=== PATIENT | male | born 1955 | race African-American/Black ===

== ENCOUNTER 2016-10-23 09:35 | Observation (INO) | payer MEDICAID ==
[~2016-10-23] VITALS: Ht 185.4 cm; Wt 117.1 kg
[2016-10-23] VITALS (9 sets, daily range): BP systolic 125–163; BP diastolic 63–80; PULSE 82–102; RESP 16–20; TEMP 97.4–98.2; O2SAT 92–99
[~2016-10-23 09:35] MED LIST: ALBU1AER INH; CYCL1PAK PO; DORZSOL EACH EYE; FAMO20TA2 PO; GLYB1TAB51 PO; HYDR10SO PO; IRON27TA PO; LATA.005%O OU; METO100T PO; NEUR800T PO; POTA-267 PO; PRED5SOL PO; ZOCO40TA PO
[2016-10-23] MEDS ORDERED: METO100T PO (10:22)
[2016-10-23] MEDS ORDERED: GABA800T PO (10:22)
[2016-10-23] MEDS ORDERED: FERR325T72 PO (10:22)
[2016-10-23] MEDS ORDERED: SIMV10TA PO (10:22)
[2016-10-23] MEDS ORDERED: GLYB5TAB3 PO (10:22)
[2016-10-23] MEDS ORDERED: METH4PAK PO (10:22)
[2016-10-23] MEDS ORDERED: ALBUAER3 INH (10:23)
[2016-10-23] MEDS ORDERED: DORZ1SOL EACH EYE (10:24)
[2016-10-23] MEDS ORDERED: LATA0.002 EACH EYE (10:24)
[2016-10-23] MEDS ORDERED: HYDR-3583 PO (10:27)
--- NOTE | 2016-10-23 10:38 | PD ---
HPI Chief Complaint: Facial Pain or Swelling Time Seen by Provider: 10:20 Travel History International Travel<30 days: No Contact w/Intl Traveler<30days: No Traveled to known affect area: No History of Present Illness HPI 60-year-old male complains of swelling of the neck. Patient states that he started having plugged ear last week. Patient used [id number] equipment with fluid to wash his ear out. 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 Patient states that last therapy was 5 days ago. Patient started having swelling of the neck underneath the chin 6 days ago. Patient states that he has gurgling noise and lying down at night. Patient was seen and admitted to [facility] in [facility] 5 days ago. Patient was discharged in the next day. Patient was advised to stop taking losartan and prednisone and advised to take the Medrol Dosepak after discharge. Patient states that he had persistent swelling of the neck and underneath the chin since then. Patient states that the swelling probably get worse since yesterday. Patient denies any problem with swallowing or breathing. Patient denies any chest pain or shortness of breath. Patient denies any itching rash. Patient has history hypertension, diabetes, hyperlipidemia. PFSH Past Medical History Arthritis: Yes Asthma: No Autoimmune Disease: No Blood Disorders: No Anxiety: No Depression: No Heart Rhythm Problems: No Cancer: Yes Cardiovascular Problems: No High Cholesterol: No Chemotherapy: Yes (PILLS, NONE CURRENTLY) Chest Pain: No Congestive Heart Failure: No COPD: No Cerebrovascular Accident: No Diabetes: Yes Patient Takes Glucophage: No Diminished Hearing: No Endocrine: Yes GERD: No Glaucoma: No Genitourinary: No Headaches: No Hepatitis: No Hypertension: Yes Immune Disorder: No Implanted Vascular Access Dvce: Yes (RIGHT CHEST) Kidney Stones: No Musculoskeletal: Yes Neurologic: Yes (GUILLAIN BARRE) Psychiatric: No Reproductive: No Respiratory: No Immunizations Current: Yes Migraines: No Myocardial Infarction: No Renal Failure: No Seizures: No Sickle Cell Disease: No Sleep Apnea: No Thyroid Disease: No Ulcer: No ?: Not Past Surgical History Abdominal Surgery: No AICD: No Appendectomy: No Cardiac Surgery: No Cholecystectomy: No Ear Surgery: No Endocrine Surgery: No Eye Surgery: No Genitourinary Surgery: No Gynecologic Surgery: No Joint Replacement: No Oral Surgery: No Pacemaker: No Thoracic Surgery: No Other Surgery: Yes (PORT INSERTION, RIGHT CHEST) Social History Alcohol Use: Yes (2 BEERS PER DAY) Tobacco Use: No Substance Use: No Allergies-Medications (Allergen,Severity, Reaction): Coded Allergies: Lisinopril (Verified Allergy, Unknown, 10/23/16) Reported Meds & Prescriptions Reported Meds & Active Scripts Active Reported Hydrocodone-Acetaminophen 10-325 mg Tab 1 Tab PO TID Cosopt Pf Opth Drops (Dorzolamide-Timolol Pf Opth Drops) 22.3-6.8 mg/ml Soln 1 Drop EACH EYE DAILY Latanoprost Opth Drops (Latanoprost) 0.005% Drops 1 Drop EACH EYE HS Refrigerate until opened. Proair Hfa 8.5 GM Inh (Albuterol Sulfate) 90 Mcg/Act Aer 2 Puff INH DAILY PRN 108 mcg/actuation Methylprednisolone Dosepak (Methylprednisolone) 4 Dspk 4 Mg PO DIRECTED Per Pharmacist Direction Metoprolol Tartrate 100 Mg Tab 100 Mg PO DAILY Ferrous Gluconate 325 Mg Tab 325 Mg PO DAILY Gabapentin 800 Mg Tab 1,600 Mg PO TID Simvastatin 10 Mg Tab 10 Mg PO HS Glyburide 5 Mg Tab 5 Mg PO DAILY Take with meals at the same time each day Review of Systems General / Constitutional: No: Fever Eyes: No: Visual changes HENT: No: Headaches Cardiovascular: No: Chest Pain or Discomfort Respiratory: No: Shortness of Breath Gastrointestinal: No: Abdominal Pain Genitourinary: No: Dysuria Musculoskeletal: No: Pain Skin: No Rash Neurologic: No: Weakness Psychiatric: No: Depression Endocrine: No: Polydipsia Hematologic/Lymphatic: No: Easy Bruising Physical Exam Narrative GENERAL: Well-nourished, well-developed patient. SKIN: Focused skin assessment warm/dry. HEAD: Normocephalic. EYES: No scleral icterus. No injection or drainage. NECK: Supple, trachea midline. No JVD or lymphadenopathy. Patient has soft tissue swelling submandibular area anterior cervical area. Nontender palpation. No redness no heat no induration. CARDIOVASCULAR: Regular rate and rhythm without murmurs, gallops, or rubs. RESPIRATORY: Breath sounds equal bilaterally. No accessory muscle use. GASTROINTESTINAL: Abdomen soft, non-tender, nondistended. MUSCULOSKELETAL: No cyanosis, or edema. BACK: Nontender without obvious deformity. No CVA tenderness. Neurologic exam normal. Data Data Last Documented VS Vital Signs Date Time Temp Pulse Resp B/P Pulse Ox O2 Delivery O2 Flow Rate FiO2 10/23/16 15:49 82 16 140/67 96 Room Air 10/23/16 09:37 98.2 Orders Complete Blood Count With Diff (10/23/16 10:29) Comprehensive Metabolic Panel (10/23/16 10:29) Prothrombin Time / Inr (Pt) (10/23/16 10:29) Act Partial Throm Time (Ptt) (10/23/16 10:29) C-Reactive Protein (Crp) (10/23/16 10:29) Urinalysis - C+S If Indicated (10/23/16 10:29) Westergren Sedimentation Rate (10/23/16 10:29) Monoscreen (10/23/16 10:29) Chest, Single Ap (10/23/16 10:29) Iv Access Insert/Monitor (10/23/16 10:29) Ecg Monitoring (10/23/16 10:29) Oximetry (10/23/16 10:29) Ct Soft Tiss Neck W Iv Cont (10/23/16 10:29) Iohexol 350 Inj (Omnipaque 350 Inj) (10/23/16 12:42) Labs Laboratory Tests Test 10/23/16 10/23/16 10:45 11:15 White Blood Count 12.8 TH/MM3 Red Blood Count 3.77 MIL/MM3 Hemoglobin 11.0 GM/DL Hematocrit 33.3 % Mean Corpuscular Volume 88.4 FL Mean Corpuscular Hemoglobin 29.3 PG Mean Corpuscular Hemoglobin 33.1 % Concent Red Cell Distribution Width 16.1 % Platelet Count 88 TH/MM3 Mean Platelet Volume 9.6 FL Neutrophils (%) (Auto) 75.9 % Lymphocytes (%) (Auto) 14.9 % Monocytes (%) (Auto) 8.9 % Eosinophils (%) (Auto) 0.2 % Basophils (%) (Auto) 0.1 % Neutrophils # (Auto) 9.7 TH/MM3 Lymphocytes # (Auto) 1.9 TH/MM3 Monocytes # (Auto) 1.1 TH/MM3 Eosinophils # (Auto) 0.0 TH/MM3 Basophils # (Auto) 0.0 TH/MM3 CBC Comment AUTO DIFF Differential Comment AUTO DIFF CONFIRMED Platelet Estimate LOW Platelet Morphology Comment NORMAL Polychromasia 2.0 % Erythrocyte Sedimentation Rate 85 mm/hr Prothrombin Time 11.1 SEC Prothromb Time International 1.0 RATIO Ratio Activated Partial 21.5 SEC Thromboplast Time Urine Color YELLOW Urine Turbidity CLEAR Urine pH 5.5 Urine Specific [place] 1.014 Urine Protein NEG mg/dL Urine Glucose (UA) NEG mg/dL Urine Ketones NEG mg/dL Urine Occult Blood NEG Urine Nitrite NEG Urine Bilirubin NEG Urine Urobilinogen 2.0 MG/DL Urine Leukocyte Esterase NEG Urine RBC LESS THAN 1 /hpf Urine WBC 1 /hpf Urine Squamous Epithelial <1 /hpf Cells Urine Mucus FEW /lpf Microscopic Urinalysis Comment CULT NOT INDICATED Sodium Level 139 MEQ/L Potassium Level 3.7 MEQ/L Chloride Level 106 MEQ/L Carbon Dioxide Level 28.0 MEQ/L Anion Gap 5 MEQ/L Blood Urea Nitrogen 13 MG/DL Creatinine 1.03 MG/DL Estimat Glomerular Filtration 89 ML/MIN Rate Random Glucose 53 MG/DL Calcium Level 8.4 MG/DL Total Bilirubin 0.8 MG/DL Aspartate Amino Transf 30 U/L (AST/SGOT) Alanine Aminotransferase 28 U/L (ALT/SGPT) Alkaline Phosphatase 83 U/L C-Reactive Protein 0.81 MG/DL Total Protein 10.6 GM/DL Albumin 2.7 GM/DL Monoscreen NEG MDM Medical Decision Making Medical Screen Exam Complete: Yes Emergency Medical Condition: Yes Interpretation(s) 16 11 PM. Last Impressions Neck CT 10/23/16 1029 Signed Impressions: Service Date/Time: Sunday, October 23, 2016 12:27 - CONCLUSION: Mild nonspecific cellulitis or edema in the submandibular regions and anterior neck. Bebeto Bryant MD 16 11 PM. CBC WBC 12.8. Hemoglobin 11.0 hematocrit 33.3. Platelet 88. 75 neutrophil. Sedimentation rate 85. C-reactive protein 0.81. Stevens screen negative. Differential Diagnosis Differential diagnosis including angioedema, lymphadenopathy, abscess. Narrative Course 60-year-old male with submandibular and anterior cervical swelling. Patient was on losartan and was seen at [facility] and advised to stop that medication. Patient had persistent swelling since then. No respiratory or GI compromise. Diagnosis Primary Impression: Herpangina Additional Impression: Angioedema Qualified Code: T78.3XXA - Angioedema, initial encounter Gabriel Hall MD Oct 23, 2016 10:38
[2016-10-23 11:17] LABS: AUTOMATED NEUTROPHIL # 9.7 TH/MM3 (1.8-7.7); BASOPHIL % 0.1 % (0.0-2.0); EOSINOPHIL % 0.2 % (0.0-4.0); HEMATOCRIT 33.3 % (39.0-51.0); LYMPH % 14.9 % (9.0-44.0); LYMPHOCYTE # 1.9 TH/MM3 (1.0-4.8); MEAN CELL VOLUME 88.4 FL (80.0-100.0); MEAN CORPUSCULAR HEMOGLOBIN 29.3 PG (27.0-34.0); MEAN CORPUSCULAR HGB CONC 33.1 % (32.0-36.0); MONO % 8.9 % (0.0-8.0); NEUT % 75.9 % (16.0-70.0); PLATELET COUNT 88 TH/MM3 (150-450); RED BLOOD COUNT 3.77 MIL/MM3 (4.50-5.90); RED CELL DISTRIBUTION WIDTH 16.1 % (11.6-17.2); WHITE BLOOD COUNT 12.8 TH/MM3 (4.0-11.0)
[2016-10-23 11:23] LABS: APTT (PATIENT) 21.5 SEC (24.3-30.1); PROTHROMBIN TIME - PATIENT 11.1 SEC (9.8-11.6)
[2016-10-23 11:33] LABS: BLOOD, URINE NEG (NEG); COMMENT (UR) CULT NOT INDICATED; CULTURE IF INDICATED CULT NOT INDICATED; GLUCOSE,URINE NEG (NEG); KETONE, URINE NEG (NEG); MUCUS URINE FEW /lpf (OCC); NITRITE,URINE NEG (NEG); PH, URINE 5.5 (5.0-8.5); SQUAMOUS EPITHELIAL CELL URINE <1 /hpf (0-5); URINE COLOR YELLOW (YELLW/STRAW)
[2016-10-23 11:36] LABS: HEMO FLAGS AUTO DIFF
--- NOTE | 2016-10-23 11:37 | RADRPT ---
EXAM DATE/TIME: 10/23/2016 10:37 [facility] COMPARISON: No previous studies available for comparison. INDICATIONS : Shortness of breath. MEDICAL HISTORY : Hypertension. Diabetes mellitus type II. Guillain-[place] syndrome SURGICAL HISTORY : Infusaport ENCOUNTER: Initial ACUITY: 1 day PAIN SCORE: 0/10 LOCATION: Bilateral chest FINDINGS: A right internal jugular [id number] has its tip in the superior vena cava. There is no pneumothor ax. The heart is normal. The pulmonary vascular pattern is also normal. The lungs are clear. Dege nerative changes are noted throughout the thoracic spine. CONCLUSION: 1. No acute cardiopulmonary disease. 2. Degenerative changes throughout the thoracic spine. Alireza Barnes MD on October 23, 2016 at 11:31 Board Certified Radiologist. This report was verified electronically.
[2016-10-23 11:47] LABS: ALT (GPT) 28 U/L (12-78); ANION GAP 5 MEQ/L (5-15); AST (GOT) 30 U/L (15-37); BLOOD UREA NITROGEN 13 MG/DL (7-18); CHLORIDE 106 MEQ/L (98-107); GLOMERULAR FILTRATION RATE 89 ML/MIN (>89); POTASSIUM 3.7 MEQ/L (3.5-5.1); SODIUM (NA) 139 MEQ/L (136-145)
[2016-10-23 11:49] LABS: ALKALINE PHOSPHATASE 83 U/L (45-117); TOTAL BILIRUBIN ADULT 0.8 MG/DL (0.2-1.0)
[2016-10-23 11:57] LABS: PLATELET ESTIMATE SMEAR LOW (NORMAL); PLATELET MORPHOLOGY NORMAL (NORMAL); SCAN/DIFF AUTO DIFF CONFIRMED
[2016-10-23] MEDS ORDERED: IOHEXOL 350 MG/ML 10 ML VIAL (for RAD DIAG) IV ONE (12:42)
--- NOTE | 2016-10-23 13:35 | RADRPT ---
EXAM DATE/TIME: 10/23/2016 12:27 [facility] COMPARISON: No previous studies available for comparison. INDICATIONS : Left submandibular and anterior cervical swelling since last . IV CONTRAST: 96 cc Omnipaque 350 (iohexol) IV RADIATION DOSE: 17.68 CTDIvol (mGy) MEDICAL HISTORY : Hypertension. Diabetes mellitus type 2. SURGICAL HISTORY : None. Port in right chest ENCOUNTER: Initial ACUITY: 1 day PAIN SCALE: 3/10 LOCATION: Left neck TECHNIQUE: Volumetric scanning of the neck was performed. Using automated exposure control and adjustment of mA and/or kV according to patient size, radiation dose was kept as low as reasonably achievable to obtain optimal diagnostic quality images. DICOM format image data is available electronically for r eview and comparison. FINDINGS: There is nonspecific induration of the subcutaneous tissues in the submandibular regions bilaterally and in the anterior neck in fairly symmetric fashion, perhaps slightly worse on the left than the rig ht. No evidence of discrete mass or collection. No evidence of adenopathy. The parotids and submandib ular salivary glands are symmetric. There is no evidence of airway mass or obstruction. Thyroid is un remarkable for CT appearance. No supraclavicular adenopathy is identified. Visualized upper mediastin um is clear. Right chest port is noted. There is some polypoid mucosal disease in the base of the lef t maxillary antrum. CONCLUSION: Mild nonspecific cellulitis or edema in the submandibular regions and anterior neck. Bebeto Bryant MD on October 23, 2016 at 13:24 Board Certified Radiologist. This report was verified electronically.
[2016-10-23] MEDS ORDERED: CLINDAMYCIN INJ 600 MG in SODIUM CHLORIDE 0.9% INJ 100 ML IV ONE (16:30)
[2016-10-23] MEDS ORDERED: AMPICILLIN-SULBACTAM INJ 3 GM in SODIUM CHLORIDE 0.9% INJ 100 ML IV ONE (16:30)
[2016-10-23] MEDS ORDERED: GLUCAGON 1 MG/ML VIAL OTHER PRN (16:45)
[2016-10-23] MEDS ORDERED: SODIUM CHLOR 0.9% 1000 ML INJ 1,000 ML IV SCH (16:45)
[2016-10-23] MEDS ORDERED: DEXTROSE 50% IN WATER 50 ML VIAL(D50) IV PRN (16:45)
--- NOTE | 2016-10-23 17:22 | HHI.HP ---
[facility] [place] [facility]-Staff Admission Diagnosis Herpangina. Angioedema. Diagnoses: Chief Complaint: Neck swelling Travel History International Travel<30 Days: No Contact w/Intl Traveler <30 Da: No Traveled to Known Affected Are: No History of Present Illness Written by Viraj Flaherty, acting as scribe for Dr. Marshall on 10/23/16 at 17:00. 60-year-old male with a past medical history of Guillain-Rm, HTN, HLD, DM with neuropathy, glaucoma who presents for neck swelling. The patient states that about 5 days ago last he noticed right ear fullness with associated anterior neck swelling. On Saturday the swelling was much worse so he went to the hospital at [facility]. The patient was admitted Saturday and Saturday and received IV steroids and Benadryl. He states that he was discharged on Saturday after no improvement with prednisone taper, liquid Benadryl, and a soft diet. He denies receiving any antibiotics. He denies any swallowing difficulties or shortness of breath. He denies any neck pain, fever , chills, night sweats. He denies any new medications or recent medication changes. Review of Systems Except as stated in HPI: all other systems reviewed are Neg Past Family Social History Past Medical History Guillain-Rm on IVIG Hypertension Hyperlipidemia neck some diabetes mellitus with peripheral neuropathy Glaucoma Past Surgical History Port placement and replacement right chest Reported Medications Reported Meds & Active Scripts Active Reported Hydrocodone-Acetaminophen 10-325 mg Tab 1 Tab PO TID Cosopt Pf Opth Drops (Dorzolamide-Timolol Pf Opth Drops) 22.3-6.8 mg/ml Soln 1 Drop EACH EYE DAILY Latanoprost Opth Drops (Latanoprost) 0.005% Drops 1 Drop EACH EYE HS Refrigerate until opened. Proair Hfa 8.5 GM Inh (Albuterol Sulfate) 90 Mcg/Act Aer 2 Puff INH DAILY PRN 108 mcg/actuation Methylprednisolone Dosepak (Methylprednisolone) 4 Dspk 4 Mg PO DIRECTED Per Pharmacist Direction Metoprolol Tartrate 100 Mg Tab 100 Mg PO DAILY Ferrous Gluconate 325 Mg Tab 325 Mg PO DAILY Gabapentin 800 Mg Tab PO TID Simvastatin 10 Mg Tab 10 Mg PO HS Glyburide 5 Mg Tab 5 Mg PO DAILY Take with meals at the same time each day Allergies: Coded Allergies: Lisinopril (Verified Allergy, Unknown, 10/23/16) Active Ordered Medications Current Medications Medications (Trade) Dose Ordered Sig/Sridhar Route Start Time Stop Time Status Last Admin (NS 1000 ml Inj) 1,000 ml @ 100 mls/hr Q10H IV 10/23/16 16:45 UNV (D50w (Vial) Inj) 50 ml UNSCH PRN IV 10/23/16 16:45 UNV (Glucagon Inj) 1 mg UNSCH PRN OTHER 10/23/16 16:45 UNV Family History Mother " from smoking" Social History Recs 2 beers per day Occasionally smokes menthol cigarettes Denies any drug use Physical Exam Vital Signs Vital Signs Date Time Temp Pulse Resp B/P Pulse Ox O2 Delivery O2 Flow Rate FiO2 10/23/16 15:49 82 16 140/67 96 Room Air 10/23/16 12:50 102 16 151/75 96 Room Air 10/23/16 10:36 98 Room Air 10/23/16 09:37 98.2 84 16 163/80 99 Physical Exam GENERAL: Well-developed well-nourished. In no acute distress. SKIN: Warm and dry. No lesions noted. HEENT: Normocephalic. Pupils equal and round. Mucous membranes pink and moist. No oral lesions noted. Airway patent. Anterior neck swelling with a hard quality, nontender. CARDIOVASCULAR: Regular rate and rhythm. No murmur appreciated. RESPIRATORY: No accessory muscle use. Clear to auscultation. Breath sounds equal bilaterally. GASTROINTESTINAL: Abdomen soft, non-tender, nondistended. Bowel sounds x4. MUSCULOSKELETAL: No obvious deformities. No clubbing or cyanosis. No edema. NEUROLOGICAL: Awake and alert. No focal neurological deficits. Moves upper and lower extremities spontaneously. Normal speech. PSYCHIATRIC: Appropriate mood and affect; insight and judgment normal. Laboratory Laboratory Tests Test 10/23/16 10/23/16 10:45 11:15 White Blood Count 12.8 Red Blood Count 3.77 Hemoglobin 11.0 Hematocrit 33.3 Mean Corpuscular Volume 88.4 Mean Corpuscular Hemoglobin 29.3 Mean Corpuscular Hemoglobin 33.1 Concent Red Cell Distribution Width 16.1 Platelet Count 88 Mean Platelet Volume 9.6 Neutrophils (%) (Auto) 75.9 Lymphocytes (%) (Auto) 14.9 Monocytes (%) (Auto) 8.9 Eosinophils (%) (Auto) 0.2 Basophils (%) (Auto) 0.1 Neutrophils # (Auto) 9.7 Lymphocytes # (Auto) 1.9 Monocytes # (Auto) 1.1 Eosinophils # (Auto) 0.0 Basophils # (Auto) 0.0 CBC Comment AUTO DIFF Differential Comment AUTO DIFF CONFIRMED Platelet Estimate LOW Platelet Morphology Comment NORMAL Polychromasia 2.0 Erythrocyte Sedimentation Rate 85 Prothrombin Time 11.1 Prothromb Time International 1.0 Ratio Activated Partial 21.5 Thromboplast Time Urine Color YELLOW Urine Turbidity CLEAR Urine pH 5.5 Urine Specific [place] 1.014 Urine Protein NEG Urine Glucose (UA) NEG Urine Ketones NEG Urine Occult Blood NEG Urine Nitrite NEG Urine Bilirubin NEG Urine Urobilinogen 2.0 Urine Leukocyte Esterase NEG Urine RBC LESS THAN 1 Urine WBC 1 Urine Squamous Epithelial <1 Cells Urine Mucus FEW Microscopic Urinalysis Comment CULT NOT INDICATED Sodium Level 139 Potassium Level 3.7 Chloride Level 106 Carbon Dioxide Level 28.0 Anion Gap 5 Blood Urea Nitrogen 13 Creatinine 1.03 Estimat Glomerular Filtration 89 Rate Random Glucose 53 Calcium Level 8.4 Total Bilirubin 0.8 Aspartate Amino Transf 30 (AST/SGOT) Alanine Aminotransferase 28 (ALT/SGPT) Alkaline Phosphatase 83 C-Reactive Protein 0.81 Total Protein 10.6 Albumin 2.7 Monoscreen NEG Result Diagram: 10/23/16 1045 10/23/16 1045 Imaging Last Impressions Neck CT 10/23/16 1029 Signed Impressions: Service Date/Time: Sunday, October 23, 2016 12:27 - CONCLUSION: Mild nonspecific cellulitis or edema in the submandibular regions and anterior neck. Bebeto Bryant MD Chest X-Ray 10/23/16 1029 Signed Impressions: Service Date/Time: Sunday, October 23, 2016 10:37 - CONCLUSION: 1. No acute cardiopulmonary disease. 2. Degenerative changes throughout the thoracic spine. Alireza Barnes MD Assessment and Plan Assessment and Plan 60-year-old male with a past medical history of Guillain-Rm, HTN, HLD, DM with neuropathy, glaucoma who presents for neck swelling Anterior neck cellulitis/Jose's angina: No airway compromise or swallowing difficulties. Reviewed: Neck CT shows mild nonspecific cellulitis or edema in the submandibular regions in the anterior neck. Afebrile. Leukocytosis. Elevated ESR and CRP. -Continue IV Unasyn and monitor clinical response -IVF Diabetes mellitus: Hold home glyburide. Monitor Accu-Cheks. SSI coverage. Other chronic medical conditions include Hypertension, hyperlipidemia, glaucoma : Stable at this time and will continue home medications as indicated. Discussed Condition With Patient, ED staff Attending Statement patient is a 60 y/o male who presented to ER with right submandibular swelling. was treated with steroids for the past few days. on exam; submandibular area is swollen and firm with no tenderness. A: -submandibular cellulitis/ jose's angina Plan: continue Unasyn and monitor the response. continue supportive care with pain control and antipyretics as needed. Viraj Flaherty Oct 23, 2016 17:22 Milagro Marshall MD Oct 23, 2016 17:45
[2016-10-23] MEDS ORDERED: ONDANSETRON HCL 4 MG/2 ML VIAL IV PUSH PRN (17:30)
[2016-10-23] MEDS ORDERED: ACETAMINOPHEN 325 MG TAB PO PRN (17:30)
[2016-10-23] MEDS ORDERED: ALBUTEROL SULFATE 90 MCG/ACT HFA 8 GM INHALER INH PRN (17:30)
[2016-10-23] MEDS ORDERED: GABAPENTIN 400 MG CAP PO SCH ×2 (18:00)
[2016-10-23] MEDS: INSULIN ASPART SUPPLEMENTAL SCALE SQ SCH (20:00)
[2016-10-23] MEDS ORDERED: ACETAMINOPHEN/HYDROcodone 325 MG/5 MG TAB PO ONE (20:00)
[2016-10-23] MEDS: LATANOPROST 0.005% OPHT SOLN 2.5 ML BTL EACH EYE SCH (20:04)
[2016-10-23] MEDS ORDERED: ALBUTEROL SULFATE 90 MCG/ACT HFA 18 GM INHALER INH PRN (20:06)
[2016-10-23] MEDS: PRAVASTATIN SOD 20 MG TAB PO SCH (20:42)
[2016-10-23] MEDS: AMPICILLIN-SULBACTAM INJ 3 GM in SODIUM CHLORIDE 0.9% INJ 100 ML IV SCH (21:18)
[2016-10-24] VITALS (7 sets, daily range): BP systolic 121–158; BP diastolic 66–77; PULSE 76–96; RESP 18–20; TEMP 96.6–97.8; O2SAT 93–96
[2016-10-24] MEDS: AMPICILLIN-SULBACTAM INJ 3 GM in SODIUM CHLORIDE 0.9% INJ 100 ML IV SCH ×4 (03:55→21:13)
[2016-10-24] MEDS: INSULIN ASPART SUPPLEMENTAL SCALE SQ SCH ×4 (05:40→19:56)
[2016-10-24 08:01] LABS: BASOPHIL % 0.1 % (0.0-2.0); EOSINOPHIL # 0.1 TH/MM3 (0-0.4); EOSINOPHIL % 0.5 % (0.0-4.0); HEMATOCRIT 34.7 % (39.0-51.0); LYMPHOCYTE # 1.6 TH/MM3 (1.0-4.8); MEAN CELL VOLUME 89.2 FL (80.0-100.0); MEAN CORPUSCULAR HEMOGLOBIN 28.7 PG (27.0-34.0); MEAN CORPUSCULAR HGB CONC 32.2 % (32.0-36.0); MONO % 7.5 % (0.0-8.0); NEUT % 76.9 % (16.0-70.0); PLATELET COUNT 77 TH/MM3 (150-450); RED BLOOD COUNT 3.89 MIL/MM3 (4.50-5.90); RED CELL DISTRIBUTION WIDTH 16.3 % (11.6-17.2); WHITE BLOOD COUNT 10.4 TH/MM3 (4.0-11.0)
[2016-10-24 08:08] LABS: HEMO FLAGS AUTO DIFF
[2016-10-24] MEDS: METOPROLOL TARTRATE 100 MG TAB PO SCH (09:22)
[2016-10-24] MEDS: DORZOLAMIDE/TIMOLOL OPTH SOLN 10 ML BTL EACH EYE SCH (09:55)
[2016-10-24 10:02] LABS: POLYCHROMASIA 2.2 % (0.0-1.9)
[2016-10-24 10:04] LABS: PLATELET ESTIMATE SMEAR LOW (NORMAL); PLATELET MORPHOLOGY ENLARGED (NORMAL); SCAN/DIFF AUTO DIFF CONFIRMED
--- NOTE | 2016-10-24 10:33 | HHI.PR ---
Subjective Remarks overall feels better. says that ' his neck is not as firm as yesterday'. no fever. has some swelling of the right arm. Objective Vitals Vital Signs Date Time Temp Pulse Resp B/P Pulse Ox O2 Delivery O2 Flow Rate FiO2 10/24/16 06:18 Room Air 10/24/16 04:35 97.3 93 18 157/74 94 10/24/16 01:00 Room Air 10/23/16 23:30 97.4 84 18 158/73 94 10/23/16 20:57 Room Air 10/23/16 20:17 82 10/23/16 20:07 97.5 85 18 153/72 94 10/23/16 18:50 97.4 91 20 162/79 92 10/23/16 17:49 87 16 125/63 96 Room Air 10/23/16 15:49 82 16 140/67 96 Room Air 10/23/16 12:50 102 16 151/75 96 Room Air 10/23/16 10:36 98 Room Air I/O 10/23/16 10/23/16 10/23/16 10/24/16 10/24/16 10/24/16 07:00 15:00 23:00 07:00 15:00 23:00 Intake Total 1282 ml 1180 ml Output Total 300 ml Balance 982 ml 1180 ml Intake Oral 720 ml 480 ml IV Total 562 ml 700 ml Output Urine Total 300 ml # Voids 4 # Bowel Movements 0 0 Result Diagram: 10/24/16 0717 10/23/16 1045 Imaging Last Impressions Neck CT 10/23/16 1029 Signed Impressions: Service Date/Time: Sunday, October 23, 2016 12:27 - CONCLUSION: Mild nonspecific cellulitis or edema in the submandibular regions and anterior neck. Bebeto Bryant MD Chest X-Ray 10/23/16 1029 Signed Impressions: Service Date/Time: Sunday, October 23, 2016 10:37 - CONCLUSION: 1. No acute cardiopulmonary disease. 2. Degenerative changes throughout the thoracic spine. Alireza Barnes MD Objective Remarks GENERAL: This is a well-nourished, well-developed patient, in no apparent distress. HEENT; submandibular area with improved swelling- not as firm as yesterday. CARDIOVASCULAR: Regular rate and regular rhythm without murmurs, gallops, or rubs. RESPIRATORY: Clear to auscultation. Breath sounds equal bilaterally. No wheezes , rales, or rhonchi. GASTROINTESTINAL: Abdomen soft, non-tender, nondistended. Normal, active bowel sounds MUSCULOSKELETAL: swelling of the right upper extremity NEURO: Alert & Oriented x4 to person, place, time, situation. Moves all ext x4 Procedures none Medications and IVs Current Medications Iohexol 96 ml 96 ml STK-MED ONCE IV Last administered on 10/23/16 12:42; Start 10/23/16 at 12:42; Stop 10/23/16 at 12:43; Status DC Ampicillin Sodium/ Sulbactam Sodium 3 gm/Sodium Chloride 100 ml @ 200 mls/hr ONCE ONCE IV Last administered on 10/23/16 16:53; Start 10/23/16 at 16:30; Stop 10/23/16 at 16:59; Status DC Clindamycin Phosphate 600 mg/ Sodium Chloride 104 ml @ 208 mls/hr ONCE ONCE IV Last administered on 10/23/16 17:45; Start 10/23/16 at 16:30; Stop at 16:59; Status DC Sodium Chloride (NS 1000 ml Inj) 1,000 ml @ 100 mls/hr Q10H IV Last administered on 10/23/16 17:45; Start 10/23/16 at 16:45; Stop 10/23/16 at 17:46 ; Status DC Dextrose (D50w (Vial) Inj) 50 ml UNSCH PRN IV HYPOGLYCEMIA-SEE COMMENTS; Start 10/23/16 at 16:45 Glucagon (Glucagon Inj) 1 mg UNSCH PRN OTHER HYPOGLYCEMIA-SEE COMMENTS; Start 10/23/16 at 16:45 Insulin Aspart 1 1 ACHS SLIDING SCALE SQ ; Start 10/23/16 at 21:00 Ampicillin Sodium/ Sulbactam Sodium/ Sodium Chloride (Unasyn Inj/NS Inj) 100 ml @ 200 mls/hr Q6H IV Last administered on 10/24/16 09:22; Start 10/23/16 at 22 :00 Acetaminophen (Tylenol) 650 mg Q4H PRN PO FEVER/PAIN; Start 10/23/16 at 17:30 Ondansetron HCl (Zofran Inj) 4 mg Q8HR PRN IV PUSH NAUSEA; Start 10/23/16 at 17 :30 Albuterol Sulfate (Proair Hfa Inh) 2 puff DAILY PRN INH SHORTNESS OF BREATH; Start 10/23/16 at 17:30; Stop 10/23/16 at 20:06; Status DC Dorzolamide/ Timolol (Cosopt 2-0.5% Opt Soln) 1 drop DAILY EACH EYE Last administered on 10/24/16 09:55; Start 10/24/16 at 09:00 Latanoprost (Xalatan 0.005% Opt Soln) 1 drop HS EACH EYE Last administered on 10/23/16 20:04; Start 10/23/16 at 21:00 Metoprolol Tartrate (Lopressor) 100 mg DAILY PO Last administered on 10/24/16 09:22; Start 10/24/16 at 09:00 Pravastatin Sodium (Pravachol) 20 mg HS PO Last administered on 10/23/16 20:42 ; Start 10/23/16 at 21:00 Gabapentin (Neurontin) 800 mg TID PO ; Start 10/23/16 at 18:00; Stop 10/23/16 at 20:21; Status DC Gabapentin 1600 mg 1,600 mg TID PO ; Start 10/23/16 at 18:00; Stop 10/23/16 at 20:21; Status DC Sodium Chloride (NS 1000 ml Inj) 1,000 ml @ 75 mls/hr [id number] ONCE IV ; Start 10/24/16 at 16:45; Stop 10/25/16 at 06:04 Acetaminophen/ Hydrocodone Bitart ([place] 5-325 Mg) 1 tab ONCE ONCE PO Last administered on 10/23/16 20:04; Start 10/23/16 at 20:00; Stop 10/23/16 at 20:01 ; Status DC Albuterol Sulfate (Ventolin Hfa Inh) 2 puff DAILY PRN INH SHORTNESS OF BREATH; Start 10/23/16 at 20:06 A/P Assessment and Plan A/P Anterior neck cellulitis/Sadiq's angina: No airway compromise or swallowing difficulties-seems to be improving. Reviewed: Neck CT shows mild nonspecific cellulitis or edema in the submandibular regions in the anterior neck. Afebrile. Leukocytosis. Elevated ESR and CRP. -Continue IV Unasyn and monitor clinical response swelling of the right upper extremity; will check venous doppler to r/o DVT Diabetes mellitus: Hold home glyburide. Monitor Accu-Cheks. SSI coverage. Other chronic medical conditions include Hypertension, hyperlipidemia, glaucoma : Stable at this time and will continue home medications as indicated. Discharge Planning dc home within the next one-two days if remains stable. Milagro Marshall MD Oct 24, 2016 10:33
--- NOTE | 2016-10-24 12:42 | RADRPT ---
EXAM DATE/TIME: 10/23/2016 11:42 [facility] COMPARISON: No previous studies available for comparison. INDICATIONS : Right arm swelling. MEDICAL HISTORY : Hypertension. Arthritis. Diabetes.Measles. SURGICAL HISTORY : Right chest port. ENCOUNTER: Initial ACUITY: 1 day PAIN SCORE: 7/10 LOCATION: Right arm. FINDINGS: There is spontaneous flow documented in the brachial, basilic, axillary, and subclavian veins. Occlu sive thrombus is present in the cephalic vein.. Direction of flow in the jugular vein is caudal. CONCLUSION: Occlusive thrombus in the cephalic vein. Samy Martinez MD FACR on October 24, 2016 at 12:39 Board Certified Radiologist. This report was verified electronically.
[2016-10-24] MEDS ORDERED: SODIUM CHLOR 0.9% 1000 ML INJ 1,000 ML IV ONE (16:45)
[2016-10-24] MEDS: LATANOPROST 0.005% OPHT SOLN 2.5 ML BTL EACH EYE SCH (21:13)
[2016-10-24] MEDS: PRAVASTATIN SOD 20 MG TAB PO SCH (21:13)
[2016-10-24] MEDS ORDERED: ACETAMINOPHEN/HYDROcodone 325 MG/5 MG TAB PO PRN (23:00)
[2016-10-25] MEDS: AMPICILLIN-SULBACTAM INJ 3 GM in SODIUM CHLORIDE 0.9% INJ 100 ML IV SCH ×2 (03:59→11:05)
[2016-10-25 04:00] VITALS: BP 143/71; PULSE 86; RESP 18; TEMP 97.4; O2SAT 95
[2016-10-25] MEDS: INSULIN ASPART SUPPLEMENTAL SCALE SQ SCH ×2 (05:17→11:00)
[2016-10-25 08:00] VITALS: BP 162/81; PULSE 94; RESP 20; TEMP 97.4; O2SAT 94
[2016-10-25 08:55] VITALS: PULSE 93
[2016-10-25] MEDS: DORZOLAMIDE/TIMOLOL OPTH SOLN 10 ML BTL EACH EYE SCH (09:00)
[2016-10-25] MEDS: METOPROLOL TARTRATE 100 MG TAB PO SCH (11:04)
--- NOTE | 2016-10-25 11:17 | HHI.PR ---
Subjective Remarks resting comfortably with no distress. no fever, sob or difficulty swallowing. swelling of the right arm has much improved with no pain. wants to go home today. d/w the RN. Objective Vitals Vital Signs Date Time Temp Pulse Resp B/P Pulse Ox O2 Delivery O2 Flow Rate FiO2 10/25/16 08:55 93 10/25/16 08:00 97.4 94 20 162/81 94 10/25/16 04:26 Room Air 10/25/16 04:00 97.4 86 18 143/71 95 10/24/16 23:51 Room Air 10/24/16 20:00 Room Air 10/24/16 20:00 90 10/24/16 20:00 97.4 84 18 121/71 94 10/24/16 16:00 96.6 76 18 158/75 96 10/24/16 12:00 97.5 80 20 145/77 95 I/O 10/24/16 10/24/16 10/24/16 10/25/16 10/25/16 10/25/16 07:00 15:00 23:00 07:00 15:00 23:00 Intake Total 1180 ml 720 ml 345 ml 345 ml Output Total 975 ml 500 ml 700 ml Balance 1180 ml -255 ml -155 ml -355 ml Intake Oral 480 ml 720 ml 240 ml 240 ml IV Total 700 ml 105 ml 105 ml Output Urine Total 975 ml 500 ml 700 ml # Voids 4 # Bowel Movements 0 2 1 0 Result Diagram: 10/24/16 0717 10/23/16 1045 Imaging Last Impressions Upper Extremity Ultrasound 10/24/16 0000 Signed Impressions: Service Date/Time: Sunday, October 23, 2016 11:42 - CONCLUSION: Occlusive thrombus in the cephalic vein. Samy Martinez MD FACR Neck CT 10/23/16 1029 Signed Impressions: Service Date/Time: Sunday, October 23, 2016 12:27 - CONCLUSION: Mild nonspecific cellulitis or edema in the submandibular regions and anterior neck. Bebeto Bryant MD Chest X-Ray 10/23/16 1029 Signed Impressions: Service Date/Time: Sunday, October 23, 2016 10:37 - CONCLUSION: 1. No acute cardiopulmonary disease. 2. Degenerative changes throughout the thoracic spine. Alireza Barnes MD Objective Remarks GENERAL: This is a well-nourished, well-developed patient, in no apparent distress. HEENT; submandibular area with improved swelling- not as firm as yesterday. CARDIOVASCULAR: Regular rate and regular rhythm without murmurs, gallops, or rubs. RESPIRATORY: Clear to auscultation. Breath sounds equal bilaterally. No wheezes , rales, or rhonchi. GASTROINTESTINAL: Abdomen soft, non-tender, nondistended. Normal, active bowel sounds MUSCULOSKELETAL: swelling of the right upper extremity NEURO: Alert & Oriented x4 to person, place, time, situation. Moves all ext x4 Procedures none Medications and IVs Current Medications Iohexol 96 ml 96 ml STK-MED ONCE IV Last administered on 10/23/16 12:42; Start 10/23/16 at 12:42; Stop 10/23/16 at 12:43; Status DC Ampicillin Sodium/ Sulbactam Sodium 3 gm/Sodium Chloride 100 ml @ 200 mls/hr ONCE ONCE IV Last administered on 10/23/16 16:53; Start 10/23/16 at 16:30; Stop 10/23/16 at 16:59; Status DC Clindamycin Phosphate 600 mg/ Sodium Chloride 104 ml @ 208 mls/hr ONCE ONCE IV Last administered on 10/23/16 17:45; Start 10/23/16 at 16:30; Stop at 16:59; Status DC Sodium Chloride (NS 1000 ml Inj) 1,000 ml @ 100 mls/hr Q10H IV Last administered on 10/23/16 17:45; Start 10/23/16 at 16:45; Stop 10/23/16 at 17:46 ; Status DC Dextrose (D50w (Vial) Inj) 50 ml UNSCH PRN IV HYPOGLYCEMIA-SEE COMMENTS; Start 10/23/16 at 16:45 Glucagon (Glucagon Inj) 1 mg UNSCH PRN OTHER HYPOGLYCEMIA-SEE COMMENTS; Start 10/23/16 at 16:45 Insulin Aspart 1 1 ACHS SLIDING SCALE SQ Last administered on 10/24/16 11:00 ; Start 10/23/16 at 21:00 Ampicillin Sodium/ Sulbactam Sodium/ Sodium Chloride (Unasyn Inj/NS Inj) 100 ml @ 200 mls/hr Q6H IV Last administered on 10/25/16 11:05; Start 10/23/16 at 22 :00 Acetaminophen (Tylenol) 650 mg Q4H PRN PO FEVER/PAIN; Start 10/23/16 at 17:30 Ondansetron HCl (Zofran Inj) 4 mg Q8HR PRN IV PUSH NAUSEA; Start 10/23/16 at 17 :30 Albuterol Sulfate (Proair Hfa Inh) 2 puff DAILY PRN INH SHORTNESS OF BREATH; Start 10/23/16 at 17:30; Stop 10/23/16 at 20:06; Status DC Dorzolamide/ Timolol (Cosopt 2-0.5% Opt Soln) 1 drop DAILY EACH EYE Last administered on 10/25/16 09:00; Start 10/24/16 at 09:00 Latanoprost (Xalatan 0.005% Opt Soln) 1 drop HS EACH EYE Last administered on 10/24/16 21:13; Start 10/23/16 at 21:00 Metoprolol Tartrate (Lopressor) 100 mg DAILY PO Last administered on 10/25/16 11:04; Start 10/24/16 at 09:00 Pravastatin Sodium (Pravachol) 20 mg HS PO Last administered on 10/24/16 21:13 ; Start 10/23/16 at 21:00 Gabapentin (Neurontin) 800 mg TID PO ; Start 10/23/16 at 18:00; Stop 10/23/16 at 20:21; Status DC Gabapentin 1600 mg 1,600 mg TID PO ; Start 10/23/16 at 18:00; Stop 10/23/16 at 20:21; Status DC Sodium Chloride (NS 1000 ml Inj) 1,000 ml @ 75 mls/hr [id number] ONCE IV ; Start 10/24/16 at 16:45; Stop 10/24/16 at 16:45; Status DC Acetaminophen/ Hydrocodone Bitart ([place] 5-325 Mg) 1 tab ONCE ONCE PO Last administered on 10/23/16 20:04; Start 10/23/16 at 20:00; Stop 10/23/16 at 20:01 ; Status DC Albuterol Sulfate (Ventolin Hfa Inh) 2 puff DAILY PRN INH SHORTNESS OF BREATH; Start 10/23/16 at 20:06 Acetaminophen/ Hydrocodone Bitart ([place] 5-325 Mg) 1 tab Q6H PRN PO pain >5 Last administered on 10/24/16t 23:00; Start 10/24/16 at 23:00 A/P Assessment and Plan A/P Anterior neck cellulitis/Sadiq's angina: No airway compromise or swallowing difficulties-seems to be improving. Reviewed: Neck CT shows mild nonspecific cellulitis or edema in the submandibular regions in the anterior neck. Afebrile. Leukocytosis. Elevated ESR and CRP. -switch to po clindamycin swelling of the right upper extremity; with superficial phlebitis- advised to keep the right arm elevated. Diabetes mellitus: Hold home glyburide. Monitor Accu-Cheks. SSI coverage. Other chronic medical conditions include Hypertension, hyperlipidemia, glaucoma : Stable at this time and will continue home medications as indicated. Discharge Planning dc home today. see med list. f/u; pcp. d/w the patient and RN. Milagro Marshall MD Oct 25, 2016 11:17
[2016-10-25] MEDS ORDERED: CLIN1CAP6 PO (11:18)
--- NOTE | 2016-10-25 11:19 | HHI.DCPOC ---
Discharge Care Plan Diagnosis: (1) Cellulitis of submandibular region Your Health Problems Are: Inflammation Swelling Goals to Promote Your Health * To prevent worsening of your condition and complications * To maintain your health at the optimal level Directions to Meet Your Goals Take your medications as prescribed Follow your dietary instruction Follow activity as directed Keep your appointments as scheduled Take your immunizations and boosters as scheduled If your symptoms worsen call your PCP, if no PCP go to Urgent Care Center or Emergency Room Smoking is Dangerous to Your Health. Avoid second hand smoke Call the 24-hour hour crisis hotline for domestic abuse at Milagro Marshall MD Oct 25, 2016 11:19
--- NOTE | 2016-10-25 11:20 | HHI.DS ---
Discharge Summary Admission Date Oct 23, 2016 at 16:38 Discharge Date: Oct 25, 2016 Admitting Diagnosis Herpangina. Angioedema. (1) Cellulitis of submandibular region ICD Code: K12.2 Diagnosis: Principal Procedures none Brief History - From Admission Written by Viraj Flaherty, acting as scribe for Dr. Marshall on 10/23/16 at 17:00. 60-year-old male with a past medical history of Guillain-Rm, HTN, HLD, DM with neuropathy, glaucoma who presents for neck swelling. The patient states that about 5 days ago last he noticed right ear fullness with associated anterior neck swelling. On Saturday the swelling was much worse so he went to the hospital at [facility]. The patient was admitted Saturday and Saturday and received IV steroids and Benadryl. He states that he was discharged on Saturday after no improvement with prednisone taper, liquid Benadryl, and a soft diet. He denies receiving any antibiotics. He denies any swallowing difficulties or shortness of breath. He denies any neck pain, fever , chills, night sweats. He denies any new medications or recent medication changes. CBC/BMP: 10/24/16 0717 10/23/16 1045 Significant Findings Laboratory Tests Test 10/23/16 10/24/16 10:45 07:17 White Blood Count 12.8 TH/MM3 (4.0-11.0) Red Blood Count 3.77 MIL/MM3 3.89 MIL/MM3 (4.50-5.90) (4.50-5.90) Hemoglobin 11.0 GM/DL 11.2 GM/DL (13.0-17.0) (13.0-17.0) Hematocrit 33.3 % 34.7 % (39.0-51.0) (39.0-51.0) Platelet Count 88 TH/MM3 77 TH/MM3 (150-450) (150-450) Neutrophils (%) (Auto) 75.9 % 76.9 % (16.0-70.0) (16.0-70.0) Monocytes (%) (Auto) 8.9 % (0.0-8.0) Neutrophils # (Auto) 9.7 TH/MM3 8.0 TH/MM3 (1.8-7.7) (1.8-7.7) Monocytes # (Auto) 1.1 TH/MM3 (0-0.9) Platelet Estimate LOW (NORMAL) LOW (NORMAL) Polychromasia 2.0 % (0.0-1.9) 2.2 % (0.0-1.9) Erythrocyte Sedimentation Rate 85 mm/hr (0-20) Activated Partial 21.5 SEC Thromboplast Time (24.3-30.1) Urine Mucus FEW /lpf (OCC) Random Glucose 53 MG/DL (74-106) Calcium Level 8.4 MG/DL (8.5-10.1) C-Reactive Protein 0.81 MG/DL (0.00-0.30) Total Protein 10.6 GM/DL (6.4-8.2) Albumin 2.7 GM/DL (3.4-5.0) Platelet Morphology Comment ENLARGED (NORMAL) Imaging Last Impressions Upper Extremity Ultrasound 10/24/16 0000 Signed Impressions: Service Date/Time: Sunday, October 23, 2016 11:42 - CONCLUSION: Occlusive thrombus in the cephalic vein. Samy Martinez MD FACR Neck CT 10/23/16 1029 Signed Impressions: Service Date/Time: Sunday, October 23, 2016 12:27 - CONCLUSION: Mild nonspecific cellulitis or edema in the submandibular regions and anterior neck. Bebeto Bryant MD Chest X-Ray 10/23/16 1029 Signed Impressions: Service Date/Time: Sunday, October 23, 2016 10:37 - CONCLUSION: 1. No acute cardiopulmonary disease. 2. Degenerative changes throughout the thoracic spine. Alireza Barnes MD PE at Discharge GENERAL: This is a well-nourished, well-developed patient, in no apparent distress. HEENT; submandibular area with improved swelling- not as firm as yesterday. CARDIOVASCULAR: Regular rate and regular rhythm without murmurs, gallops, or rubs. RESPIRATORY: Clear to auscultation. Breath sounds equal bilaterally. No wheezes , rales, or rhonchi. GASTROINTESTINAL: Abdomen soft, non-tender, nondistended. Normal, active bowel sounds MUSCULOSKELETAL: swelling of the right upper extremity NEURO: Alert & Oriented x4 to person, place, time, situation. Moves all ext x4 Hospital Course Anterior neck cellulitis/Sadiq's angina: No airway compromise or swallowing difficulties-seems to be improving. Reviewed: Neck CT shows mild nonspecific cellulitis or edema in the submandibular regions in the anterior neck. Afebrile. Leukocytosis. Elevated ESR and CRP. -switch to po clindamycin swelling of the right upper extremity; with superficial phlebitis- advised to keep the right arm elevated. Diabetes mellitus: Hold home glyburide. Monitor Accu-Cheks. SSI coverage. Other chronic medical conditions include Hypertension, hyperlipidemia, glaucoma : Stable at this time and will continue home medications as indicated. Pt Condition on Discharge: Good Discharge Disposition: Discharge Home Discharge Time: <= 30 minutes Discharge Instructions DIET: Follow Instructions for: Heart Healthy Diet, Diabetic Diet Activities you can perform: Regular-No Restrictions Follow up Referrals: PCP Follow-up New Medications: Clindamycin (Clindamycin) 300 Mg Cap 300 MG PO Q6H Infection Days 10 Ref 0 CAP Continued Medications: Albuterol 8.5 GM Inh (Proair Hfa 8.5 GM Inh) 90 Mcg/Act Aer 2 PUFF INH DAILY 108 mcg/actuation PRN SHORTNESS OF BREATH #1 Ref 0 INHALER Dorzolamide-Timolol Pf Opth Drops (Cosopt Pf Opth Drops) 22.3-6.8 mg/ml Soln 1 DROP EACH EYE DAILY Glaucoma #1 Ref 0 BOTTLE Ferrous Gluconate (Ferrous Gluconate) 325 Mg Tab 325 MG PO DAILY Nutritional Supplement #30 Ref 0 TAB Gabapentin (Gabapentin) 800 Mg Tab 1600 MG PO TID #90 Ref 0 TAB Glyburide (Glyburide) 5 Mg Tab 5 MG PO DAILY Take with meals at the same time each day Blood Sugar Management # 30 Ref 0 TAB Hydrocodone-Acetaminophen (Hydrocodone-Acetaminophen) 10-325 mg Tab 1 TAB PO TID PAIN Ref 0 TAB Latanoprost Opth Drops (Latanoprost Opth Drops) 0.005% Drops 1 DROP EACH EYE HS Refrigerate until opened. Glaucoma #2.5 Ref 0 ML Metoprolol Tartrate (Metoprolol Tartrate) 100 Mg Tab 100 MG PO DAILY #30 Ref 0 TAB Simvastatin (Simvastatin) 10 Mg Tab 10 MG PO HS Cholesterol Management #30 Ref 0 TAB Discontinued Medications: Methylprednisolone Dosepak (Methylprednisolone Dosepak) 4 Dspk 4 MG PO DIRECTED Per Pharmacist Direction Inflammation #1 Ref 0 DSPK Milagro Marshall MD Oct 25, 2016 11:20
[2016-10-25 12:00] VITALS: BP 135/66; PULSE 99; RESP 20; TEMP 97.9; O2SAT 96
--- NOTE | 2016-10-25 12:23 | HHI.FF ---
Face to Face Verification Diagnosis: (1) Cellulitis of submandibular region Home Health Nursing Order: Medical education Signs/symptoms of disease process Medication education-adverse effect I have seen patient Hazel Kramer on 10/25/16. My clinical findings support the need for the requested home health care services because: Ltd mobility - disease progression I certify that my clinical findings support that this patient is homebound because: Unsteady gait/balance Milagro Marshall MD Oct 25, 2016 12:23
== END 2016-10-25 12:30 | disposition home or self-care (01) ==
LOC: NEPE 09:35 → NEDA 16:38 → INTOOBSV 16:38 → N04B 18:41
PROVIDERS: ADMIT Internal Medicine; ATTEND Internal Medicine
DX: K12.2 Cellulitis and abscess of mouth (principal); L03.221 Cellulitis of neck; R70.0 Elevated erythrocyte sedimentation rate; R06.02 Shortness of breath; B08.5 Enteroviral vesicular pharyngitis; I10 Essential (primary) hypertension; E78.5 Hyperlipidemia, unspecified; E11.42 Type 2 diabetes mellitus with diabetic polyneuropathy; H40.9 Unspecified glaucoma; M19.90 Unspecified osteoarthritis, unspecified site; Z79.899 Other long term (current) drug therapy
CPT/HCPCS: 70491; 71010; 76937; 80053; 81001; 82948; 85025; 85610; 85652; 85730; 86140; 86308; 93971; 99285; G0378; J0295; J1815; J7030; Q9967

== ENCOUNTER 2016-11-05 07:44 | Inpatient (IN) | payer MEDICAID ==
[2016-11-05] VITALS (7 sets, daily range): BP systolic 140–182; BP diastolic 60–89; PULSE 95–108; RESP 20–30; TEMP 97–97.7; O2SAT 94–97
[~2016-11-05] VITALS: Ht 188 cm; Wt 113.5 kg
[~2016-11-05 07:44] MED LIST changes: -ALBU1AER INH; +ALBUAER3 INH; +CLIN1CAP6 PO; -CYCL1PAK PO; +DORZ1SOL EACH EYE; -DORZSOL EACH EYE; -FAMO20TA2 PO; +FERR325T72 PO; +GABA800T PO; -GLYB1TAB51 PO; +GLYB5TAB3 PO; +HYDR-3583 PO; -HYDR10SO PO; -IRON27TA PO; -LATA.005%O OU; +LATA0.002 EACH EYE; -NEUR800T PO; -POTA-267 PO; -PRED5SOL PO; +SIMV10TA PO; -ZOCO40TA PO
--- NOTE | 2016-11-05 08:41 | PD ---
HPI Chief Complaint: Edema Time Seen by Provider: 08:06 Travel History International Travel<30 days: No Contact w/Intl Traveler<30days: No Traveled to known affect area: No History of Present Illness HPI Diagnoses a 60-year-old male history of diabetes mellitus, hypertension, hyperlipidemia, glaucoma, who presents today with complaints of worsening neck swelling and difficulty breathing. The patient was recently admitted for Sadiq 's angina of the palate. The patient was discharged on clindamycin. Patient states his last dose of clindamycin was yesterday. He reports worsening swelling of his neck and states that he has slight difficulty breathing. He states this is new compared to previous. There is no reported fevers, chills. The patient does report right ear discomfort with muffling in his ear. PFSH Past Medical History Arthritis: Yes Asthma: No Autoimmune Disease: No Blood Disorders: No Anxiety: No Depression: No Heart Rhythm Problems: No Cancer: Yes Cardiovascular Problems: Yes (htn) High Cholesterol: No Chemotherapy: No (does infusions for IVIG) Chest Pain: No Congestive Heart Failure: No COPD: No Cerebrovascular Accident: No Diabetes: Yes Patient Takes Glucophage: No Diminished Hearing: No Endocrine: Yes GERD: No Glaucoma: No Genitourinary: No Headaches: No Hepatitis: No Hypertension: Yes Immune Disorder: No Implanted Vascular Access Dvce: Yes (RIGHT CHEST) Kidney Stones: No Medical other: Yes (IVIG INFUSIONS) Neurologic: Yes (GUILLAIN BARRE) Psychiatric: No Reproductive: No Respiratory: Yes (SUBMNADIBULAR CELLULITIS) Immunizations Current: Yes Migraines: No Myocardial Infarction: No Renal Failure: No Seizures: No Sickle Cell Disease: No Sleep Apnea: No Thyroid Disease: No Ulcer: No Past Surgical History Abdominal Surgery: No AICD: No Appendectomy: No Cardiac Surgery: No Cholecystectomy: No Ear Surgery: No Endocrine Surgery: No Eye Surgery: No Genitourinary Surgery: No Gynecologic Surgery: No Joint Replacement: No Oral Surgery: No Pacemaker: No Thoracic Surgery: No Other Surgery: Yes (PORT INSERTION, RIGHT CHEST) Social History Alcohol Use: Yes (2 BEERS PER DAY) Tobacco Use: No Substance Use: No Allergies-Medications (Allergen,Severity, Reaction): Coded Allergies: Lisinopril (Verified Allergy, Unknown, 11/05/16) Reported Meds & Prescriptions Reported Meds & Active Scripts Active Reported Hydrocodone-Acetaminophen 10-325 mg Tab 1 Tab PO TID Cosopt Pf Opth Drops (Dorzolamide-Timolol Pf Opth Drops) 22.3-6.8 mg/ml Soln 1 Drop EACH EYE DAILY Latanoprost Opth Drops (Latanoprost) 0.005% Drops 1 Drop EACH EYE HS Refrigerate until opened. Proair Hfa 8.5 GM Inh (Albuterol Sulfate) 90 Mcg/Act Aer 2 Puff INH DAILY PRN 108 mcg/actuation Metoprolol Tartrate 100 Mg Tab 100 Mg PO DAILY Ferrous Gluconate 325 Mg Tab 325 Mg PO DAILY Gabapentin 800 Mg Tab 1,600 Mg PO TID Simvastatin 10 Mg Tab 10 Mg PO HS Glyburide 5 Mg Tab 5 Mg PO DAILY Take with meals at the same time each day Review of Systems Except as stated in HPI: all other systems reviewed are Neg General / Constitutional: No: Fever, Chills HENT: Positive: Other (anterior neck swelling with difficulty breathing.), No : Headaches, Neck Stiffness Cardiovascular: No: Chest Pain or Discomfort, Palpitations Respiratory: No: Cough, Shortness of Breath Gastrointestinal: No: Nausea, Vomiting Genitourinary: No: Frequency, Dysuria Musculoskeletal: No: Weakness Neurologic: No: Weakness, Headache, Change in Mentation Physical Exam Narrative GENERAL: Well-developed well-nourished gentleman with obvious swelling to his anterior neck. SKIN: Focused skin assessment warm/dry. HEAD: Atraumatic. Normocephalic. EYES: Pupils equal and round. No scleral icterus. No injection or drainage. ENT: No nasal bleeding or discharge. Mucous membranes pink and moist. On examination the patient's right ear canal, there is a large amount of cerumen and fluid in his ear canal. Left ear canal also has cerumen with no fluid. NECK: Trachea midline. Significant submandibular swelling. There is no stridor noted. There is no woody edema. It is symmetrical. CARDIOVASCULAR: Regular rate and rhythm. No murmur appreciated. RESPIRATORY: No accessory muscle use. Clear to auscultation. Breath sounds equal bilaterally. GASTROINTESTINAL: Abdomen soft, non-tender, nondistended. MUSCULOSKELETAL: No obvious deformities. No clubbing. No cyanosis. NEUROLOGICAL: Awake and alert. No obvious cranial nerve deficits. Motor grossly within normal limits. Normal speech. Data Data Last Documented VS Vital Signs Date Time Temp Pulse Resp B/P Pulse Ox O2 Delivery O2 Flow Rate FiO2 11/05/16 12:00 97 22 140/72 97 Room Air 11/05/16 07:46 97.7 Orders Vascular Access Team Consult/P PRN (11/05/16 08:11) Vascular Poc Ultrasound (11/05/16 ) Complete Blood Count With Diff (11/05/16 08:19) Comprehensive Metabolic Panel (11/05/16 08:19) Iv Access Insert/Monitor (11/05/16 08:19) Ecg Monitoring (11/05/16 08:19) Oximetry (11/05/16 08:19) Ct Soft Tiss Neck W Iv Cont (11/05/16 ) Iohexol 350 Inj (Omnipaque 350 Inj) (11/05/16 11:12) Ampicillin-Sulbactam Inj (Unasyn Inj) (11/05/16 12:30) Labs Laboratory Tests Test 11/05/16 08:51 White Blood Count 10.8 TH/MM3 Red Blood Count 3.60 MIL/MM3 Hemoglobin 10.4 GM/DL Hematocrit 31.6 % Mean Corpuscular Volume 87.6 FL Mean Corpuscular Hemoglobin 28.9 PG Mean Corpuscular Hemoglobin 33.0 % Concent Red Cell Distribution Width 16.3 % Platelet Count 125 TH/MM3 Mean Platelet Volume 8.5 FL Neutrophils (%) (Auto) 80.6 % Lymphocytes (%) (Auto) 11.9 % Monocytes (%) (Auto) 6.4 % Eosinophils (%) (Auto) 0.6 % Basophils (%) (Auto) 0.5 % Neutrophils # (Auto) 8.7 TH/MM3 Lymphocytes # (Auto) 1.3 TH/MM3 Monocytes # (Auto) 0.7 TH/MM3 Eosinophils # (Auto) 0.1 TH/MM3 Basophils # (Auto) 0.1 TH/MM3 CBC Comment DIFF FINAL Differential Comment Sodium Level 137 MEQ/L Potassium Level 3.4 MEQ/L Chloride Level 104 MEQ/L Carbon Dioxide Level 27.8 MEQ/L Anion Gap 5 MEQ/L Blood Urea Nitrogen 9 MG/DL Creatinine 0.91 MG/DL Estimat Glomerular Filtration 103 ML/MIN Rate Random Glucose 89 MG/DL Calcium Level 8.1 MG/DL Total Bilirubin 1.0 MG/DL Aspartate Amino Transf 23 U/L (AST/SGOT) Alanine Aminotransferase 31 U/L (ALT/SGPT) Alkaline Phosphatase 76 U/L Total Protein 10.0 GM/DL Albumin 2.5 GM/DL [facility] Medical Decision Making Medical Screen Exam Complete: Yes Emergency Medical Condition: Yes Differential Diagnosis Recurrent Sadiq's angina versus otitis externa versus epiglottitis versus medication reaction. Narrative Course Extremities with history of diabetes mellitus, hypertension, who presented with worsening swelling of his neck. The patient was recently admitted for Cellulitis. He was started on I V Unison and discharged on clindamycin. He states his last dose was yesterday. He states today he noticed increased swelling of his neck. The patient also reports mild difficulty breathing. There is no stridor. There is no asymmetry of the swelling. CT scan of the neck shows diffuse prevertebral soft tissue swelling and edema. There is no discernible demarcated abscess. The patient will be started back on Unasyn and readmitted to the hospital. Given the fact that he has failed outpatient treatment, this will be a full admit. He will likely need an ENT consult as well. There is a call out to the [facility]. Diagnosis Primary Impression: cellulitis of the submandibular neck, failed outpatient treatment. Additional Impressions: Diabetes mellitus History of hypertension Admitting Information Admitting Physician Requests: Admit Collin Cortez MD Nov 05, 2016 08:41
[2016-11-05 08:57] LABS: AUTOMATED NEUTROPHIL # 8.7 TH/MM3 (1.8-7.7); BASOPHIL # 0.1 TH/MM3 (0-0.2); BASOPHIL % 0.5 % (0.0-2.0); EOSINOPHIL # 0.1 TH/MM3 (0-0.4); EOSINOPHIL % 0.6 % (0.0-4.0); HEMATOCRIT 31.6 % (39.0-51.0); HEMO FLAGS DIFF FINAL; LYMPH % 11.9 % (9.0-44.0); LYMPHOCYTE # 1.3 TH/MM3 (1.0-4.8); MEAN CELL VOLUME 87.6 FL (80.0-100.0); MEAN CORPUSCULAR HEMOGLOBIN 28.9 PG (27.0-34.0); MONO % 6.4 % (0.0-8.0); NEUT % 80.6 % (16.0-70.0); PLATELET COUNT 125 TH/MM3 (150-450); RED CELL DISTRIBUTION WIDTH 16.3 % (11.6-17.2); WHITE BLOOD COUNT 10.8 TH/MM3 (4.0-11.0)
[2016-11-05 09:14] LABS: ALT (GPT) 31 U/L (12-78); ANION GAP 5 MEQ/L (5-15); AST (GOT) 23 U/L (15-37); BICARBONATE 27.8 MEQ/L (21.0-32.0); BLOOD UREA NITROGEN 9 MG/DL (7-18); CHLORIDE 104 MEQ/L (98-107); GLOMERULAR FILTRATION RATE 103 ML/MIN (>89); POTASSIUM 3.4 MEQ/L (3.5-5.1); SODIUM (NA) 137 MEQ/L (136-145)
[2016-11-05 09:16] LABS: ALKALINE PHOSPHATASE 76 U/L (45-117)
[2016-11-05] MEDS ORDERED: IOHEXOL 350 MG/ML 10 ML VIAL (for RAD DIAG) IV ONE (11:12)
--- NOTE | 2016-11-05 12:22 | RADRPT ---
EXAM DATE/TIME: 11/05/2016 10:57 [facility] COMPARISON: CT SOFT TISSUE NECK W CONTRAST, October 23, 2016, 12:27. INDICATIONS : Swollen neck, shortness of breath, right ear issues.Neck pain. IV CONTRAST: 75 cc Omnipaque 350 (iohexol) IV RADIATION DOSE: 19.28 CTDIvol (mGy) MEDICAL HISTORY : Hypertension. Cardiovascular disease [place] SURGICAL HISTORY : ENCOUNTER: Initial ACUITY: 1 week PAIN SCALE: 6/10 LOCATION: Right neck and ear. TECHNIQUE: Volumetric scanning of the neck was performed. Using automated exposure control and adjustment of th e mA and/or kV according to patient size, radiation dose was kept as low as reasonably achievable to obtain optimal diagnostic quality images. DICOM format image data is available electronically for r eview and comparison. FINDINGS: The soft tissues of the nasopharynx are unremarkable. Examination of the oropharynx again demonstrates nonspecific edema and possibly a small amount of flu id in the prevertebral soft tissues. There are edematous changes within the larynx and some mild narr owing of the airway as it traverses through this level. There are some scattered lymph nodes in the jugular scot chains bilaterally but no significantly enlarged and/or necrotic adenopathy is seen. Th ere is fairly diffuse edema in the subcutaneous soft tissues of the submandibular region. The parotid and submandibular glands are intact. The larynx is intact. Note is made of an [id number]. The thyroid is intact. There degenerative changes throughout the cervical spine. No fluid is identified within the mastoid air. No definite abnormality of the right ureter is evident . CONCLUSION: The exam demonstrates nonspecific edema and possibly a small amount of fluid in the prevertebral soft tissues in the retropharyngeal region. There do appear to be some edematous changes within the laryn x as well. There is some narrowing of the airway as it traverses through this level. Maged Martinez MD on November 05, 2016 at 11:53 Board Certified Radiologist. This report was verified electronically.
[2016-11-05] MEDS ORDERED: AMPICILLIN-SULBACTAM INJ 3 GM in SODIUM CHLORIDE 0.9% INJ 100 ML IV ONE (12:30)
[2016-11-05] MEDS ORDERED: ONDANSETRON HCL 4 MG/2 ML VIAL IVP PRN (13:30)
[2016-11-05] MEDS ORDERED: NALOXONE HCL 0.4 MG/ML AMP IV PRN (13:30)
[2016-11-05] MEDS ORDERED: MAGNESIUM HYDROXIDE SUSP 30 ML CUP PO PRN (13:30)
[2016-11-05] MEDS ORDERED: SODIUM CHLORIDE 0.9% FLUSH 10 ML FLUSH IV FLUSH PRN (13:30)
[2016-11-05] MEDS ORDERED: ACETAMINOPHEN 325 MG TAB PO PRN ×2 (13:30)
[2016-11-05] MEDS ORDERED: POTASSIUM CHLORIDE 25 MEQ EFFERVESCENT TAB PO ONE (15:00)
[2016-11-05] MEDS ORDERED: ALBUTEROL SULFATE 90 MCG/ACT HFA 18 GM INHALER INH PRN (15:45)
[2016-11-05] MEDS: SODIUM CHLOR 0.9% 1000 ML INJ 1,000 ML IV SCH (15:54)
[2016-11-05] MEDS ORDERED: GLUCAGON 1 MG/ML VIAL OTHER PRN (16:15)
[2016-11-05] MEDS ORDERED: DEXTROSE 50% IN WATER 50 ML VIAL(D50) IV PRN (16:15)
--- NOTE | 2016-11-05 16:15 | HHI.HP ---
HPI Service [facility] Primary Care Physician Non-Staff Admission Diagnosis recurrent sumandibular cellulitis, dibetes mellitus, htn, Diagnoses: Chief Complaint: Neck and face swelling Travel History International Travel<30 Days: No Contact w/Intl Traveler <30 Da: No Traveled to Known Affected Are: No History of Present Illness Written by Viraj Flaherty, acting as scribe for Dr. Pascual on 11/05/16 at 15:50. 60-year-old male with a past medical history of Elaine Rm, DM, HTN, HLD who presents with recurrent neck swelling. The patient had a recent hospitalization where he had anterior neck swelling and possible infection. The patient states that he initially woke up with neck swelling 1 day. He's had 2 previous hospitalizations for this. He states that since that time the swelling is better some days and gets worse others, and has not yet fully resolved. He was due to finish his course of clindamycin today. He states that he woke up today and the swelling was worse again. He states that today he also noted that it was hard to breathe when he woke up which has not happened before, states shortness of breath has artery improved. He denies any swallowing problems. He noted that his face was more swollen today as well. He also noticed some congestion in his right ear. He denies any fever, chills, pain, sinus drainage, sore throat, night sweats, weight change. Review of Systems Except as stated in HPI: all other systems reviewed are Neg Past Family Social History Past Medical History Diabetes mellitus with neuropathy Elaine Rm on IVIG Hypertension Hyperlipidemia Glaucoma Past Surgical History Right chest port placement and replacement Reported Medications Hydrocodone-Acetaminophen 10-325 mg Tab 1 Tab PO TID Cosopt Pf Opth Drops (Dorzolamide-Timolol Pf Opth Drops) 22.3-6.8 mg/ml Soln 1 Drop EACH EYE DAILY Latanoprost Opth Drops (Latanoprost) 0.005% Drops 1 Drop EACH EYE HS Refrigerate until opened. Proair Hfa 8.5 GM Inh (Albuterol Sulfate) 90 Mcg/Act Aer 2 Puff INH DAILY PRN 108 mcg/actuation Metoprolol Tartrate 100 Mg Tab 100 Mg PO DAILY Ferrous Gluconate 325 Mg Tab 325 Mg PO DAILY Gabapentin 800 Mg Tab 1,600 Mg PO TID Simvastatin 10 Mg Tab 10 Mg PO HS Glyburide 5 Mg Tab 5 Mg PO DAILY Take with meals at the same time each day Allergies: Coded Allergies: Lisinopril (Verified Allergy, Unknown, 11/05/16) Active Ordered Medications Current Medications Medications (Trade) Dose Ordered Sig/Sridhar Route Start Time Stop Time Status Last Admin Ampicillin Sodium/ Sulbactam Sodium 3 gm/Sodium Chloride 100 ml @ 200 mls/hr Q6H IV 11/05/16 18:00 (NS 1000 ml Inj) 1,000 ml @ 100 mls/hr Q10H IV 11/05/16 15:00 11/05/16 15:54 (NS Flush) 2 ml UNSCH PRN IV FLUSH 11/05/16 13:30 (NS Flush) 2 ml BID IV FLUSH 11/05/16 21:00 (Tylenol) 650 mg Q4H PRN PO 11/05/16 13:30 (Zofran Inj) 4 mg Q6H PRN IVP 11/05/16 13:30 (Tylenol) 650 mg Q6H PRN PO 11/05/16 13:30 (Roxicodone) 10 mg Q4H PRN PO 11/05/16 13:30 (Roxicodone) 5 mg Q4H PRN PO 11/05/16 13:30 (Narcan Inj) 0.4 mg UNSCH PRN IV 11/05/16 13:30 (Lynda-Colace) 1 tab BID PO 11/05/16 21:00 (Milk Of Magnesia Liq) 30 ml Q12H PRN PO 11/05/16 13:30 (Proair Hfa Inh) 2 puff DAILY PRN INH 11/05/16 15:45 UNV (Cosopt 2-0.5% Opth Soln) 1 drop DAILY EACH EYE 11/06/16 09:00 UNV (Xalatan 0.005% Opth Soln) 1 drop HS EACH EYE 11/05/16 21:00 UNV Non-Formulary Medication 325 mg DAILY PO 11/06/16 09:00 UNV Non-Formulary Medication 10 mg HS PO 11/05/16 21:00 UNV (Neurontin) 800 mg TID PO 11/05/16 18:00 UNV (Decadron Inj) 4 mg Q8HR IV PUSH 11/05/16 15:45 UNV Family History Mother of COPD Social History Has 2 beers nightly Smokes 2-3 cigarettes a day Denies any drug use Physical Exam Vital Signs Vital Signs Date Time Temp Pulse Resp B/P Pulse Ox O2 Delivery O2 Flow Rate FiO2 11/05/16 14:50 97 21 11/05/16 14:00 95 22 140/60 97 Room Air 11/05/16 12:00 97 22 140/72 97 Room Air 11/05/16 10:00 96 22 147/79 96 Room Air 11/05/16 08:02 95 30 177/77 95 Room Air 11/05/16 07:46 97.7 104 24 170/78 94 Room Air Physical Exam GENERAL: Well-developed well-nourished. In no acute distress. SKIN: Warm and dry. No lesions noted. HEENT: Normocephalic. Facial swelling. Neck full. Right ear TM boggy. Posterior pharynx with cobblestone appearance and mild swelling. Airway patent. Neck nontender to palpation with submandibular swelling and mild induration. CARDIOVASCULAR: Regular rate and rhythm. No murmur appreciated. RESPIRATORY: No accessory muscle use. Clear to auscultation. Breath sounds equal bilaterally. GASTROINTESTINAL: Abdomen soft, non-tender, nondistended. Bowel sounds x4. MUSCULOSKELETAL: No obvious deformities. No clubbing or cyanosis. No edema. NEUROLOGICAL: Awake and alert. No focal neurological deficits. Moves upper and lower extremities spontaneously. Normal speech. PSYCHIATRIC: Appropriate mood and affect; insight and judgment normal. Laboratory Laboratory Tests Test 11/05/16 08:51 White Blood Count 10.8 Red Blood Count 3.60 Hemoglobin 10.4 Hematocrit 31.6 Mean Corpuscular Volume 87.6 Mean Corpuscular Hemoglobin 28.9 Mean Corpuscular Hemoglobin 33.0 Concent Red Cell Distribution Width 16.3 Platelet Count 125 Mean Platelet Volume 8.5 Neutrophils (%) (Auto) 80.6 Lymphocytes (%) (Auto) 11.9 Monocytes (%) (Auto) 6.4 Eosinophils (%) (Auto) 0.6 Basophils (%) (Auto) 0.5 Neutrophils # (Auto) 8.7 Lymphocytes # (Auto) 1.3 Monocytes # (Auto) 0.7 Eosinophils # (Auto) 0.1 Basophils # (Auto) 0.1 CBC Comment DIFF FINAL Differential Comment Sodium Level 137 Potassium Level 3.4 Chloride Level 104 Carbon Dioxide Level 27.8 Anion Gap 5 Blood Urea Nitrogen 9 Creatinine 0.91 Estimat Glomerular Filtration 103 Rate Random Glucose 89 Calcium Level 8.1 Total Bilirubin 1.0 Aspartate Amino Transf 23 (AST/SGOT) Alanine Aminotransferase 31 (ALT/SGPT) Alkaline Phosphatase 76 Total Protein 10.0 Albumin 2.5 Result Diagram: 11/05/16 0851 11/05/16 0851 Imaging Last Impressions Neck CT 11/05/16 0000 Signed Impressions: Service Date/Time: Saturday, November 05, 2016 10:57 - CONCLUSION: The exam demonstrates nonspecific edema and possibly a small amount of fluid in the prevertebral soft tissues in the retropharyngeal region. There do appear to be some edematous changes within the larynx as well. There is some narrowing of the airway as it traverses through this level. Maged Martinez MD Assessment and Plan Assessment and Plan 60-year-old male with a past medical history of Elaine Rm, DM, HTN, HLD who presents with recurrent neck swelling Retropharyngeal abscess: Recurrent, failed outpatient antibiotic therapy. Possible associated sepsis with tachycardia and tachypnea. No clinical signs of airway compromise or inability to handle secretions. Reviewed: Neck CT with nonspecific edema and possibly a small amount of fluid in the prevertebral soft tissues in the retropharyngeal region; edematous changes within the larynx as well with some narrowing of the airway. Afebrile with no leukocytosis. -Consult ENT -Resume IV Unasyn -IV Decadron -IVF - monitor airway - blood cultures x 2 Hypokalemia: Mild. Replace potassium orally. Follow-up a.m. labs. Diabetes mellitus with neuropathy: Chronic, stable. Hold home oral hypoglycemics. Resume home gabapentin. Monitor Accu-Cheks. SSI coverage. Tobacco abuse: Counseled on cessation. Other chronic medical conditions include glaucoma, iron deficiency, hyperlipidemia: Stable at this time and will continue home medications as indicated. DVT prophylaxis: SCDs Discussed Condition With Patient, RN, ED staff Attending Statement This note was transcribed by matilda Flaherty. I, Dr. Amol Pascual personally performed the history, physical exam, and medical decision making; and confirmed the accuracy of the information in the transcribed note. Authenticated by Dr. Amol Pascual on 11/05/16 at 15:50. Viraj Flaherty Nov 05, 2016 16:15 Amol Pascual DO Nov 05, 2016 17:29
[2016-11-05] MEDS: GABAPENTIN 400 MG CAP PO SCH (17:21)
[2016-11-05] MEDS: AMPICILLIN-SULBACTAM INJ 3 GM in SODIUM CHLORIDE 0.9% INJ 100 ML IV SCH (17:22)
--- NOTE | 2016-11-05 18:02 | PD.CONS ---
History of Present Illness Service ENT Consult Requested By Hospitalist Reason for Consult Angioedema Primary Care Physician Non-Staff Diagnoses: History of Present Illness 60 year old diabetic male. Sudden onset submandibular swelling. Was treated at [facility] and sent home on steroid taper. Did not get better. Was treated here with iv steroids, some improvement, not resolved. On Unasyn and Decadron now. Had WBC of 10.4 on admission. Diffuse submandibular,ar swelling with no abscess. Has no lower dentition. Review of Systems Ears, nose, mouth, throat: DENIES: Nasal discharge, Oral lesions, Throat pain, Hoarseness Past Family Social History Allergies: Coded Allergies: Lisinopril (Verified Allergy, Unknown, 11/05/16) Physical Exam Vital Signs Vital Signs Date Time Temp Pulse Resp B/P Pulse Ox O2 Delivery O2 Flow Rate FiO2 11/05/16 14:50 97 21 11/05/16 14:00 95 22 140/60 97 Room Air 11/05/16 12:00 97 22 140/72 97 Room Air 11/05/16 10:00 96 22 147/79 96 Room Air 11/05/16 08:02 95 30 177/77 95 Room Air 11/05/16 07:46 97.7 104 24 170/78 94 Room Air Physical Exam GENERAL: This is a well-nourished, well-developed patient, in no apparent distress. SKIN: No rashes, ecchymoses or lesions. Cool and dry. HEAD: Atraumatic. Normocephalic. No temporal or scalp tenderness. EYES: Pupils equal round and reactive. Extraocular motions intact. No scleral icterus. No injection or drainage. ENT: Nose without bleeding, purulent drainage or septal hematoma. Throat without erythema, tonsillar hypertrophy or exudate. Uvula midline. Airway patent. NECK: Trachea midline. diffuse submandibular swelling. Not fluctuant. Nontender , no meningeal signs. Laboratory Laboratory Tests Test 11/05/16 08:51 White Blood Count 10.8 Red Blood Count 3.60 Hemoglobin 10.4 Hematocrit 31.6 Mean Corpuscular Volume 87.6 Mean Corpuscular Hemoglobin 28.9 Mean Corpuscular Hemoglobin 33.0 Concent Red Cell Distribution Width 16.3 Platelet Count 125 Mean Platelet Volume 8.5 Neutrophils (%) (Auto) 80.6 Lymphocytes (%) (Auto) 11.9 Monocytes (%) (Auto) 6.4 Eosinophils (%) (Auto) 0.6 Basophils (%) (Auto) 0.5 Neutrophils # (Auto) 8.7 Lymphocytes # (Auto) 1.3 Monocytes # (Auto) 0.7 Eosinophils # (Auto) 0.1 Basophils # (Auto) 0.1 CBC Comment DIFF FINAL Differential Comment Sodium Level 137 Potassium Level 3.4 Chloride Level 104 Carbon Dioxide Level 27.8 Anion Gap 5 Blood Urea Nitrogen 9 Creatinine 0.91 Estimat Glomerular Filtration 103 Rate Random Glucose 89 Calcium Level 8.1 Total Bilirubin 1.0 Aspartate Amino Transf 23 (AST/SGOT) Alanine Aminotransferase 31 (ALT/SGPT) Alkaline Phosphatase 76 Total Protein 10.0 Albumin 2.5 Result Diagram: 11/05/1685011/05/[address] reviewed. Assessment and Plan Assessment and Plan By history consistent with angioedema, but not coming to resolution. On steroid and Augmentin now. WBC not significantly elevated. Will follow as he is treated o0f the next 24 to 36 hours. Will plan bedside endoscopy Saturday a.m. Will get records form [facility]. If angioedema may need automatic lehr operator work up. May also need referral to academic center like [facility] due to this unusual presentation. Kevin Piper MD Nov 05, 2016 18:02
[2016-11-05] MEDS: DEXAMETHASONE SOD PHOS 4 MG/ML VIAL IV PUSH SCH (18:08)
[2016-11-05] MEDS: SODIUM CHLORIDE 0.9% FLUSH 10 ML FLUSH IV FLUSH SCH (21:00)
[2016-11-05] MEDS: LATANOPROST 0.005% OPHT SOLN 2.5 ML BTL EACH EYE SCH (21:42)
[2016-11-05] MEDS: PRAVASTATIN SOD 20 MG TAB PO SCH (21:42)
[2016-11-05] MEDS: DOCUSATE SODIUM 50 MG/SENNA 8.6 MG TAB PO SCH (21:42)
[2016-11-05] MEDS: INSULIN ASPART SUPPLEMENTAL SCALE SQ SCH (21:44)
[2016-11-06] VITALS (7 sets, daily range): BP systolic 139–161; BP diastolic 71–93; PULSE 82–109; RESP 19–21; TEMP 95.6–97.6; O2SAT 93–99
[2016-11-06] MEDS: AMPICILLIN-SULBACTAM INJ 3 GM in SODIUM CHLORIDE 0.9% INJ 100 ML IV SCH ×3 (02:25→12:25)
[2016-11-06] MEDS: DEXAMETHASONE SOD PHOS 4 MG/ML VIAL IV PUSH SCH ×3 (02:25→17:43)
[2016-11-06] MEDS: SODIUM CHLOR 0.9% 1000 ML INJ 1,000 ML IV SCH ×3 (02:25→22:45)
[2016-11-06] MEDS: INSULIN ASPART SUPPLEMENTAL SCALE SQ SCH ×4 (05:45→21:00)
[2016-11-06 07:57] LABS: HEMATOCRIT 31.9 % (39.0-51.0); HEMO FLAGS DIFF FINAL; LYMPH % 5.6 % (9.0-44.0); LYMPHOCYTE # 0.6 TH/MM3 (1.0-4.8); MEAN CELL VOLUME 87.3 FL (80.0-100.0); MEAN CORPUSCULAR HEMOGLOBIN 29.5 PG (27.0-34.0); MEAN CORPUSCULAR HGB CONC 33.8 % (32.0-36.0); NEUT % 91.4 % (16.0-70.0); PLATELET COUNT 124 TH/MM3 (150-450); RED BLOOD COUNT 3.66 MIL/MM3 (4.50-5.90); RED CELL DISTRIBUTION WIDTH 16.3 % (11.6-17.2); WHITE BLOOD COUNT 10.9 TH/MM3 (4.0-11.0)
[2016-11-06 08:25] LABS: ANION GAP 6 MEQ/L (5-15); AST (GOT) 23 U/L (15-37); BICARBONATE 25.2 MEQ/L (21.0-32.0); BLOOD UREA NITROGEN 9 MG/DL (7-18); CHLORIDE 106 MEQ/L (98-107); GLOMERULAR FILTRATION RATE 120 ML/MIN (>89); POTASSIUM 4.1 MEQ/L (3.5-5.1); SODIUM (NA) 137 MEQ/L (136-145)
[2016-11-06 08:28] LABS: ALKALINE PHOSPHATASE 78 U/L (45-117); ALT (GPT) 29 U/L (12-78); TOTAL BILIRUBIN ADULT 0.9 MG/DL (0.2-1.0)
[2016-11-06] MEDS: DORZOLAMIDE/TIMOLOL OPTH SOLN 10 ML BTL EACH EYE SCH (08:39)
[2016-11-06] MEDS: SODIUM CHLORIDE 0.9% FLUSH 10 ML FLUSH IV FLUSH SCH ×2 (08:39→22:45)
[2016-11-06] MEDS: DOCUSATE SODIUM 50 MG/SENNA 8.6 MG TAB PO SCH ×2 (08:40→22:45)
[2016-11-06] MEDS: GABAPENTIN 400 MG CAP PO SCH ×3 (08:40→17:42)
[2016-11-06] MEDS: FERROUS SULFATE 325 MG (65 MG ELEMENTAL IRON) TAB PO SCH (08:40)
--- NOTE | 2016-11-06 13:16 | HHI.PR ---
Subjective Remarks Follow-up for neck and throat swelling. The patient feels a little bit better today. He denies any shortness of breath or swallowing difficulties. No fevers or chills. He states he was taken off of lisinopril for angioedema. He states the only new medication is been on in the past month is another blood pressure medication that starts with "L". He states his will bring in this new medication. Objective Vitals Vital Signs Date Time Temp Pulse Resp B/P Pulse Ox O2 Delivery O2 Flow Rate FiO2 11/06/16 12:28 96.9 92 20 158/80 95 11/06/16 08:30 97.4 101 20 143/80 96 11/06/16 06:41 95.6 109 20 155/93 97 11/06/16 01:57 96.4 98 21 161/85 93 11/05/16 21:26 97.0 108 20 182/89 95 11/05/16 14:50 97 21 11/05/16 14:00 95 22 140/60 97 Room Air I/O 11/05/16 11/05/16 11/05/16 11/06/16 11/06/16 11/06/16 07:00 15:00 23:00 07:00 15:00 23:00 Intake Total 120 ml Output Total 400 ml 700 ml Balance -280 ml -700 ml Intake Oral 120 ml Output Urine Total 400 ml 700 ml # Voids 1 Result Diagram: 11/06/16 0708 11/06/16 0708 Imaging Last Impressions Neck CT 11/05/16 0000 Signed Impressions: Service Date/Time: Saturday, November 05, 2016 10:57 - CONCLUSION: The exam demonstrates nonspecific edema and possibly a small amount of fluid in the prevertebral soft tissues in the retropharyngeal region. There do appear to be some edematous changes within the larynx as well. There is some narrowing of the airway as it traverses through this level. Maged Martinez MD Objective Remarks GENERAL: Well-developed well-nourished. In no acute distress. SKIN: Warm and dry. No lesions noted. HEENT: Normocephalic. Pupils equal and round. Improving facial and neck swelling. Posterior pharynx continues to show cobblestoning appearance with mild swelling. Airway patent. Neck nontender to palpation. Submandibular swelling with mild induration. CARDIOVASCULAR: Regular rate and rhythm. No murmur appreciated. RESPIRATORY: No accessory muscle use. Clear to auscultation. Breath sounds equal bilaterally. GASTROINTESTINAL: Abdomen soft, non-tender, nondistended. Bowel sounds x4. MUSCULOSKELETAL: No obvious deformities. No clubbing or cyanosis. No edema. NEUROLOGICAL: Awake and alert. No focal neurological deficits. Moves upper and lower extremities spontaneously. Normal speech. PSYCHIATRIC: Appropriate mood and affect; insight and judgment normal. A/P Assessment and Plan 60-year-old male with a past medical history of Elaine Rm, DM, HTN, HLD who presents with recurrent neck swelling Neck and throat swelling: Recurrent, failed outpatient antibiotic and steroid therapy. Possible associated sepsis with tachycardia and tachypnea. No clinical signs of airway compromise or inability to handle secretions. Angioedema, soft tissue neck abscess/cellulitis, or in the differential. Reviewed: Neck CT with nonspecific edema and possibly a small amount of fluid in the prevertebral soft tissues in the retropharyngeal region; edematous changes within the larynx as well with some narrowing of the airway. Afebrile with no leukocytosis. -Consulted ENT, recommends monitoring response to antibiotics and steroids and possible endoscopy tomorrow -Resume IV Unasyn -IV Decadron -IVF -monitor airway -blood cultures x 2 -Reconcile new home medication and likely discontinue Hypokalemia: Mild. Replaced potassium orally. Potassium 4.1 and repeat labs. Diabetes mellitus with neuropathy: Chronic, stable. Hold home oral hypoglycemics. Continue home gabapentin. Monitor Accu-Cheks. SSI coverage. Tobacco abuse: Counseled on cessation. Other chronic medical conditions include glaucoma, iron deficiency, hyperlipidemia: Stable at this time and will continue home medications as indicated. DVT prophylaxis: SCDs Discharge Planning Continue to monitor clinical response to antibiotic and steroids and follow-up ENT recommendations. Viraj Flaherty Nov 06, 2016 13:15
[2016-11-06] MEDS: METOPROLOL TARTRATE 50 MG TAB PO SCH ×2 (14:15→22:44)
--- NOTE | 2016-11-06 15:36 | HHI.PR ---
Subjective Remarks Reviewed notes from [facility] admission. Patient has a history of Guillain-Grover syndrome and receives IVIG infusions from neurology apparent on a biweekly basis. He has a history of myeloma and has been followed by Dr Doherty in the past for this. He had an episode of angioedema in 2014 with tongue swelling thought to be related to lisinopril in 2014. He responded to meds and was discharged. He was treated at [facility] fo sudden onset swelling of the retropharyngeal tissues and submental neck in September of this year. This was thought to be related to Losartan. He was treated with steroids but recurred and admitted to [facility] Here he is responding to steroids. The retropharyngeal edema is considerably less than during the [facility] admission. He is concerned over a blocked right ear, but this appears to be cerumen, and not related. Objective Vital Signs Date Time Temp Pulse Resp B/P Pulse Ox O2 Delivery O2 Flow Rate FiO2 11/06/16 13:59 97 11/06/16 12:28 96.9 92 20 158/80 95 11/06/16 08:30 97.4 101 20 143/80 96 11/06/16 06:41 95.6 109 20 155/93 97 11/06/16 01:57 96.4 98 21 161/85 93 11/05/16 21:26 97.0 108 20 182/89 95 I/O 11/05/16 11/05/16 11/05/16 11/06/16 11/06/16 11/06/16 07:00 15:00 23:00 07:00 15:00 23:00 Intake Total 120 ml Output Total 400 ml 700 ml Balance -280 ml -700 ml Intake Oral 120 ml Output Urine Total 400 ml 700 ml # Voids 1 Result Diagram: 11/06/16 0708 11/06/16 0708 Procedures Fiberoptic laryngoscopy shows normal larynx and pharynx. Assessment and Plan Assessment and Plan Fiberoptic laryngoscopy show brodie pharynx. Submental edema is better. This is not consistent with cellulitis, he did not have an elevated WBC and the edema is soft and diffuse. It follows his angioedema history, especially in light of his 2014 admission. I would continue IV steroids another 24 to 48 hours. He should follow with ENT as an outpatient to get his ears cleared. He need an outpatient Neurology Manager work up for angioedema. He sees Dr Warren for RA. If Dr Warren is not amenable he could also see Dr Landin or Dr Arlene Albright. (Allergists) No specific ENT therapy to offer. Kevin Piper MD Nov 06, 2016 15:36
[2016-11-06] MEDS: PRAVASTATIN SOD 20 MG TAB PO SCH (22:44)
[2016-11-06] MEDS: LATANOPROST 0.005% OPHT SOLN 2.5 ML BTL EACH EYE SCH (23:50)
[2016-11-07] VITALS (8 sets, daily range): BP systolic 114–158; BP diastolic 61–79; PULSE 68–86; RESP 19–20; TEMP 96–98.4; O2SAT 94–99
[2016-11-07] MEDS: DEXAMETHASONE SOD PHOS 4 MG/ML VIAL IV PUSH SCH ×3 (03:26→17:15)
[2016-11-07] MEDS: SODIUM CHLOR 0.9% 1000 ML INJ 1,000 ML IV SCH ×2 (06:27→17:22)
[2016-11-07] MEDS: INSULIN ASPART SUPPLEMENTAL SCALE SQ SCH ×4 (06:28→22:20)
[2016-11-07] MEDS: GABAPENTIN 400 MG CAP PO SCH ×3 (08:55→17:15)
[2016-11-07] MEDS: SODIUM CHLORIDE 0.9% FLUSH 10 ML FLUSH IV FLUSH SCH ×2 (08:55→22:13)
[2016-11-07] MEDS: METOPROLOL TARTRATE 50 MG TAB PO SCH ×2 (08:55→22:12)
[2016-11-07] MEDS: FERROUS SULFATE 325 MG (65 MG ELEMENTAL IRON) TAB PO SCH (08:55)
[2016-11-07] MEDS: DOCUSATE SODIUM 50 MG/SENNA 8.6 MG TAB PO SCH ×2 (08:56→22:12)
[2016-11-07] MEDS: DORZOLAMIDE/TIMOLOL OPTH SOLN 10 ML BTL EACH EYE SCH (09:56)
--- NOTE | 2016-11-07 14:55 | HHI.PR ---
Subjective Remarks Follow up for neck/throat swelling. The patient reports the neck and throat swelling is improving. He denies any odynophagia, dysphagia, or dyspnea. He does not quite feel ready for discharge but believes he will be ready tomorrow. O2 sat stable on room air. The patient did show me a prescription bottle of Losartan 25mg bid, again advised him to discontinue this medication. The patient has no other medical complaints at this time. Objective Vitals Vital Signs Date Time Temp Pulse Resp B/P Pulse Ox O2 Delivery O2 Flow Rate FiO2 11/07/16 12:00 97.4 79 19 128/69 96 11/07/16 08:00 97.6 76 20 130/72 99 11/07/16 04:00 96.0 86 19 157/76 95 11/07/16 00:00 96.0 68 20 136/63 95 11/06/16 20:00 97.6 90 19 140/81 94 11/06/16 20:00 82 11/06/16 15:50 85 20 139/71 99 I/O 11/06/16 11/06/16 11/06/16 11/07/16 11/07/16 11/07/16 07:00 15:00 23:00 07:00 15:00 23:00 Intake Total 1170 ml 1003 ml 240 ml Output Total 700 ml 950 ml 960 ml Balance -700 ml 1170 ml 53 ml -720 ml Intake Oral 1170 ml 240 ml 240 ml IV Total 763 ml Output Urine Total 700 ml 950 ml 960 ml # Voids 2 # Bowel Movements 0 0 2 Result Diagram: 11/06/16 0708 11/06/16 0708 Imaging Last Impressions Neck CT 11/05/16 0000 Signed Impressions: Service Date/Time: Saturday, November 05, 2016 10:57 - CONCLUSION: The exam demonstrates nonspecific edema and possibly a small amount of fluid in the prevertebral soft tissues in the retropharyngeal region. There do appear to be some edematous changes within the larynx as well. There is some narrowing of the airway as it traverses through this level. Maged Martinez MD Objective Remarks GENERAL: Well-nourished, well-developed obese male patient in NAD. SKIN: Warm and dry. No rash. HEENT: Normocephalic. Atraumatic.Pupils equal and round. Mucous membranes pink and moist. Posterior oropharynx with minimal edema. NECK: Supple. Trachea midline. Large neck and submandibular area with improving edema, nontender to palpation. CARDIOVASCULAR: Regular rate and rhythm. S1, S2 noted. No murmur appreciated. RESPIRATORY: No accessory muscle use. Clear to auscultation. Breath sounds equal bilaterally. GASTROINTESTINAL: Abdomen soft, non-tender, nondistended. Normoactive bowel sounds x4. MUSCULOSKELETAL: No obvious deformities. Extremities without clubbing, cyanosis , or edema. NEUROLOGICAL: Awake and alert. No obvious cranial nerve deficits. Motor grossly within normal limits. Normal speech. PSYCHIATRIC: Appropriate mood and affect; insight and judgment normal. Medications and IVs Current Medications Medications (Trade) Dose Ordered Sig/Sridhar Route Start Time Stop Time Status Last Admin (NS 1000 ml Inj) 1,000 ml @ 100 mls/hr Q10H IV 11/05/16 15:00 11/07/16 17:22 (NS Flush) 2 ml UNSCH PRN IV FLUSH 11/05/16 13:30 (NS Flush) 2 ml BID IV FLUSH 11/05/16 21:00 11/06/16 22:45 (Tylenol) 650 mg Q4H PRN PO 11/05/16 13:30 (Zofran Inj) 4 mg Q6H PRN IVP 11/05/16 13:30 (Tylenol) 650 mg Q6H PRN PO 11/05/16 13:30 (Roxicodone) 10 mg Q4H PRN PO 11/05/16 13:30 11/07/16 17:17 (Roxicodone) 5 mg Q4H PRN PO 11/05/16 13:30 (Narcan Inj) 0.4 mg UNSCH PRN IV 11/05/16 13:30 (Lynda-Colace) 1 tab BID PO 11/05/16 21:00 11/06/16 22:45 (Milk Of Magnesia Liq) 30 ml Q12H PRN PO 11/05/16 13:30 (Ventolin Hfa Inh) 2 puff DAILY PRN INH 11/05/16 15:45 (Cosopt 2-0.5% Opth Soln) 1 drop DAILY EACH EYE 11/06/16 09:00 11/07/16 09:56 (Xalatan 0.005% Opth Soln) 1 drop HS EACH EYE 11/05/16 21:00 11/06/16 23:50 (Ferrous Sulfate) 325 mg DAILY PO 11/06/16 09:00 11/07/16 08:55 (Pravachol) 20 mg HS PO 11/05/16 21:00 11/06/16 22:44 (Neurontin) 800 mg TID PO 11/05/16 18:00 11/07/16 17:15 (Decadron Inj) 4 mg Q8H IV PUSH 11/05/16 18:00 11/07/16 17:15 (D50w (Vial) Inj) 50 ml UNSCH PRN IV 11/05/16 16:15 (Glucagon Inj) 1 mg UNSCH PRN OTHER 11/05/16 16:15 (Lopressor) 50 mg Q12HR PO 11/06/16 13:15 11/07/16 08:55 A/P Assessment and Plan 60-year-old male with a past medical history of Elaine Rm, DM, HTN, HLD who presents with recurrent neck swelling Neck and throat swelling: Recurrent, failed outpatient antibiotic and steroid therapy. No clinical signs of airway compromise or inability to handle secretions. Suspect Angioedema with recently being started on Losartan, and hx of angioedema with lisinopril in 2014. Soft tissue neck abscess/cellulitis in the differential however not consistent with presentation, per ENT. Reviewed: Neck CT with nonspecific edema and possibly a small amount of fluid in the prevertebral soft tissues in the retropharyngeal region; edematous changes within the larynx as well with some narrowing of the airway. Afebrile with no leukocytosis. -Consulted ENT, s/p fiberotic laryngoscopy which showed normal pharynx -Dr. Piper recommends continuing steroids for now -needs outpatient wireless internet installer work up for angioedema, discussed with the patient -discontinue IV antibiotics as likely not related to cellulitis/abscess, per ENT -Continue IV Decadron -IVF -monitor airway, O2 sat stable on room air -blood cultures with NGTD -Discontinue losartan and add to allergy list, extensively discussed with patient Hypokalemia: Mild. Replaced potassium orally. Repeat Potassium 4.1. Resolved. Diabetes mellitus with neuropathy: Chronic, stable. Hold home oral hypoglycemics. Continue home gabapentin. Monitor Accu-Cheks. SSI coverage. Tobacco abuse: Counseled on cessation. Other chronic medical conditions include glaucoma, iron deficiency, hyperlipidemia: Stable at this time and will continue home medications as indicated. DVT prophylaxis: SCDs Discharge Planning Likely discharge tomorrow if patient continues to improve. Mary Pelaez PA-C Nov 07, 2016 2:55 pm
[2016-11-07] MEDS: LATANOPROST 0.005% OPHT SOLN 2.5 ML BTL EACH EYE SCH (22:14)
[2016-11-07] MEDS: PRAVASTATIN SOD 20 MG TAB PO SCH (22:18)
[2016-11-08] MEDS: DEXAMETHASONE SOD PHOS 4 MG/ML VIAL IV PUSH SCH ×3 (02:39→10:35)
[2016-11-08 04:00] VITALS: BP 148/69; PULSE 74; RESP 19; TEMP 96.8; O2SAT 96
[2016-11-08] MEDS: INSULIN ASPART SUPPLEMENTAL SCALE SQ SCH (06:58)
[2016-11-08 07:49] VITALS: BP 162/77; PULSE 72; RESP 20; TEMP 97.8; O2SAT 96
[2016-11-08] MEDS ORDERED: PRED20 PO (08:58)
--- NOTE | 2016-11-08 08:59 | HHI.DCPOC ---
Discharge Care Plan Diagnosis: (1) Allergic angioedema (2) Edema of throat Goals to Promote Your Health * To prevent worsening of your condition and complications * To maintain your health at the optimal level Directions to Meet Your Goals Take your medications as prescribed Follow your dietary instruction Follow activity as directed Keep your appointments as scheduled Take your immunizations and boosters as scheduled If your symptoms worsen call your PCP, if no PCP go to Urgent Care Center or Emergency Room Smoking is Dangerous to Your Health. Avoid second hand smoke Call the 24-hour hour crisis hotline for domestic abuse at Mary Pelaez PA-C Nov 08, 2016 08:59
[2016-11-08] MEDS: DOCUSATE SODIUM 50 MG/SENNA 8.6 MG TAB PO SCH (09:00)
--- NOTE | 2016-11-08 09:09 | HHI.DS ---
Discharge Summary Admission Date Nov 05, 2016 at 12:46 pm Discharge Date: Nov 08, 2016 Admitting Diagnosis recurrent angioedema (1) Allergic angioedema ICD Code: T78.3XXA Diagnosis: Principal (2) Edema of throat ICD Code: J39.2 Diagnosis: Principal (3) Diabetes mellitus ICD Code: E11.9 Diagnosis: Secondary Procedures Bedside fiberoptic laryngoscopy by Dr. Piper Brief History - From Admission 60-year-old male with a past medical history of Elaine Rm, DM, HTN, HLD who presents with recurrent neck swelling. The patient had a recent hospitalization where he had anterior neck swelling and possible infection. The patient states that he initially woke up with neck swelling 1 day. He's had 2 previous hospitalizations for this. He states that since that time the swelling is better some days and gets worse others, and has not yet fully resolved. He was due to finish his course of clindamycin today. He states that he woke up today and the swelling was worse again. He states that today he also noted that it was hard to breathe when he woke up which has not happened before, states shortness of breath has artery improved. He denies any swallowing problems. He noted that his face was more swollen today as well. He also noticed some congestion in his right ear. He denies any fever, chills, pain, sinus drainage, sore throat, night sweats, weight change. CBC/BMP: 11/06/16 0708 11/06/16 0708 Significant Findings Laboratory Tests Test 11/06/16 07:08 Red Blood Count 3.66 MIL/MM3 (4.50-5.90) Hemoglobin 10.8 GM/DL (13.0-17.0) Hematocrit 31.9 % (39.0-51.0) Platelet Count 124 TH/MM3 (150-450) Neutrophils (%) (Auto) 91.4 % (16.0-70.0) Lymphocytes (%) (Auto) 5.6 % (9.0-44.0) Neutrophils # (Auto) 10.0 TH/MM3 (1.8-7.7) Lymphocytes # (Auto) 0.6 TH/MM3 (1.0-4.8) Random Glucose 111 MG/DL (74-106) Total Protein 10.6 GM/DL (6.4-8.2) Albumin 2.6 GM/DL (3.4-5.0) Imaging Last Impressions Neck CT 11/05/16 0000 Signed Impressions: Service Date/Time: Saturday, November 05, 2016 10:57 - CONCLUSION: The exam demonstrates nonspecific edema and possibly a small amount of fluid in the prevertebral soft tissues in the retropharyngeal region. There do appear to be some edematous changes within the larynx as well. There is some narrowing of the airway as it traverses through this level. Maged Martinez MD PE at Discharge GENERAL: Well-nourished, well-developed obese male patient in NAD. SKIN: Warm and dry. No rash. HEENT: Normocephalic. Atraumatic.Pupils equal and round. Mucous membranes pink and moist. Posterior oropharynx with minimal edema. NECK: Supple. Trachea midline. Large neck and submandibular area with improving edema, nontender to palpation. CARDIOVASCULAR: Regular rate and rhythm. S1, S2 noted. No murmur appreciated. RESPIRATORY: No accessory muscle use. Clear to auscultation. Breath sounds equal bilaterally. GASTROINTESTINAL: Abdomen soft, non-tender, nondistended. Normoactive bowel sounds x4. MUSCULOSKELETAL: No obvious deformities. Extremities without clubbing, cyanosis , or edema. NEUROLOGICAL: Awake and alert. No obvious cranial nerve deficits. Motor grossly within normal limits. Normal speech. PSYCHIATRIC: Appropriate mood and affect; insight and judgment normal. Pt update on day of discharge The patient reports continue improved of his neck swelling. He denies any pain, odynophagia, dysphagia, or dyspnea. O2 sat stable on room air. He is tolerating oral intake. Again discussed discontinuing losartan. Hospital Course 60-year-old male with a past medical history of Guillain Rm, DM, HTN, HLD who presents with recurrent neck swelling, failed outpatient antibiotic and steroid therapy. No clinical signs of airway compromise or inability to handle secretions. Suspected Angioedema with recently being started on Losartan, and hx of angioedema with lisinopril in 2014. Soft tissue neck abscess/cellulitis in the differential however not consistent with presentation, per ENT. Reviewed Neck CT with nonspecific edema and possibly a small amount of fluid in the prevertebral soft tissues in the retropharyngeal region; edematous changes within the larynx as well with some narrowing of the airway. Afebrile with no leukocytosis. Consulted ENT, s/p fiberotic laryngoscopy which showed normal pharynx. Dr. Piper recommends continuing steroids for now. Needs outpatient supervisor composing room work up for angioedema, discussed with the patient. Discontinued IV antibiotics as likely not related to cellulitis/abscess, per ENT. Continue on IV Decadron and patient continued to show significant improvement. Monitored airway, O2 sat stable on room air throughout admission. Blood cultures with NGTD.-Discontinue losartan and add to allergy list, extensively discussed with patient. Patient much improved throughout hospitalization. He was discharge on prednisone steroid taper. 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 Warren as well as get established with an supervisor composing room, referred to Dr. Toledo at discharge per Dr. Piper. Pt Condition on Discharge: Stable Discharge Disposition: Discharge Home Discharge Time: > 30 minutes Discharge Instructions DIET: Follow Instructions for: Heart Healthy Diet, Diabetic Diet Activities you can perform: Regular-No Restrictions Follow up Referrals: Allergy & Immunology - 1 Week with Ac Toledo MD Ear Nose Throat with Kevin Piper MD PCP Follow-up - 1 Week Rheumatology - 1 Week with Solomon Warren MD New Medications: Prednisone (Prednisone) 20 Mg Tab 20 MG PO DIRECTED 40 MG twice a day x 3 days, then 20 MG twice a day x 3 days , then 20 MG once daily x 3 days Inflammation #21 Ref 0 TAB Continued Medications: Albuterol 8.5 GM Inh (Proair Hfa 8.5 GM Inh) 90 Mcg/Act Aer 2 PUFF INH DAILY 108 mcg/actuation PRN SHORTNESS OF BREATH #1 Ref 0 INHALER Dorzolamide-Timolol Pf Opth Drops (Cosopt Pf Opth Drops) 22.3-6.8 mg/ml Soln 1 DROP EACH EYE DAILY Glaucoma #1 Ref 0 BOTTLE Ferrous Gluconate (Ferrous Gluconate) 325 Mg Tab 325 MG PO DAILY Nutritional Supplement #30 Ref 0 TAB Glyburide (Glyburide) 5 Mg Tab 5 MG PO DAILY Take with meals at the same time each day Blood Sugar Management # 30 Ref 0 TAB Hydrocodone-Acetaminophen (Hydrocodone-Acetaminophen) 10-325 mg Tab 1 TAB PO TID PAIN Ref 0 TAB Latanoprost Opth Drops (Latanoprost Opth Drops) 0.005% Drops 1 DROP EACH EYE HS Refrigerate until opened. Glaucoma #2.5 Ref 0 ML Simvastatin (Simvastatin) 10 Mg Tab 10 MG PO HS Cholesterol Management #30 Ref 0 TAB Mary Pelaez PA-C Nov 08, 2016 09:09
[2016-11-08] MEDS ORDERED: METO100T PO (09:12)
[2016-11-08] MEDS ORDERED: GABA800T PO (09:12)
[2016-11-08] MEDS: DORZOLAMIDE/TIMOLOL OPTH SOLN 10 ML BTL EACH EYE SCH (10:34)
[2016-11-08] MEDS: METOPROLOL TARTRATE 50 MG TAB PO SCH (10:34)
[2016-11-08] MEDS: GABAPENTIN 400 MG CAP PO SCH (10:34)
[2016-11-08] MEDS: FERROUS SULFATE 325 MG (65 MG ELEMENTAL IRON) TAB PO SCH (10:34)
[2016-11-08] MEDS: SODIUM CHLORIDE 0.9% FLUSH 10 ML FLUSH IV FLUSH SCH (10:35)
[2016-11-08] MEDS ORDERED: COMMODE 3-IN-11 MIS (10:54)
== END 2016-11-08 11:25 | disposition home or self-care (01) | DRG 916 ==
LOC: NEPE 07:44 → NEDA 12:46 → N05A 14:49 → N07A 11-06 18:25
PROVIDERS: ADMIT Hospitalist; ATTEND Hospitalist
PROC: 0CJS8ZZ Inspection of Larynx, Via Natural or Artificial Opening Endoscopic (ICD-10-PCS; principal; 2016-11-06)
DX: T78.3XXA Angioneurotic edema, initial encounter (principal); G61.0 Guillain-Barre syndrome; E11.40 Type 2 diabetes mellitus with diabetic neuropathy, unspecified; I10 Essential (primary) hypertension; E78.5 Hyperlipidemia, unspecified; H40.9 Unspecified glaucoma; F17.210 Nicotine dependence, cigarettes, uncomplicated; E87.6 Hypokalemia; E61.1 Iron deficiency
CPT/HCPCS: 70491; 76937; 80053; 82948; 85025; 87040; 96365; J0295; J1100; J1815; J7030; Q9967

== ENCOUNTER 2016-12-24 11:28 | Observation (INO) | payer MEDICAID ==
[~2016-12-24 11:28] MED LIST changes: -CLIN1CAP6 PO; +COMMODE 3-IN-11 MIS; +PRED20 PO
--- NOTE | 2016-12-24 11:36 | PD ---
Physical Exam Date Seen by Provider: Dec 24, 2016 Time Seen by Provider: 11:34 Narrative Pt presents c/o left lower leg pain and swelling. Symptoms started 8 days ago, pt sent by PCP. Pain is an 8/10, aching and throbbing. Pt denies any fevers or chills. Pt is not on any blood thinners, no hx of DVT. Awaiting bed placement. MDM Supervised Visit with ANIRUDH: Tracy Cortez Dec 24, 2016 11:36
[2016-12-24 11:38] VITALS: BP 151/68; PULSE 61; RESP 15; TEMP 98.2; O2SAT 97
[2016-12-24 12:22] LABS: AUTOMATED NEUTROPHIL # 7.8 TH/MM3 (1.8-7.7); BASOPHIL % 0.3 % (0.0-2.0); EOSINOPHIL # 0.2 TH/MM3 (0-0.4); EOSINOPHIL % 1.9 % (0.0-4.0); HEMATOCRIT 34.1 % (39.0-51.0); HEMO FLAGS DIFF FINAL; LYMPH % 13.6 % (9.0-44.0); LYMPHOCYTE # 1.4 TH/MM3 (1.0-4.8); MEAN CELL VOLUME 85.3 FL (80.0-100.0); MEAN CORPUSCULAR HEMOGLOBIN 27.6 PG (27.0-34.0); MEAN CORPUSCULAR HGB CONC 32.4 % (32.0-36.0); MONO % 7.9 % (0.0-8.0); NEUT % 76.3 % (16.0-70.0); PLATELET COUNT 134 TH/MM3 (150-450); RED CELL DISTRIBUTION WIDTH 18.2 % (11.6-17.2); WHITE BLOOD COUNT 10.3 TH/MM3 (4.0-11.0)
[2016-12-24 12:27] LABS: APTT (PATIENT) 25.9 SEC (24.3-30.1); PROTHROMBIN TIME - PATIENT 10.9 SEC (9.8-11.6)
[2016-12-24 12:37] LABS: ALT (GPT) 46 U/L (12-78); ANION GAP 5 MEQ/L (5-15); AST (GOT) 31 U/L (15-37); BICARBONATE 27.7 MEQ/L (21.0-32.0); BLOOD UREA NITROGEN 7 MG/DL (7-18); CHLORIDE 103 MEQ/L (98-107); GLOMERULAR FILTRATION RATE 100 ML/MIN (>89); POTASSIUM 3.9 MEQ/L (3.5-5.1); SODIUM (NA) 136 MEQ/L (136-145)
[2016-12-24 12:40] LABS: ALKALINE PHOSPHATASE 106 U/L (45-117); TOTAL BILIRUBIN ADULT 0.5 MG/DL (0.2-1.0)
--- NOTE | 2016-12-24 12:42 | PD ---
HPI Chief Complaint: Edema Time Seen by Provider: 11:40 Travel History International Travel<30 days: No Contact w/Intl Traveler<30days: No Traveled to known affect area: No History of Present Illness HPI This is a 61-year-old gentleman with a history of Guillain-Rm's in, who sent here from his primary care office in [place] for evaluation of his left lower extremity edema. Patient states over the last 8 days he's noticed increased swelling of his left lower extremity. He has no previous history of blood clots. He is a tobacco user. He denies any previous trauma. He is currently receiving IVIG for his Guillain-Rm. His next scheduled on Saturday for his next dose. There is no shortness of breath. There is no other symptoms at the time of my examination. PFSH Past Medical History Arthritis: Yes Asthma: No Autoimmune Disease: No Blood Disorders: No Anxiety: No Depression: No Heart Rhythm Problems: No Cancer: Yes Cardiovascular Problems: Yes (HTN) High Cholesterol: No Chest Pain: No Congestive Heart Failure: No COPD: No Cerebrovascular Accident: No Diabetes: Yes Patient Takes Glucophage: No Diminished Hearing: No Endocrine: Yes GERD: No Glaucoma: No Genitourinary: No Headaches: No Hepatitis: No Hypertension: Yes Immune Disorder: No Implanted Vascular Access Dvce: Yes (RIGHT CHEST) Kidney Stones: No Musculoskeletal: Yes Neurologic: Yes (GUILLAIN BARRE) Psychiatric: No Reproductive: No Respiratory: Yes (SUBMNADIBULAR CELLULITIS) Immunizations Current: Yes Migraines: No Myocardial Infarction: No Renal Failure: No Seizures: No Sickle Cell Disease: No Sleep Apnea: No Thyroid Disease: No Ulcer: No Past Surgical History Abdominal Surgery: No AICD: No Appendectomy: No Arteriovenous Shunt: No Cardiac Surgery: No Cholecystectomy: No Ear Surgery: No Endocrine Surgery: No Eye Surgery: No Genitourinary Surgery: No Gynecologic Surgery: No Insulin Pump: No Joint Replacement: No Oral Surgery: No Pacemaker: No Thoracic Surgery: No Other Surgery: Yes (PORT INSERTION, RIGHT CHEST) Social History Alcohol Use: Yes (2 BEERS PER DAY) Tobacco Use: Yes (1 PPD) Substance Use: No Allergies-Medications (Allergen,Severity, Reaction): Coded Allergies: lisinopril (Unverified Allergy, Severe, angioedema, 12/11/16) losartan (Unverified Allergy, Severe, angioedema, 12/11/16) Reported Meds & Prescriptions Reported Meds & Active Scripts Active Commode 3-in-1 (Device) 1 Mis Mis 1 Ea .ROUTE DIRECTED Metoprolol Tartrate 100 Mg Tab 50 Mg PO BID Gabapentin 800 Mg Tab 800 Mg PO TID Prednisone 20 Mg Tab 20 Mg PO DIRECTED 40 MG twice a day x 3 days, then 20 MG twice a day x 3 days, then 20 MG once daily x 3 days Reported Hydrocodone-Acetaminophen 10-325 mg Tab 1 Tab PO TID Cosopt Pf Opth Drops (Dorzolamide-Timolol Pf Opth Drops) 22.3-6.8 mg/ml Soln 1 Drop EACH EYE DAILY Latanoprost Opth Drops (Latanoprost) 0.005% Drops 1 Drop EACH EYE HS Refrigerate until opened. Proair Hfa 8.5 GM Inh (Albuterol Sulfate) 90 Mcg/Act Aer 2 Puff INH DAILY PRN 108 mcg/actuation Ferrous Gluconate 325 Mg Tab 325 Mg PO DAILY Simvastatin 10 Mg Tab 10 Mg PO HS Glyburide 5 Mg Tab 5 Mg PO DAILY Take with meals at the same time each day Review of Systems Except as stated in HPI: all other systems reviewed are Neg General / Constitutional: No: Fever, Chills HENT: No: Headaches, Vertigo, Lightheadedness Cardiovascular: No: Chest Pain or Discomfort, Palpitations Respiratory: No: Cough, Shortness of Breath Musculoskeletal: Positive: Edema, Pain (left lower extremity left lower extremity) Skin: No Rash Neurologic: Positive: Other (history of Guillain-Rm. He is receiving IVIG with this.), No: Weakness, Dizziness, Syncope Physical Exam Narrative GENERAL: Well-developed well-nourished male in no acute rest her distress. SKIN: Focused skin assessment warm/dry. HEAD: Atraumatic. Normocephalic. EYES: No scleral icterus. No injection or drainage. ENT: No nasal bleeding or discharge. Mucous membranes pink and moist. NECK: Trachea midline. No JVD. CARDIOVASCULAR: Regular rate and rhythm. No murmur appreciated. RESPIRATORY: No accessory muscle use. Clear to auscultation. Breath sounds equal bilaterally. GASTROINTESTINAL: Abdomen soft, non-tender, nondistended. Hepatic and splenic margins not palpable. MUSCULOSKELETAL: No obvious deformities. Left lower extremity with swelling. Patient has tenderness to palpation in his calf and posterior popliteal area. There is suspicious palpable cords in the popliteal fossa. NEUROLOGICAL: Awake and alert. No obvious cranial nerve deficits. Motor grossly within normal limits. Normal speech. PSYCHIATRIC: Appropriate mood and affect; insight and judgment normal. Data Data Last Documented VS Vital Signs Date Time Temp Pulse Resp B/P (MAP) Pulse Ox O2 Delivery O2 Flow Rate FiO2 12/24/16 11:50 92 17 99 Room Air 12/24/16 11:38 98.2 151/68 (95) Orders Orders Us Leg Venous Doppler (12/24/16 11:46) Complete Blood Count With Diff (12/24/16 11:46) Comprehensive Metabolic Panel (12/24/16 11:46) Prothrombin Time / Inr (Pt) (12/24/16 11:46) Act Partial Throm Time (Ptt) (12/24/16 11:46) Admit Order (Ed Use Only) (12/24/16 13:01) Labs Laboratory Tests Test 12/24/16 11:50 White Blood Count 10.3 TH/MM3 Red Blood Count 4.00 MIL/MM3 Hemoglobin 11.0 GM/DL Hematocrit 34.1 % Mean Corpuscular Volume 85.3 FL Mean Corpuscular Hemoglobin 27.6 PG Mean Corpuscular Hemoglobin Concent 32.4 % Red Cell Distribution Width 18.2 % Platelet Count 134 TH/MM3 Mean Platelet Volume 9.8 FL Neutrophils (%) (Auto) 76.3 % Lymphocytes (%) (Auto) 13.6 % Monocytes (%) (Auto) 7.9 % Eosinophils (%) (Auto) 1.9 % Basophils (%) (Auto) 0.3 % Neutrophils # (Auto) 7.8 TH/MM3 Lymphocytes # (Auto) 1.4 TH/MM3 Monocytes # (Auto) 0.8 TH/MM3 Eosinophils # (Auto) 0.2 TH/MM3 Basophils # (Auto) 0.0 TH/MM3 CBC Comment DIFF FINAL Differential Comment Prothrombin Time 10.9 SEC Prothromb Time International Ratio 1.0 RATIO Activated Partial Thromboplast Time 25.9 SEC Blood Urea Nitrogen 7 MG/DL Creatinine 0.93 MG/DL Random Glucose 111 MG/DL Total Protein 9.7 GM/DL Albumin 2.6 GM/DL Calcium Level 8.6 MG/DL Alkaline Phosphatase 106 U/L Aspartate Amino Transf (AST/SGOT) 31 U/L Alanine Aminotransferase (ALT/SGPT) 46 U/L Total Bilirubin 0.5 MG/DL Sodium Level 136 MEQ/L Potassium Level 3.9 MEQ/L Chloride Level 103 MEQ/L Carbon Dioxide Level 27.7 MEQ/L Anion Gap 5 MEQ/L Estimat Glomerular Filtration Rate 100 ML/MIN MDM Medical Decision Making Medical Screen Exam Complete: Yes Emergency Medical Condition: Yes Differential Diagnosis Left lower extremity DVT versus cellulitis versus dependent edema Narrative Course 61-year-old male with a history of Guillain-Rm, presents here at the request of his primary care physician and Darryn to evaluate for left lower extremity swelling. Patient's bedside ultrasound shows a large left lower extremity DVT. He'll be admitted to the hospital. There is a call out to the admitting service. Diagnosis Primary Impression: Deep vein thrombosis (DVT) of left lower extremity Additional Impressions: Diabetes mellitus History of hypertension History of Guillain-Ailey syndrome Admitting Information Admitting Physician Requests: Case Management Collin Cortez MD Dec 24, 2016 12:42
--- NOTE | 2016-12-24 12:55 | RADRPT ---
EXAM DATE/TIME: 12/24/2016 12:10 [facility] COMPARISON: No previous studies available for comparison. INDICATIONS : Left leg pain and swelling. MEDICAL HISTORY : Hypertension. Arthritis. Guillaine-[place] syndrome. Numbness. Submandibular cellulitis. Diabetes. Measles. Chemotherapy. SURGICAL HISTORY : Right chest port. ENCOUNTER: Initial ACUITY: 1 week PAIN SCORE: 8/10 LOCATION: Left leg. TECHNIQUE: Venous ultrasound of the leg was performed from the inguinal ligament to the proximal calf. Real-yasmin e, color Doppler and spectral tracing, compression and augmentation techniques were used. FINDINGS: Extensive venous thrombosis is seen from below the knee to above the inguinal ligament. Saphenous ve in has partially occlusive thrombus as well. CONCLUSION: Extensive deep venous thrombosis. Samy Martinez MD FACR on December 24, 2016 at 12:53 Board Certified Radiologist. This report was verified electronically.
[2016-12-24 13:00] VITALS: BP 114/62; PULSE 86; RESP 15; O2SAT 97
[2016-12-24] MEDS ORDERED: NALOXONE HCL 0.4 MG/ML AMP IV PRN (13:15)
[2016-12-24] MEDS ORDERED: ONDANSETRON HCL 4 MG/2 ML VIAL IVP PRN (13:15)
[2016-12-24] MEDS ORDERED: MAGNESIUM HYDROXIDE SUSP 30 ML CUP PO PRN (13:15)
[2016-12-24] MEDS ORDERED: BISACODYL 10 MG SUPP RECTAL PRN (13:15)
[2016-12-24] MEDS ORDERED: SODIUM CHLORIDE 0.9% FLUSH 10 ML FLUSH IV FLUSH PRN (13:15)
[2016-12-24] MEDS ORDERED: LACTULOSE SYRUP 20 GM/30 ML CUP PO PRN (13:15)
[2016-12-24] MEDS ORDERED: SENNOSIDES 8.6 MG TAB PO PRN (13:15)
[2016-12-24 14:00] VITALS: BP 116/65; PULSE 85; RESP 15; O2SAT 97
[2016-12-24 14:39] VITALS: BP 113/67; PULSE 86; RESP 20; TEMP 97.4; O2SAT 95
--- NOTE | 2016-12-24 16:27 | HHI.HP ---
[facility] Service [facility] Primary Care Physician Frederic Velez MD Admission Diagnosis left lower extremity DVT, Guillain-Rm, hypertension, diabetes guero Diagnoses: Travel History International Travel<30 Days: No Contact w/Intl Traveler <30 Da: No Traveled to Known Affected Are: No History of Present Illness Mr. Kramer is a 61-year-old male. He was admitted secondary to a left leg DVT discovered after he came in with lower left extremity swelling. She denies any chest pain or shortness of breath. She has no prior history of DVT. He does have a possible prior history of right arm thrombophlebitis. When seen he is comfortable but his leg continues to be swollen. He is able to ambulate. No other complaints. No fevers. He says he first noticed the swelling in his bilateral lower extremities starting 5 days ago. She at first thought it was just fluid retention which is a chronic problem for him. Through that time his right leg has improved but his left leg has remained swollen. Imaging in the ER reveals DVT. No history of renal disease and renal function today and blood work is within normal limits. 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 The patient is hoping to discharge diet tomorrow so he can provide himself his IVIG with home healthcare. Review of Systems Constitutional: DENIES: Fatigue, Fever, Weight gain, Weight loss, Chills, Dizziness, Change in appetite, Night Sweats Endocrine: DENIES: Heat/cold intolerance, Polydipsia, Polyuria Eyes: DENIES: Blurred vision, Diplopia, Eye inflammation Ears, nose, mouth, throat: DENIES: Tinnitus, Hearing loss, Vertigo Respiratory: DENIES: Apneas, Cough, Wheezing, Hemoptysis, Sputum production, Shortness of breath Cardiovascular: DENIES: Chest pain, Palpitations, Syncope Gastrointestinal: DENIES: Abdominal pain, Black stools, Bloody stools Musculoskeletal: COMPLAINS OF: Joint Swelling, DENIES: Joint pain, Muscle aches Integumentary: DENIES: Abnormal pigmentation Hematologic/lymphatic: DENIES: Bruising Immunologic/allergic: DENIES: Eczema Neurologic: DENIES: Abnormal gait, Headache, Localized weakness Psychiatric: DENIES: Anxiety, Confusion Past Family Social History Past Medical History Diabetes mellitus type 2 Diabetic neuropathy Guillain-Rm syndrome Hypertension Hyperlipidemia Glaucoma Past Surgical History Right chest port placement Reported Medications Reported Meds & Active Scripts Active Commode 3-in-1 (Device) 1 Mis Mis 1 Ea .ROUTE DIRECTED Metoprolol Tartrate 100 Mg Tab 50 Mg PO BID Gabapentin 800 Mg Tab 800 Mg PO TID Prednisone 20 Mg Tab 20 Mg PO DIRECTED 40 MG twice a day x 3 days, then 20 MG twice a day x 3 days, then 20 MG once daily x 3 days Reported Hydrocodone-Acetaminophen 10-325 mg Tab 1 Tab PO TID Cosopt Pf Opth Drops (Dorzolamide-Timolol Pf Opth Drops) 22.3-6.8 mg/ml Soln 1 Drop EACH EYE DAILY Latanoprost Opth Drops (Latanoprost) 0.005% Drops 1 Drop EACH EYE HS Refrigerate until opened. Proair Hfa 8.5 GM Inh (Albuterol Sulfate) 90 Mcg/Act Aer 2 Puff INH DAILY PRN 108 mcg/actuation Ferrous Gluconate 325 Mg Tab 325 Mg PO DAILY Simvastatin 10 Mg Tab 10 Mg PO HS Glyburide 5 Mg Tab 5 Mg PO DAILY Take with meals at the same time each day Allergies: Coded Allergies: lisinopril (Unverified Allergy, Severe, angioedema, 12/11/16) losartan (Unverified Allergy, Severe, angioedema, 12/11/16) Family History COPD and mother Social History Patient smokes about 2-3 cigarettes per day No illicit drug abuse Patient takes approximately 2 beers per night Physical Exam Vital Signs Vital Signs Date Time Temp Pulse Resp B/P (MAP) Pulse Ox O2 Delivery O2 Flow Rate FiO2 12/24/16 14:39 97.4 86 20 113/67 (82) 95 12/24/16 14:15 12/24/16 14:00 85 15 116/65 (82) 97 12/24/16 13:00 86 15 114/62 (79) 97 12/24/16 11:50 92 17 99 Room Air 12/24/16 11:38 98.2 61 15 151/68 (95) 97 Physical Exam GENERAL: NAD, A&Ox3 HEAD: Normocephalic. NECK: Supple, trachea midline. No lymphadenopathy. EYES: No scleral icterus. No injection or drainage. CARDIOVASCULAR: Regular rate and rhythm without murmurs, gallops, or rubs. RESPIRATORY: Breath sounds equal bilaterally. No accessory muscle use. GASTROINTESTINAL: Abdomen soft, non-tender, nondistended. MUSCULOSKELETAL: No cyanosis, or edema. Left lower extremity is edematous from the knee down without any tenderness SKIN: Warm and dry. NEURO: No focal neurological deficitis. Laboratory Laboratory Tests Test 12/24/16 11:50 White Blood Count 10.3 Red Blood Count 4.00 Hemoglobin 11.0 Hematocrit 34.1 Mean Corpuscular Volume 85.3 Mean Corpuscular Hemoglobin 27.6 Mean Corpuscular Hemoglobin Concent 32.4 Red Cell Distribution Width 18.2 Platelet Count 134 Mean Platelet Volume 9.8 Neutrophils (%) (Auto) 76.3 Lymphocytes (%) (Auto) 13.6 Monocytes (%) (Auto) 7.9 Eosinophils (%) (Auto) 1.9 Basophils (%) (Auto) 0.3 Neutrophils # (Auto) 7.8 Lymphocytes # (Auto) 1.4 Monocytes # (Auto) 0.8 Eosinophils # (Auto) 0.2 Basophils # (Auto) 0.0 CBC Comment DIFF FINAL Differential Comment Prothrombin Time 10.9 Prothromb Time International Ratio 1.0 Activated Partial Thromboplast Time 25.9 Blood Urea Nitrogen 7 Creatinine 0.93 Random Glucose 111 Total Protein 9.7 Albumin 2.6 Calcium Level 8.6 Alkaline Phosphatase 106 Aspartate Amino Transf (AST/SGOT) 31 Alanine Aminotransferase (ALT/SGPT) 46 Total Bilirubin 0.5 Sodium Level 136 Potassium Level 3.9 Chloride Level 103 Carbon Dioxide Level 27.7 Anion Gap 5 Estimat Glomerular Filtration Rate 100 Result Diagram: 12/24/16 1150 12/24/16 1150 Caprini VTE Risk Assessment Caprini VTE Risk Assessment: Mod/High Risk (score >= 2) Caprini Risk Assessment Model Point Value = 1 Point Value = 2 Point Value = 3 Point Value = 5 Age 41-60 Minor surgery BMI > 25 kg/m2 Swollen legs Varicose veins or History of unexplained or recurrent spontaneous Oral contraceptives or hormone replacement Sepsis (< 1 month) Serious lung disease, including pneumonia (< 1 month) Abnormal pulmonary function Acute myocardial infarction Congestive heart failure (< 1 month) History of inflammatory bowel disease Medical patient at bed rest Age 61-74 Arthroscopic surgery Major open surgery (> 45 min) Laparoscopic surgery (> 45 min) Malignancy Confined to bed (> 72 hours) Immobilizing plaster cast Central venous access Age >= 75 History of VTE Family history of VTE Factor V Leiden Prothrombin [id number] Lupus anticoagulant Anticardiolipin antibodies Elevated serum homocysteine Heparin-induced thrombocytopenia Other congenital or acquired thrombophilia Stroke (< 1 month) Elective arthroplasty Hip, pelvis, or leg fracture Acute spinal cord injury (< 1 month) Prophylaxis Regimen Total Risk Factor Score Risk Level Prophylaxis Regimen 0-1 Low Early ambulation 2 Moderate Order ONE of the following: *Sequential Compression Device (SCD) *Heparin 5000 units SQ BID 3-4 Higher Order ONE of the following medications: *Heparin 5000 units SQ TID *Enoxaparin/Lovenox 40 mg SQ daily (WT < 150 kg, CrCl > 30 mL/min) *Enoxaparin/Lovenox 30 mg SQ daily (WT < 150 kg, CrCl > 10-29 mL/min) *Enoxaparin/Lovenox 30 mg SQ BID (WT < 150 kg, CrCl > 30 mL/min) AND/OR *Sequential Compression Device (SCD) 5 or more Highest Order ONE of the following medications: *Heparin 5000 units SQ TID (Preferred with Epidurals) *Enoxaparin/Lovenox 40 mg SQ daily (WT < 150 kg, CrCl > 30 mL/min) *Enoxaparin/Lovenox 30 mg SQ daily (WT < 150 kg, CrCl > 10-29 mL/min) *Enoxaparin/Lovenox 30 mg SQ BID (WT < 150 kg, CrCl > 30 mL/min) AND *Sequential Compression Device (SCD) Assessment and Plan Problem List: (1) Deep vein thrombosis (DVT) of left lower extremity ICD Code: I82.402 - Acute embolism and thrombosis of unspecified deep veins of left lower extremity Status: Acute (2) History of Guillain-Greene syndrome ICD Code: Z86.69 - Personal history of other diseases of the nervous system and sense organs Status: Acute Assessment and Plan Assessment and plan 61-year-old male admitted with left lower extremity DVT Left lower extremity DVT Start therapeutic Lovenox Monitor for improvement or at least no worsening of symptoms Transition to Xarelto tomorrow if patient's clinically stable Monitor for any signs of chest pain or shortness of breath History of Guillain-Rm Continue IVIG Patient is due on Saturday and of this week Patient receives his treatments with home health care Diabetes mellitus type 2 Insulin sliding scale Diabetic diet Follow blood sugars Diabetic neuropathy Guillain-Rm syndrome Hypertension Hyperlipidemia Glaucoma No change to baseline treatments No clinical changes of these chronic conditions DVT prophylaxis On Lovenox Maged Wilson MD Dec 24, 2016 16:27
[2016-12-24] MEDS ORDERED: ALBUTEROL SULFATE 90 MCG/ACT HFA 8 GM INHALER INH PRN (16:30)
[2016-12-24] MEDS ORDERED: GLUCAGON 1 MG/ML VIAL OTHER PRN (16:30)
[2016-12-24] MEDS ORDERED: DEXTROSE 50% IN WATER 50 ML VIAL(D50) IV PRN (16:30)
[2016-12-24] MEDS: GABAPENTIN 400 MG CAP PO SCH (18:15)
[2016-12-24] MEDS: ENOXAPARIN SODIUM 120 MG/0.8 ML SYRINGE SQ SCH (18:16)
[2016-12-24] MEDS: ACETAMINOPHEN/HYDROcodone 325 MG/10 MG TAB PO SCH (18:16)
[2016-12-24 19:55] VITALS: BP 121/67; PULSE 104; RESP 18; TEMP 98.2; O2SAT 91
[2016-12-24] MEDS: DOCUSATE SODIUM 50 MG/SENNA 8.6 MG TAB PO SCH (21:00)
[2016-12-24] MEDS ORDERED: LATANOPROST 0.005% OPHT SOLN 2.5 ML BTL EACH EYE SCH (21:00)
[2016-12-24] MEDS ORDERED: PRAVASTATIN SOD 20 MG TAB PO SCH (21:00)
[2016-12-24] MEDS: INSULIN ASPART SUPPLEMENTAL SCALE SQ SCH (21:00)
[2016-12-24] MEDS: SODIUM CHLORIDE 0.9% FLUSH 10 ML FLUSH IV FLUSH SCH (21:32)
[2016-12-24] MEDS: METOPROLOL TARTRATE 50 MG TAB PO SCH (21:33)
[2016-12-24 23:52] VITALS: BP 103/67; PULSE 89; PULSE 98; RESP 18; TEMP 97.9; O2SAT 94
[2016-12-25 04:35] VITALS: BP 117/61; PULSE 92; RESP 20; TEMP 97.8; O2SAT 93
[2016-12-25] MEDS: ENOXAPARIN SODIUM 120 MG/0.8 ML SYRINGE SQ SCH (06:06)
[2016-12-25] MEDS: INSULIN ASPART SUPPLEMENTAL SCALE SQ SCH ×2 (06:07→13:18)
[2016-12-25 06:09] LABS: AUTOMATED NEUTROPHIL # 6.1 TH/MM3 (1.8-7.7); BASOPHIL % 0.3 % (0.0-2.0); EOSINOPHIL # 0.2 TH/MM3 (0-0.4); EOSINOPHIL % 1.8 % (0.0-4.0); HEMATOCRIT 31.2 % (39.0-51.0); LYMPHOCYTE # 1.7 TH/MM3 (1.0-4.8); MEAN CELL VOLUME 85.3 FL (80.0-100.0); MEAN CORPUSCULAR HEMOGLOBIN 27.6 PG (27.0-34.0); MEAN CORPUSCULAR HGB CONC 32.4 % (32.0-36.0); MONO % 7.4 % (0.0-8.0); NEUT % 70.5 % (16.0-70.0); PLATELET COUNT 87 TH/MM3 (150-450); RED BLOOD COUNT 3.65 MIL/MM3 (4.50-5.90); RED CELL DISTRIBUTION WIDTH 18.9 % (11.6-17.2); WHITE BLOOD COUNT 8.7 TH/MM3 (4.0-11.0)
[2016-12-25 06:13] LABS: HEMO FLAGS AUTO DIFF
[2016-12-25 06:32] LABS: ALKALINE PHOSPHATASE 97 U/L (45-117); TOTAL BILIRUBIN ADULT 0.3 MG/DL (0.2-1.0)
[2016-12-25 06:33] LABS: ALT (GPT) 37 U/L (12-78); ANION GAP 7 MEQ/L (5-15); AST (GOT) 31 U/L (15-37); BICARBONATE 27.1 MEQ/L (21.0-32.0); BLOOD UREA NITROGEN 8 MG/DL (7-18); CHLORIDE 104 MEQ/L (98-107); GLOMERULAR FILTRATION RATE 110 ML/MIN (>89); POTASSIUM 3.9 MEQ/L (3.5-5.1); SODIUM (NA) 138 MEQ/L (136-145)
[2016-12-25 07:43] VITALS: BP 120/71; PULSE 94; RESP 22; TEMP 97.6; O2SAT 96
[2016-12-25 08:04] LABS: SCAN/DIFF AUTO DIFF CONFIRMED
[2016-12-25] MEDS ORDERED: FERROUS SULFATE 325 MG (65 MG ELEMENTAL IRON) TAB PO SCH (09:00)
[2016-12-25] MEDS ORDERED: DORZOLAMIDE/TIMOLOL OPTH SOLN 10 ML BTL EACH EYE SCH (09:00)
[2016-12-25] MEDS: ACETAMINOPHEN/HYDROcodone 325 MG/10 MG TAB PO SCH ×2 (11:29→13:16)
[2016-12-25] MEDS: GABAPENTIN 400 MG CAP PO SCH ×2 (11:29→13:17)
[2016-12-25] MEDS: METOPROLOL TARTRATE 50 MG TAB PO SCH (11:30)
[2016-12-25] MEDS: DOCUSATE SODIUM 50 MG/SENNA 8.6 MG TAB PO SCH (11:30)
[2016-12-25] MEDS: SODIUM CHLORIDE 0.9% FLUSH 10 ML FLUSH IV FLUSH SCH (11:30)
[2016-12-25 11:43] VITALS: BP 109/58; PULSE 103; RESP 18; TEMP 97.6; O2SAT 94
[2016-12-25] MEDS ORDERED: XARE15TA PO (12:58)
[2016-12-25] MEDS ORDERED: NORC5TAB PO (12:58)
[2016-12-25] MEDS ORDERED: XARE20TA PO (12:58)
--- NOTE | 2016-12-25 13:44 | HHI.DS ---
Discharge Summary Admission Date Dec 24, 2016 at 13:03 Discharge Date: Dec 25, 2016 Admitting Diagnosis left lower extremity DVT, Guillain-Rm, hypertension, diabetes guero (1) Deep vein thrombosis (DVT) of left lower extremity ICD Code: I82.402 - Acute embolism and thrombosis of unspecified deep veins of left lower extremity Diagnosis: Principal Status: Acute (2) History of Guillain-[place] syndrome ICD Code: Z86.69 - Personal history of other diseases of the nervous system and sense organs Diagnosis: Secondary Status: Acute Procedures None Brief History - From Admission Mr. Kramer is a 61-year-old male. He was admitted secondary to a left leg DVT discovered after he came in with lower left extremity swelling. She denies any chest pain or shortness of breath. She has no prior history of DVT. He does have a possible prior history of right arm thrombophlebitis. When seen he is comfortable but his leg continues to be swollen. He is able to ambulate. No other complaints. No fevers. He says he first noticed the swelling in his bilateral lower extremities starting 5 days ago. She at first thought it was just fluid retention which is a chronic problem for him. Through that time his right leg has improved but his left leg has remained swollen. Imaging in the ER reveals DVT. No history of renal disease and renal function today and blood work is within normal limits. 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 The patient is hoping to discharge diet tomorrow so he can provide himself his IVIG with home healthcare. CBC/BMP: 12/25/16 0517 12/25/16 0517 Significant Findings Laboratory Tests Test 12/24/16 11:50 12/25/16 05:17 Red Blood Count 4.00 MIL/MM3 (4.50-5.90) 3.65 MIL/MM3 (4.50-5.90) Hemoglobin 11.0 GM/DL (13.0-17.0) 10.1 GM/DL (13.0-17.0) Hematocrit 34.1 % (39.0-51.0) 31.2 % (39.0-51.0) Red Cell Distribution Width 18.2 % (11.6-17.2) 18.9 % (11.6-17.2) Platelet Count 134 TH/MM3 (150-450) 87 TH/MM3 (150-450) Neutrophils (%) (Auto) 76.3 % (16.0-70.0) 70.5 % (16.0-70.0) Neutrophils # (Auto) 7.8 TH/MM3 (1.8-7.7) Random Glucose 111 MG/DL (74-106) 111 MG/DL (74-106) Total Protein 9.7 GM/DL (6.4-8.2) 8.8 GM/DL (6.4-8.2) Albumin 2.6 GM/DL (3.4-5.0) 2.3 GM/DL (3.4-5.0) Calcium Level 8.3 MG/DL (8.5-10.1) Hospital Course Mr. Kramer is a 61-year-old male. He was admitted secondary to discovery of the left lower leg extremity DVT after he complained his primary care doctor of left lower extremity swelling. She was treated with Lovenox for 24 hours and has no progression of symptoms, no signs of bleeding, no shortness of breath, no chest pain. At this point he is transitioned to's role to start tonight he is medically cleared for discharge with outpatient follow-up and with a repeat CT scan planned for 3-6 months from now. He is asked to return for any signs of bleeding, chest pain, shortness breath, or worsening of his lower extremity swelling. Pt Condition on Discharge: Stable Discharge Disposition: Discharge Home Discharge Time: <= 30 minutes Discharge Instructions DIET: Follow Instructions for: Heart Healthy Diet Activities you can perform: See Additionl Instruction Other Activity Instructions: Ambulate normally, avoid running or hitting the affected leg. Follow up Referrals: PCP Follow-up - 1 Week New Medications: Hydrocodone-Acetaminophen ([place]) 5-325 mg Tab 1 TAB PO Q6H PRN for PAIN, #21 TAB 0 Refills Rivaroxaban (Xarelto) 15 Mg Tab 15 MG PO Q12HR for Blood Clot Prevention, #42 TAB 0 Refills Rivaroxaban (Xarelto) 20 Mg Tab 20 MG PO DAILY for Blood Clot Prevention, #30 TAB 0 Refills Continued Medications: Albuterol 8.5 GM Inh (Proair Hfa 8.5 GM Inh) 90 Mcg/Act Aer 2 PUFF INH DAILY PRN for SHORTNESS OF BREATH, #1 INHALER 0 Refills 108 mcg/actuation Dorzolamide-Timolol Pf Opth Drops (Cosopt Pf Opth Drops) 22.3-6.8 mg/ml Soln 1 DROP EACH EYE DAILY for Glaucoma, #1 BOTTLE 0 Refills Ferrous Gluconate (Ferrous Gluconate) 325 Mg Tab 325 MG PO DAILY for Nutritional Supplement, #30 TAB 0 Refills Gabapentin (Gabapentin) 800 Mg Tab 800 MG PO TID for neuropathy, #90 TAB 0 Refills Glyburide (Glyburide) 5 Mg Tab 5 MG PO DAILY for Blood Sugar Management, #30 TAB 0 Refills Take with meals at the same time each day Latanoprost Opth Drops (Latanoprost Opth Drops) 0.005% Drops 1 DROP EACH EYE HS for Glaucoma, #2.5 ML 0 Refills Refrigerate until opened. Metoprolol Tartrate (Metoprolol Tartrate) 100 Mg Tab 50 MG PO BID for Blood Pressure Management, #30 TAB 0 Refills Simvastatin (Simvastatin) 10 Mg Tab 10 MG PO HS for Cholesterol Management, #30 TAB 0 Refills Discontinued Medications: Hydrocodone-Acetaminophen (Hydrocodone-Acetaminophen) 10-325 mg Tab 1 TAB PO TID for PAIN, TAB 0 Refills Prednisone (Prednisone) 20 Mg Tab 20 MG PO DIRECTED for Inflammation, #21 TAB 0 Refills 40 MG twice a day x 3 days, then 20 MG twice a day x 3 days, then 20 MG once daily x 3 days Maged Wilson MD Dec 25, 2016 13:44
[2017-01-29] MEDS ORDERED: GETGO ROLLING W1 MI1 (08:36)
[2017-01-29] MEDS ORDERED: SENN1TAB PO (10:59)
[2017-01-29] MEDS ORDERED: GABA800T PO (10:59)
[2017-01-29] MEDS ORDERED: PRED20 PO (10:59)
[2017-01-29] MEDS ORDERED: GLYB5TAB3 PO (10:59)
[2017-01-29] MEDS ORDERED: PANT20 PO (10:59)
[2017-01-29] MEDS ORDERED: DORZ1SOL EACH EYE (10:59)
[2017-01-29] MEDS ORDERED: SIMV10TA PO (10:59)
[2017-01-29] MEDS ORDERED: APIX5TAB PO (10:59)
[2017-01-29] MEDS ORDERED: LATA0.002 EACH EYE (10:59)
[2017-01-29] MEDS ORDERED: HYDR-3516 PO (10:59)
[2017-01-29] MEDS ORDERED: METO100T PO (10:59)
[2017-01-29] MEDS ORDERED: WHEEMIS3 (12:23)
== END 2016-12-25 15:21 | disposition home or self-care (01) ==
LOC: NEPE 11:28 → NEDA 13:03 → NEPGCP 14:34
PROVIDERS: ADMIT Hospitalist; ATTEND Hospitalist
DX: I82.402 Acute embolism and thrombosis of unspecified deep veins of left lower extremity (principal); I10 Essential (primary) hypertension; E11.40 Type 2 diabetes mellitus with diabetic neuropathy, unspecified; E78.5 Hyperlipidemia, unspecified; F17.210 Nicotine dependence, cigarettes, uncomplicated; Z86.69 Personal history of other diseases of the nervous system and sense organs; Z79.84 Long term (current) use of oral hypoglycemic drugs
CPT/HCPCS: 80053; 82948; 85025; 85610; 85730; 93971; 96372; 99285; G0378; J1650; J1815

== ENCOUNTER 2017-01-04 12:53 | Inpatient (IN) | payer MEDICAID ==
[~2017-01-04] VITALS: Ht 185.4 cm; Wt 112.4 kg
[~2017-01-04 12:53] MED LIST changes: -HYDR-3583 PO; +NORC5TAB PO; -PRED20 PO; +XARE15TA PO; +XARE20TA PO
[2017-01-04 12:56] VITALS: BP 163/88; PULSE 85; RESP 18; TEMP 98.5; O2SAT 94
[2017-01-04 13:10] VITALS: BP 138/89; PULSE 101; RESP 19; TEMP 99; O2SAT 96
[2017-01-04] MEDS ORDERED: ASPIRIN 81 MG CHEW TAB PO ONE (13:30)
[2017-01-04] MEDS ORDERED: SODIUM CHLORIDE 0.9% FLUSH 10 ML FLUSH IVF PRN (13:30)
--- NOTE | 2017-01-04 13:42 | PD ---
Physical Exam Date Seen by Provider: Jan 04, 2017 Time Seen by Provider: 13:40 Narrative I'm seeing the patient with Nate Celaya PA-C. This is a patient who this physician saw last week and diagnosed with a left lower extremity DVT. The patient was discharged from the hospital on Xarelto. Patient presents today with complaints of swelling and discomfort in his chest. The patient reports the swelling is worse on the left side than on the right. Patient also gives history that he's had difficulty with his Mfwahf-p-Ycti. He states that on the last several accesses, that had difficulty accessing his port. He reports shortness of breath. He reports no chest pain, chest pressure. He reports minimal exertional dyspnea. Data Data Last Documented VS Vital Signs Date Time Temp Pulse Resp B/P (MAP) Pulse Ox O2 Delivery O2 Flow Rate FiO2 01/04/17 13:10 99.0 101 19 138/89 (105) 96 Nasal Cannula 2.00 Orders Orders B-Type Natriuretic Peptide (01/04/17 13:28) Ckmb (Isoenzyme) Profile (01/04/17 13:28) Complete Blood Count With Diff (01/04/17 13:28) Comprehensive Metabolic Panel (01/04/17 13:28) Magnesium (Mg) (01/04/17 13:28) Prothrombin Time / Inr (Pt) (01/04/17 13:28) Act Partial Throm Time (Ptt) (01/04/17 13:28) Troponin I (01/04/17 13:28) Chest, Single Ap (01/04/17 13:28) Ecg Monitoring (01/04/17 13:28) Bilateral Bp Monitoring (01/04/17 13:28) Iv Access Insert/Monitor (01/04/17 13:28) Oximetry (01/04/17 13:28) Oxygen Administration (01/04/17 13:28) Aspirin Chew (Aspirin Chew) (01/04/17 13:30) Sodium Chloride 0.9% Flush (Ns Flush) (01/04/17 13:30) Ct Pulmonary Angiogram (01/04/17 13:28) Vascular Access Team Consult/P PRN (01/04/17 13:50) Vascular Poc Ultrasound (01/04/17 ) Iohexol 350 Inj (Omnipaque 350 Inj) (01/04/17 15:17) Us Arm Venous Doppler (01/04/17 15:48) Admit Order (Ed Use Only) (01/04/17 17:18) Labs Laboratory Tests Test 01/04/17 14:05 White Blood Count 8.3 TH/MM3 Red Blood Count 4.38 MIL/MM3 Hemoglobin 12.2 GM/DL Hematocrit 37.2 % Mean Corpuscular Volume 85.0 FL Mean Corpuscular Hemoglobin 27.7 PG Mean Corpuscular Hemoglobin Concent 32.6 % Red Cell Distribution Width 17.9 % Platelet Count 117 TH/MM3 Mean Platelet Volume 8.6 FL Neutrophils (%) (Auto) 72.6 % Lymphocytes (%) (Auto) 13.2 % Monocytes (%) (Auto) 11.0 % Eosinophils (%) (Auto) 2.3 % Basophils (%) (Auto) 0.9 % Neutrophils # (Auto) 6.0 TH/MM3 Lymphocytes # (Auto) 1.1 TH/MM3 Monocytes # (Auto) 0.9 TH/MM3 Eosinophils # (Auto) 0.2 TH/MM3 Basophils # (Auto) 0.1 TH/MM3 CBC Comment AUTO DIFF Differential Comment AUTO DIFF CONFIRMED Platelet Estimate LOW Platelet Morphology Comment ENLARGED Prothrombin Time 14.0 SEC Prothromb Time International Ratio 1.3 RATIO Activated Partial Thromboplast Time 30.7 SEC Blood Urea Nitrogen 6 MG/DL Creatinine 0.84 MG/DL Random Glucose 89 MG/DL Total Protein 9.3 GM/DL Albumin 2.8 GM/DL Calcium Level 8.8 MG/DL Magnesium Level 2.2 MG/DL Alkaline Phosphatase 88 U/L Aspartate Amino Transf (AST/SGOT) 23 U/L Alanine Aminotransferase (ALT/SGPT) 24 U/L Total Bilirubin 0.6 MG/DL Sodium Level 136 MEQ/L Potassium Level 4.2 MEQ/L Chloride Level 104 MEQ/L Carbon Dioxide Level 27.3 MEQ/L Anion Gap 5 MEQ/L Estimat Glomerular Filtration Rate 113 ML/MIN Total Creatine Kinase 59 U/L Troponin I 0.06 NG/ML B-Type Natriuretic Peptide 5 PG/ML [facility] Medical Record Reviewed: Yes Supervised Visit with ANIRUDH: Yes Differential Diagnosis SVC syndrome versus left upper extremity DVT versus fluid overload Narrative Course 61 year-old gentleman history Guillain-Rm syndrome, previous left lower extremity DVT, tobaccoism, presents with worsening swelling to his left upper chest and upper arm. The patient had a CT angiogram to rule out SVC syndrome. CT scan showed no evidence of acute SVC C syndrome or occlusions. An ultrasound of left upper extremity revealed a axillary vein occlusion. Given this and the fact that he was on anticoagulation and having further clots, he' ll be admitted to the hospital. The case was discussed with Dr. Clayton, [facility], who will start him on heparin. Further workup and evaluation will be per Dr. Clayton. 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
--- NOTE | 2017-01-04 13:44 | PD ---
HPI Chief Complaint: Edema Time Seen by Provider: 13:14 Travel History International Travel<30 days: No Contact w/Intl Traveler<30days: No Traveled to known affect area: No History of Present Illness HPI 61-year-old Afro-[place] male with significant history of Guillain-Rm syndrome, and recent DVT in left leg placed on Xeralto 15 mg twice a day on December 25. Patient also has history of angioedema from lisinopril and losartan in the past. Patient presents today with increased swelling and apparent fluid in the chest wall on the left greater than the right. Patient's feels he has some swelling in the face although the patient does not feel he does. He denies swelling of the tongue or difficulty swallowing. Patient has had increased shortness of breath with exertion, is noted to be slightly tachycardic with a pulse of 109. Patient denies chest pain, fever, or productive cough. Patient feels the left leg with a DVT was actually improved in terms of his swelling and is nontender. Patient denies wheezing. He is allergic to lisinopril and losartan. Patient does report difficulty with port access and flow yesterday for his IgG treatment for his Guillain-Rm. PFSH Past Medical History Arthritis: Yes Asthma: No Autoimmune Disease: No Blood Disorders: No Anxiety: No Depression: No Heart Rhythm Problems: No Cancer: Yes Cardiovascular Problems: Yes High Cholesterol: No Chemotherapy: Yes (does infusions for IVIG) Chest Pain: No Congestive Heart Failure: No COPD: No Cerebrovascular Accident: No Diabetes: Yes Patient Takes Glucophage: No Diminished Hearing: No Endocrine: Yes GERD: No Glaucoma: No Genitourinary: No Headaches: No Hepatitis: No Hypertension: Yes Immune Disorder: Yes (IVIG) Implanted Vascular Access Dvce: Yes (RIGHT CHEST) Kidney Stones: No Musculoskeletal: No Neurologic: Yes (GUILLAIN BARRE) Psychiatric: No Reproductive: No Respiratory: No Immunizations Current: Yes Migraines: No Myocardial Infarction: No Renal Failure: No Seizures: No Sickle Cell Disease: No Sleep Apnea: No Thyroid Disease: No Ulcer: No ?: Not Past Surgical History Abdominal Surgery: No AICD: No Appendectomy: No Arteriovenous Shunt: No Body Medical Devices: PORT Cardiac Surgery: No Cholecystectomy: No Ear Surgery: No Endocrine Surgery: No Eye Surgery: No Genitourinary Surgery: No Gynecologic Surgery: No Insulin Pump: No Joint Replacement: No Oral Surgery: No Pacemaker: No Thoracic Surgery: No Other Surgery: Yes (PORT INSERTION, RIGHT CHEST) Social History Alcohol Use: Yes (2 BEERS PER DAY) Tobacco Use: Yes (1 PPD) Substance Use: No Allergies-Medications (Allergen,Severity, Reaction): Coded Allergies: lisinopril (Unverified Allergy, Severe, angioedema, 01/04/17) losartan (Unverified Allergy, Severe, angioedema, 01/04/17) Reported Meds & Prescriptions Reported Meds & Active Scripts Active [place] (Hydrocodone-Acetaminophen) 5-325 mg Tab 1 Tab PO Q6H PRN Xarelto (Rivaroxaban) 20 Mg Tab 20 Mg PO DAILY Xarelto (Rivaroxaban) 15 Mg Tab 15 Mg PO Q12HR Commode 3-in-1 (Device) 1 Mis Mis 1 Ea .ROUTE DIRECTED Metoprolol Tartrate 100 Mg Tab 50 Mg PO BID Gabapentin 800 Mg Tab 800 Mg PO TID Reported Cosopt Pf Opth Drops (Dorzolamide-Timolol Pf Opth Drops) 22.3-6.8 mg/ml Soln 1 Drop EACH EYE DAILY Latanoprost Opth Drops (Latanoprost) 0.005% Drops 1 Drop EACH EYE HS Refrigerate until opened. Proair Hfa 8.5 GM Inh (Albuterol Sulfate) 90 Mcg/Act Aer 2 Puff INH DAILY PRN 108 mcg/actuation Ferrous Gluconate 325 Mg Tab 325 Mg PO DAILY Simvastatin 10 Mg Tab 10 Mg PO HS Glyburide 5 Mg Tab 5 Mg PO DAILY Take with meals at the same time each day Review of Systems General / Constitutional: No: Fever, Chills Eyes: No: Visual changes HENT: No: Headaches, Vertigo, Lightheadedness, Sore Throat, Rhinitis, Rhinorrhea, Congestion, Nosebleed, Neck Stiffness, Neck Pain Cardiovascular: Positive: Tachycardia, Dyspnea on exertion, Edema, No: Chest Pain or Discomfort, Palpitations, Irregular Rhythm, Diaphoresis, Syncope, Varicosities, Cyanosis, Varicosities (see history of present illness), Phlebitis , Claudication Respiratory: Positive: Shortness of Breath, No: Cough, Wheezing, Sneezing Gastrointestinal: No: Nausea, Vomiting, Diarrhea, Abdominal Pain Genitourinary: No: Dysuria Musculoskeletal: No: Pain Skin: No Rash Neurologic: No: Weakness Psychiatric: No: Depression Endocrine: No: Polydipsia Hematologic/Lymphatic: No: Easy Bruising Physical Exam Narrative GENERAL: Patient appears in no acute distress. SKIN: Warm and dry. Normal color. Normal turgor. Patient is noted to have fairly significant woody edema to the anterior chest wall more on the left than the right. HEAD: Atraumatic. Normocephalic. No significant facial swelling is appreciated EYES: Pupils equal and round. No scleral icterus. No injection or drainage. ENT: No nasal bleeding or discharge. Mucous membranes pink and moist. Tongue is normal. Airway is patent. Pharynx is clear. NECK: Trachea midline. Supple and nontender. CARDIOVASCULAR: Tachycardic rate and normal rhythm. RESPIRATORY: No accessory muscle use. Clear to auscultation. No wheezes, crackles, rales, or rhonchi. Breath sounds equal bilaterally. GASTROINTESTINAL: Abdomen soft, non-tender, nondistended. Hepatic and splenic margins not palpable. MUSCULOSKELETAL: Extremities without clubbing, cyanosis, or patient has 2-3+ pitting edema on the left. No obvious deformities. NEUROLOGICAL: Awake and alert. No obvious cranial nerve deficits. Motor grossly within normal limits. Five out of 5 muscle strength in the arms and legs. Normal speech. PSYCHIATRIC: Appropriate mood and affect; insight and judgment normal. Data Data Last Documented VS Vital Signs Date Time Temp Pulse Resp B/P (MAP) Pulse Ox O2 Delivery O2 Flow Rate FiO2 01/04/17 13:10 99.0 101 19 138/89 (105) 96 Nasal Cannula 2.00 Orders Orders B-Type Natriuretic Peptide (01/04/17 13:28) Ckmb (Isoenzyme) Profile (01/04/17 13:28) Complete Blood Count With Diff (01/04/17 13:28) Comprehensive Metabolic Panel (01/04/17 13:28) Magnesium (Mg) (01/04/17 13:28) Prothrombin Time / Inr (Pt) (01/04/17 13:28) Act Partial Throm Time (Ptt) (01/04/17 13:28) Troponin I (01/04/17 13:28) Chest, Single Ap (01/04/17 13:28) Ecg Monitoring (01/04/17 13:28) Bilateral Bp Monitoring (01/04/17 13:28) Iv Access Insert/Monitor (01/04/17 13:28) Oximetry (01/04/17 13:28) Oxygen Administration (01/04/17 13:28) Aspirin Chew (Aspirin Chew) (01/04/17 13:30) Sodium Chloride 0.9% Flush (Ns Flush) (01/04/17 13:30) Ct Pulmonary Angiogram (01/04/17 13:28) Vascular Access Team Consult/P PRN (01/04/17 13:50) Vascular Poc Ultrasound (01/04/17 ) Iohexol 350 Inj (Omnipaque 350 Inj) (01/04/17 15:17) Us Arm Venous Doppler (01/04/17 15:48) Admit Order (Ed Use Only) (01/04/17 17:18) Labs Laboratory Tests Test 01/04/17 14:05 White Blood Count 8.3 TH/MM3 Red Blood Count 4.38 MIL/MM3 Hemoglobin 12.2 GM/DL Hematocrit 37.2 % Mean Corpuscular Volume 85.0 FL Mean Corpuscular Hemoglobin 27.7 PG Mean Corpuscular Hemoglobin Concent 32.6 % Red Cell Distribution Width 17.9 % Platelet Count 117 TH/MM3 Mean Platelet Volume 8.6 FL Neutrophils (%) (Auto) 72.6 % Lymphocytes (%) (Auto) 13.2 % Monocytes (%) (Auto) 11.0 % Eosinophils (%) (Auto) 2.3 % Basophils (%) (Auto) 0.9 % Neutrophils # (Auto) 6.0 TH/MM3 Lymphocytes # (Auto) 1.1 TH/MM3 Monocytes # (Auto) 0.9 TH/MM3 Eosinophils # (Auto) 0.2 TH/MM3 Basophils # (Auto) 0.1 TH/MM3 CBC Comment AUTO DIFF Differential Comment AUTO DIFF CONFIRMED Platelet Estimate LOW Platelet Morphology Comment ENLARGED Prothrombin Time 14.0 SEC Prothromb Time International Ratio 1.3 RATIO Activated Partial Thromboplast Time 30.7 SEC Blood Urea Nitrogen 6 MG/DL Creatinine 0.84 MG/DL Random Glucose 89 MG/DL Total Protein 9.3 GM/DL Albumin 2.8 GM/DL Calcium Level 8.8 MG/DL Magnesium Level 2.2 MG/DL Alkaline Phosphatase 88 U/L Aspartate Amino Transf (AST/SGOT) 23 U/L Alanine Aminotransferase (ALT/SGPT) 24 U/L Total Bilirubin 0.6 MG/DL Sodium Level 136 MEQ/L Potassium Level 4.2 MEQ/L Chloride Level 104 MEQ/L Carbon Dioxide Level 27.3 MEQ/L Anion Gap 5 MEQ/L Estimat Glomerular Filtration Rate 113 ML/MIN Total Creatine Kinase 59 U/L Troponin I 0.06 NG/ML B-Type Natriuretic Peptide 5 PG/ML MDM Medical Decision Making Medical Screen Exam Complete: Yes Emergency Medical Condition: Yes Differential Diagnosis Angioedema versus SVC syndrome fluid overload versus renal failure. Narrative Course Patient appears medically stable at time of exam. Patient is evaluated and discussed with Dr. Cortez who examined the patient as well. Labs ordered including CBC, CMP, proBNP, PT PTT and INR, cardiac panel, and magnesium. Patient is given aspirin 324 mg by mouth. Chest x-ray is ordered as well as EKG, as well as CT pulmonary angiogram. CBC shows mild anemia with a hemoglobin of 12.2, hematocrit 37.2 lately Is 117. CMP is unremarkable except for troponin of 0.06, total protein is 9.3, albumin is 2.8. ProBNP is 5. CTA showed no evidence for PE, however the subcutaneous edema in the left upper chest partially extending from the midline possible lymphedema or possibly venous obstruction is most likely etiology. Left lung base density is noted repeat CT is suggested in 6 months is conservative follow-up. This is per Dr. Lima. Ultrasound the left upper extremity is ordered showing nonocclusive thrombus within the left internal jugular vein, subclavian, axillary, brachial veins. There is an occlusive thrombus within the mid brachial vein. This is despite the patient being on Xeralto 15 mg twice a day since 12/25/2016. 1700 hrs. call was placed to the hospitalist for admission. Diagnosis Primary Impression: DVT of axillary vein, acute left Additional Impression: Failure of outpatient treatment Admitting Information Admitting Physician Requests: Admit Condition: Stable Nate Celaya Jan 04, 2017 13:44
--- NOTE | 2017-01-04 14:15 | RADRPT ---
EXAM DATE/TIME: 01/04/2017 13:36 [facility] COMPARISON: No previous studies available for comparison. INDICATIONS : Short of breath with left chest swelling. No known injury. MEDICAL HISTORY : Hypertension. Guillainbarre syndrome SURGICAL HISTORY : Infusaport placement ENCOUNTER: Initial ACUITY: 1 day PAIN SCORE: 0/10 LOCATION: Left chest FINDINGS: The lungs are clear without infiltrate, nodule, or mass. There is no appreciable pleural effusion fo r technique. Heart and mediastinum are unremarkable. Right IJ Gnoijh-c-Edlh is present with tip over lapping the expected region of the SVC. CONCLUSION: No acute cardiopulmonary disease. Ari Lima MD on January 04, 2017 at 14:10 Board Certified Radiologist. This report was verified electronically.
[2017-01-04 14:20] LABS: BASOPHIL # 0.1 TH/MM3 (0-0.2); BASOPHIL % 0.9 % (0.0-2.0); EOSINOPHIL # 0.2 TH/MM3 (0-0.4); EOSINOPHIL % 2.3 % (0.0-4.0); HEMATOCRIT 37.2 % (39.0-51.0); LYMPH % 13.2 % (9.0-44.0); LYMPHOCYTE # 1.1 TH/MM3 (1.0-4.8); MEAN CORPUSCULAR HEMOGLOBIN 27.7 PG (27.0-34.0); MEAN CORPUSCULAR HGB CONC 32.6 % (32.0-36.0); NEUT % 72.6 % (16.0-70.0); PLATELET COUNT 117 TH/MM3 (150-450); RED BLOOD COUNT 4.38 MIL/MM3 (4.50-5.90); RED CELL DISTRIBUTION WIDTH 17.9 % (11.6-17.2); WHITE BLOOD COUNT 8.3 TH/MM3 (4.0-11.0)
[2017-01-04 14:27] LABS: HEMO FLAGS AUTO DIFF
[2017-01-04 14:28] LABS: APTT (PATIENT) 30.7 SEC (24.3-30.1); INTERNATIONAL NORMALIZED RATIO 1.3 RATIO
[2017-01-04 14:29] LABS: ALT (GPT) 24 U/L (12-78); ANION GAP 5 MEQ/L (5-15); AST (GOT) 23 U/L (15-37); BICARBONATE 27.3 MEQ/L (21.0-32.0); BLOOD UREA NITROGEN 6 MG/DL (7-18); CHLORIDE 104 MEQ/L (98-107); GLOMERULAR FILTRATION RATE 113 ML/MIN (>89); MAGNESIUM 2.2 MG/DL (1.5-2.5); POTASSIUM 4.2 MEQ/L (3.5-5.1); SODIUM (NA) 136 MEQ/L (136-145)
[2017-01-04 14:33] LABS: ALKALINE PHOSPHATASE 88 U/L (45-117); TOTAL BILIRUBIN ADULT 0.6 MG/DL (0.2-1.0)
[2017-01-04 14:37] LABS: CREATINE KINASE 59 U/L (39-308)
[2017-01-04 15:02] LABS: PLATELET ESTIMATE SMEAR LOW (NORMAL); PLATELET MORPHOLOGY ENLARGED (NORMAL); SCAN/DIFF AUTO DIFF CONFIRMED
[2017-01-04] MEDS ORDERED: IOHEXOL 350 MG/ML 10 ML VIAL (for RAD DIAG) IV PUSH ONE (15:17)
--- NOTE | 2017-01-04 15:32 | RADRPT ---
EXAM DATE/TIME: 01/04/2017 14:53 [place] Corrected on: January 04, 2017; [facility] COMPARISON: No previous studies available for comparison. INDICATIONS : Short of breath. IV CONTRAST: 70 cc Omnipaque 350 (iohexol) IV RADIATION DOSE: 2 to3.27 CTDIvol (mGy) MEDICAL HISTORY : Cardiovascular disease. Hypertension. Diabetes mellitus type 2.Lung cancar SURGICAL HISTORY : None. ENCOUNTER: Initial ACUITY: 3 days PAIN SCALE: 7/10 LOCATION: Bilateral chest TECHNIQUE: Volumetric scanning of the chest was performed using a pulmonary embolism protocol MIP images were re constructed. Using automated exposure control and adjustment of the mA and/or kV according to patien t size, radiation dose was kept as low as reasonably achievable to obtain optimal diagnostic quality images. DICOM format image data is available electronically for review and comparison. Follow-up recommendations for detected pulmonary nodules are based at a minimum on nodule size and pa tient risk factors according to Fleischner Society Guidelines. FINDINGS: There is no evidence for PE for technique.There is an approximate 1.5 cm pleural-based density left l vladislav base may be scar, however inflammatory process or even neoplastic etiologies are difficult to exc lude. There is subcutaneous edema in the patient's left chest wall with some prominent subcutaneous b lood vessels could represent lymphedema, however venous obstruction is not excluded. It partially ext ends to midline. There is no pleural effusion. No appreciable pathological adenopathy is seen within the mediastinum. CONCLUSION: 1. There is no evidence for PE for technique. 2. There is subcutaneous edema in the left upper chest partially extending from midline there are pre sent lymphedema or possibly venous obstruction as most likely etiologies. 3. Left lung base density possible scar, repeat noncontrast chest CT is suggested in 6 months as a co nservative follow up. Ari Lima MD on January 04, 2017 at 15:47 Board Certified Radiologist. This report was verified electronically.
--- NOTE | 2017-01-04 16:51 | RADRPT ---
EXAM DATE/TIME: 01/04/2017 16:00 [facility] COMPARISON: No previous studies available for comparison. INDICATIONS : Left arm swelling. MEDICAL HISTORY : Hypertension. Arthritis. Deep venous thrombosis. Guillain [place] syndrome. Numbness. Diabetes. Chemoth erapy. IVIG. Measles. SURGICAL HISTORY : Right chest port. ENCOUNTER: Initial ACUITY: 1 day PAIN SCORE: 1/10 LOCATION: Left arm. FINDINGS: There is nonocclusive thrombus within the left internal jugular vein, subclavian, axillary, brachial veins. There is occlusive thrombus within the mid brachial vein. CONCLUSION: Extensive DVT. Ari Lima MD on January 04, 2017 at 16:49 Board Certified Radiologist. This report was verified electronically.
[2017-01-04 17:41] VITALS: O2SAT 99
[2017-01-04 17:42] VITALS: BP_SYST 137; BP_SYST 139; BP_DIAS 82; BP_DIAS 85
--- NOTE | 2017-01-04 17:54 | HHI.HP ---
[facility] Unknown Admission Diagnosis DVT Failure to [facility] Out[facility] Diagnoses: (1) History of Guillain-Edna syndrome (2) DVT of axillary vein, acute left (3) Failure of outpatient treatment (4) Diabetes mellitus (5) History of hypertension Chief Complaint: Swelling and anterior chest as well as shortness of breath Travel History International Travel<30 Days: No Contact w/Intl Traveler <30 Da: No Traveled to Known Affected Are: No History of Present Illness 61 year-old -French male with a history of GBS on IVIG every 2 weeks, recent DVT left lower extremity and prescribed Xarelto 12/25/16 presents to the ED for evaluation of acute onset of shortness of breath as well as a sensation of increased swelling in his anterior left chest however without any chest pain. Patient also described significant weakness in his right lower extremity over the past 48 hours. States, he has been unable to lift his right leg like he usually does. According to patient this is due to the fact that he hasn't received on time his treatment of GBS. He denies any upper extremity weakness or pain. UPPER EXTREMITY POSITIVE FOR EXTENSIVE DVT. HE CURRENTLY DENIES ANY GI BLEED. Review of Systems Except as stated in HPI: all other systems reviewed are Neg Past Family Social History Past Medical History Diabetes mellitus type 2 Diabetic neuropathy Guillain-Rm syndrome Hypertension Hyperlipidemia Glaucoma Past Surgical History Right chest port placement Reported Medications [place] (Hydrocodone-Acetaminophen) 5-325 mg Tab 1 Tab PO Q6H PRN Xarelto (Rivaroxaban) 20 Mg Tab 20 Mg PO DAILY Xarelto (Rivaroxaban) 15 Mg Tab 15 Mg PO Q12HR Commode 3-in-1 (Device) 1 Mis Mis 1 Ea .ROUTE DIRECTED Metoprolol Tartrate 100 Mg Tab 50 Mg PO BID Gabapentin 800 Mg Tab 800 Mg PO TID Reported Cosopt Pf Opth Drops (Dorzolamide-Timolol Pf Opth Drops) 22.3-6.8 mg/ml Soln 1 Drop EACH EYE DAILY Latanoprost Opth Drops (Latanoprost) 0.005% Drops 1 Drop EACH EYE HS Refrigerate until opened. Proair Hfa 8.5 GM Inh (Albuterol Sulfate) 90 Mcg/Act Aer 2 Puff INH DAILY PRN 108 mcg/actuation Ferrous Gluconate 325 Mg Tab 325 Mg PO DAILY Simvastatin 10 Mg Tab 10 Mg PO HS Glyburide 5 Mg Tab 5 Mg PO DAILY Take with meals at the same time each day Allergies: Coded Allergies: lisinopril (Unverified Allergy, Severe, angioedema, 01/04/17) losartan (Unverified Allergy, Severe, angioedema, 01/04/17) Family History Mother from complications from COPD Social History Alcohol Use: Yes (2 BEERS PER DAY) Tobacco Use: Yes (1 PPD) Substance Use: No Physical Exam Vital Signs Vital Signs Date Time Temp Pulse Resp B/P (MAP) Pulse Ox O2 Delivery O2 Flow Rate FiO2 01/04/17 17:42 139/85 (103) 01/04/17 17:42 137/82 (100) 01/04/17 17:41 99 Room Air 01/04/17 17:41 99 Room Air 01/04/17 13:10 99.0 101 19 138/89 (105) 96 Nasal Cannula 2.00 01/04/17 12:56 98.5 85 18 163/88 (113) 94 Physical Exam GENERAL: This is a well-nourished, well-developed patient, in no apparent distress. SKIN: No rashes, ecchymoses or lesions. Cool and dry. HEAD: Atraumatic. Normocephalic. No temporal or scalp tenderness. EYES: Pupils equal round and reactive. Extraocular motions intact. No scleral icterus. No injection or drainage. ENT: Nose without bleeding, purulent drainage or septal hematoma. Throat without erythema, tonsillar hypertrophy or exudate. Uvula midline. Airway patent. NECK: Trachea midline. No JVD or lymphadenopathy. Supple, nontender, no meningeal signs. CARDIOVASCULAR: Regular rate and rhythm without murmurs, gallops, or rubs. RESPIRATORY: Clear to auscultation. Breath sounds equal bilaterally. No wheezes , rales, or rhonchi. GASTROINTESTINAL: Abdomen soft, non-tender, nondistended. No hepato-splenomegaly , or palpable masses. No guarding. MUSCULOSKELETAL: Extremities without clubbing, cyanosis, or edema. No joint tenderness, effusion, or edema noted. No calf tenderness. Negative Homans sign bilaterally. NEUROLOGICAL: Awake and alert. Cranial nerves II through XII intact. Motor and sensory grossly within normal limits. Five out of 5 muscle strength in all muscle groups of the left side; 4/5 RUE. 3/5 RLE. Normal speech. Laboratory Laboratory Tests Test 01/04/17 14:05 White Blood Count 8.3 Red Blood Count 4.38 Hemoglobin 12.2 Hematocrit 37.2 Mean Corpuscular Volume 85.0 Mean Corpuscular Hemoglobin 27.7 Mean Corpuscular Hemoglobin Concent 32.6 Red Cell Distribution Width 17.9 Platelet Count 117 Mean Platelet Volume 8.6 Neutrophils (%) (Auto) 72.6 Lymphocytes (%) (Auto) 13.2 Monocytes (%) (Auto) 11.0 Eosinophils (%) (Auto) 2.3 Basophils (%) (Auto) 0.9 Neutrophils # (Auto) 6.0 Lymphocytes # (Auto) 1.1 Monocytes # (Auto) 0.9 Eosinophils # (Auto) 0.2 Basophils # (Auto) 0.1 CBC Comment AUTO DIFF Differential Comment AUTO DIFF CONFIRMED Platelet Estimate LOW Platelet Morphology Comment ENLARGED Prothrombin Time 14.0 Prothromb Time International Ratio 1.3 Activated Partial Thromboplast Time 30.7 Blood Urea Nitrogen 6 Creatinine 0.84 Random Glucose 89 Total Protein 9.3 Albumin 2.8 Calcium Level 8.8 Magnesium Level 2.2 Alkaline Phosphatase 88 Aspartate Amino Transf (AST/SGOT) 23 Alanine Aminotransferase (ALT/SGPT) 24 Total Bilirubin 0.6 Sodium Level 136 Potassium Level 4.2 Chloride Level 104 Carbon Dioxide Level 27.3 Anion Gap 5 Estimat Glomerular Filtration Rate 113 Total Creatine Kinase 59 Troponin I 0.06 B-Type Natriuretic Peptide 5 Result Diagram: 01/04/17 1405 01/04/17 1405 Imaging Last Impressions Upper Extremity Ultrasound 01/04/17 1548 Signed Impressions: Service Date/Time: Wednesday, January 04, 2017 16:00 - CONCLUSION: Extensive DVT. Ari Lima MD Chest X-Ray 01/04/171327 Signed Impressions: Service Date/Time: Wednesday, January 04, 2017 13:36 - CONCLUSION: No acute cardiopulmonary disease. Ari Lima MD CT Angiography 01/04/171327 Signed Impressions: Service Date/Time: Wednesday, January 04, 2017 14:53 - CONCLUSION: 1. There is no evidence for PE for technique. 2. There is subcutaneous edema in the left upper chest partially extending from midline there are present lymphedema or possibly venous obstruction as most likely etiologies. 3. Left lung base density possible scar, repeat noncontrast chest CT is suggested in 6 months as a conservative follow up. Ari Lima MD Septic Shock Reassessment Heart: Regular rate and rhythm Lungs: Clear Skin: Warm Capillary Refill: >2 seconds Caprini VTE Risk Assessment Caprini VTE Risk Assessment: Mod/High Risk (score >= 2) Caprini Risk Assessment Model Point Value = 1 Point Value = 2 Point Value = 3 Point Value = 5 Age 41-60 Minor surgery BMI > 25 kg/m2 Swollen legs Varicose veins or History of unexplained or recurrent spontaneous Oral contraceptives or hormone replacement Sepsis (< 1 month) Serious lung disease, including pneumonia (< 1 month) Abnormal pulmonary function Acute myocardial infarction Congestive heart failure (< 1 month) History of inflammatory bowel disease Medical patient at bed rest Age 61-74 Arthroscopic surgery Major open surgery (> 45 min) Laparoscopic surgery (> 45 min) Malignancy Confined to bed (> 72 hours) Immobilizing plaster cast Central venous access Age >= 75 History of VTE Family history of VTE Factor V Leiden Prothrombin [id number] Lupus anticoagulant Anticardiolipin antibodies Elevated serum homocysteine Heparin-induced thrombocytopenia Other congenital or acquired thrombophilia Stroke (< 1 month) Elective arthroplasty Hip, pelvis, or leg fracture Acute spinal cord injury (< 1 month) Prophylaxis Regimen Total Risk Factor Score Risk Level Prophylaxis Regimen 0-1 Low Early ambulation 2 Moderate Order ONE of the following: *Sequential Compression Device (SCD) *Heparin 5000 units SQ BID 3-4 Higher Order ONE of the following medications: *Heparin 5000 units SQ TID *Enoxaparin/Lovenox 40 mg SQ daily (WT < 150 kg, CrCl > 30 mL/min) *Enoxaparin/Lovenox 30 mg SQ daily (WT < 150 kg, CrCl > 10-29 mL/min) *Enoxaparin/Lovenox 30 mg SQ BID (WT < 150 kg, CrCl > 30 mL/min) AND/OR *Sequential Compression Device (SCD) 5 or more Highest Order ONE of the following medications: *Heparin 5000 units SQ TID (Preferred with Epidurals) *Enoxaparin/Lovenox 40 mg SQ daily (WT < 150 kg, CrCl > 30 mL/min) *Enoxaparin/Lovenox 30 mg SQ daily (WT < 150 kg, CrCl > 10-29 mL/min) *Enoxaparin/Lovenox 30 mg SQ BID (WT < 150 kg, CrCl > 30 mL/min) AND *Sequential Compression Device (SCD) Assessment and Plan Problem List: (1) Deep vein thrombosis (DVT) of left upper extremity ICD Code: I82.622 - Acute embolism and thrombosis of deep veins of left upper extremity Status: Acute (2) Failure of outpatient treatment ICD Code: Z78.9 - Other specified health status Status: Acute (3) History of Guillain-Edna syndrome ICD Code: Z86.69 - Personal history of other diseases of the nervous system and sense organs (4) History of hypertension ICD Code: Z86.79 - Personal history of other diseases of the circulatory system Status: Acute (5) Diabetes mellitus ICD Code: E11.9 - Type 2 diabetes mellitus without complications Status: Acute Assessment and Plan 61-year-old man with Deep vein thrombosis (DVT) of left upper extremity Ultrasound of left upper extremity noted and review by me with finding of axillary vein occlusion CT angiogram noted and review by me ruled out SPC syndrome or occlusion This is a case of fell outpatient therapy with oral anticoagulation, therefore will start patient on heparin drip Consult hematology History of left lower extremity DVT Restart patient on heparin drip and hold Xarelto History of GDS Patient will continue outpatient therapy and will be receiving IVIG in 2 weeks Diabetes type 2 Start insulin sliding scale and resume glyburide Hypertension Resume outpatient medications Other chronic medical conditions Resume outpatient medications DVT prophylaxis: Heparin Code Status Full code Discussed Condition With Patient, ED PA Physician Certification 2 Midnight Certification Type: Admission for Inpatient Services Order for Inpatient Services The services are ordered in accordance with Medicare regulations or non- Medicare payer requirements, as applicable. In the case of services not specified as inpatient-only, they are appropriately provided as inpatient services in accordance with the 2-midnight benchmark. Estimated LOS (days): 2 days is the estimated time the patient will need to remain in the hospital, assuming treatment plan goals are met and no additional complications. Post-Hospital Plan: Not yet determined Maco Clayton MD Jan 04, 2017 17:54
[2017-01-04] MEDS ORDERED: ACETAMINOPHEN/HYDROcodone 325 MG/5 MG TAB PO PRN (18:00)
[2017-01-04] MEDS ORDERED: NALOXONE HCL 0.4 MG/ML AMP IV PRN (18:00)
[2017-01-04] MEDS ORDERED: SODIUM CHLORIDE 0.9% FLUSH 10 ML FLUSH IV FLUSH PRN (18:00)
[2017-01-04] MEDS ORDERED: RESP: ALBUTEROL 2.5 MG/IPRATROPIUM 0.5 MG NEB (PRN) NEB (18:00)
[2017-01-04] MEDS ORDERED: GLUCAGON 1 MG/ML VIAL OTHER PRN (18:00)
[2017-01-04] MEDS ORDERED: ONDANSETRON HCL 4 MG/2 ML VIAL IVP PRN (18:00)
[2017-01-04] MEDS ORDERED: MAGNESIUM HYDROXIDE SUSP 30 ML CUP PO PRN (18:00)
[2017-01-04] MEDS ORDERED: ACETAMINOPHEN 325 MG TAB PO PRN ×2 (18:00)
[2017-01-04] MEDS ORDERED: DEXTROSE 50% IN WATER 50 ML VIAL(D50) IV PRN (18:00)
[2017-01-04 20:00] VITALS: BP 164/88; PULSE 83; RESP 18; TEMP 98.3; O2SAT 93
[2017-01-04] MEDS: PRAVASTATIN SOD 20 MG TAB PO SCH (20:30)
[2017-01-04] MEDS: METOPROLOL TARTRATE 100 MG TAB PO SCH (20:30)
[2017-01-04] MEDS: SODIUM CHLORIDE 0.9% FLUSH 10 ML FLUSH IV FLUSH SCH (20:30)
[2017-01-04] MEDS: ACETAMINOPHEN/HYDROcodone 325 MG/7.5 MG TAB PO PRN (20:34)
[2017-01-04] MEDS: INSULIN ASPART SUPPLEMENTAL SCALE SQ SCH (21:00)
[2017-01-04 22:33] LABS: APTT (PATIENT) 28.7 SEC (24.3-30.1); INTERNATIONAL NORMALIZED RATIO 1.1 RATIO; PROTHROMBIN TIME - PATIENT 12.7 SEC (9.8-11.6)
[2017-01-04] MEDS: HEPARIN-D5W 25,000 U/250 ML 250 ML IV PRN (22:56)
[2017-01-04] MEDS: LATANOPROST 0.005% OPHT SOLN 2.5 ML BTL EACH EYE SCH (23:00)
[2017-01-05] VITALS: BP 157/84; PULSE 80; RESP 18; TEMP 95.6; O2SAT 92
[2017-01-05 04:00] VITALS: BP 142/79; PULSE 84; RESP 18; TEMP 96.2; O2SAT 94
[2017-01-05] MEDS: INSULIN ASPART SUPPLEMENTAL SCALE SQ SCH ×4 (05:48→22:03)
[2017-01-05 08:00] VITALS: BP 158/74; PULSE 89; RESP 21; TEMP 96.1; O2SAT 94
[2017-01-05] MEDS: glyBURIDE 5 MG TAB PO SCH (08:03)
[2017-01-05] MEDS: METOPROLOL TARTRATE 100 MG TAB PO SCH ×2 (08:03→22:00)
[2017-01-05] MEDS: FERROUS SULFATE 325 MG (65 MG ELEMENTAL IRON) TAB PO SCH (08:03)
[2017-01-05] MEDS: GABAPENTIN 400 MG CAP PO SCH ×3 (08:04→16:44)
[2017-01-05] MEDS: SODIUM CHLORIDE 0.9% FLUSH 10 ML FLUSH IV FLUSH SCH ×2 (08:30→21:59)
[2017-01-05] MEDS: DORZOLAMIDE/TIMOLOL OPTH SOLN 10 ML BTL EACH EYE SCH (08:30)
--- NOTE | 2017-01-05 08:52 | HHI.PR ---
Subjective Remarks Follow-up left upper extremity DVT/failed outpatient therapy for lower extremity DVT 01/05/17-patient seen and examined, no acute event overnight. Still complains of shortness of breath. Objective Vitals Vital Signs Date Time Temp Pulse Resp B/P (MAP) Pulse Ox O2 Delivery O2 Flow Rate FiO2 01/05/17 04:00 96.2 84 18 142/79 (100) 94 01/05/17 00:00 95.6 80 18 157/84 (108) 92 01/04/17 20:00 98.3 83 18 164/88 (113) 93 01/04/17 17:42 139/85 (103) 01/04/17 17:42 137/82 (100) 01/04/17 17:41 99 Room Air 01/04/17 17:41 99 Room Air 01/04/17 13:10 99.0 101 19 138/89 (105) 96 Nasal Cannula 2.00 01/04/17 12:56 98.5 85 18 163/88 (113) 94 I/O 01/04/17 01/04/17 01/04/17 01/05/17 01/05/17 01/05/17 07:00 15:00 23:00 07:00 15:00 23:00 Intake Total 480 ml Output Total 450 ml Balance 30 ml Intake Oral 480 ml Output Urine Total 450 ml Result Diagram: 01/04/17 1405 01/04/17 1405 Imaging Last Impressions Upper Extremity Ultrasound 01/04/17 1548 Signed Impressions: Service Date/Time: Wednesday, January 04, 2017 16:00 - CONCLUSION: Extensive DVT. Ari Lima MD Chest X-Ray 01/04/17 1328 Signed Impressions: Service Date/Time: Wednesday, January 04, 2017 13:36 - CONCLUSION: No acute cardiopulmonary disease. Ari Lima MD CT Angiography 01/04/17 1328 Signed Impressions: Service Date/Time: Wednesday, January 04, 2017 14:53 - CONCLUSION: 1. There is no evidence for PE for technique. 2. There is subcutaneous edema in the left upper chest partially extending from midline there are present lymphedema or possibly venous obstruction as most likely etiologies. 3. Left lung base density possible scar, repeat noncontrast chest CT is suggested in 6 months as a conservative follow up. Ari Lima MD Objective Remarks GENERAL: NAD SKIN: Warm and dry. HEAD: Normocephalic. EYES: No scleral icterus. No injection or drainage. NECK: Supple, trachea midline. No JVD or lymphadenopathy. CARDIOVASCULAR: Regular rate and rhythm without murmurs, gallops, or rubs. RESPIRATORY: Breath sounds equal bilaterally. No accessory muscle use. GASTROINTESTINAL: Abdomen soft, non-tender, nondistended. MUSCULOSKELETAL: No cyanosis, or edema. BACK: Nontender without obvious deformity. No CVA tenderness. A/P Problem List: (1) Deep vein thrombosis (DVT) of left upper extremity ICD Code: I82.622 - Acute embolism and thrombosis of deep veins of left upper extremity Status: Acute (2) Failure of outpatient treatment ICD Code: Z78.9 - Other specified health status Status: Acute (3) History of Guillain-[place] syndrome ICD Code: Z86.69 - Personal history of other diseases of the nervous system and sense organs (4) History of hypertension ICD Code: Z86.79 - Personal history of other diseases of the circulatory system Status: Acute (5) Diabetes mellitus ICD Code: E11.9 - Type 2 diabetes mellitus without complications Status: Acute Assessment and Plan 61-year-old man with Deep vein thrombosis (DVT) of left upper extremity Ultrasound of left upper extremity with finding of axillary vein occlusion CT angiogram ruled out SPC syndrome or occlusion Currently on Heparin drip Consult hematology History of left lower extremity DVT Currently on heparin drip and continue to hold Xarelto History of GDS Patient will continue outpatient therapy and will be receiving IVIG in 2 weeks Diabetes type 2 Continue insulin sliding scale and glyburide Hypertension Continue outpatient medications Other chronic medical conditions Continue outpatient medications DVT prophylaxis: Maco Cook MD Jan 05, 2017 08:52
[2017-01-05] MEDS ORDERED: ALTEPLASE RECOMBINANT 2 MG VIAL INTRACATH ONE (09:00)
[2017-01-05] MEDS: ALTEPLASE RECOMBINANT 2 MG VIAL INTRACATH PRN (12:36)
[2017-01-05 12:56] VITALS: BP 133/83; PULSE 80; RESP 19; TEMP 96.6; O2SAT 96
--- NOTE | 2017-01-05 13:41 | EKG ---
Date Performed: 01/04/2017 Time Performed: 17:50:16 PTAGE: 61 years EKG: Sinus rhythm WITH OCCASIONAL VENTRICULAR PREMATURE COMPLEXES LOW QRS VOLTAGE IN PRECORDIAL LEADS Compared to prio r tracing no significant change BORDERLINE ECG PREVIOUS TRACING : 03/26/2012 10.10 DOCTOR: Baron Barton Interpretating Date/Time 01/05/2017 13:40:31
[2017-01-05 14:12] LABS: APTT (PATIENT) 255.8 SEC (24.3-30.1)
[2017-01-05] MEDS: ACETAMINOPHEN/HYDROcodone 325 MG/7.5 MG TAB PO PRN ×2 (16:44→22:20)
[2017-01-05 16:57] VITALS: BP 149/83; PULSE 98; RESP 20; TEMP 96.1; O2SAT 92
[2017-01-05 17:04] LABS: AUTOMATED NEUTROPHIL # 5.7 TH/MM3 (1.8-7.7); BASOPHIL % 0.5 % (0.0-2.0); EOSINOPHIL # 0.3 TH/MM3 (0-0.4); EOSINOPHIL % 3.2 % (0.0-4.0); HEMATOCRIT 36.9 % (39.0-51.0); HEMO FLAGS DIFF FINAL; LYMPH % 17.8 % (9.0-44.0); LYMPHOCYTE # 1.5 TH/MM3 (1.0-4.8); MEAN CELL VOLUME 85.3 FL (80.0-100.0); MEAN CORPUSCULAR HEMOGLOBIN 27.5 PG (27.0-34.0); MEAN CORPUSCULAR HGB CONC 32.3 % (32.0-36.0); MONO % 10.3 % (0.0-8.0); NEUT % 68.2 % (16.0-70.0); PLATELET COUNT 132 TH/MM3 (150-450); RED BLOOD COUNT 4.33 MIL/MM3 (4.50-5.90); RED CELL DISTRIBUTION WIDTH 18.4 % (11.6-17.2); WHITE BLOOD COUNT 8.3 TH/MM3 (4.0-11.0)
[2017-01-05 17:18] LABS: APTT (PATIENT) 47.7 SEC (24.3-30.1)
[2017-01-05 17:36] LABS: ANION GAP 6 MEQ/L (5-15); AST (GOT) 24 U/L (15-37); BICARBONATE 28.3 MEQ/L (21.0-32.0); BLOOD UREA NITROGEN 9 MG/DL (7-18); CHLORIDE 102 MEQ/L (98-107); GLOMERULAR FILTRATION RATE 121 ML/MIN (>89); POTASSIUM 3.7 MEQ/L (3.5-5.1); SODIUM (NA) 136 MEQ/L (136-145)
[2017-01-05 17:40] LABS: ALKALINE PHOSPHATASE 92 U/L (45-117); ALT (GPT) 22 U/L (12-78); TOTAL BILIRUBIN ADULT 0.5 MG/DL (0.2-1.0)
[2017-01-05] MEDS: HEPARIN-D5W 25,000 U/250 ML 250 ML IV PRN (18:16)
[2017-01-05 20:00] VITALS: BP 145/85; PULSE 110; RESP 20; TEMP 97; O2SAT 92
--- NOTE | 2017-01-05 20:18 | MB ---
cc: RADHA WILKS M.D. DATE OF CONSULTATION 01/05/17 REASON FOR CONSULTATION Consult requested by Dr. Clayton for evaluation of left upper extremity DVT in a patient who was just started on Xarelto. HISTORY OF PRESENT ILLNESS Hazel is a 61-year-old Afro-Pakistani male. He has a history of multiple myeloma diagnosed about 2 years ago and he was treated with the oral chemotherapy. The patient stated he went into remission and he is under the care for Dr. Doroteo Doherty, plastic sheets finishing supervisor oncologist with [facility]. The patient also been diagnosed with Guillain-Ralph Syndrome about 4 years ago and he is under the care of Dr. Jose Harris, neurologist. The patient has been getting IVIG every 2 weeks at home through home health. The patient was recently admitted to [facility] about 10 days ago for swelling of the left lower extremity. He was found to have DVT and was started on Xarelto. The patient was discharged to home. The patient claims that he has been compliant with the Xarelto. He was taking Xarelto twice a day. However, he noticed swelling of the left chest and the left upper arm. With these symptoms he came back to the emergency room. The Doppler ultrasound did show extensive DVT of the left upper extremity. He had a CT angiogram which did not show any pulmonary embolism. The Xarelto was stopped and now he is on heparin drip. Hematology has been consulted for further evaluation. REVIEW OF SYSTEMS The patient denies any previous history of any thromboembolic disease. He denies any nausea or vomiting, diarrhea or constipation. He denies any headaches or dizziness. His appetite is good. The rest of the review of systems is negative. PAST MEDICAL HISTORY Multiple myeloma diagnosed 2 years ago. Guillain-Ralph Syndrome diagnosed 4 years ago, diabetes mellitus. Peripheral neuropathy from diabetes. Hypertension, hypercholesterolemia, glaucoma. PAST SURGICAL HISTORY [id number] on the right side. ALLERGIES LISINOPRIL AND LOSARTAN. MEDICATIONS 1. [place]. 2. Xarelto prior to coming to the hospital but now he is on heparin. 3. Metoprolol. 4. Gabapentin. 5. Eye drops. 6. Ferrous gluconate. 7. Simvastatin. 8. Glyburide. FAMILY HISTORY Mother from COPD. The rest of the family history is unremarkable. SOCIAL HISTORY The patient smokes cigarettes one pack a day and drinks alcohol two beers per day. PHYSICAL EXAMINATION GENERAL: A well-developed, well-nourished Afro-Pakistani male in no apparent distress. VITAL SIGNS: Temperature 96.1, heart rate is 98, blood pressure 149/83, O2 saturation 92%. HEENT: PERRLA, EOMI, anicteric. No oral lesions are noted. NECK: No lymphadenopathy noted. LUNGS: Clear. No wheezing, rhonchi or rales. HEART: Regular rate and rhythm. ABDOMEN: Soft, nontender. No hepatosplenomegaly. EXTREMITIES: Left upper extremity edema noted. The left chest wall is also somewhat swollen. NEUROLOGY: Awake, alert, oriented times three. SKIN: No significant lesions noted. ASSESSMENT 1. Recent episode of left lower extremity DVT about 10 days ago, was on Xarelto presented with left upper extremity DVT and now he is on heparin. 2. History of multiple myeloma status post oral chemotherapy, currently on observation. 3. Guillain-Ralph Syndrome on IVIG. PLAN I have discussed with the patient regarding the DVT of the left upper extremity in presence of Xarelto. The patient claims that he has been compliant with the Xarelto and he was taking it twice a day. It is unclear Whether his Left upper extremity DVT was present on his last admission or not. In that case the choices of anticoagulations are either Eliquis or Coumadin but I would not start these at this time. My recommendation is to continue with the heparin for at least 48-72 hours before transition into the oral anticoagulant. We also discussed about getting hypercoagulable workup as an outpatient with his plastic sheets finishing supervisor, Dr. Doherty. The patient verbalized the importance of that. I do not recommend to check the hypercoagulable panel at this time since the management is not going to change. The patient has asked questions and these were answered to his satisfaction. Thank you for asking my opinion. Xiomy Wilks MD /GIA /7:19 PM /7:52 PM [place]
[2017-01-05] MEDS: LATANOPROST 0.005% OPHT SOLN 2.5 ML BTL EACH EYE SCH (21:59)
[2017-01-05] MEDS: PRAVASTATIN SOD 20 MG TAB PO SCH (22:02)
[2017-01-06] VITALS: BP 146/74; PULSE 88; RESP 18; TEMP 96.2; O2SAT 93
[2017-01-06 00:33] LABS: APTT (PATIENT) 47.2 SEC (24.3-30.1)
[2017-01-06 04:00] VITALS: BP_SYST 136; BP_SYST 152; BP_DIAS 78; BP_DIAS 81; PULSE 79; PULSE 87; RESP 16; RESP 18; TEMP 96.3; TEMP 96.9; O2SAT 91; O2SAT 96
[2017-01-06] MEDS: INSULIN ASPART SUPPLEMENTAL SCALE SQ SCH ×4 (07:00→20:15)
--- NOTE | 2017-01-06 07:33 | PD.ONC.PN ---
Subjective Subjective Remarks Afebrile. Pt reports the swelling is decreased in his L arm No bleeding Objective Data Date Time Temp Pulse Resp B/P (MAP) Pulse Ox O2 Delivery O2 Flow Rate FiO2 01/06/17 04:00 96.9 87 18 136/78 (97) 91 01/06/17 00:00 96.2 88 18 146/74 (98) 93 01/05/17 20:00 97.0 110 20 145/85 (105) 92 01/05/17 16:57 96.1 98 20 149/83 (105) 92 01/05/17 12:56 96.6 80 19 133/83 (100) 96 01/05/17 08:00 96.1 89 21 158/74 (102) 94 01/06/17 01/06/17 01/06/17 07:00 15:00 23:00 Output Total 500 ml Balance -500 ml Result Diagram: 01/05/17 1638 01/05/17 1638 Laboratory Results Laboratory Tests Test 01/05/17 13:00 01/05/17 16:38 01/05/17 23:20 Activated Partial Thromboplast Time 255.8 SEC 47.7 SEC 47.2 SEC White Blood Count 8.3 TH/MM3 Red Blood Count 4.33 MIL/MM3 Hemoglobin 11.9 GM/DL Hematocrit 36.9 % Mean Corpuscular Volume 85.3 FL Mean Corpuscular Hemoglobin 27.5 PG Mean Corpuscular Hemoglobin Concent 32.3 % Red Cell Distribution Width 18.4 % Platelet Count 132 TH/MM3 Mean Platelet Volume 8.7 FL Neutrophils (%) (Auto) 68.2 % Lymphocytes (%) (Auto) 17.8 % Monocytes (%) (Auto) 10.3 % Eosinophils (%) (Auto) 3.2 % Basophils (%) (Auto) 0.5 % Neutrophils # (Auto) 5.7 TH/MM3 Lymphocytes # (Auto) 1.5 TH/MM3 Monocytes # (Auto) 0.9 TH/MM3 Eosinophils # (Auto) 0.3 TH/MM3 Basophils # (Auto) 0.0 TH/MM3 CBC Comment DIFF FINAL Differential Comment Blood Urea Nitrogen 9 MG/DL Creatinine 0.79 MG/DL Random Glucose 70 MG/DL Total Protein 9.1 GM/DL Albumin 2.8 GM/DL Calcium Level 8.2 MG/DL Alkaline Phosphatase 92 U/L Aspartate Amino Transf (AST/SGOT) 24 U/L Alanine Aminotransferase (ALT/SGPT) 22 U/L Total Bilirubin 0.5 MG/DL Sodium Level 136 MEQ/L Potassium Level 3.7 MEQ/L Chloride Level 102 MEQ/L Carbon Dioxide Level 28.3 MEQ/L Anion Gap 6 MEQ/L Estimat Glomerular Filtration Rate 121 ML/MIN Culture Results Microbiology Date/Time Source Procedure Growth Status 01/05/17 16:30 Stool Stool Stool Occult Blood (TANIYA) - Final HEMOCCULT NEGATIVE Complete Administered Medications Medications (Trade) Dose Ordered Sig/Sridhar Route PRN Reason Start Time Stop Time Status Last Admin Dose Admin Sodium Chloride (NS Flush) 2 ml BID IV FLUSH 01/04/17 21:00 01/04/17 20:30 Acetaminophen/ Hydrocodone Bitart ([place] 7.5-325 Mg) 1 tab Q4H PRN PO PAIN SCALE 6 TO 10 01/04/17 18:00 01/05/17 22:20 Gabapentin (Neurontin) 800 mg TID PO 01/05/17 09:00 01/05/17 16:44 Glyburide (Diabeta) 5 mg DAILY PO 01/05/17 09:00 01/05/17 08:03 Latanoprost (Xalatan 0.005% Opth Soln) 1 drop HS EACH EYE 01/04/17 21:00 01/05/17 21:59 Metoprolol Tartrate (Lopressor) 100 mg BID PO 01/04/17 21:00 01/05/17 22:00 Ferrous Sulfate (Ferrous Sulfate) 325 mg DAILY PO 01/05/17 09:00 01/05/17 08:03 Pravastatin Sodium (Pravachol) 20 mg HS PO 01/04/17 21:00 01/05/17 22:02 Heparin Sodium/ Dextrose 250 ml @ 19.8 mls/hr TITRATE PRN IV Coagulation management 01/04/17 18:45 01/05/17 18:16 Alteplase, Recombinant (Cathflo Activase Inj) 2 mg Q2H PRN INTRACATH flush 01/05/17 09:00 01/05/17 12:36 Objective Remarks GENERAL: Middle-aged male resting in bed in no acute distress SKIN: Warm and dry. HEAD: Normocephalic. EYES: No injection or drainage. NECK: Supple, trachea midline. CARDIOVASCULAR: Regular rate and rhythm without murmurs. RESPIRATORY: Diminished anteriorly. Breathing unlabored at rest. On 2L NC. GASTROINTESTINAL: Abdomen soft, non-tender, nondistended. EXTREMITIES: No cyanosis. L upper and lower extremity edema. MUSCULOSKELETAL: Adequate muscle tone. NEUROLOGICAL: Moving all extremities. No obvious focal deficit. Assessment/Plan Problem List: (1) Deep vein thrombosis (DVT) of left upper extremity ICD Codes: I82.622 - Acute embolism and thrombosis of deep veins of left upper extremity Status: Acute Plan: 01/06: Continue heparin drip. We will leave him on this until possibly Saturday or Saturday then switch to oral anticoagulant such as Coumadin or Eliquis. -- Started Xarelto one week ago for LLE DVT and then developed L upper arm swelling, found to have an extensive DVT. -- CTA negative for PE (2) Multiple myeloma ICD Codes: C90.00 - Multiple myeloma not having achieved remission Plan: -- Diagnosed approx. 2 years ago; he was treated with oral chemotherapy and is currently in remission -- Under the care of Dr. 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 Harris and reportedly has been getting IVIG every 2 weeks with home health Attending Statement swelling LUE and Left chest has resolved. Denies any SOB It is unclear whether the Clot LUE was there on last admission when he was admitted with DVT LLE. He claims that he was taking Xarelto BID as prescribe. So it is not clear whether he failed xarelto. The choice of oral anticoagulant is Eliquis or coumadin. Continue heparin for now. will follow. The exam, history, and the medical decision-making described in the above note were completed with the assistance of the mid-level provider. I reviewed and agree with the findings presented. I attest that I had a [id number] encounter with the patient on the same day, and personally performed and documented my assessment and findings in the medical record. Problem Qualifiers (1) Multiple myeloma: Qualified Codes: C90.01 - Multiple myeloma in remission Martina Mahan Jan 06, 2017 07:33 Kadeem Wilks MD Jan 06, 2017 10:25
[2017-01-06 08:00] VITALS: BP 165/89; PULSE 88; RESP 18; TEMP 96.3; O2SAT 93
[2017-01-06] MEDS: DORZOLAMIDE/TIMOLOL OPTH SOLN 10 ML BTL EACH EYE SCH (09:00)
[2017-01-06] MEDS: glyBURIDE 5 MG TAB PO SCH (09:18)
[2017-01-06] MEDS: METOPROLOL TARTRATE 100 MG TAB PO SCH ×2 (09:18→20:15)
[2017-01-06] MEDS: GABAPENTIN 400 MG CAP PO SCH ×3 (09:18→17:58)
[2017-01-06] MEDS: FERROUS SULFATE 325 MG (65 MG ELEMENTAL IRON) TAB PO SCH (09:18)
[2017-01-06] MEDS: ACETAMINOPHEN/HYDROcodone 325 MG/7.5 MG TAB PO PRN ×2 (09:27→20:18)
[2017-01-06] MEDS: HEPARIN-D5W 25,000 U/250 ML 250 ML IV PRN (09:56)
--- NOTE | 2017-01-06 10:59 | HHI.PR ---
Subjective Remarks Follow-up left upper extremity DVT/failed outpatient therapy for lower extremity DVT 01/05/17-patient seen and examined, no acute event overnight. Still complains of shortness of breath. 01/06/17-patient seen and examined, stable complaint of shortness of breath and no acute event overnight. Objective Vitals Vital Signs Date Time Temp Pulse Resp B/P (MAP) Pulse Ox O2 Delivery O2 Flow Rate FiO2 01/06/17 08:00 96.3 88 18 165/89 (114) 93 01/06/17 04:00 96.9 87 18 136/78 (97) 91 01/06/17 00:00 96.2 88 18 146/74 (98) 93 01/05/17 20:00 97.0 110 20 145/85 (105) 92 01/05/17 16:57 96.1 98 20 149/83 (105) 92 01/05/17 12:56 96.6 80 19 133/83 (100) 96 I/O 01/05/17 01/05/17 01/05/17 01/06/17 01/06/17 01/06/17 07:00 15:00 23:00 07:00 15:00 23:00 Intake Total 480 ml Output Total 450 ml 345 ml 500 ml Balance 30 ml -345 ml -500 ml Intake Oral 480 ml Output Urine Total 450 ml 345 ml 500 ml Result Diagram: 01/05/17 1638 01/05/17 1638 Objective Remarks GENERAL: NAD SKIN: Warm and dry. HEAD: Normocephalic. EYES: No scleral icterus. No injection or drainage. NECK: Supple, trachea midline. No JVD or lymphadenopathy. CARDIOVASCULAR: Regular rate and rhythm without murmurs, gallops, or rubs. RESPIRATORY: Breath sounds equal bilaterally. No accessory muscle use. GASTROINTESTINAL: Abdomen soft, non-tender, nondistended. MUSCULOSKELETAL: No cyanosis, or edema. BACK: Nontender without obvious deformity. No CVA tenderness. 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 ICD Code: Z86.69 - Personal history of other diseases of the nervous system and sense organs (4) History of hypertension ICD Code: Z86.79 - Personal history of other diseases of the circulatory system Status: Acute (5) Diabetes mellitus ICD Code: E11.9 - Type 2 diabetes mellitus without complications Status: Acute Assessment and Plan 61-year-old man with Deep vein thrombosis (DVT) of left upper extremity Ultrasound of left upper extremity with finding of axillary vein occlusion CT angiogram ruled out SPC syndrome or occlusion Currently on Heparin drip until Saturday or Saturday then switch to Eliquis versus Coumadin Appreciate input from hematology History of left lower extremity DVT Currently on heparin drip and continue to hold Xarelto History of GDS Patient will continue outpatient therapy and will be receiving IVIG in 2 weeks Diabetes type 2 Continue insulin sliding scale and glyburide Hypertension Continue outpatient medications Other chronic medical conditions Continue outpatient medications DVT prophylaxis: Heparin Maco Clayton MD Jan 06, 2017 10:59
[2017-01-06 12:00] VITALS: BP 148/81; PULSE 86; RESP 18; TEMP 96.3; O2SAT 94
[2017-01-06] MEDS: SODIUM CHLORIDE 0.9% FLUSH 10 ML FLUSH IV FLUSH SCH ×2 (13:08→20:18)
[2017-01-06 16:41] VITALS: BP 161/86; PULSE 81; RESP 18; TEMP 97.3; O2SAT 96
[2017-01-06 20:00] VITALS: BP 172/88; PULSE 91; RESP 18; TEMP 96.8; O2SAT 93
[2017-01-06] MEDS: LATANOPROST 0.005% OPHT SOLN 2.5 ML BTL EACH EYE SCH (20:16)
[2017-01-06] MEDS: PRAVASTATIN SOD 20 MG TAB PO SCH (20:16)
[2017-01-07] VITALS (7 sets, daily range): BP systolic 140–164; BP diastolic 79–91; PULSE 76–98; RESP 16–21; TEMP 96.1–96.9; O2SAT 94–97
[2017-01-07] MEDS: INSULIN ASPART SUPPLEMENTAL SCALE SQ SCH ×4 (05:23→21:00)
--- NOTE | 2017-01-07 08:22 | HHI.PR ---
Subjective Remarks Follow-up left upper extremity DVT/failed outpatient therapy for lower extremity DVT 01/05/17-patient seen and examined, no acute event overnight. Still complains of shortness of breath. 01/06/17-patient seen and examined, stable complaint of shortness of breath and no acute event overnight. 01/07/17-patient seen and examined, had low blood glucose overnight however patient was asymptomatic. Complaint of shortness of breath. No other issues Objective Vitals Vital Signs Date Time Temp Pulse Resp B/P (MAP) Pulse Ox O2 Delivery O2 Flow Rate FiO2 01/07/17 04:00 96.3 79 16 152/81 (104) 96 01/07/17 00:00 96.9 89 18 156/79 (104) 94 01/06/17 20:00 96.8 91 18 172/88 (116) 93 01/06/17 16:41 97.3 81 18 161/86 (111) 96 01/06/17 12:00 96.3 86 18 148/81 (103) 94 I/O 01/06/17 01/06/17 01/06/17 01/07/17 01/07/17 01/07/17 07:00 15:00 23:00 07:00 15:00 23:00 Intake Total 760 ml 240 ml 720 ml Output Total 500 ml 400 ml 550 ml 300 ml Balance -500 ml 360 ml -310 ml 420 ml Intake Oral 760 ml 240 ml 720 ml Output Urine Total 500 ml 400 ml 550 ml 300 ml Result Diagram: 01/05/17 1638 01/05/17 1638 Objective Remarks GENERAL: NAD SKIN: Warm and dry. HEAD: Normocephalic. EYES: No scleral icterus. No injection or drainage. NECK: Supple, trachea midline. No JVD or lymphadenopathy. CARDIOVASCULAR: Regular rate and rhythm without murmurs, gallops, or rubs. RESPIRATORY: Breath sounds equal bilaterally. No accessory muscle use. GASTROINTESTINAL: Abdomen soft, non-tender, nondistended. MUSCULOSKELETAL: No cyanosis, or edema. BACK: Nontender without obvious deformity. No CVA tenderness. 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 ICD Code: Z86.69 - Personal history of other diseases of the nervous system and sense organs (4) History of hypertension ICD Code: Z86.79 - Personal history of other diseases of the circulatory system Status: Acute (5) Diabetes mellitus ICD Code: E11.9 - Type 2 diabetes mellitus without complications Status: Acute Assessment and Plan 61-year-old man with Deep vein thrombosis (DVT) of left upper extremity Ultrasound of left upper extremity with finding of axillary vein occlusion CT angiogram ruled out SPC syndrome or occlusion Currently on Heparin drip until today Saturday or Saturday then switch to Eliquis versus Coumadin Appreciate input from hematology History of left lower extremity DVT Currently on heparin drip and continue to hold Xarelto History of GDS Patient will continue outpatient therapy and will be receiving IVIG in 2 weeks Diabetes type 2 Continue insulin sliding scale and glyburide Hypertension Continue outpatient medications Other chronic medical conditions Continue outpatient medications DVT prophylaxis: Heparin Maco Clayton MD Jan 07, 2017 08:22
--- NOTE | 2017-01-07 08:57 | PD.ONC.PN ---
Subjective Subjective Remarks no complaints Objective Data Date Time Temp Pulse Resp B/P (MAP) Pulse Ox O2 Delivery O2 Flow Rate FiO2 01/07/17 04:00 96.3 79 16 152/81 (104) 96 01/07/17 00:00 96.9 89 18 156/79 (104) 94 01/06/17 20:00 96.8 91 18 172/88 (116) 93 01/06/17 16:41 97.3 81 18 161/86 (111) 96 01/06/17 12:00 96.3 86 18 148/81 (103) 94 01/07/17 01/07/17 01/07/17 07:00 15:00 23:00 Intake Total 720 ml Output Total 300 ml Balance 420 ml Result Diagram: 01/05/17 1638 01/05/17 1638 Laboratory Results Laboratory Tests Test 01/06/17 09:50 Activated Partial Thromboplast Time 70.0 SEC Culture Results Microbiology Date/Time Source Procedure Growth Status 01/05/17 16:30 Stool Stool Stool Occult Blood (TANIYA) - Final HEMOCCULT NEGATIVE Complete Imaging Studies Last 72 hours Impressions Upper Extremity Ultrasound 01/04/17 1548 Signed Impressions: Service Date/Time: Wednesday, January 04, 2017 16:00 - CONCLUSION: Extensive DVT. Ari Lima MD Chest X-Ray 01/04/171327 Signed Impressions: Service Date/Time: Wednesday, January 04, 2017 13:36 - CONCLUSION: No acute cardiopulmonary disease. Ari Lima MD CT Angiography [id number]/04/171327 Signed Impressions: Service Date/Time: Wednesday, January 04, 2017 14:53 - CONCLUSION: 1. There is no evidence for PE for technique. 2. There is subcutaneous edema in the left upper chest partially extending from midline there are present lymphedema or possibly venous obstruction as most likely etiologies. 3. Left lung base density possible scar, repeat noncontrast chest CT is suggested in 6 months as a conservative follow up. Ari Lima MD Administered Medications Medications (Trade) Dose Ordered Sig/Sridhar Route PRN Reason Start Time Stop Time Status Last Admin Dose Admin Sodium Chloride (NS Flush) 2 ml BID IV FLUSH 01/04/17 21:00 01/06/17 20:18 Acetaminophen/ Hydrocodone Bitart ([place] 7.5-325 Mg) 1 tab Q4H PRN PO PAIN SCALE 6 TO 10 01/04/17 18:00 01/06/17 20:18 Gabapentin (Neurontin) 800 mg TID PO 01/05/17 09:00 01/06/17 17:58 Glyburide (Diabeta) 5 mg DAILY PO 01/05/17 09:00 01/06/17 09:18 Latanoprost (Xalatan 0.005% Opth Soln) 1 drop HS EACH EYE 01/04/17 21:00 01/06/17 20:16 Metoprolol Tartrate (Lopressor) 100 mg BID PO 01/04/17 21:00 01/06/17 20:15 Ferrous Sulfate (Ferrous Sulfate) 325 mg DAILY PO 01/05/17 09:00 01/06/17 09:18 Pravastatin Sodium (Pravachol) 20 mg HS PO 01/04/17 21:00 01/06/17 20:16 Heparin Sodium/ Dextrose 250 ml @ 19.8 mls/hr TITRATE PRN IV Coagulation management 01/04/17 18:45 01/06/17 09:56 Alteplase, Recombinant (Cathflo Activase Inj) 2 mg Q2H PRN INTRACATH flush 01/05/17 09:00 01/05/17 12:36 Objective Remarks GENERAL: obese and on oxygen. . SKIN: Warm and dry. HEAD: Normocephalic. EYES: No scleral icterus. No injection or drainage. NECK: Supple, trachea midline. No JVD or lymphadenopathy. LYMPHATIC: No adenopathy. CARDIOVASCULAR: Regular rate and rhythm without murmurs. RESPIRATORY: Breath sounds equal bilaterally. No accessory muscle use. GASTROINTESTINAL: Abdomen soft, non-tender, nondistended. EXTREMITIES: left leg +2 edema and swelling over left chest shoulder area MUSCULOSKELETAL: Adequate muscle tone. NEUROLOGICAL: No obvious focal deficit. Awake, alert, and oriented x3. PSYCHIATRIC: poor memory for events. Assessment/Plan Assessment 1: DVT less of a mystery now. In speaking with the patient, he did not take the Xarelto as prescribed. He states he had 10 mg tablets and took one tablet a day and was supposed to take two tablets. During this time he developed left chest swelling and then the nurse came and told him to take two pill. He also received IVIG which can cause thrombosis. The question comes up as to what is best to do. Presently will do the following and Dr. Wilks will make a final recommendation in several days. - will check CT of abd and Pelvis to make sure we do not have a malignancy causing DVT, unlikely but will nevertheless do. -continue IV heparin -in several days can transition to Coumadin, apixaban, or Pradaxa. He did not fail Xarelto. He failed to take the medicine as prescribed and his thrombosis risk was increased with IVIG infusion. Ideally one would want to stop the IVIG but this does not appear practical as he insists it saved his life. James Dee MD Jan 07, 2017 08:57
[2017-01-07] MEDS: DORZOLAMIDE/TIMOLOL OPTH SOLN 10 ML BTL EACH EYE SCH (09:00)
[2017-01-07] MEDS: METOPROLOL TARTRATE 100 MG TAB PO SCH ×2 (09:09→21:23)
[2017-01-07] MEDS: GABAPENTIN 400 MG CAP PO SCH ×3 (09:09→16:49)
[2017-01-07] MEDS: glyBURIDE 5 MG TAB PO SCH (09:09)
[2017-01-07] MEDS: ACETAMINOPHEN/HYDROcodone 325 MG/7.5 MG TAB PO PRN (09:09)
[2017-01-07] MEDS: FERROUS SULFATE 325 MG (65 MG ELEMENTAL IRON) TAB PO SCH (09:09)
[2017-01-07] MEDS: SODIUM CHLORIDE 0.9% FLUSH 10 ML FLUSH IV FLUSH SCH ×2 (09:10→21:00)
[2017-01-07] MEDS: HEPARIN-D5W 25,000 U/250 ML 250 ML IV PRN (09:15)
[2017-01-07 09:32] LABS: HEMATOCRIT 35.2 % (39.0-51.0); MEAN CELL VOLUME 86.1 FL (80.0-100.0); MEAN CORPUSCULAR HEMOGLOBIN 27.7 PG (27.0-34.0); MEAN CORPUSCULAR HGB CONC 32.2 % (32.0-36.0); PLATELET COUNT 88 TH/MM3 (150-450); RED BLOOD COUNT 4.09 MIL/MM3 (4.50-5.90); RED CELL DISTRIBUTION WIDTH 18.2 % (11.6-17.2); WHITE BLOOD COUNT 6.2 TH/MM3 (4.0-11.0)
[2017-01-07] MEDS ORDERED: DIATRIZOATE MEGLUM/DIATRIZOATE SOD 9 ML CUP PO ONE (09:38)
[2017-01-07 09:39] LABS: REVIEW FLAG AUTO DIFF
[2017-01-07] MEDS ORDERED: IOHEXOL 350 MG/ML 10 ML VIAL (for RAD DIAG) IVCONTRAST ONE (15:46)
--- NOTE | 2017-01-07 16:09 | RADRPT ---
EXAM DATE/TIME: 01/07/2017 15:40 [facility] COMPARISON: CT PULMONARY ANGIOGRAM, January 04, 2017, 14:53. INDICATIONS : Diffuse abdomen pain today. IV CONTRAST: 93 cc Omnipaque 350 (iohexol) IV ORAL CONTRAST: Prescribed oral contrast ingested. RADIATION DOSE: 16.08 CTDIvol (mGy) ; Patient body habitus MEDICAL HISTORY : Hypertension. diabetes, guillan barre syndrome SURGICAL HISTORY : None. ENCOUNTER: Initial ACUITY: 1 day PAIN SCALE: 5/10 LOCATION: Bilateral abdomen TECHNIQUE: Volumetric scanning of the abdomen and pelvis was performed. Using automated exposure control and ad justment of the mA and/or kV according to patient size, radiation dose was kept as low as reasonably achievable to obtain optimal diagnostic quality images. DICOM format image data is available electro nically for review and comparison. FINDINGS: Minimal pleural thickening is present on the right There is inhomogeneous enhancement in the right lobe probably differential portal flow. There is the focal 1 cm nodule in dome of the liver probably hemangioma. The spleen, pancreas and adrenal glands are unremarkable There is symmetrical renal function There is no ascites or adenopathy There is collateralization of veins over the abdominal wall into the inferior epigastric vein to the right iliac vein. Scattered diverticula are present in the sigmoid colon There is no ascites or adenopathy There is no free air. Moderate degenerative changes are present in the lumbar spine. CONCLUSION: 1. 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 I do not see etiology for patient's abdominal pain 3. Probable small hemangioma dome of the liver 4. Differential venous flow the liver causing inhomogeneous enhancement. Samy Martinez MD FACR on January 07, 2017 at 15:58 Board Certified Radiologist. This report was verified electronically.
[2017-01-07] MEDS: LATANOPROST 0.005% OPHT SOLN 2.5 ML BTL EACH EYE SCH (21:24)
[2017-01-07] MEDS: PRAVASTATIN SOD 20 MG TAB PO SCH (21:24)
[2017-01-08] VITALS: BP 139/73; PULSE 91; RESP 18; TEMP 97; O2SAT 94
[2017-01-08 04:00] VITALS: BP 150/74; PULSE 95; RESP 18; TEMP 97.1; O2SAT 95
[2017-01-08] MEDS: INSULIN ASPART SUPPLEMENTAL SCALE SQ SCH ×4 (06:01→21:00)
[2017-01-08] MEDS: HEPARIN-D5W 25,000 U/250 ML 250 ML IV PRN (06:01)
[2017-01-08] MEDS: glyBURIDE 5 MG TAB PO SCH (07:45)
[2017-01-08] MEDS: METOPROLOL TARTRATE 100 MG TAB PO SCH ×2 (07:45→20:21)
[2017-01-08] MEDS: GABAPENTIN 400 MG CAP PO SCH ×3 (07:45→18:56)
[2017-01-08] MEDS: FERROUS SULFATE 325 MG (65 MG ELEMENTAL IRON) TAB PO SCH (07:45)
[2017-01-08] MEDS: SODIUM CHLORIDE 0.9% FLUSH 10 ML FLUSH IV FLUSH SCH ×2 (07:47→20:16)
[2017-01-08 08:00] VITALS: BP 152/98; PULSE 81; RESP 18; TEMP 96.6; O2SAT 96
--- NOTE | 2017-01-08 08:27 | HHI.PR ---
Subjective Remarks Follow-up left upper extremity DVT/failed outpatient therapy for lower extremity DVT 01/05/17-patient seen and examined, no acute event overnight. Still complains of shortness of breath. 01/06/17-patient seen and examined, stable complaint of shortness of breath and no acute event overnight. 01/07/17-patient seen and examined, had low blood glucose overnight however patient was asymptomatic. Complaint of shortness of breath. No other issues 01/08/17-patient seen and examined, denies any significant shortness of breath and apparently patient states he initially did not take his medications including Xarelto as prescribed, however this only happened the first 3-4 days when patient was taking the medications once a day as opposed to twice a day. Objective Vitals Vital Signs Date Time Temp Pulse Resp B/P (MAP) Pulse Ox O2 Delivery O2 Flow Rate FiO2 01/08/17 04:00 97.1 95 18 150/74 (99) 95 01/08/17 00:00 97.0 91 18 139/73 (95) 94 01/07/17 21:21 96.5 98 16 151/91 (111) 95 01/07/17 17:43 96 01/07/17 16:27 96.1 76 20 155/80 (105) 96 Manual Cuff/Auscultation 01/07/17 12:07 96.9 76 20 164/81 (108) 97 140/80 (100) I/O 01/07/17 01/07/17 01/07/17 01/08/17 01/08/17 01/08/17 07:00 15:00 23:00 07:00 15:00 23:00 Intake Total 720 ml 805 ml 100 ml Output Total 300 ml 1000 ml 300 ml Balance 420 ml -195 ml 100 ml -300 ml Intake Oral 720 ml 805 ml IV Total 100 ml Output Urine Total 300 ml 1000 ml 300 ml # Bowel Movements 1 Result Diagram: 01/07/17 0853 01/05/17 1638 Objective Remarks GENERAL: NAD SKIN: Warm and dry. HEAD: Normocephalic. EYES: No scleral icterus. No injection or drainage. NECK: Supple, trachea midline. No JVD or lymphadenopathy. CARDIOVASCULAR: Regular rate and rhythm without murmurs, gallops, or rubs. RESPIRATORY: Breath sounds equal bilaterally. No accessory muscle use. GASTROINTESTINAL: Abdomen soft, non-tender, nondistended. MUSCULOSKELETAL: No cyanosis, or edema. BACK: Nontender without obvious deformity. No CVA tenderness. A/P Problem List: (1) Deep vein thrombosis (DVT) of left upper extremity ICD Code: I82.622 - Acute embolism and thrombosis of deep veins of left upper extremity Status: Acute (2) Failure of outpatient treatment ICD Code: Z78.9 - Other specified health status Status: Acute (3) History of Guillain-[place] syndrome ICD Code: Z86.69 - Personal history of other diseases of the nervous system and sense organs (4) History of hypertension ICD Code: Z86.79 - Personal history of other diseases of the circulatory system Status: Acute (5) Diabetes mellitus ICD Code: E11.9 - Type 2 diabetes mellitus without complications Status: Acute Assessment and Plan 61-year-old man with Deep vein thrombosis (DVT) of left upper extremity Ultrasound of left upper extremity with finding of axillary vein occlusion CT angiogram ruled out SPC syndrome or occlusion Currently on Heparin drip until hematology decides to switch patient to by mouth oral anticoagulation Appreciate input from hematology History of left lower extremity DVT Currently on heparin drip and continue to hold Xarelto History of GDS Patient will continue outpatient therapy and will be receiving IVIG in 2 weeks Diabetes type 2 Secondary to low blood glucose, will hold glyburide for blood glucose less than 110 Check A1c Hypertension Continue outpatient medications Other chronic medical conditions Continue outpatient medications DVT prophylaxis: Heparin Discharge Planning Currently on heparin drip, discharge when medically stable per hematology Maco Clayton MD Jan 08, 2017 08:26
[2017-01-08 09:58] LABS: AUTOMATED NEUTROPHIL # 4.3 TH/MM3 (1.8-7.7); BASOPHIL % 0.7 % (0.0-2.0); EOSINOPHIL # 0.2 TH/MM3 (0-0.4); EOSINOPHIL % 2.7 % (0.0-4.0); HEMATOCRIT 37.2 % (39.0-51.0); LYMPHOCYTE # 1.2 TH/MM3 (1.0-4.8); MEAN CELL VOLUME 86.1 FL (80.0-100.0); MEAN CORPUSCULAR HGB CONC 32.6 % (32.0-36.0); MONO % 13.7 % (0.0-8.0); NEUT % 64.9 % (16.0-70.0); PLATELET COUNT 66 TH/MM3 (150-450); RED BLOOD COUNT 4.32 MIL/MM3 (4.50-5.90); RED CELL DISTRIBUTION WIDTH 18.4 % (11.6-17.2); WHITE BLOOD COUNT 6.6 TH/MM3 (4.0-11.0)
[2017-01-08 09:59] LABS: HEMO FLAGS AUTO DIFF
[2017-01-08 10:04] LABS: PLATELET ESTIMATE SMEAR LOW (NORMAL); PLATELET MORPHOLOGY ENLARGED (NORMAL); SCAN/DIFF AUTO DIFF CONFIRMED
[2017-01-08 10:12] LABS: BICARBONATE 27.5 MEQ/L (21.0-32.0)
[2017-01-08] MEDS: ALTEPLASE RECOMBINANT 2 MG VIAL INTRACATH PRN (10:18)
[2017-01-08 10:53] LABS: APTT (PATIENT) 37.6 SEC (24.3-30.1)
--- NOTE | 2017-01-08 11:03 | PD.ONC.PN ---
Subjective Subjective Remarks Afebrile overnight. Patient reports edema in left leg is worsening. Reports his dyspnea is improving. Objective Data Date Time Temp Pulse Resp B/P (MAP) Pulse Ox O2 Delivery O2 Flow Rate FiO2 01/08/17 08:00 96.6 81 18 152/98 (116) 96 01/08/17 04:00 97.1 95 18 150/74 (99) 95 01/08/17 00:00 97.0 91 18 139/73 (95) 94 01/07/17 21:21 96.5 98 16 151/91 (111) 95 01/07/17 17:43 96 01/07/17 16:27 96.1 76 20 155/80 (105) 96 Manual Cuff/Auscultation 01/07/17 12:07 96.9 76 20 164/81 (108) 97 140/80 (100) 01/08/17 01/08/17 01/08/17 07:00 15:00 23:00 Output Total 300 ml Balance -300 ml Result Diagram: 01/08/17 0755 01/08/17 0755 Laboratory Results Laboratory Tests Test 01/08/17 07:55 01/08/17 10:30 White Blood Count 6.6 TH/MM3 Red Blood Count 4.32 MIL/MM3 Hemoglobin 12.1 GM/DL Hematocrit 37.2 % Mean Corpuscular Volume 86.1 FL Mean Corpuscular Hemoglobin 28.0 PG Mean Corpuscular Hemoglobin Concent 32.6 % Red Cell Distribution Width 18.4 % Platelet Count 66 TH/MM3 Mean Platelet Volume 10.6 FL Neutrophils (%) (Auto) 64.9 % Lymphocytes (%) (Auto) 18.0 % Monocytes (%) (Auto) 13.7 % Eosinophils (%) (Auto) 2.7 % Basophils (%) (Auto) 0.7 % Neutrophils # (Auto) 4.3 TH/MM3 Lymphocytes # (Auto) 1.2 TH/MM3 Monocytes # (Auto) 0.9 TH/MM3 Eosinophils # (Auto) 0.2 TH/MM3 Basophils # (Auto) 0.0 TH/MM3 CBC Comment AUTO DIFF Differential Comment AUTO DIFF CONFIRMED Platelet Estimate LOW Platelet Morphology Comment ENLARGED Hematology Comments Blood Urea Nitrogen 7 MG/DL Creatinine 0.71 MG/DL Random Glucose 82 MG/DL Calcium Level 8.7 MG/DL Sodium Level 138 MEQ/L Potassium Level 5.0 MEQ/L Chloride Level 104 MEQ/L Carbon Dioxide Level 27.5 MEQ/L Anion Gap 7 MEQ/L Estimat Glomerular Filtration Rate 137 ML/MIN Activated Partial Thromboplast Time 37.6 SEC Culture Results Microbiology Date/Time Source Procedure Growth Status 01/05/17 16:30 Stool Stool Stool Occult Blood (TANIYA) - Final HEMOCCULT NEGATIVE Complete Administered Medications Medications (Trade) Dose Ordered Sig/Sridhar Route PRN Reason Start Time Stop Time Status Last Admin Dose Admin Sodium Chloride (NS Flush) 2 ml BID IV FLUSH 01/04/17 21:00 01/08/17 07:47 Acetaminophen/ Hydrocodone Bitart ([place] 7.5-325 Mg) 1 tab Q4H PRN PO PAIN SCALE 6 TO 10 01/04/17 18:00 01/07/17 09:09 Gabapentin (Neurontin) 800 mg TID PO 01/05/17 09:00 01/08/17 07:45 Glyburide (Diabeta) 5 mg DAILY PO 01/05/17 09:00 01/08/17 07:45 Latanoprost (Xalatan 0.005% Opth Soln) 1 drop HS EACH EYE 01/04/17 21:00 01/07/17 21:24 Metoprolol Tartrate (Lopressor) 100 mg BID PO 01/04/17 21:00 01/08/17 07:45 Ferrous Sulfate (Ferrous Sulfate) 325 mg DAILY PO 01/05/17 09:00 01/08/17 07:45 Pravastatin Sodium (Pravachol) 20 mg HS PO 01/04/17 21:00 01/07/17 21:24 Heparin Sodium/ Dextrose 250 ml @ 19.8 mls/hr TITRATE PRN IV Coagulation management 01/04/17 18:45 01/08/17 06:01 Alteplase, Recombinant (Cathflo Activase Inj) 2 mg Q2H PRN INTRACATH flush 01/05/17 09:00 01/08/17 10:18 Objective Remarks GENERAL: Middle aged male upright in bed in nad. SKIN: Warm and dry. HEAD: Normocephalic. EYES: No injection or drainage. NECK: Supple, trachea midline. CARDIOVASCULAR: Regular rate and rhythm RESPIRATORY: Breath sounds equal bilaterally. No accessory muscle use. GASTROINTESTINAL: Abdomen soft, non-tender, nondistended. EXTREMITIES: No cyanosis. LLE edematous. NEUROLOGICAL: awake and alert, normal speech. Assessment/Plan Problem List: (1) Thrombocytopenia ICD Codes: D69.6 - Thrombocytopenia, unspecified Plan: -likely d/t consumption from multiple thrombi --check HIT (2) Deep vein thrombosis (DVT) of left lower extremity ICD Codes: I82.402 - Acute embolism and thrombosis of unspecified deep veins of left lower extremity Status: Acute Plan: 01/08: swelling in leg has worsened. will obtain repeat doppler to see if there has been progression. --on heparin gtt (3) Deep vein thrombosis (DVT) of left upper extremity ICD Codes: I82.622 - Acute embolism and thrombosis of deep veins of left upper extremity Status: Acute Plan: 01/08: Continue heparin gtt -- Started Xarelto one week ago for LLE DVT and then developed L upper arm swelling, found to have an extensive DVT. -- CTA negative for PE (4) Multiple myeloma ICD Codes: C90.00 - Multiple myeloma not having achieved remission Plan: -- Diagnosed approx. 2 years ago; he was treated with oral chemotherapy and is currently in remission -- Under the care of Dr. 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 Harris and reportedly has been getting IVIG every 2 weeks with home health Assessment 61y/o male with LUE DVT, LLE DVT. h/o Multiple myeloma diagnosed 2 years ago. Guillain-[place] Syndrome diagnosed 4 years ago, diabetes mellitus. Peripheral neuropathy from diabetes. Hypertension, hypercholesterolemia, glaucoma. Attending Statement c/o increase left leg swelling. LUE swelling has almost resolved. Repeat Doppler LE = shows extensive persistant DVT LLE consult IR for catheter directed TPA and thrombectomy. D/W DR Parish Martinez. Plat are going down, Consumption vs HIT. Check HIT A/B The exam, history, and the medical decision-making described in the above note were completed with the assistance of the mid-level provider. I reviewed and agree with the findings presented. I attest that I had a [id number] encounter with the patient on the same day, and personally performed and documented my assessment and findings in the medical record. Problem Qualifiers (1) Multiple myeloma: Qualified Codes: C90.01 - Multiple myeloma in remission Melissa Anderson Jan 08, 2017 11:03 Kadeem Wilks MD Jan 08, 2017 15:19
[2017-01-08 12:00] VITALS: BP 174/90; PULSE 73; RESP 18; TEMP 97.6; O2SAT 97
--- NOTE | 2017-01-08 12:07 | RADRPT ---
EXAM DATE/TIME: 01/08/2017 11:15 [facility] COMPARISON: No previous studies available for comparison. INDICATIONS : Bilateral leg swelling. MEDICAL HISTORY : Hypertension. Arthritis. Deep venous thrombosis. Guillain [place] syndrome.Numbness. Diabetes. Chemothe rapy. IVIG. Measles. SURGICAL HISTORY : Right chest port. ENCOUNTER: Subsequent ACUITY: 2 weeks PAIN SCORE: 1/10 LOCATION: Bilateral legs TECHNIQUE: Venous ultrasound of the left and right leg was performed from the inguinal ligament to the proximal calf. Real-time, color Doppler and spectral tracing, compression and augmentation techniques were us ed. FINDINGS: RIGHT LEG: There is normal compressibility of the deep venous system from the inguinal region to the proximal ca lf. No echogenic clot is seen in the lumen of the common femoral, femoral, popliteal, and posterior tibial veins. There is a normal response of the venous system to proximal and distal augmentation an d respiration. LEFT LEG: There is occlusive deep venous thrombus within the left common femoral, superficial femoral and peron eal veins. Non-occlusive deep venous thrombus is noted within the left popliteal and posterior tibial veins. CONCLUSION: 1. Extensive deep venous thrombus within the left lower extremity with occlusive deep venous thrombus noted in the left common femoral, superficial femoral and peroneal veins and non-occlusive deep veno us thrombus within the left popliteal and posterior tibial veins. 2. No evidence of deep venous thrombus within the right lower extremity. Alireza Barnes MD on January 08, 2017 at 12:03 Board Certified Radiologist. This report was verified electronically.
[2017-01-08] MEDS: DORZOLAMIDE/TIMOLOL OPTH SOLN 10 ML BTL EACH EYE SCH (14:57)
[2017-01-08] MEDS: ACETAMINOPHEN/HYDROcodone 325 MG/7.5 MG TAB PO PRN (14:58)
--- NOTE | 2017-01-08 15:58 | PD.RAD ---
Radiology Note 61Y/o With LLE DVT and LUE DVT. Pt was diagnosed approximately 1 week ago and placed on Xarelto. Unfortunately he was only taking 10mg Qday and the DVT progressed. We are asked to asses for possible thrombolysis. PMH included Guillain [place], Diabetes, Hypertension Exam: Pt is resting comfortably Left leg is moderately swollen from the knee to the foot. Good capillary refill A/P: At present the leg does not appear threatened. I would recommend to continue with the anticoagulation and we will reassess the patient in 24 hours to see if the swelling has diminished. Maged Martinez MD Jan 08, 2017 15:58
[2017-01-08 16:00] VITALS: BP 181/91; PULSE 79; RESP 18; TEMP 97.5; O2SAT 96
[2017-01-08 20:00] VITALS: BP 144/74; PULSE 88; RESP 17; TEMP 96.7; O2SAT 95
[2017-01-08] MEDS: PRAVASTATIN SOD 20 MG TAB PO SCH (20:21)
[2017-01-08] MEDS: LATANOPROST 0.005% OPHT SOLN 2.5 ML BTL EACH EYE SCH (20:22)
[2017-01-09] VITALS: BP 137/80; PULSE 89; RESP 18; TEMP 96.3; O2SAT 91
[2017-01-09 01:06] LABS: APTT (PATIENT) 96.2 SEC (24.3-30.1)
[2017-01-09 04:00] VITALS: BP 147/82; PULSE 82; RESP 18; TEMP 96.6; O2SAT 95
[2017-01-09] MEDS: HEPARIN-D5W 25,000 U/250 ML 250 ML IV PRN (05:01)
[2017-01-09] MEDS: INSULIN ASPART SUPPLEMENTAL SCALE SQ SCH ×5 (07:00→20:46)
[2017-01-09 07:50] VITALS: BP 138/77; PULSE 86; RESP 20; TEMP 97.9; O2SAT 95
[2017-01-09] MEDS: glyBURIDE 5 MG TAB PO SCH (08:56)
[2017-01-09] MEDS: ACETAMINOPHEN/HYDROcodone 325 MG/7.5 MG TAB PO PRN ×4 (08:56→22:45)
[2017-01-09] MEDS: METOPROLOL TARTRATE 100 MG TAB PO SCH ×2 (08:56→20:48)
[2017-01-09] MEDS: SODIUM CHLORIDE 0.9% FLUSH 10 ML FLUSH IV FLUSH SCH ×2 (08:56→20:49)
[2017-01-09] MEDS: GABAPENTIN 400 MG CAP PO SCH ×3 (08:56→18:00)
[2017-01-09] MEDS: FERROUS SULFATE 325 MG (65 MG ELEMENTAL IRON) TAB PO SCH (08:56)
[2017-01-09] MEDS: DORZOLAMIDE/TIMOLOL OPTH SOLN 10 ML BTL EACH EYE SCH (08:58)
--- NOTE | 2017-01-09 09:34 | PD.ONC.PN ---
Subjective Subjective Remarks Radiologist did not feel he was a candidate for thrombectomy. Per pt the swelling is unchanged No bleeding. Objective Data Date Time Temp Pulse Resp B/P (MAP) Pulse Ox O2 Delivery O2 Flow Rate FiO2 01/09/17 04:00 96.6 82 18 147/82 (103) 95 01/09/17 00:00 96.3 89 18 137/80 (99) 91 01/08/17 20:00 96.7 88 17 144/74 (97) 95 01/08/17 16:00 97.5 79 18 181/91 (121) 96 01/08/17 16:00 17 01/08/17 12:00 97.6 73 18 174/90 (118) 97 01/09/17 01/09/17 01/09/17 07:00 15:00 23:00 Output Total 600 ml Balance -600 ml Result Diagram: 01/08/17 0755 01/08/17 0755 Laboratory Results Laboratory Tests Test 01/08/17 10:30 01/09/17 00:33 01/09/17 04:35 Activated Partial Thromboplast Time 37.6 SEC 96.2 SEC 77.0 SEC Administered Medications Medications (Trade) Dose Ordered Sig/Sridhar Route PRN Reason Start Time Stop Time Status Last Admin Dose Admin Sodium Chloride (NS Flush) 2 ml BID IV FLUSH 01/04/17 21:00 01/08/17 07:47 Acetaminophen/ Hydrocodone Bitart ([place] 7.5-325 Mg) 1 tab Q4H PRN PO PAIN SCALE 6 TO 10 01/04/17 18:00 01/09/17 08:56 Dorzolamide/ Timolol (Cosopt 2-0.5% Opth Soln) 1 drop DAILY EACH EYE 01/05/17 09:00 01/09/17 08:58 Gabapentin (Neurontin) 800 mg TID PO 01/05/17 09:00 01/09/17 08:56 Glyburide (Diabeta) 5 mg DAILY PO 01/05/17 09:00 01/09/17 08:56 Latanoprost (Xalatan 0.005% Opth Soln) 1 drop HS EACH EYE 01/04/17 21:00 01/08/17 20:22 Metoprolol Tartrate (Lopressor) 100 mg BID PO 9/8/17 21:00 01/09/17 08:56 Ferrous Sulfate (Ferrous Sulfate) 325 mg DAILY PO 01/05/17 09:00 01/09/17 08:56 Pravastatin Sodium (Pravachol) 20 mg HS PO 01/04/17 21:00 01/08/17 20:21 Heparin Sodium/ Dextrose 250 ml @ 19.8 mls/hr TITRATE PRN IV Coagulation management 01/04/17 18:45 01/09/17 05:01 Alteplase, Recombinant (Cathflo Activase Inj) 2 mg Q2H PRN INTRACATH flush 01/05/17 09:00 01/08/17 10:18 Objective Remarks GENERAL: Middle-aged male resting in bed in no acute distress SKIN: Warm and dry. HEAD: Normocephalic. EYES: No injection or drainage. NECK: Supple, trachea midline. CARDIOVASCULAR: Regular rate and rhythm without murmurs. RESPIRATORY: Diminished anteriorly. Breathing unlabored at rest. GASTROINTESTINAL: Abdomen soft, non-tender, nondistended. EXTREMITIES: No cyanosis. L upper and lower extremity edema. MUSCULOSKELETAL: Adequate muscle tone. NEUROLOGICAL: Moving all extremities. No obvious focal deficit. Assessment/Plan Problem List: (1) Thrombocytopenia ICD Codes: D69.6 - Thrombocytopenia, unspecified Plan: 01/09: Platelets stable at 64K today. HIT panel pending. Continue heparin for now; if platelets drop further may switch to something like Arixtra until HIT panel returns. --likely d/t consumption from multiple thrombi --check HIT (2) Deep vein thrombosis (DVT) of left lower extremity ICD Codes: I82.402 - Acute embolism and thrombosis of unspecified deep veins of left lower extremity Status: Acute Plan: -- --on heparin gtt (3) Deep vein thrombosis (DVT) of left upper extremity ICD Codes: I82.622 - Acute embolism and thrombosis of deep veins of left upper extremity Status: Acute Plan: -- Started Xarelto one week ago for LLE DVT and then developed L upper arm swelling, found to have an extensive DVT. -- CTA negative for PE (4) Multiple myeloma ICD Codes: C90.00 - Multiple myeloma not having achieved remission Plan: -- Diagnosed approx. 2 years ago; he was treated with oral chemotherapy and is currently in remission -- Under the care of Dr. 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 Harris and reportedly has been getting IVIG every 2 weeks with home health Assessment 61y/o male with LUE DVT, LLE DVT. h/o Multiple myeloma diagnosed 2 years ago. Guillain-[place] Syndrome diagnosed 4 years ago, diabetes mellitus. Peripheral neuropathy from diabetes. Hypertension, hypercholesterolemia, glaucoma. Attending Statement left leg is still swollen. IR note reviewed. No Thrombectomy or TPA. 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 Order JACKY to confirm it. D/C heparin and start Eliquis 4 hrs after the heparin stop. The exam, history, and the medical decision-making described in the above note were completed with the assistance of the mid-level provider. I reviewed and agree with the findings presented. I attest that I had a [id number] encounter with the patient on the same day, and personally performed and documented my assessment and findings in the medical record. Problem Qualifiers (1) Multiple myeloma: Qualified Codes: C90.01 - Multiple myeloma in remission Martina Mahan Jan 09, 2017 09:34 Kadeem Wilks MD Jan 09, 2017 23:31
[2017-01-09] MEDS: ALTEPLASE RECOMBINANT 2 MG VIAL INTRACATH PRN (10:48)
--- NOTE | 2017-01-09 11:11 | HHI.PR ---
Subjective Remarks Patient has not noticed any improvement in his left lower extremity swelling. He complains of no bleeding. No new complaints today. Objective Vital Signs Date Time Temp Pulse Resp B/P (MAP) Pulse Ox O2 Delivery O2 Flow Rate FiO2 01/09/17 04:00 96.6 82 18 147/82 (103) 95 01/09/17 00:00 96.3 89 18 137/80 (99) 91 01/08/17 20:00 96.7 88 17 144/74 (97) 95 01/08/17 16:00 97.5 79 18 181/91 (121) 96 01/08/17 16:00 17 01/08/17 12:00 97.6 73 18 174/90 (118) 97 I/O 01/08/17 01/08/17 01/08/17 01/09/17 01/09/17 01/09/17 07:00 15:00 23:00 07:00 15:00 23:00 Intake Total 720 ml Output Total 300 ml 1450 ml 600 ml Balance -300 ml -730 ml -600 ml Intake Oral 720 ml Output Urine Total 300 ml 1450 ml 600 ml # Voids 1 # Bowel Movements 1 Result Diagram: 01/08/17 0755 01/08/17 0755 Objective Remarks GENERAL: NAD, A&Ox3 HEAD: Normocephalic. NECK: Supple, trachea midline. No lymphadenopathy. EYES: No scleral icterus. No injection or drainage. CARDIOVASCULAR: Regular rate and rhythm without murmurs, gallops, or rubs. RESPIRATORY: Breath sounds equal bilaterally. No accessory muscle use. GASTROINTESTINAL: Abdomen soft, non-tender, nondistended. MUSCULOSKELETAL: No cyanosis. Edema at left lower extremity. SKIN: Warm and dry. NEURO: No focal neurological deficitis. A/P Problem List: (1) DVT of axillary vein, acute left ICD Code: I82.A12 - Acute embolism and thrombosis of left axillary vein Status: Acute (2) Failure of outpatient treatment ICD Code: Z78.9 - Other specified health status Status: Acute (3) Deep vein thrombosis (DVT) of left upper extremity ICD Code: I82.622 - Acute embolism and thrombosis of deep veins of left upper extremity Status: Acute (4) Deep vein thrombosis (DVT) of left lower extremity ICD Code: I82.402 - Acute embolism and thrombosis of unspecified deep veins of left lower extremity Status: Acute (5) History of Guillain-[place] syndrome ICD Code: Z86.69 - Personal history of other diseases of the nervous system and sense organs (6) Diabetes mellitus ICD Code: E11.9 - Type 2 diabetes mellitus without complications Status: Acute (7) History of hypertension ICD Code: Z86.79 - Personal history of other diseases of the circulatory system Status: Acute (8) Multiple myeloma ICD Code: C90.00 - Multiple myeloma not having achieved remission Assessment and Plan Assessment and Plan 61-year-old male admitted after treatment failure of left lower extremity DVT with Xarelto Deep vein thrombosis (DVT) of left upper extremity Left lower extremity DVT Outpatient treatment failure Continue heparin drip Hematology following CT angiogram ruled out SPC syndrome CT angiogram rule out occlusion Patient failed Xarelto as a treatment Guillain-Rm syndrome Continue IVIG Diabetes mellitus type 2 Follow blood sugars Insulin sliding scale Diabetic diet Hypertension No change to baseline treatments Follow blood pressure DVT prophylaxis Heparin Discharge planning Will need to transition patient to an alternative treatment other than heparin drip prior to discharge Problem Qualifiers (1) Multiple myeloma: Qualified Codes: C90.01 - Multiple myeloma in remission Maged Wilson MD Jan 09, 2017 11:11
[2017-01-09 11:50] VITALS: BP 127/65; PULSE 73; RESP 20; TEMP 96.2; O2SAT 93
[2017-01-09 13:05] LABS: HEMATOCRIT 36.6 % (39.0-51.0); MEAN CELL VOLUME 86.4 FL (80.0-100.0); MEAN CORPUSCULAR HEMOGLOBIN 27.8 PG (27.0-34.0); MEAN CORPUSCULAR HGB CONC 32.2 % (32.0-36.0); PLATELET COUNT 64 TH/MM3 (150-450); RED BLOOD COUNT 4.23 MIL/MM3 (4.50-5.90); RED CELL DISTRIBUTION WIDTH 18.1 % (11.6-17.2); WHITE BLOOD COUNT 6.6 TH/MM3 (4.0-11.0)
[2017-01-09 13:08] LABS: REVIEW FLAG FINAL
[2017-01-09 13:10] LABS: APTT (PATIENT) 53.6 SEC (24.3-30.1)
[2017-01-09 13:58] LABS: HEMOGLOBIN A1a 0.7 %; HEMOGLOBIN A1b 0.3 %; HEMOGLOBIN Ao 60.5 %; HEMOGLOBIN F 0.8 %; HEMOGLOBIN LA1C 1.1 %; HEMOGLOBIN P3 1.9 %
[2017-01-09 15:50] VITALS: BP 165/80; PULSE 86; RESP 20; TEMP 96.7; O2SAT 95
[2017-01-09 17:29] LABS: HEPARIN AB OD 1.045 O.D. (0.000-0.300); HEPARIN INDUCED PLATELET AB POSITIVE (NEGATIVE)
--- NOTE | 2017-01-09 17:58 | PD.RAD ---
Post Procedure Progress Note Pre Procedure Diagnosis: (1) poor functioning port Post Procedure Diagnosis: (1) poor functioning port Procedure Date: Jan 09, 2017 Supervising Radiologist: Maged Martinez Plan of Activity Patient to Unit: Nursing Unit Patient Condition: Fair Additional Comments: Port evaluated. IVC is highly stenosed with fibrin sheath / thrombus around the distal port tubing. Port is not usable. Port was needle removed. Full dictated report to follow See PACS Report for procedural detail/treatment Maged Martinez MD Jan 09, 2017 17:58
--- NOTE | 2017-01-09 18:01 | PD.RAD ---
Radiology Note 61 y/o with left leg DVT. Pt. evaluated the left leg is still considerably swollen but is not threatened. Swell is less tense than previous exam. A/P 1. Swelling of left leg mildly improved compared to previous exam. 2. Will hold off on thrombolytics. Maged Martinez MD Jan 09, 2017 18:01
[2017-01-09] MEDS ORDERED: IOHEXOL 350 MG/ML 50 ML BTL (for RAD DIAG) IVCONTRAST ONE (18:03)
[2017-01-09 20:00] VITALS: BP 116/63; PULSE 105; RESP 18; TEMP 98.8; O2SAT 99
[2017-01-09] MEDS: PRAVASTATIN SOD 20 MG TAB PO SCH (20:48)
[2017-01-09] MEDS: LATANOPROST 0.005% OPHT SOLN 2.5 ML BTL EACH EYE SCH (20:50)
[2017-01-10] VITALS: BP 120/67; PULSE 68; RESP 17; TEMP 97.5; O2SAT 95
[2017-01-10 04:00] VITALS: BP 142/82; PULSE 73; RESP 17; TEMP 97.1; O2SAT 97
[2017-01-10 05:21] LABS: ALT (GPT) 33 U/L (12-78); ANION GAP 3 MEQ/L (5-15); AST (GOT) 31 U/L (15-37); BLOOD UREA NITROGEN 10 MG/DL (7-18); CHLORIDE 104 MEQ/L (98-107); GLOMERULAR FILTRATION RATE 111 ML/MIN (>89); POTASSIUM 4.1 MEQ/L (3.5-5.1); SODIUM (NA) 137 MEQ/L (136-145)
[2017-01-10 05:29] LABS: ALKALINE PHOSPHATASE 81 U/L (45-117); TOTAL BILIRUBIN ADULT 0.4 MG/DL (0.2-1.0)
[2017-01-10] MEDS: APIXABAN 5 MG TABLET PO SCH ×3 (05:40→20:57)
[2017-01-10 05:54] LABS: AUTOMATED NEUTROPHIL # 3.2 TH/MM3 (1.8-7.7); BASOPHIL % 0.6 % (0.0-2.0); EOSINOPHIL # 0.3 TH/MM3 (0-0.4); EOSINOPHIL % 5.2 % (0.0-4.0); HEMATOCRIT 37.1 % (39.0-51.0); LYMPH % 25.5 % (9.0-44.0); LYMPHOCYTE # 1.5 TH/MM3 (1.0-4.8); MEAN CELL VOLUME 87.5 FL (80.0-100.0); MEAN CORPUSCULAR HEMOGLOBIN 27.5 PG (27.0-34.0); MEAN CORPUSCULAR HGB CONC 31.4 % (32.0-36.0); MONO % 13.2 % (0.0-8.0); NEUT % 55.5 % (16.0-70.0); PLATELET COUNT 62 TH/MM3 (150-450); RED BLOOD COUNT 4.23 MIL/MM3 (4.50-5.90); WHITE BLOOD COUNT 5.7 TH/MM3 (4.0-11.0)
[2017-01-10 05:55] LABS: HEMO FLAGS AUTO DIFF
[2017-01-10 07:50] VITALS: BP 139/74; PULSE 81; RESP 20; TEMP 96.1; O2SAT 97
[2017-01-10] MEDS: INSULIN ASPART SUPPLEMENTAL SCALE SQ SCH ×4 (08:00→20:59)
[2017-01-10 08:55] LABS: PLATELET ESTIMATE SMEAR LOW (NORMAL); PLATELET MORPHOLOGY NORMAL (NORMAL); SCAN/DIFF AUTO DIFF CONFIRMED
[2017-01-10] MEDS: SODIUM CHLORIDE 0.9% FLUSH 10 ML FLUSH IV FLUSH SCH ×2 (09:00→21:01)
[2017-01-10] MEDS: METOPROLOL TARTRATE 100 MG TAB PO SCH ×2 (09:00→20:57)
[2017-01-10] MEDS: DORZOLAMIDE/TIMOLOL OPTH SOLN 10 ML BTL EACH EYE SCH (09:00)
[2017-01-10] MEDS: GABAPENTIN 400 MG CAP PO SCH ×3 (09:16→17:23)
[2017-01-10] MEDS: glyBURIDE 5 MG TAB PO SCH ×2 (09:16→09:24)
[2017-01-10] MEDS: FERROUS SULFATE 325 MG (65 MG ELEMENTAL IRON) TAB PO SCH (09:17)
--- NOTE | 2017-01-10 11:03 | PD.ONC.PN ---
Subjective Subjective Remarks Tolerating Eliquis No bleeding Objective Data Date Time Temp Pulse Resp B/P (MAP) Pulse Ox O2 Delivery O2 Flow Rate FiO2 01/10/17 07:50 96.1 81 20 139/74 (95) 97 01/10/17 04:00 97.1 73 17 142/82 (102) 97 01/10/17 00:00 97.5 68 17 120/67 (84) 95 01/09/17 23:45 16 01/09/17 20:00 98.8 105 18 116/63 (80) 99 01/09/17 15:50 96.7 86 20 165/80 (108) 95 01/09/17 11:50 96.2 73 20 127/65 (85) 93 01/10/17 01/10/17 01/10/17 07:00 15:00 23:00 Output Total 600 ml Balance -600 ml Result Diagram: 01/10/17 0407 01/10/17 0407 Laboratory Results Laboratory Tests Test 01/09/17 11:50 01/09/17 21:42 01/10/17 04:07 White Blood Count 6.6 TH/MM3 5.7 TH/MM3 Red Blood Count 4.23 MIL/MM3 4.23 MIL/MM3 Hemoglobin 11.8 GM/DL 11.6 GM/DL Hematocrit 36.6 % 37.1 % Mean Corpuscular Volume 86.4 FL 87.5 FL Mean Corpuscular Hemoglobin 27.8 PG 27.5 PG Mean Corpuscular Hemoglobin Concent 32.2 % 31.4 % Red Cell Distribution Width 18.1 % 18.0 % Platelet Count 64 TH/MM3 62 TH/MM3 Mean Platelet Volume 10.3 FL 9.8 FL Activated Partial Thromboplast Time 53.6 SEC 31.0 SEC Neutrophils (%) (Auto) 55.5 % Lymphocytes (%) (Auto) 25.5 % Monocytes (%) (Auto) 13.2 % Eosinophils (%) (Auto) 5.2 % Basophils (%) (Auto) 0.6 % Neutrophils # (Auto) 3.2 TH/MM3 Lymphocytes # (Auto) 1.5 TH/MM3 Monocytes # (Auto) 0.8 TH/MM3 Eosinophils # (Auto) 0.3 TH/MM3 Basophils # (Auto) 0.0 TH/MM3 CBC Comment AUTO DIFF Differential Comment AUTO DIFF CONFIRMED Platelet Estimate LOW Platelet Morphology Comment NORMAL Blood Urea Nitrogen 10 MG/DL Creatinine 0.85 MG/DL Random Glucose 81 MG/DL Total Protein 9.1 GM/DL Albumin 2.9 GM/DL Calcium Level 8.8 MG/DL Alkaline Phosphatase 81 U/L Aspartate Amino Transf (AST/SGOT) 31 U/L Alanine Aminotransferase (ALT/SGPT) 33 U/L Total Bilirubin 0.4 MG/DL Sodium Level 137 MEQ/L Potassium Level 4.1 MEQ/L Chloride Level 104 MEQ/L Carbon Dioxide Level 30.0 MEQ/L Anion Gap 3 MEQ/L Estimat Glomerular Filtration Rate 111 ML/MIN Administered Medications Medications (Trade) Dose Ordered Sig/Sridhar Route PRN Reason Start Time Stop Time Status Last Admin Dose Admin Sodium Chloride (NS Flush) 2 ml BID IV FLUSH 01/04/17 21:00 01/10/17 09:00 Acetaminophen/ Hydrocodone Bitart ([place] 7.5-325 Mg) 1 tab Q4H PRN PO PAIN SCALE 6 TO 10 01/04/17 18:00 01/09/17 22:45 Dorzolamide/ Timolol (Cosopt 2-0.5% Opth Soln) 1 drop DAILY EACH EYE 01/05/17 09:00 01/10/17 09:00 Gabapentin (Neurontin) 800 mg TID PO 01/05/17 09:00 01/10/17 09:16 Glyburide (Diabeta) 5 mg DAILY PO 01/05/17 09:00 01/10/17 09:16 Latanoprost (Xalatan 0.005% Opth Soln) 1 drop HS EACH EYE 01/04/17 21:00 01/09/17 20:50 Metoprolol Tartrate (Lopressor) 100 mg BID PO 01/04/17 21:00 01/10/17 09:00 Ferrous Sulfate (Ferrous Sulfate) 325 mg DAILY PO 01/05/17 09:00 01/10/17 09:17 Pravastatin Sodium (Pravachol) 20 mg HS PO 01/04/17 21:00 01/09/17 20:48 Alteplase, Recombinant (Cathflo Activase Inj) 2 mg Q2H PRN INTRACATH flush 01/05/17 09:00 01/09/17 10:48 Apixaban (Eliquis) 10 mg BID PO 01/10/17 04:00 01/10/17 09:16 Objective Remarks GENERAL: Middle-aged male resting in bed in no acute distress SKIN: Warm and dry. HEAD: Normocephalic. EYES: No injection or drainage. NECK: Supple, trachea midline. CARDIOVASCULAR: Regular rate and rhythm without murmurs. RESPIRATORY: Diminished anteriorly. Breathing unlabored at rest. GASTROINTESTINAL: Abdomen soft, non-tender, nondistended. EXTREMITIES: No cyanosis. L upper and lower extremity edema. MUSCULOSKELETAL: Adequate muscle tone. NEUROLOGICAL: Moving all extremities. No obvious focal deficit. Assessment/Plan Problem List: (1) Thrombocytopenia ICD Codes: D69.6 - Thrombocytopenia, unspecified Plan: 01/10: HIT panel +; . No Heparin. No thrombectomy. Continue Eliquis 10 mg twice a day. Monitor for bleeding. His [id number] is nonfunctioning per radiology report. We will be unable to remove the [id number] until he has been anticoagulated for some time. Monitor CBC. Await JACKY results. --likely d/t consumption from multiple thrombi (2) Deep vein thrombosis (DVT) of left lower extremity ICD Codes: I82.402 - Acute embolism and thrombosis of unspecified deep veins of left lower extremity Status: Acute Plan: -- --on heparin gtt (3) Deep vein thrombosis (DVT) of left upper extremity ICD Codes: I82.622 - Acute embolism and thrombosis of deep veins of left upper extremity Status: Acute Plan: -- Started Xarelto one week ago for LLE DVT and then developed L upper arm swelling, found to have an extensive DVT. -- CTA negative for PE (4) Multiple myeloma ICD Codes: C90.00 - Multiple myeloma not having achieved remission Plan: -- Diagnosed approx. 2 years ago; he was treated with oral chemotherapy and is currently in remission -- Under the care of Dr. Doroteo Doherty with [place] [facility] (5) History of Guillain-[place] syndrome ICD Codes: Z86.69 - Personal history of other diseases of the nervous system and sense organs Plan: -- Diagnosed 4 years ago -- Sees neurologist Dr. Harris and reportedly has been getting IVIG every 2 weeks with home health Assessment 61y/o male with LUE DVT, LLE DVT. h/o Multiple myeloma diagnosed 2 years ago. Guillain-[place] Syndrome diagnosed 4 years ago, diabetes mellitus. Peripheral neuropathy from diabetes. Hypertension, hypercholesterolemia, glaucoma. Attending Statement no new c/o port is nonfunctional] await JACKY. Continue eliquis will follow. The exam, history, and the medical decision-making described in the above note were completed with the assistance of the mid-level provider. I reviewed and agree with the findings presented. I attest that I had a [id number] encounter with the patient on the same day, and personally performed and documented my assessment and findings in the medical record. Problem Qualifiers (1) Multiple myeloma: Qualified Codes: C90.01 - Multiple myeloma in remission Martina Mahan Jan 10, 2017 11:03 Kadeem Wilks MD Jan 10, 2017 23:21
--- NOTE | 2017-01-10 11:22 | RADRPT ---
EXAM DATE/TIME: 01/09/2017 17:35 [place] COMPARISON: REMOVAL AND REPLACEMENT OF INFUS A PORT, KRZYSZTOF, RT, November 18, 2015, 11:47. INDICATIONS : Patient with history of multiple myeloma in need of Dseka-j-Uexf evaluation. MEDICAL HISTORY : Guillain-Cressey syndrome, HTN, HLD, Diabetic neuropathy, Diabetes, DVT SURGICAL HISTORY : Right port placement ENCOUNTER: Initial ACUITY: 1 week PAIN SCORE: 0/10 FLUORO TIME: 1.1 minutes IMAGE SERIES: 2 CONTRAST: 5 cc Omnipaque (iohexol) 350 ACCESS: Right chest port DEVICE(S): 1.) [id number] Power infusion set PROCEDURE : 1. Access of Tqioie-l-tbol. 2. Port patency injection. The risks, benefits and alternatives to the procedure were explained and verbal and written consent w as obtained. The patient was placed supine. The port was prepped in sterile fashion. Full sterile t echnique was used, including cap, mask, sterile gloves and gown, and a large sterile sheet. Hand hyg iene and 2% chlorhexidine prep was utilized per protocol for cutaneous antisepsis with appropriate dr y time for site. The previously placed port was accessed and positive contrast was injected for evaluation. The port tubing is in excellent position. The Injection demonstrates a large fibrin sheath around the distal p ort tubing with occlusion of the distal SVC. CONCLUSION: 1. There is a stricture with focal occlusion in the distal SVC with fibrin sheath surrounding the dis miles port tubing. Maged Martinez MD on January 10, 2017 at 11:14 Board Certified Radiologist. This report was verified electronically.
[2017-01-10] MEDS: ACETAMINOPHEN/HYDROcodone 325 MG/7.5 MG TAB PO PRN ×3 (11:45→21:04)
[2017-01-10 11:50] VITALS: BP 150/71; PULSE 73; RESP 20; TEMP 96.7; O2SAT 96
--- NOTE | 2017-01-10 14:05 | HHI.PR ---
Subjective Remarks Drop in platelets. Heparin stopped. Patient is now on Eliquis as treatment. He has had improvement in his lower extremity swelling. His current complaint is that he has bilateral lower extremity weakness. He feels this is likely related to his Guillain-Rm syndrome. Objective Vital Signs Date Time Temp Pulse Resp B/P (MAP) Pulse Ox O2 Delivery O2 Flow Rate FiO2 01/10/17 11:50 96.7 73 20 150/71 (97) 96 01/10/17 07:50 96.1 81 20 139/74 (95) 97 01/10/17 04:00 97.1 73 17 142/82 (102) 97 01/10/17 00:00 97.5 68 17 120/67 (84) 95 01/09/17 23:45 16 01/09/17 20:00 98.8 105 18 116/63 (80) 99 01/09/17 15:50 96.7 86 20 165/80 (108) 95 I/O 01/09/17 01/09/17 01/09/17 01/10/17 01/10/17 01/10/17 07:00 15:00 23:00 07:00 15:00 23:00 Intake Total 180 ml Output Total 600 ml 880 ml 300 ml 600 ml Balance -600 ml -700 ml -300 ml -600 ml Intake Oral 180 ml Output Urine Total 600 ml 880 ml 300 ml 600 ml # Bowel Movements 1 Result Diagram: 01/10/1740601/10/17406 Objective Remarks GENERAL: NAD, A&Ox3 HEAD: Normocephalic. NECK: Supple, trachea midline. No lymphadenopathy. EYES: No scleral icterus. No injection or drainage. CARDIOVASCULAR: Regular rate and rhythm without murmurs, gallops, or rubs. RESPIRATORY: Breath sounds equal bilaterally. No accessory muscle use. GASTROINTESTINAL: Abdomen soft, non-tender, nondistended. MUSCULOSKELETAL: No cyanosis. Edema at left lower extremity (improving). SKIN: Warm and dry. NEURO: Bilateral lower extremity weakness A/P Problem List: (1) DVT of axillary vein, acute left ICD Code: I82.A12 - Acute embolism and thrombosis of left axillary vein Status: Acute (2) Failure of outpatient treatment ICD Code: Z78.9 - Other specified health status Status: Acute (3) Deep vein thrombosis (DVT) of left upper extremity ICD Code: I82.622 - Acute embolism and thrombosis of deep veins of left upper extremity Status: Acute (4) Deep vein thrombosis (DVT) of left lower extremity ICD Code: I82.402 - Acute embolism and thrombosis of unspecified deep veins of left lower extremity Status: Acute (5) History of Guillain-[place] syndrome ICD Code: Z86.69 - Personal history of other diseases of the nervous system and sense organs (6) Diabetes mellitus ICD Code: E11.9 - Type 2 diabetes mellitus without complications Status: Acute (7) History of hypertension ICD Code: Z86.79 - Personal history of other diseases of the circulatory system Status: Acute (8) Multiple myeloma ICD Code: C90.00 - Multiple myeloma not having achieved remission Assessment and Plan Assessment and Plan 61-year-old male admitted after treatment failure of left lower extremity DVT with Xarelto. Presently on Eliquis. Monitor for continued improvement. Deep vein thrombosis (DVT) of left upper extremity Left lower extremity DVT Outpatient treatment failure Off heparin drip secondary to thrombocytopenia Hematology following CT angiogram ruled out SPC syndrome CT angiogram rule out occlusion Patient failed Xarelto as a treatment Guillain-Rm syndrome Continue IVIG Patient may need an extra treatment Neurology consult Diabetes mellitus type 2 Follow blood sugars Insulin sliding scale Diabetic diet Hypertension No change to baseline treatments Follow blood pressure DVT prophylaxis Heparin Discharge planning Will need to transition patient to an alternative treatment other than heparin drip prior to discharge Problem Qualifiers (1) Multiple myeloma: Qualified Codes: C90.01 - Multiple myeloma in remission Maged Wilson MD Jan 10, 2017 14:05
[2017-01-10 15:50] VITALS: BP 125/63; PULSE 81; RESP 20; TEMP 96.7; O2SAT 96
[2017-01-10 20:03] VITALS: BP 144/69; PULSE 81; RESP 18; TEMP 96.3; O2SAT 97
[2017-01-10] MEDS: PRAVASTATIN SOD 20 MG TAB PO SCH (20:57)
[2017-01-10] MEDS: LATANOPROST 0.005% OPHT SOLN 2.5 ML BTL EACH EYE SCH (21:00)
[2017-01-11] VITALS: BP 117/71; PULSE 71; RESP 22; TEMP 97.2; O2SAT 95
[2017-01-11 04:00] VITALS: BP 131/76; PULSE 75; RESP 20; TEMP 98.5; O2SAT 95
[2017-01-11 07:25] LABS: HEMATOCRIT 33.6 % (39.0-51.0); MEAN CELL VOLUME 86.1 FL (80.0-100.0); MEAN CORPUSCULAR HEMOGLOBIN 27.9 PG (27.0-34.0); MEAN CORPUSCULAR HGB CONC 32.4 % (32.0-36.0); PLATELET COUNT 64 TH/MM3 (150-450); RED CELL DISTRIBUTION WIDTH 17.8 % (11.6-17.2)
[2017-01-11 07:37] LABS: BICARBONATE 26.4 MEQ/L (21.0-32.0); POTASSIUM 4.3 MEQ/L (3.5-5.1)
[2017-01-11 08:00] VITALS: BP 108/80; PULSE 85; RESP 18; TEMP 96.7; O2SAT 97
[2017-01-11] MEDS: INSULIN ASPART SUPPLEMENTAL SCALE SQ SCH ×4 (08:00→22:11)
[2017-01-11 08:01] LABS: REVIEW FLAG FINAL
--- NOTE | 2017-01-11 08:38 | MB ---
cc: VINCENT CABRAL M.D. DATE OF CONSULTATION 01/10/2017 REASON FOR CONSULTATION This is a 61-year-old seen in neurological consultation in regards to his neuropathy. The patient was apparently diagnosed with CIDP about five years ago. He used to be followed by my associate Dr. Harris but lately has been followed by another player neurologist because of insurance reasons. He has been receiving IVIG every two weeks, he usually receives a two day treatment and he reports the dose being 120 grams per day. The last treatment was on the or of this month. Since admitted here with left leg and subsequent left arm weakness, left leg and subsequent left arm thrombosis, he has worsened and he has been essentially nonambulatory. Although this is questionable, he tells me that he was ambulating completely normal on a regular basis when he was not sick and taking the IVIG every two weeks. I realize he also has a history of multiple myeloma in remission. He is now discontinued from heparin because of the thrombocytopenia and he is on Eliquis 10 mg twice a day. PHYSICAL EXAM On exam, he was alert and pleasant, although at times somewhat irritable. He was oriented. Speech is minimally dysarthric. Ocular movements and visual emanuel full. 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 His reflexes were absent throughout, plantar responses flexor. Position sense significantly impaired in both distal lower extremities. Sensory exam with distal sensory loss in the lower extremities at least, he does not seem to be most cooperative for this exam. LABORATORY DATA Current CBC with a white count 5.7, hemoglobin 11.6, platelets 62 and yesterday was 64. Sodium and potassium normal. Glucose 111, calcium 8.8, BUN and creatinine normal. ASSESSMENT CIDP with exacerbation likely due to his systemic medical problems. It should be noted, the patient seemed to think this was due to the heparin, certainly this is not likely the case. The situation is complex because of his DVT involving left arm and left leg and he is now on Eliquis. We will have to review with hematology the possibility of a course of plasmapheresis and another option will be a five day course of IVIG.. I do not think Dr. Harris is still following him. but I might discuss this with Dr. Harris as he is apparently well familiar with the patient. I will follow the neurological care. Thank you for asking us to assist in his care. MD ELVIA Wagner/JERROD /6:20 PM /8:23 AM
--- NOTE | 2017-01-11 08:40 | PD.ONC.PN ---
Subjective Subjective Remarks Afebrile overnight. Patient resting in bed in nad. States swelling in left leg is about the same. Objective Data Date Time Temp Pulse Resp B/P (MAP) Pulse Ox O2 Delivery O2 Flow Rate FiO2 01/11/17 08:00 96.7 85 18 108/80 (89) 97 01/11/17 04:00 98.5 75 20 131/76 (94) 95 01/11/17 00:00 97.2 71 22 117/71 (86) 95 01/10/17 22:04 16 01/10/17 20:03 96.3 81 18 144/69 (94) 97 01/10/17 15:50 96.7 81 20 125/63 (83) 96 01/10/17 11:50 96.7 73 20 150/71 (97) 96 01/11/17 01/11/17 01/11/17 06:59 14:59 22:59 Intake Total 480 ml Output Total 575 ml Balance -95 ml Result Diagram: 01/11/17 0506 01/11/17 0506 Laboratory Results Laboratory Tests Test 01/11/17 05:06 White Blood Count 6.0 TH/MM3 Red Blood Count 3.90 MIL/MM3 Hemoglobin 10.9 GM/DL Hematocrit 33.6 % Mean Corpuscular Volume 86.1 FL Mean Corpuscular Hemoglobin 27.9 PG Mean Corpuscular Hemoglobin Concent 32.4 % Red Cell Distribution Width 17.8 % Platelet Count 64 TH/MM3 Mean Platelet Volume 11.7 FL Blood Urea Nitrogen 11 MG/DL Creatinine 0.82 MG/DL Random Glucose 97 MG/DL Calcium Level 8.7 MG/DL Sodium Level 138 MEQ/L Potassium Level 4.3 MEQ/L Chloride Level 105 MEQ/L Carbon Dioxide Level 26.4 MEQ/L Anion Gap 7 MEQ/L Estimat Glomerular Filtration Rate 116 ML/MIN Administered Medications Medications (Trade) Dose Ordered Sig/Sridhar Route PRN Reason Start Time Stop Time Status Last Admin Dose Admin Sodium Chloride (NS Flush) 2 ml BID IV FLUSH 01/04/17 21:00 01/10/17 21:01 Acetaminophen/ Hydrocodone Bitart (Pamplico 7.5-325 Mg) 1 tab Q4H PRN PO PAIN SCALE 6 TO 10 01/04/17 18:00 01/10/17 21:04 Insulin Aspart (NovoLOG SUPPLEMENTAL SCALE) 1 ACHS SLIDING SCALE SQ 01/04/17 21:00 01/10/17 12:37 Dorzolamide/ Timolol (Cosopt 2-0.5% Opth Soln) 1 drop DAILY EACH EYE 01/05/17 09:00 01/10/17 09:00 Gabapentin (Neurontin) 800 mg TID PO 01/05/17 09:00 01/10/17 17:23 Glyburide (Diabeta) 5 mg DAILY PO 01/05/17 09:00 01/10/17 09:16 Latanoprost (Xalatan 0.005% Opth Soln) 1 drop HS EACH EYE 01/04/17 21:00 01/10/17 21:00 Metoprolol Tartrate (Lopressor) 100 mg BID PO 01/04/17 21:00 01/10/17 20:57 Ferrous Sulfate (Ferrous Sulfate) 325 mg DAILY PO 01/05/17 09:00 01/10/17 09:17 Pravastatin Sodium (Pravachol) 20 mg HS PO 01/04/17 21:00 01/10/17 20:57 Alteplase, Recombinant (Cathflo Activase Inj) 2 mg Q2H PRN INTRACATH flush 01/05/17 09:00 01/09/17 10:48 Apixaban (Eliquis) 10 mg BID PO 01/10/17 04:00 01/10/17 20:57 Objective Remarks GENERAL: Middle aged male sitting up in bed, watching TV. SKIN: Warm and dry. HEAD: Normocephalic. EYES: No injection or drainage. NECK: Supple, trachea midline. CARDIOVASCULAR: Regular rate and rhythm RESPIRATORY: Breath sounds equal bilaterally. No accessory muscle use. GASTROINTESTINAL: Abdomen soft, non-tender, nondistended. EXTREMITIES: No cyanosis. LLE edematous. NEUROLOGICAL: awake and alert, normal speech. moving all extremties Assessment/Plan Problem List: (1) Thrombocytopenia ICD Codes: D69.6 - Thrombocytopenia, unspecified Plan: 01/11: continue Eliquis 10mg PO BID x 7 days, then 5mg PO BID. await JACKY. monitor platelet count 01/10: HIT panel +; . No Heparin. No thrombectomy. Continue Eliquis 10 mg twice a day. Monitor for bleeding. His Cwfjqs-z-Clem is nonfunctioning per radiology report. We will be unable to remove the Bkshyo-h-Rttr until he has been anticoagulated for some time. Monitor CBC. Await JACKY results. --likely d/t consumption from multiple thrombi (2) Deep vein thrombosis (DVT) of left lower extremity ICD Codes: I82.402 - Acute embolism and thrombosis of unspecified deep veins of left lower extremity Status: Acute Plan: -- on Eliquis (3) Deep vein thrombosis (DVT) of left upper extremity ICD Codes: I82.622 - Acute embolism and thrombosis of deep veins of left upper extremity Status: Acute Plan: --on Eliquis -- Started Xarelto one week ago for LLE DVT and then developed L upper arm swelling, found to have an extensive DVT. -- CTA negative for PE (4) Multiple myeloma ICD Codes: C90.00 - Multiple myeloma not having achieved remission Plan: -- Diagnosed approx. 2 years ago; he was treated with oral chemotherapy and is currently in remission -- Under the care of Dr. Doroteo Doherty with [facility] [place] [facility] (5) History of Guillain-[place] syndrome ICD Codes: Z86.69 - Personal history of other diseases of the nervous system and sense organs Plan: -- Diagnosed 4 years ago -- Sees neurologist Dr. Harris and reportedly has been getting IVIG every 2 weeks with home health Assessment 61y/o male with LUE DVT, LLE DVT. h/o Multiple myeloma diagnosed 2 years ago. Guillain-[place] Syndrome diagnosed 4 years ago, diabetes mellitus. Peripheral neuropathy from diabetes. Hypertension, hypercholesterolemia, glaucoma. Attending Statement leg swelling is more or less same. On Eliquis Plat are still low , no bleeding. JACKY is pending. The exam, history, and the medical decision-making described in the above note were completed with the assistance of the mid-level provider. I reviewed and agree with the findings presented. I attest that I had a [id number] encounter with the patient on the same day, and personally performed and documented my assessment and findings in the medical record. Problem Qualifiers (1) Multiple myeloma: Qualified Codes: C90.01 - Multiple myeloma in remission Melissa Anderson Jan 11, 2017 08:40 Kadeem Wilks MD Jan 11, 2017 13:27
[2017-01-11] MEDS: APIXABAN 5 MG TABLET PO SCH ×2 (08:56→20:31)
[2017-01-11] MEDS: GABAPENTIN 400 MG CAP PO SCH ×3 (08:56→17:04)
[2017-01-11] MEDS: FERROUS SULFATE 325 MG (65 MG ELEMENTAL IRON) TAB PO SCH (08:56)
[2017-01-11] MEDS: SODIUM CHLORIDE 0.9% FLUSH 10 ML FLUSH IV FLUSH SCH ×2 (08:57→20:31)
[2017-01-11] MEDS: METOPROLOL TARTRATE 100 MG TAB PO SCH ×2 (08:57→20:31)
[2017-01-11] MEDS: DORZOLAMIDE/TIMOLOL OPTH SOLN 10 ML BTL EACH EYE SCH (09:00)
[2017-01-11] MEDS: ACETAMINOPHEN/HYDROcodone 325 MG/7.5 MG TAB PO PRN ×3 (09:01→22:11)
--- NOTE | 2017-01-11 09:55 | HHI.PR ---
Subjective Remarks Patient says he still feels weak. He attributes this to his Guillain-Rm syndrome. He says is an outpatient he gets IVIG 2 times every 2 weeks. He would be due on 01/16/17 and 01/17/17 on his regular schedule. Plasmapheresis versus IVIG are being considered his options. His left leg continues to be swollen but has not worsened compared to yesterday. Objective Vital Signs Date Time Temp Pulse Resp B/P (MAP) Pulse Ox O2 Delivery O2 Flow Rate FiO2 01/11/17 08:00 96.7 85 18 108/80 (89) 97 01/11/17 04:00 98.5 75 20 131/76 (94) 95 01/11/17 00:00 97.2 71 22 117/71 (86) 95 01/10/17 22:04 16 01/10/17 20:03 96.3 81 18 144/69 (94) 97 01/10/17 15:50 96.7 81 20 125/63 (83) 96 01/10/17 11:50 96.7 73 20 150/71 (97) 96 I/O 01/10/17 01/10/17 01/10/17 01/11/17 01/11/17 01/11/17 07:00 15:00 23:00 07:00 15:00 23:00 Intake Total 420 ml 480 ml Output Total 600 ml 550 ml 575 ml Balance -600 ml -130 ml -95 ml Intake Oral 420 ml 480 ml Output Urine Total 600 ml 550 ml 575 ml # Bowel Movements 0 Result Diagram: 01/11/17 0506 01/11/17 0506 Objective Remarks GENERAL: NAD, A&Ox3 HEAD: Normocephalic. NECK: Supple, trachea midline. No lymphadenopathy. EYES: No scleral icterus. No injection or drainage. CARDIOVASCULAR: Regular rate and rhythm without murmurs, gallops, or rubs. RESPIRATORY: Breath sounds equal bilaterally. No accessory muscle use. GASTROINTESTINAL: Abdomen soft, non-tender, nondistended. MUSCULOSKELETAL: No cyanosis. Edema at left lower extremity (improving). SKIN: Warm and dry. NEURO: Bilateral lower extremity weakness A/P Problem List: (1) DVT of axillary vein, acute left ICD Code: I82.A12 - Acute embolism and thrombosis of left axillary vein Status: Acute (2) Failure of outpatient treatment ICD Code: Z78.9 - Other specified health status Status: Acute (3) Deep vein thrombosis (DVT) of left upper extremity ICD Code: I82.622 - Acute embolism and thrombosis of deep veins of left upper extremity Status: Acute (4) Deep vein thrombosis (DVT) of left lower extremity ICD Code: I82.402 - Acute embolism and thrombosis of unspecified deep veins of left lower extremity Status: Acute (5) History of Guillain-[place] syndrome ICD Code: Z86.69 - Personal history of other diseases of the nervous system and sense organs (6) Diabetes mellitus ICD Code: E11.9 - Type 2 diabetes mellitus without complications Status: Acute (7) History of hypertension ICD Code: Z86.79 - Personal history of other diseases of the circulatory system Status: Acute (8) Multiple myeloma ICD Code: C90.00 - Multiple myeloma not having achieved remission Assessment and Plan Assessment and Plan 61-year-old male admitted after treatment failure of left lower extremity DVT with Xarelto. Presently on Eliquis. Slowly improving. Monitor for continued improvement. Global weakness which may be related to his Guillain-Rm syndrome. He is on chronic IVIG as an outpatient every 2 weeks. Neurology following and treatment options are being considered. 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 Monitor for improvement in weakness. Problem Qualifiers (1) Multiple myeloma: Qualified Codes: C90.01 - Multiple myeloma in remission Maged Wilson MD Jan 11, 2017 09:55
[2017-01-11 12:00] VITALS: BP 124/63; PULSE 86; RESP 20; TEMP 96.4; O2SAT 96
[2017-01-11 16:00] VITALS: BP 162/74; PULSE 105; RESP 18; TEMP 98.2; O2SAT 96
--- NOTE | 2017-01-11 17:09 | HHI.PR ---
Review/Management Daily Summary 01/11 unchanged neuro exam spoke to pt about options apparently not good candidate for ivig because of low platelet wonder if ivig also risk for dvt will start pulse steroids for 3 days if other treating drs agree otherwise ?candidate for plasma exchange? dr Steven marcos [facility] Subjective Subjective Comments No acute events reported No headache No chest pain No dyspnea Active Medications Current Medications Medications (Trade) Dose Ordered Sig/Sridhar Route Start Time Stop Time Status Last Admin (NS Flush) 2 ml UNSCH PRN IVF 01/04/17 13:30 (NS Flush) 2 ml UNSCH PRN IV FLUSH 01/04/17 18:00 (NS Flush) 2 ml BID IV FLUSH 01/04/17 21:00 01/11/17 08:57 (Tylenol) 650 mg Q4H PRN PO 01/04/17 18:00 (Zofran Inj) 4 mg Q6H PRN IVP 01/04/17 18:00 (Tylenol) 650 mg Q6H PRN PO 01/04/17 18:00 ([place]ina 5-325 Mg) 1 tab Q4H PRN PO 01/04/17 18:00 ([place] 7.5-325 Mg) 1 tab Q4H PRN PO 01/04/17 18:00 01/11/17 09:01 (Narcan Inj) 0.4 mg UNSCH PRN IV 01/04/17 18:00 (Milk Of Magnesia Liq) 30 ml Q12H PRN PO 01/04/17 18:00 (D50w (Vial) Inj) 50 ml UNSCH PRN IV 01/04/17 18:00 (Glucagon Inj) 1 mg UNSCH PRN OTHER 01/04/17 18:00 (NovoLOG SUPPLEMENTAL SCALE) 1 ACHS SLIDING SCALE SQ 01/04/17 21:00 01/10/17 12:37 (Duoneb Neb) 1 ampule Q2HR NEB PRN NEB 01/04/17 18:00 (Cosopt 2-0.5% Opth Soln) 1 drop DAILY EACH EYE 01/05/17 09:00 01/11/17 09:00 (Neurontin) 800 mg TID PO 01/05/17 09:00 01/11/17 12:32 (Diabeta) 5 mg DAILY PO 01/05/17 09:00 01/10/17 09:16 (Xalatan 0.005% Opth Soln) 1 drop HS EACH EYE 01/04/17 21:00 01/10/17 21:00 (Lopressor) 100 mg BID PO 01/04/17 21:00 01/10/17 20:57 (Ferrous Sulfate) 325 mg DAILY PO 01/05/17 09:00 01/11/17 08:56 (Pravachol) 20 mg HS PO 01/04/17 21:00 01/10/17 20:57 (Cathflo Activase Inj) 2 mg Q2H PRN INTRACATH 01/05/17 09:00 01/09/17 10:48 (Eliquis) 10 mg BID PO 01/10/17 04:00 01/11/17 08:56 Allergies Allergies Coded Allergies lisinopril (Unverified Allergy, Severe, angioedema, 01/04/17) losartan (Unverified Allergy, Severe, angioedema, 01/04/17) heparin (Verified Allergy, Unknown, 01/10/17) Exam I&O / VS Vital Signs Date Time Temp Pulse Resp B/P (MAP) Pulse Ox O2 Delivery O2 Flow Rate FiO2 01/11/17 16:00 98.2 105 18 162/74 (103) 96 01/11/17 12:00 96.4 86 20 124/63 (83) 96 01/11/17 08:00 96.7 85 18 108/80 (89) 97 01/11/17 04:00 98.5 75 20 131/76 (94) 95 01/11/17 00:00 97.2 71 22 117/71 (86) 95 01/10/17 22:04 16 01/10/17 20:03 96.3 81 18 144/69 (94) 97 Objective Micro and Labs Laboratory Tests Test 01/11/17 05:06 White Blood Count 6.0 Red Blood Count 3.90 Hemoglobin 10.9 Hematocrit 33.6 Mean Corpuscular Volume 86.1 Mean Corpuscular Hemoglobin 27.9 Mean Corpuscular Hemoglobin Concent 32.4 Red Cell Distribution Width 17.8 Platelet Count 64 Mean Platelet Volume 11.7 Blood Urea Nitrogen 11 Creatinine 0.82 Random Glucose 97 Calcium Level 8.7 Sodium Level 138 Potassium Level 4.3 Chloride Level 105 Carbon Dioxide Level 26.4 Anion Gap 7 Estimat Glomerular Filtration Rate 116 Date/Time Source Procedure Growth Status 01/05/17 16:30 Stool Stool Stool Occult Blood (TANIYA) - Final HEMOCCULT NEGATIVE Complete Loyda Nicholas MD Jan 11, 2017 17:09
[2017-01-11 20:00] VITALS: BP 133/70; PULSE 94; RESP 18; TEMP 97.7; O2SAT 95
[2017-01-11] MEDS: LATANOPROST 0.005% OPHT SOLN 2.5 ML BTL EACH EYE SCH (20:31)
[2017-01-11] MEDS: PRAVASTATIN SOD 20 MG TAB PO SCH (20:32)
[2017-01-12] VITALS: BP 134/70; PULSE 79; RESP 17; TEMP 96.4; O2SAT 96
[2017-01-12 04:00] VITALS: BP 150/75; PULSE 79; RESP 18; TEMP 96.7; O2SAT 95
[2017-01-12 07:32] LABS: HEMATOCRIT 34.8 % (39.0-51.0); MEAN CELL VOLUME 85.7 FL (80.0-100.0); MEAN CORPUSCULAR HEMOGLOBIN 27.7 PG (27.0-34.0); MEAN CORPUSCULAR HGB CONC 32.4 % (32.0-36.0); PLATELET COUNT 71 TH/MM3 (150-450); RED BLOOD COUNT 4.06 MIL/MM3 (4.50-5.90); RED CELL DISTRIBUTION WIDTH 17.8 % (11.6-17.2); WHITE BLOOD COUNT 6.3 TH/MM3 (4.0-11.0)
[2017-01-12 07:43] LABS: REVIEW FLAG FINAL
[2017-01-12 08:00] VITALS: BP 126/67; PULSE 85; RESP 16; TEMP 98; O2SAT 95
[2017-01-12] MEDS: INSULIN ASPART SUPPLEMENTAL SCALE SQ SCH ×4 (08:00→21:00)
[2017-01-12] MEDS: glyBURIDE 5 MG TAB PO SCH (09:00)
[2017-01-12] MEDS: FERROUS SULFATE 325 MG (65 MG ELEMENTAL IRON) TAB PO SCH (09:03)
[2017-01-12] MEDS: APIXABAN 5 MG TABLET PO SCH ×2 (09:03→21:45)
[2017-01-12] MEDS: GABAPENTIN 400 MG CAP PO SCH ×3 (09:04→18:00)
[2017-01-12] MEDS: METOPROLOL TARTRATE 100 MG TAB PO SCH ×2 (09:04→21:45)
[2017-01-12] MEDS: DORZOLAMIDE/TIMOLOL OPTH SOLN 10 ML BTL EACH EYE SCH (09:05)
[2017-01-12] MEDS: SODIUM CHLORIDE 0.9% FLUSH 10 ML FLUSH IV FLUSH SCH ×2 (09:05→21:49)
--- NOTE | 2017-01-12 09:30 | PD.ONC.PN ---
Subjective Subjective Remarks Afebrile overnight. patient resting in bed in nad. No change in pain or swelling or left leg. Objective Data Date Time Temp Pulse Resp B/P (MAP) Pulse Ox O2 Delivery O2 Flow Rate FiO2 01/12/17 04:00 96.7 79 18 150/75 (100) 95 01/12/17 00:00 96.4 79 17 134/70 (91) 96 01/11/17 20:00 97.7 94 18 133/70 (91) 95 01/11/17 16:00 98.2 105 18 162/74 (103) 96 01/11/17 12:00 96.4 86 20 124/63 (83) 96 01/12/17 01/12/17 01/12/17 07:00 15:00 23:00 Intake Total 480 ml Output Total 450 ml Balance 30 ml Result Diagram: 01/12/17 0540 01/11/17 0506 Laboratory Results Laboratory Tests Test 01/12/17 05:40 White Blood Count 6.3 TH/MM3 Red Blood Count 4.06 MIL/MM3 Hemoglobin 11.3 GM/DL Hematocrit 34.8 % Mean Corpuscular Volume 85.7 FL Mean Corpuscular Hemoglobin 27.7 PG Mean Corpuscular Hemoglobin Concent 32.4 % Red Cell Distribution Width 17.8 % Platelet Count 71 TH/MM3 Mean Platelet Volume 11.9 FL Administered Medications Medications (Trade) Dose Ordered Sig/Sridhar Route PRN Reason Start Time Stop Time Status Last Admin Dose Admin Sodium Chloride (NS Flush) 2 ml BID IV FLUSH 01/04/17 21:00 01/12/17 09:05 Acetaminophen/ Hydrocodone Bitart (Leeper 7.5-325 Mg) 1 tab Q4H PRN PO PAIN SCALE 6 TO 10 01/04/17 18:00 01/11/17 22:11 Insulin Aspart (NovoLOG SUPPLEMENTAL SCALE) 1 ACHS SLIDING SCALE SQ 01/04/17 21:00 01/10/17 12:37 Dorzolamide/ Timolol (Cosopt 2-0.5% Opth Soln) 1 drop DAILY EACH EYE 01/05/17 09:00 01/12/17 09:05 Gabapentin (Neurontin) 800 mg TID PO 01/05/17 09:00 01/12/17 09:04 Glyburide (Diabeta) 5 mg DAILY PO 01/05/17 09:00 01/10/17 09:16 Latanoprost (Xalatan 0.005% Opth Soln) 1 drop HS EACH EYE 01/04/17 21:00 01/11/17 20:31 Metoprolol Tartrate (Lopressor) 100 mg BID PO 01/04/17 21:00 01/12/17 09:04 Ferrous Sulfate (Ferrous Sulfate) 325 mg DAILY PO 01/05/17 09:00 01/12/17 09:03 Pravastatin Sodium (Pravachol) 20 mg HS PO 01/04/17 21:00 01/11/17 20:32 Alteplase, Recombinant (Cathflo Activase Inj) 2 mg Q2H PRN INTRACATH flush 01/05/17 09:00 01/09/17 10:48 Apixaban (Eliquis) 10 mg BID PO 01/10/17 04:00 01/12/17 09:03 Objective Remarks GENERAL: Middle aged male supine in bed, resting SKIN: Warm and dry. HEAD: Normocephalic. EYES: No injection or drainage. NECK: Supple, trachea midline. CARDIOVASCULAR: Regular rate and rhythm RESPIRATORY: Breath sounds equal bilaterally. No accessory muscle use. GASTROINTESTINAL: Abdomen soft, non-tender, nondistended. EXTREMITIES: No cyanosis. LLE edematous. NEUROLOGICAL: awake and alert, able to move extremities. normal speech Assessment/Plan Problem List: (1) Thrombocytopenia ICD Codes: D69.6 - Thrombocytopenia, unspecified Plan: 01/12: continue Eliquis 01/11: continue Eliquis 10mg PO BID x 7 days, then 5mg PO BID. await JACKY. monitor platelet count 01/10: HIT panel +; . No Heparin. No thrombectomy. Continue Eliquis 10 mg twice a day. Monitor for bleeding. His Uyglle-j-Iuev is nonfunctioning per radiology report. We will be unable to remove the Bhlwdw-p-Rsys until he has been anticoagulated for some time. Monitor CBC. Await JACKY results. --likely d/t consumption from multiple thrombi (2) Deep vein thrombosis (DVT) of left lower extremity ICD Codes: I82.402 - Acute embolism and thrombosis of unspecified deep veins of left lower extremity Status: Acute Plan: -- on Eliquis (3) Deep vein thrombosis (DVT) of left upper extremity ICD Codes: I82.622 - Acute embolism and thrombosis of deep veins of left upper extremity Status: Acute Plan: --on Eliquis -- Started Xarelto one week ago for LLE DVT and then developed L upper arm swelling, found to have an extensive DVT. -- CTA negative for PE (4) Multiple myeloma ICD Codes: C90.00 - Multiple myeloma not having achieved remission Plan: -- Diagnosed approx. 2 years ago; he was treated with oral chemotherapy and is currently in remission -- Under the care of Dr. Doroteo Doherty with [facility] (5) History of Guillain-[place]ypress syndrome ICD Codes: Z86.69 - Personal history of other diseases of the nervous system and sense organs Plan: -- Diagnosed 4 years ago -- Sees neurologist Dr. Harris and reportedly has been getting IVIG every 2 weeks with home health Assessment 61y/o male with LUE DVT, LLE DVT. h/o Multiple myeloma diagnosed 2 years ago. Guillain-Cypress Syndrome diagnosed 4 years ago, diabetes mellitus. Peripheral neuropathy from diabetes. Hypertension, hypercholesterolemia, glaucoma. Plan 1. continue Eliquis 2. await JACKY Attending Statement The exam, history, and the medical decision-making described in the above note were completed with the assistance of the mid-level provider. I reviewed and agree with the findings presented. I attest that I had a [id number] encounter with the patient on the same day, and personally performed and documented my assessment and findings in the medical record. Feeling better. LLE and lUE edema improved. Platelet trending up. JACKY pending. COntinue Eliquis. Problem Qualifiers (1) Multiple myeloma: Qualified Codes: C90.01 - Multiple myeloma in remission Melissa Anderson Jan 12, 2017 09:30 Long Bundy MD Jan 12, 2017 11:58
[2017-01-12 12:00] VITALS: BP 117/58; PULSE 82; RESP 14; TEMP 97.9; O2SAT 96
[2017-01-12] MEDS: ACETAMINOPHEN/HYDROcodone 325 MG/7.5 MG TAB PO PRN ×2 (14:41→21:48)
--- NOTE | 2017-01-12 15:22 | HHI.PR ---
Subjective Remarks Improvement in left lower extremity. Weakness is persisting. Plasmapheresis ( plasma exchange) is being considered. Objective Vital Signs Date Time Temp Pulse Resp B/P (MAP) Pulse Ox O2 Delivery O2 Flow Rate FiO2 01/12/17 12:00 97.9 82 14 117/58 (77) 96 01/12/17 08:00 98.0 85 16 126/67 (86) 95 01/12/17 04:00 96.7 79 18 150/75 (100) 95 01/12/17 00:00 96.4 79 17 134/70 (91) 96 01/11/17 20:00 97.7 94 18 133/70 (91) 95 01/11/17 16:00 98.2 105 18 162/74 (103) 96 I/O 01/11/17 01/11/17 01/11/17 01/12/17 01/12/17 01/12/17 07:00 15:00 23:00 07:00 15:00 23:00 Intake Total 480 ml 480 ml 480 ml 480 ml 680 ml Output Total 575 ml 300 ml 350 ml 450 ml 750 ml Balance -95 ml 180 ml 130 ml 30 ml -70 ml Intake Oral 480 ml 480 ml 480 ml 480 ml 680 ml Output Urine Total 575 ml 300 ml 350 ml 450 ml 750 ml # Bowel Movements 1 1 1 Result Diagram: 01/12/17 0540 01/11/17 0506 Objective Remarks GENERAL: NAD, A&Ox3 HEAD: Normocephalic. NECK: Supple, trachea midline. No lymphadenopathy. EYES: No scleral icterus. No injection or drainage. CARDIOVASCULAR: Regular rate and rhythm without murmurs, gallops, or rubs. RESPIRATORY: Breath sounds equal bilaterally. No accessory muscle use. GASTROINTESTINAL: Abdomen soft, non-tender, nondistended. MUSCULOSKELETAL: No cyanosis. Edema at left lower extremity (improving). SKIN: Warm and dry. NEURO: Bilateral lower extremity weakness A/P Problem List: (1) DVT of axillary vein, acute left ICD Code: I82.A12 - Acute embolism and thrombosis of left axillary vein Status: Acute (2) Failure of outpatient treatment ICD Code: Z78.9 - Other specified health status Status: Acute (3) Deep vein thrombosis (DVT) of left upper extremity ICD Code: I82.622 - Acute embolism and thrombosis of deep veins of left upper extremity Status: Acute (4) Deep vein thrombosis (DVT) of left lower extremity ICD Code: I82.402 - Acute embolism and thrombosis of unspecified deep veins of left lower extremity Status: Acute (5) History of Guillain-[place] syndrome ICD Code: Z86.69 - Personal history of other diseases of the nervous system and sense organs (6) Diabetes mellitus ICD Code: E11.9 - Type 2 diabetes mellitus without complications Status: Acute (7) History of hypertension ICD Code: Z86.79 - Personal history of other diseases of the circulatory system Status: Acute (8) Multiple myeloma ICD Code: C90.00 - Multiple myeloma not having achieved remission Assessment and Plan Assessment and Plan 61-year-old male admitted after treatment failure of left lower extremity DVT with Xarelto. Presently on Eliquis. Slowly improving. Monitor for continued improvement. Global weakness which may be related to his Guillain-Rm syndrome. IVIG versus plasmapheresis being considered. Continue to monitor left lower extremity. 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 Monitor for improvement in weakness. Problem Qualifiers (1) Multiple myeloma: Qualified Codes: C90.01 - Multiple myeloma in remission Maged Wilson MD Jan 12, 2017 15:22
[2017-01-12 16:00] VITALS: BP 139/68; PULSE 94; RESP 16; TEMP 97.8; O2SAT 93
--- NOTE | 2017-01-12 19:09 | HHI.PR ---
Objective Vital Signs Date Time Temp Pulse Resp B/P (MAP) Pulse Ox O2 Delivery O2 Flow Rate FiO2 01/12/17 16:00 97.8 94 16 139/68 (91) 93 01/12/17 12:00 97.9 82 14 117/58 (77) 96 01/12/17 08:00 98.0 85 16 126/67 (86) 95 01/12/17 04:00 96.7 79 18 150/75 (100) 95 01/12/17 00:00 96.4 79 17 134/70 (91) 96 01/11/17 20:00 97.7 94 18 133/70 (91) 95 I/O 01/11/17 01/11/17 01/11/17 01/12/17 01/12/17 01/12/17 07:00 15:00 23:00 07:00 15:00 23:00 Intake Total 480 ml 480 ml 480 ml 480 ml 680 ml Output Total 575 ml 300 ml 350 ml 450 ml 750 ml Balance -95 ml 180 ml 130 ml 30 ml -70 ml Intake Oral 480 ml 480 ml 480 ml 480 ml 680 ml Output Urine Total 575 ml 300 ml 350 ml 450 ml 750 ml # Bowel Movements 1 1 1 Result Diagram: 01/12/17 0540 01/11/17 0506 Objective Remarks bue nl ta weak on r 4- and some on left Assessment and Plan Assessment and Plan imp hx cidp hit low plt dvt on eliquis cidp has done well on steroids in past start now 60 a day check mri spine make sure no myelopathy with all above Jose Harris MD Jan 12, 2017 19:09
[2017-01-12 20:00] VITALS: BP 151/77; PULSE 107; RESP 19; TEMP 98.1; O2SAT 94
[2017-01-12] MEDS: PRAVASTATIN SOD 20 MG TAB PO SCH (21:00)
[2017-01-12] MEDS: predniSONE 20 MG TAB PO SCH (21:45)
[2017-01-12] MEDS: LATANOPROST 0.005% OPHT SOLN 2.5 ML BTL EACH EYE SCH (21:48)
[2017-01-12] MEDS: PANTOPRAZOLE SOD 40 MG DELAYED RELEASE TAB PO SCH (21:48)
[2017-01-13] VITALS: BP 155/74; PULSE 109; RESP 19; TEMP 96.5; O2SAT 93
[2017-01-13 04:00] VITALS: BP 127/70; PULSE 78; RESP 18; TEMP 96.1; O2SAT 95
[2017-01-13 07:22] LABS: AUTOMATED NEUTROPHIL # 7.1 TH/MM3 (1.8-7.7); BASOPHIL % 0.3 % (0.0-2.0); EOSINOPHIL % 0.1 % (0.0-4.0); HEMATOCRIT 37.1 % (39.0-51.0); LYMPH % 6.4 % (9.0-44.0); LYMPHOCYTE # 0.5 TH/MM3 (1.0-4.8); MEAN CELL VOLUME 85.7 FL (80.0-100.0); MEAN CORPUSCULAR HEMOGLOBIN 27.9 PG (27.0-34.0); MEAN CORPUSCULAR HGB CONC 32.5 % (32.0-36.0); MONO % 2.3 % (0.0-8.0); NEUT % 90.9 % (16.0-70.0); PLATELET COUNT 76 TH/MM3 (150-450); RED BLOOD COUNT 4.33 MIL/MM3 (4.50-5.90); RED CELL DISTRIBUTION WIDTH 17.6 % (11.6-17.2); WHITE BLOOD COUNT 7.8 TH/MM3 (4.0-11.0)
[2017-01-13 07:33] LABS: HEMO FLAGS AUTO DIFF
[2017-01-13 08:00] VITALS: BP 129/70; PULSE 91; RESP 14; TEMP 98.3; O2SAT 93
[2017-01-13] MEDS: INSULIN ASPART SUPPLEMENTAL SCALE SQ SCH ×4 (08:00→21:00)
--- NOTE | 2017-01-13 09:13 | HHI.PR ---
Subjective Remarks off floor at mri will [id number] films later on steroids Objective Vital Signs Date Time Temp Pulse Resp B/P (MAP) Pulse Ox O2 Delivery O2 Flow Rate FiO2 01/13/17 04:00 96.1 78 18 127/70 (89) 95 01/13/17 00:00 96.5 109 19 155/74 (101) 93 01/12/17 20:00 98.1 107 19 151/77 (101) 94 01/12/17 16:00 97.8 94 16 139/68 (91) 93 01/12/17 12:00 97.9 82 14 117/58 (77) 96 I/O 01/12/17 01/12/17 01/12/17 01/13/17 01/13/17 01/13/17 07:00 15:00 23:00 07:00 15:00 23:00 Intake Total 480 ml 680 ml 480 ml 480 ml Output Total 450 ml 750 ml 300 ml 1450 ml Balance 30 ml -70 ml 180 ml -970 ml Intake Oral 480 ml 680 ml 480 ml 480 ml Output Urine Total 450 ml 750 ml 300 ml 1450 ml # Bowel Movements 1 Result Diagram: 01/13/17 0550 01/11/17 0506 Objective Remarks bue nl ta weak on r 4- and some on left Assessment and Plan Assessment and Plan imp hx cidp hit low plt dvt on eliquis cidp has done well on steroids in past start now 60 a day check mri spine make sure no myelopathy with all above Jose Harris MD Jan 13, 2017 09:13
[2017-01-13 09:57] LABS: PLATELET ESTIMATE SMEAR LOW (NORMAL); PLATELET MORPHOLOGY HYPOGRAN (NORMAL); SCAN/DIFF AUTO DIFF CONFIRMED
--- NOTE | 2017-01-13 10:01 | HHI.PR ---
Subjective Remarks Continued gradual improvement and lower extremities. Patient has been started on prednisone to try to help treat his lower extremity weakness. He says today he has slight improvement in his lower extremity weakness. Objective Vital Signs Date Time Temp Pulse Resp B/P (MAP) Pulse Ox O2 Delivery O2 Flow Rate FiO2 01/13/17 04:00 96.1 78 18 127/70 (89) 95 01/13/17 00:00 96.5 109 19 155/74 (101) 93 01/12/17 20:00 98.1 107 19 151/77 (101) 94 01/12/17 16:00 97.8 94 16 139/68 (91) 93 01/12/17 12:00 97.9 82 14 117/58 (77) 96 I/O 01/12/17 01/12/17 01/12/17 01/13/17 01/13/17 01/13/17 07:00 15:00 23:00 07:00 15:00 23:00 Intake Total 480 ml 680 ml 480 ml 480 ml Output Total 450 ml 750 ml 300 ml 1450 ml Balance 30 ml -70 ml 180 ml -970 ml Intake Oral 480 ml 680 ml 480 ml 480 ml Output Urine Total 450 ml 750 ml 300 ml 1450 ml # Bowel Movements 1 Result Diagram: 01/13/17 0550 01/11/17 0506 Objective Remarks GENERAL: NAD, A&Ox3 HEAD: Normocephalic. NECK: Supple, trachea midline. No lymphadenopathy. EYES: No scleral icterus. No injection or drainage. CARDIOVASCULAR: Regular rate and rhythm without murmurs, gallops, or rubs. RESPIRATORY: Breath sounds equal bilaterally. No accessory muscle use. GASTROINTESTINAL: Abdomen soft, non-tender, nondistended. MUSCULOSKELETAL: No cyanosis. Edema at left lower extremity (improving). SKIN: Warm and dry. NEURO: Bilateral lower extremity weakness A/P Problem List: (1) DVT of axillary vein, acute left ICD Code: I82.A12 - Acute embolism and thrombosis of left axillary vein Status: Acute (2) Failure of outpatient treatment ICD Code: Z78.9 - Other specified health status Status: Acute (3) Deep vein thrombosis (DVT) of left upper extremity ICD Code: I82.622 - Acute embolism and thrombosis of deep veins of left upper extremity Status: Acute (4) Deep vein thrombosis (DVT) of left lower extremity ICD Code: I82.402 - Acute embolism and thrombosis of unspecified deep veins of left lower extremity Status: Acute (5) History of Guillain-[place] syndrome ICD Code: Z86.69 - Personal history of other diseases of the nervous system and sense organs (6) Diabetes mellitus ICD Code: E11.9 - Type 2 diabetes mellitus without complications Status: Acute (7) History of hypertension ICD Code: Z86.79 - Personal history of other diseases of the circulatory system Status: Acute (8) Multiple myeloma ICD Code: C90.00 - Multiple myeloma not having achieved remission Assessment and Plan Assessment and Plan 61-year-old male admitted after treatment failure of left lower extremity DVT with Xarelto. Presently on Eliquis. Slowly improving. Monitor for continued improvement. Global weakness which may be related to his Guillain-Rm syndrome. Steroids initiated today. Neurology following. Continue to monitor lower extremity edema. Increase in blood sugars as expected with prednisone. Patient on sliding scale. 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 Monitor for improvement in weakness. Problem Qualifiers (1) Multiple myeloma: Qualified Codes: C90.01 - Multiple myeloma in remission Maged Wilson MD Jan 13, 2017 10:01
[2017-01-13] MEDS ORDERED: GADODIAMIDE PF 287 MG/ML 20 ML VIAL (for RAD MRI) IVCONTRAST ONE (10:02)
--- NOTE | 2017-01-13 10:26 | RADRPT ---
EXAM DATE/TIME: 01/13/2017 09:18 [facility] COMPARISON: MRI LUMBAR SPINE W & W/O CONTRAST, March 26, 2012, 18:54. INDICATIONS : Myelopathy. MEDICAL HISTORY : Hypertension. Diabetes mellitus type 2. SURGICAL HISTORY : Port placement. ENCOUNTER: Initial ACUITY: 1 day PAIN SCORE: 0/10 LOCATION: [facility] TECHNIQUE: Multiplanar multisequence MRI of the lumbar spine was performed without contrast. FINDINGS: The most caudal appearing lumbar vertebra is numbered as L5. VERTEBRAE: There is collapse of the central aspect of the superior aspect of the L2 vertebral body consistent wi th a large Schmorl node formation. No edema is seen. This is thought to be chronic. Overall, the L2 v ertebral body retains its normal height. The Remaining lumbar vertebral bodies are normal. CONUS: Normal level and configuration. T12-L1: The thecal sac has a normal diameter. No evidence of disc bulge or protrusion. The neural foramina are patent bilaterally. L1-L2: There is mild diffuse disc bulge. This causes a mild impression of the thecal sac. There continues to be CSF around the nerve roots. The neural foramina are patent bilaterally. L2-L3: The thecal sac has a normal diameter. No evidence of disc bulge or protrusion. The neural foramina are patent bilaterally. L3-L4: The thecal sac has a normal diameter. No evidence of disc bulge or protrusion. The neural foramina are patent bilaterally. There is mild facet hypertrophy. L4-L5: There is mild diffuse disc bulge causing a mild impression on the thecal sac. There continues to be C SF around the nerve roots. There is some narrowing of the lateral recess regions. This can affect the L5 nerve roots. There is moderate facet hypertrophy. The neural foramina are patent bilaterally. L5-S1: The thecal sac has a normal diameter. No evidence of disc bulge or protrusion. The neural foramina are patent bilaterally. CONCLUSION: 1. Mild disc bulges at the L1-L2 and L./L5 levels. These cause mild impressions on the thecal sac. 2. Chronic compressive changes at the superior central aspect of the L2 vertebral body without acute edema. 3. Lower lumbar facet hypertrophy the L3-L4 and L4-L5 levels. Bebeto Medrano MD on January 13, 2017 at 10:17 Board Certified Radiologist. This report was verified electronically.
--- NOTE | 2017-01-13 10:30 | RADRPT ---
EXAM DATE/TIME: 01/13/2017 09:18 [facility] COMPARISON: MRI THORACIC SPINE W & W/O CONTRAST, March 26, 2012, 18:54. INDICATIONS : Myelopathy. CONTRAST: 20 cc Omniscan (gadodiamide) IV MEDICAL HISTORY : Diabetes mellitus type 2. Hypertension. SURGICAL HISTORY : Port placement. ENCOUNTER: Initial ACUITY: 1 day PAIN SCORE: 0/10 LOCATION: Paraspinal TECHNIQUE: Multiplanar multisequence MRI of the thoracic spine was performed. FINDINGS: VERTEBRA: Normal vertebral body height. Homogeneous marrow signal. ALIGNMENT: Normal. CORD: Normal position and configuration. POST CONTRAST: No abnormal areas of contrast enhancement seen. OTHER There is increased signal seen in the left lower lobe at the left lung base likely related to some consolidation or atelectasis. T1-T2: Normal. T2-T3: The thecal sac has a normal diameter. No evidence of disc bulge or protrusion. T3-T4: The thecal sac has a normal diameter. No evidence of disc bulge or protrusion. T4-T5: The thecal sac has a normal diameter. No evidence of disc bulge or protrusion. T5-T6: There is a tiny central disc protrusion without significant stenosis. T6-T7: There is a mild right paracentral disc protrusion without significant stenosis. T7-T8: The thecal sac has a normal diameter. No evidence of disc bulge or protrusion. T8-T9: There is a mild central disc protrusion without significant stenosis. T9-T10: There is a mild left lateral recess disc protrusion without significant stenosis. T10-T11: There is a mild right lateral recess disc protrusion without significant stenosis. T11-T12: The thecal sac has a normal diameter. No evidence of disc bulge or protrusion. T12-L1: The thecal sac has a normal diameter. No evidence of disc bulge or protrusion. CONCLUSION: Multiple mild disc protrusion throughout the thoracic spine as well. There is significant stenosis is not seen. The cord demonstrates normal signal throughout. eBbeto Medrano MD on January 13, 2017 at 10:25 Board Certified Radiologist. This report was verified electronically.
--- NOTE | 2017-01-13 11:00 | RADRPT ---
EXAM DATE/TIME: 01/13/2017 09:18 [facility] COMPARISON: MRI CERVICAL SPINE W & W/O CONTRAST, March 26, 2012, 18:54. INDICATIONS : Myelopathy. CONTRAST: 20 cc Omniscan (gadodiamide) IV MEDICAL HISTORY : Hypertension. Diabetes mellitus type 2. SURGICAL HISTORY : Port placment. ENCOUNTER: Initial ACUITY: 1 day PAIN SCORE: 0/10 LOCATION: Paraspinal TECHNIQUE: Multiplanar, multisequence MRI examination of the cervical spine was performed. FINDINGS: VERTEBRAE: Normal vertebral body height. Homogeneous marrow signal. ALIGNMENT: There is mild anterior subluxation of C6 on C7. This was present previously and is unchanged. It is i n the order of 2-3 mm. CORD: Normal configuration and signal. POST FOSSA: The cerebellar tonsils are normal in position. POST-CONTRAST: No abnormal areas of enhancement are seen. C2-C3: The thecal sac has a normal configuration. There is no evidence of disc herniation or spinal canal stenosis. The neural foramina are patent bilaterally. C3-C4: There is a mild posterior disc bulge/protrusion. There is CSF seen around the cord. The neural connie laura are patent bilaterally. There is right facet hypertrophy. C4-C5: There is mild posterior disc bulge. There is minimal CSF seen around the cord. The bilateral facet hy pertrophy being worse on the right. There is left neural foramina narrowing. The right neural foramin a is patent. C5-C6: There is diffuse disc bulge bulge. There is a thin layer of CSF seen around the cord. There is facet and uncovertebral hypertrophy. There is mild narrowing of the left neural foramina. Right neural fora shanell is patent. C6-C7: There is mild asymmetric disc bulge being worse on the left. There continues to be a thin layer of CS F around the cord. There is uncovertebral hypertrophy being worse on the left. There is narrowing of the left neural foramina. Right neural foramina is patent. C7-T1: The thecal sac has a normal configuration. There is no evidence of disc herniation or spinal canal s tenosis. The neural foramina are patent bilaterally. CONCLUSION: 1. Disc bulges at the C4-C5 to C6-C7 levels. These disc bulges are mild. There is moderate narrowing of the thecal sac at these levels. Short pedicles likely contribute to a narrowed AP dimension of the thecal sac. 2. Mild posterior disc bulge/protrusion at the C3-C4 level. 3. Facet and uncovertebral hypertrophy contributing to left neural foramen narrowing at the C4-C5 and C6-C7 levels. Bebeto Medrano MD on January 13, 2017 at 10:46 Board Certified Radiologist. This report was verified electronically.
[2017-01-13] MEDS: PANTOPRAZOLE SOD 40 MG DELAYED RELEASE TAB PO SCH (11:21)
[2017-01-13] MEDS: METOPROLOL TARTRATE 100 MG TAB PO SCH ×2 (11:21→21:33)
[2017-01-13] MEDS: APIXABAN 5 MG TABLET PO SCH ×2 (11:21→21:34)
[2017-01-13] MEDS: FERROUS SULFATE 325 MG (65 MG ELEMENTAL IRON) TAB PO SCH (11:21)
[2017-01-13] MEDS: predniSONE 20 MG TAB PO SCH (11:21)
[2017-01-13] MEDS: SODIUM CHLORIDE 0.9% FLUSH 10 ML FLUSH IV FLUSH SCH ×2 (11:22→21:37)
[2017-01-13] MEDS: glyBURIDE 5 MG TAB PO SCH (11:22)
[2017-01-13] MEDS: GABAPENTIN 400 MG CAP PO SCH ×3 (11:22→17:03)
[2017-01-13] MEDS: DORZOLAMIDE/TIMOLOL OPTH SOLN 10 ML BTL EACH EYE SCH (11:23)
[2017-01-13] MEDS: ACETAMINOPHEN/HYDROcodone 325 MG/7.5 MG TAB PO PRN (11:29)
[2017-01-13 12:00] VITALS: BP 148/81; PULSE 97; RESP 14; TEMP 97.7; O2SAT 94
[2017-01-13 16:00] VITALS: BP 130/62; PULSE 74; RESP 14; TEMP 98; O2SAT 96
[2017-01-13 20:00] VITALS: BP 122/70; PULSE 84; RESP 18; TEMP 97.7; O2SAT 96
[2017-01-13] MEDS: LATANOPROST 0.005% OPHT SOLN 2.5 ML BTL EACH EYE SCH (21:32)
[2017-01-13] MEDS: PRAVASTATIN SOD 20 MG TAB PO SCH (21:33)
[2017-01-14] VITALS: BP 117/65; PULSE 83; RESP 17; TEMP 96.5; O2SAT 97
[2017-01-14 04:00] VITALS: BP 143/77; PULSE 99; RESP 18; TEMP 96.7; O2SAT 96
[2017-01-14 08:00] VITALS: BP 141/69; PULSE 97; RESP 21; TEMP 97.7; O2SAT 97
[2017-01-14] MEDS: INSULIN ASPART SUPPLEMENTAL SCALE SQ SCH ×4 (08:00→21:51)
[2017-01-14] MEDS: FERROUS SULFATE 325 MG (65 MG ELEMENTAL IRON) TAB PO SCH (08:29)
[2017-01-14] MEDS: GABAPENTIN 400 MG CAP PO SCH ×3 (08:29→17:15)
[2017-01-14] MEDS: predniSONE 20 MG TAB PO SCH (08:30)
[2017-01-14] MEDS: PANTOPRAZOLE SOD 40 MG DELAYED RELEASE TAB PO SCH (08:30)
[2017-01-14] MEDS: APIXABAN 5 MG TABLET PO SCH ×2 (08:30→21:48)
[2017-01-14] MEDS: METOPROLOL TARTRATE 100 MG TAB PO SCH ×2 (08:30→21:46)
[2017-01-14] MEDS: DORZOLAMIDE/TIMOLOL OPTH SOLN 10 ML BTL EACH EYE SCH (08:30)
[2017-01-14] MEDS: SODIUM CHLORIDE 0.9% FLUSH 10 ML FLUSH IV FLUSH SCH ×2 (08:30→21:53)
[2017-01-14] MEDS: glyBURIDE 5 MG TAB PO SCH (08:32)
[2017-01-14] MEDS: ACETAMINOPHEN/HYDROcodone 325 MG/7.5 MG TAB PO PRN ×4 (08:33→21:51)
[2017-01-14 10:23] LABS: AUTOMATED NEUTROPHIL # 5.7 TH/MM3 (1.8-7.7); BASOPHIL # 0.1 TH/MM3 (0-0.2); BASOPHIL % 0.6 % (0.0-2.0); EOSINOPHIL # 0.1 TH/MM3 (0-0.4); EOSINOPHIL % 1.1 % (0.0-4.0); HEMATOCRIT 38.6 % (39.0-51.0); LYMPH % 20.4 % (9.0-44.0); LYMPHOCYTE # 1.8 TH/MM3 (1.0-4.8); MEAN CELL VOLUME 85.7 FL (80.0-100.0); MEAN CORPUSCULAR HEMOGLOBIN 27.7 PG (27.0-34.0); MEAN CORPUSCULAR HGB CONC 32.4 % (32.0-36.0); MONO % 11.7 % (0.0-8.0); NEUT % 66.2 % (16.0-70.0); PLATELET COUNT 97 TH/MM3 (150-450); RED BLOOD COUNT 4.51 MIL/MM3 (4.50-5.90); RED CELL DISTRIBUTION WIDTH 17.3 % (11.6-17.2); WHITE BLOOD COUNT 8.6 TH/MM3 (4.0-11.0)
[2017-01-14 10:24] LABS: HEMO FLAGS AUTO DIFF
--- NOTE | 2017-01-14 10:55 | PD.ONC.PN ---
Subjective Subjective Remarks Afebrile overnight. Patient resting in room in nad. No complaints. Hopeful that he will be able to go home soon. Objective Data Date Time Temp Pulse Resp B/P (MAP) Pulse Ox O2 Delivery O2 Flow Rate FiO2 01/14/17 08:00 97.7 97 21 141/69 (93) 97 01/14/17 04:00 96.7 99 18 143/77 (99) 96 01/14/17 00:00 96.5 83 17 117/65 (82) 97 01/13/17 20:00 97.7 84 18 122/70 (87) 96 01/13/17 16:00 98.0 74 14 130/62 (84) 96 01/13/17 12:00 97.7 97 14 148/81 (103) 94 01/14/17 01/14/17 01/14/17 07:00 15:00 23:00 Intake Total 240 ml Output Total 625 ml Balance -385 ml Result Diagram: 01/14/17 0951 01/11/17 0506 Laboratory Results Laboratory Tests Test 01/14/17 09:51 White Blood Count 8.6 TH/MM3 Red Blood Count 4.51 MIL/MM3 Hemoglobin 12.5 GM/DL Hematocrit 38.6 % Mean Corpuscular Volume 85.7 FL Mean Corpuscular Hemoglobin 27.7 PG Mean Corpuscular Hemoglobin Concent 32.4 % Red Cell Distribution Width 17.3 % Platelet Count 97 TH/MM3 Mean Platelet Volume 10.7 FL Neutrophils (%) (Auto) 66.2 % Lymphocytes (%) (Auto) 20.4 % Monocytes (%) (Auto) 11.7 % Eosinophils (%) (Auto) 1.1 % Basophils (%) (Auto) 0.6 % Neutrophils # (Auto) 5.7 TH/MM3 Lymphocytes # (Auto) 1.8 TH/MM3 Monocytes # (Auto) 1.0 TH/MM3 Eosinophils # (Auto) 0.1 TH/MM3 Basophils # (Auto) 0.1 TH/MM3 CBC Comment AUTO DIFF Imaging Studies Last 24 hours Impressions Thoracic Spine MRI 01/13/17 [id number] Signed Impressions: Service Date/Time: Friday, January 13, 2017 09:18 - CONCLUSION: Multiple mild disc protrusion throughout the thoracic spine as well. There is significant stenosis is not seen. The cord demonstrates normal signal throughout. Bebeto Medrano MD Lumbar Spine MRI [id number] Signed Impressions: Service Date/Time: Friday, January 13, 2017 09:18 - CONCLUSION: 1. Mild disc bulges at the L1-L2 and L./L5 levels. These cause mild impressions on the thecal sac. 2. Chronic compressive changes at the superior central aspect of the L2 vertebral body without acute edema. 3. Lower lumbar facet hypertrophy the L3- L4 and L4-L5 levels. Bebeto Medrano MD Cervical Spine MRI [id number] Signed Impressions: Service Date/Time: Friday, January 13, 2017 09:18 - CONCLUSION: 1. Disc bulges at the C4-C5 to C6-C7 levels. These disc bulges are mild. There is moderate narrowing of the thecal sac at these levels. Short pedicles likely contribute to a narrowed AP dimension of the thecal sac. 2. Mild posterior disc bulge/protrusion at the C3-C4 level. 3. Facet and uncovertebral hypertrophy contributing to left neural foramen narrowing at the C4-C5 and C6-C7 levels. Bebeto Medrano MD Administered Medications Medications (Trade) Dose Ordered Sig/Sridhar Route PRN Reason Start Time Stop Time Status Last Admin Dose Admin Sodium Chloride (NS Flush) 2 ml BID IV FLUSH 01/04/17 21:00 01/14/17 08:30 Acetaminophen/ Hydrocodone Bitart ([place] 7.5-325 Mg) 1 tab Q4H PRN PO PAIN SCALE 6 TO 10 01/04/17 18:00 01/14/17 08:33 Insulin Aspart (NovoLOG SUPPLEMENTAL SCALE) 1 ACHS SLIDING SCALE SQ 01/04/17 21:00 01/13/17 13:30 Dorzolamide/ Timolol (Cosopt 2-0.5% Opth Soln) 1 drop DAILY EACH EYE 01/05/17 09:00 01/14/17 08:30 Gabapentin (Neurontin) 800 mg TID PO 01/05/17 09:00 01/14/17 08:29 Glyburide (Diabeta) 5 mg DAILY PO 01/05/17 09:00 01/14/17 08:32 Latanoprost (Xalatan 0.005% Opth Soln) 1 drop HS EACH EYE 01/04/17 21:00 01/13/17 21:32 Metoprolol Tartrate (Lopressor) 100 mg BID PO 01/04/17 21:00 01/14/17 08:30 Ferrous Sulfate (Ferrous Sulfate) 325 mg DAILY PO 01/05/17 09:00 01/14/17 08:29 Pravastatin Sodium (Pravachol) 20 mg HS PO 01/04/17 21:00 01/13/17 21:33 Alteplase, Recombinant (Cathflo Activase Inj) 2 mg Q2H PRN INTRACATH flush 01/05/17 09:00 01/09/17 10:48 Apixaban (Eliquis) 10 mg BID PO 01/10/17 04:00 01/14/17 08:30 Prednisone (Deltasone) 60 mg DAILY PO 01/12/17 19:00 01/14/17 08:30 Pantoprazole Sodium (Protonix) 40 mg DAILY PO 01/12/17 19:00 01/14/17 08:30 Objective Remarks GENERAL: Middle aged male sitting up in room in [facility]. SKIN: Warm and dry. HEAD: Normocephalic. EYES: No injection or drainage. NECK: Supple, trachea midline. CARDIOVASCULAR: Regular rate and rhythm RESPIRATORY: Breath sounds equal bilaterally. No accessory muscle use. GASTROINTESTINAL: Abdomen soft, non-tender, nondistended. EXTREMITIES: No cyanosis. LLE edematous. NEUROLOGICAL: aox3. normal speech. moving all extremities. Assessment/Plan Problem List: (1) Thrombocytopenia ICD Codes: D69.6 - Thrombocytopenia, unspecified Plan: 01/14: continue Eliquis 10mg PO BID. await JACKY. 01/10: HIT panel +; . No Heparin. No thrombectomy. Continue Eliquis 10 mg twice a day. Monitor for bleeding. His Nxndzm-v-Rkqu is nonfunctioning per radiology report. We will be unable to remove the Cmtmfr-h-Pmul until he has been anticoagulated for some time. Monitor CBC. Await JACKY results. --likely d/t consumption from multiple thrombi (2) Deep vein thrombosis (DVT) of left lower extremity ICD Codes: I82.402 - Acute embolism and thrombosis of unspecified deep veins of left lower extremity Status: Acute Plan: -- on Eliquis (3) Deep vein thrombosis (DVT) of left upper extremity ICD Codes: I82.622 - Acute embolism and thrombosis of deep veins of left upper extremity Status: Acute Plan: --on Eliquis -- Started Xarelto one week ago for LLE DVT and then developed L upper arm swelling, found to have an extensive DVT. -- CTA negative for PE (4) Multiple myeloma ICD Codes: C90.00 - Multiple myeloma not having achieved remission Plan: -- Diagnosed approx. 2 years ago; he was treated with oral chemotherapy and is currently in remission -- Under the care of Dr. Doroteo Doherty with [place] [facility] (5) History of Guillain-[place] syndrome ICD Codes: Z86.69 - Personal history of other diseases of the nervous system and sense organs Plan: -- Diagnosed 4 years ago -- Sees neurologist Dr. Harris and reportedly has been getting IVIG every 2 weeks with home health Assessment 61y/o male with LUE DVT, LLE DVT. h/o Multiple myeloma diagnosed 2 years ago. Guillain-[place] Syndrome diagnosed 4 years ago, diabetes mellitus. Peripheral neuropathy from diabetes. Hypertension, hypercholesterolemia, glaucoma. Attending Statement leg swelling and left arm swelling has resolve. c/o weakness. No problem with eliquis so far. Plat are coming up JACKY is pending. The exam, history, and the medical decision-making described in the above note were completed with the assistance of the mid-level provider. I reviewed and agree with the findings presented. I attest that I had a [id number] encounter with the patient on the same day, and personally performed and documented my assessment and findings in the medical record. Problem Qualifiers (1) Multiple myeloma: Qualified Codes: C90.01 - Multiple myeloma in remission Melissa Anderson Jan 14, 2017 10:55 Kadeem Wilks MD Jan 14, 2017 15:37
[2017-01-14 11:00] LABS: PLATELET ESTIMATE SMEAR LOW (NORMAL); PLATELET MORPHOLOGY HYPOGRAN (NORMAL); SCAN/DIFF AUTO DIFF CONFIRMED
[2017-01-14 12:45] VITALS: BP 117/64; PULSE 80; RESP 20; TEMP 97.2; O2SAT 95
--- NOTE | 2017-01-14 14:24 | HHI.PR ---
Subjective Remarks Gradual upper trend and platelets. Platelet count is 97. Patient remains weak but his weakness is improving slowly after starting steroids. His left lower extremity has decreased swelling compared to admit. Eliquis appears to be a good treatment for his DVT. Objective Vital Signs Date Time Temp Pulse Resp B/P (MAP) Pulse Ox O2 Delivery O2 Flow Rate FiO2 01/14/17 12:45 97.2 80 20 117/64 (81) 95 01/14/17 08:00 97.7 97 21 141/69 (93) 97 01/14/17 04:00 96.7 99 18 143/77 (99) 96 01/14/17 00:00 96.5 83 17 117/65 (82) 97 01/13/17 20:00 97.7 84 18 122/70 (87) 96 01/13/17 16:00 98.0 74 14 130/62 (84) 96 I/O 01/13/17 01/13/17 01/13/17 01/14/17 01/14/17 01/14/17 07:00 15:00 23:00 07:00 15:00 23:00 Intake Total 480 ml 680 ml 480 ml 240 ml Output Total 1450 ml 750 ml 600 ml 625 ml Balance -970 ml -70 ml -120 ml -385 ml Intake Oral 480 ml 680 ml 480 ml 240 ml Output Urine Total 1450 ml 750 ml 600 ml 625 ml # Bowel Movements 1 Result Diagram: 01/14/17 0951 01/11/17 0506 Objective Remarks GENERAL: NAD, A&Ox3 HEAD: Normocephalic. NECK: Supple, trachea midline. No lymphadenopathy. EYES: No scleral icterus. No injection or drainage. CARDIOVASCULAR: Regular rate and rhythm without murmurs, gallops, or rubs. RESPIRATORY: Breath sounds equal bilaterally. No accessory muscle use. GASTROINTESTINAL: Abdomen soft, non-tender, nondistended. MUSCULOSKELETAL: No cyanosis. Edema at left lower extremity (improving). SKIN: Warm and dry. NEURO: Bilateral lower extremity weakness A/P Problem List: (1) DVT of axillary vein, acute left ICD Code: I82.A12 - Acute embolism and thrombosis of left axillary vein Status: Acute (2) Failure of outpatient treatment ICD Code: Z78.9 - Other specified health status Status: Acute (3) Deep vein thrombosis (DVT) of left upper extremity ICD Code: I82.622 - Acute embolism and thrombosis of deep veins of left upper extremity Status: Acute (4) Deep vein thrombosis (DVT) of left lower extremity ICD Code: I82.402 - Acute embolism and thrombosis of unspecified deep veins of left lower extremity Status: Acute (5) History of Guillain-[place] syndrome ICD Code: Z86.69 - Personal history of other diseases of the nervous system and sense organs (6) Diabetes mellitus ICD Code: E11.9 - Type 2 diabetes mellitus without complications Status: Acute (7) History of hypertension ICD Code: Z86.79 - Personal history of other diseases of the circulatory system Status: Acute (8) Multiple myeloma ICD Code: C90.00 - Multiple myeloma not having achieved remission Assessment and Plan Assessment and Plan 61-year-old male admitted after treatment failure of left lower extremity DVT with Xarelto. Continue on Eliquis. Slowly improving. Monitor for continued improvement. Global weakness which may be related to his Guillain-Rm syndrome. Continue steroids. Monitor platelets. Labs ordered. Follow labs. 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 Monitor for improvement in weakness. Problem Qualifiers (1) Multiple myeloma: Qualified Codes: C90.01 - Multiple myeloma in remission Maged Wilson MD Jan 14, 2017 14:24
[2017-01-14 16:00] VITALS: BP 131/78; PULSE 80; RESP 20; TEMP 97.3; O2SAT 96
[2017-01-14 20:00] VITALS: BP 113/65; PULSE 71; RESP 18; TEMP 96.5; O2SAT 94
[2017-01-14] MEDS: PRAVASTATIN SOD 20 MG TAB PO SCH (21:47)
[2017-01-14] MEDS: LATANOPROST 0.005% OPHT SOLN 2.5 ML BTL EACH EYE SCH (21:53)
[2017-01-15] VITALS: BP 115/58; PULSE 73; RESP 17; TEMP 96.2; O2SAT 97
[2017-01-15 04:00] VITALS: BP 118/62; PULSE 65; RESP 17; TEMP 96.4; O2SAT 96
[2017-01-15 08:00] VITALS: BP 135/67; PULSE 70; RESP 16; TEMP 97; O2SAT 97
[2017-01-15] MEDS: INSULIN ASPART SUPPLEMENTAL SCALE SQ SCH ×4 (08:00→21:47)
[2017-01-15 09:00] LABS: AUTOMATED NEUTROPHIL # 5.7 TH/MM3 (1.8-7.7); BASOPHIL # 0.1 TH/MM3 (0-0.2); BASOPHIL % 0.6 % (0.0-2.0); EOSINOPHIL # 0.1 TH/MM3 (0-0.4); EOSINOPHIL % 0.7 % (0.0-4.0); HEMATOCRIT 36.4 % (39.0-51.0); LYMPHOCYTE # 2.4 TH/MM3 (1.0-4.8); MEAN CELL VOLUME 86.5 FL (80.0-100.0); MEAN CORPUSCULAR HEMOGLOBIN 27.4 PG (27.0-34.0); MEAN CORPUSCULAR HGB CONC 31.7 % (32.0-36.0); MONO % 10.8 % (0.0-8.0); NEUT % 61.9 % (16.0-70.0); PLATELET COUNT 90 TH/MM3 (150-450); RED CELL DISTRIBUTION WIDTH 17.5 % (11.6-17.2); WHITE BLOOD COUNT 9.2 TH/MM3 (4.0-11.0)
[2017-01-15] MEDS: glyBURIDE 5 MG TAB PO SCH (09:00)
[2017-01-15 09:02] LABS: HEMO FLAGS AUTO DIFF
[2017-01-15 09:05] LABS: AST (GOT) 28 U/L (15-37); BICARBONATE 29.9 MEQ/L (21.0-32.0); BLOOD UREA NITROGEN 15 MG/DL (7-18); GLOMERULAR FILTRATION RATE 111 ML/MIN (>89)
[2017-01-15 09:06] LABS: ALT (GPT) 36 U/L (12-78); ANION GAP 6 MEQ/L (5-15); CHLORIDE 101 MEQ/L (98-107); POTASSIUM 3.6 MEQ/L (3.5-5.1); SODIUM (NA) 137 MEQ/L (136-145)
[2017-01-15 09:08] LABS: ALKALINE PHOSPHATASE 75 U/L (45-117); TOTAL BILIRUBIN ADULT 0.4 MG/DL (0.2-1.0)
[2017-01-15] MEDS: GABAPENTIN 400 MG CAP PO SCH ×3 (09:20→16:43)
[2017-01-15] MEDS: PANTOPRAZOLE SOD 40 MG DELAYED RELEASE TAB PO SCH (09:20)
[2017-01-15] MEDS: FERROUS SULFATE 325 MG (65 MG ELEMENTAL IRON) TAB PO SCH (09:20)
[2017-01-15] MEDS: APIXABAN 5 MG TABLET PO SCH ×2 (09:21→21:46)
[2017-01-15] MEDS: METOPROLOL TARTRATE 100 MG TAB PO SCH ×2 (09:21→21:46)
[2017-01-15] MEDS: predniSONE 20 MG TAB PO SCH (09:21)
[2017-01-15] MEDS: SODIUM CHLORIDE 0.9% FLUSH 10 ML FLUSH IV FLUSH SCH ×2 (09:23→21:00)
[2017-01-15] MEDS: DORZOLAMIDE/TIMOLOL OPTH SOLN 10 ML BTL EACH EYE SCH (09:24)
--- NOTE | 2017-01-15 09:36 | HHI.PR ---
Review/Management Daily Summary 01/11 unchanged neuro exam spoke to pt about options apparently not good candidate for ivig because of low platelet wonder if ivig also risk for dvt will start pulse steroids for 3 days if other treating drs agree otherwise ?candidate for plasma exchange? dr Harris covering weekend 01/15 started on prednisone 60 mg over weekend I do not know what happened with my order for solumedrol 250 mg q6 written on paper chart on 01/11, discussed with RN in charge he is doing better neuro robles, stronger motor legs but will take time for him to be able to walk on his own continue prednisone as is for now rehab, multiple medical problems Subjective Subjective Comments No acute neuro events reported No headache Active Medications Current Medications Medications (Trade) Dose Ordered Sig/Sridhar Route Start Time Stop Time Status Last Admin (NS Flush) 2 ml UNSCH PRN IVF 01/04/17 13:30 (NS Flush) 2 ml UNSCH PRN IV FLUSH 01/04/17 18:00 (NS Flush) 2 ml BID IV FLUSH 01/04/17 21:00 01/14/17 21:53 (Tylenol) 650 mg Q4H PRN PO 01/04/17 18:00 (Zofran Inj) 4 mg Q6H PRN IVP 01/04/17 18:00 (Tylenol) 650 mg Q6H PRN PO 01/04/17 18:00 ([place] 5-325 Mg) 1 tab Q4H PRN PO 01/04/17 18:00 ([place] 7.5-325 Mg) 1 tab Q4H PRN PO 01/04/17 18:00 01/14/17 21:51 (Narcan Inj) 0.4 mg UNSCH PRN IV 01/04/17 18:00 (Milk Of Magnesia Liq) 30 ml Q12H PRN PO 01/04/17 18:00 (D50w (Vial) Inj) 50 ml UNSCH PRN IV 01/04/17 18:00 (Glucagon Inj) 1 mg UNSCH PRN OTHER 01/04/17 18:00 (NovoLOG SUPPLEMENTAL SCALE) 1 ACHS SLIDING SCALE SQ 01/04/17 21:00 01/14/17 21:51 (Duoneb Neb) 1 ampule Q2HR NEB PRN NEB 01/04/17 18:00 (Cosopt 2-0.5% Opth Soln) 1 drop DAILY EACH EYE 01/05/17 09:00 01/14/17 08:30 (Neurontin) 800 mg TID PO 01/05/17 09:00 01/14/17 17:15 (Diabeta) 5 mg DAILY PO 01/05/17 09:00 01/14/17 08:32 (Xalatan 0.005% Opth Soln) 1 drop HS EACH EYE 01/04/17 21:00 01/14/17 21:53 (Lopressor) 100 mg BID PO 01/04/17 21:00 01/14/17 21:46 (Ferrous Sulfate) 325 mg DAILY PO 01/05/17 09:00 01/14/17 08:29 (Pravachol) 20 mg HS PO 01/04/17 21:00 01/14/17 21:47 (Cathflo Activase Inj) 2 mg Q2H PRN INTRACATH 01/05/17 09:00 01/09/17 10:48 (Eliquis) 10 mg BID PO 01/10/17 04:00 01/17/17 03:59 01/14/17 21:48 (Deltasone) 60 mg DAILY PO 01/12/17 19:00 01/14/17 08:30 (Protonix) 40 mg DAILY PO 01/12/17 19:00 01/14/17 08:30 (Eliquis) 5 mg BID PO 01/17/17 09:00 Allergies Allergies Coded Allergies lisinopril (Unverified Allergy, Severe, angioedema, 01/04/17) losartan (Unverified Allergy, Severe, angioedema, 01/04/17) heparin (Verified Allergy, Unknown, 01/10/17) Exam I&O / VS 01/15/17 01/15/17 01/16/17 15:00 23:00 07:00 # Bowel Movements 1 Vital Signs Date Time Temp Pulse Resp B/P (MAP) Pulse Ox O2 Delivery O2 Flow Rate FiO2 01/15/17 08:00 97.0 70 16 135/67 (89) 97 01/15/17 04:00 96.4 65 17 118/62 (80) 96 01/15/17 00:00 96.2 73 17 115/58 (77) 97 01/14/17 20:00 96.5 71 18 113/65 (81) 94 01/14/17 16:00 97.3 80 20 131/78 (95) 96 01/14/17 12:45 97.2 80 20 117/64 (81) 95 Objective Micro and Labs Laboratory Tests Test 01/14/17 09:51 01/15/17 06:50 White Blood Count 8.6 9.2 Red Blood Count 4.51 4.20 Hemoglobin 12.5 11.5 Hematocrit 38.6 36.4 Mean Corpuscular Volume 85.7 86.5 Mean Corpuscular Hemoglobin 27.7 27.4 Mean Corpuscular Hemoglobin Concent 32.4 31.7 Red Cell Distribution Width 17.3 17.5 Platelet Count 97 90 Mean Platelet Volume 10.7 10.7 Neutrophils (%) (Auto) 66.2 61.9 Lymphocytes (%) (Auto) 20.4 26.0 Monocytes (%) (Auto) 11.7 10.8 Eosinophils (%) (Auto) 1.1 0.7 Basophils (%) (Auto) 0.6 0.6 Neutrophils # (Auto) 5.7 5.7 Lymphocytes # (Auto) 1.8 2.4 Monocytes # (Auto) 1.0 1.0 Eosinophils # (Auto) 0.1 0.1 Basophils # (Auto) 0.1 0.1 CBC Comment AUTO DIFF AUTO DIFF Differential Comment AUTO DIFF CONFIRMED Platelet Estimate LOW Platelet Morphology Comment HYPOGRAN Blood Urea Nitrogen 15 Creatinine 0.85 Random Glucose 70 Total Protein 8.5 Albumin 2.9 Calcium Level 9.0 Alkaline Phosphatase 75 Aspartate Amino Transf (AST/SGOT) 28 Alanine Aminotransferase (ALT/SGPT) 36 Total Bilirubin 0.4 Sodium Level 137 Potassium Level 3.6 Chloride Level 101 Carbon Dioxide Level 29.9 Anion Gap 6 Estimat Glomerular Filtration Rate 111 Date/Time Source Procedure Growth Status 01/05/17 16:30 Stool Stool Stool Occult Blood (TANIYA) - Final HEMOCCULT NEGATIVE Complete Loyda Nicholas MD Jan 15, 2017 09:36
[2017-01-15 11:04] LABS: PLATELET ESTIMATE SMEAR LOW (NORMAL)
[2017-01-15 11:05] LABS: PLATELET MORPHOLOGY HYPOGRAN (NORMAL); SCAN/DIFF AUTO DIFF CONFIRMED
--- NOTE | 2017-01-15 11:05 | PD.ONC.PN ---
Subjective Subjective Remarks Afebrile overnight. Patient in good spirits. No complaints. No change in left leg. Objective Data Date Time Temp Pulse Resp B/P (MAP) Pulse Ox O2 Delivery O2 Flow Rate FiO2 01/15/17 08:00 97.0 70 16 135/67 (89) 97 01/15/17 04:00 96.4 65 17 118/62 (80) 96 01/15/17 00:00 96.2 73 17 115/58 (77) 97 01/14/17 20:00 96.5 71 18 113/65 (81) 94 01/14/17 16:00 97.3 80 20 131/78 (95) 96 01/14/17 12:45 97.2 80 20 117/64 (81) 95 01/15/17 01/15/17 01/15/17 07:00 15:00 23:00 Output Total 550 ml Balance -550 ml Result Diagram: 01/15/17 0650 01/15/17 0650 Laboratory Results Laboratory Tests Test 01/15/17 06:50 White Blood Count 9.2 TH/MM3 Red Blood Count 4.20 MIL/MM3 Hemoglobin 11.5 GM/DL Hematocrit 36.4 % Mean Corpuscular Volume 86.5 FL Mean Corpuscular Hemoglobin 27.4 PG Mean Corpuscular Hemoglobin Concent 31.7 % Red Cell Distribution Width 17.5 % Platelet Count 90 TH/MM3 Mean Platelet Volume 10.7 FL Neutrophils (%) (Auto) 61.9 % Lymphocytes (%) (Auto) 26.0 % Monocytes (%) (Auto) 10.8 % Eosinophils (%) (Auto) 0.7 % Basophils (%) (Auto) 0.6 % Neutrophils # (Auto) 5.7 TH/MM3 Lymphocytes # (Auto) 2.4 TH/MM3 Monocytes # (Auto) 1.0 TH/MM3 Eosinophils # (Auto) 0.1 TH/MM3 Basophils # (Auto) 0.1 TH/MM3 CBC Comment AUTO DIFF Blood Urea Nitrogen 15 MG/DL Creatinine 0.85 MG/DL Random Glucose 70 MG/DL Total Protein 8.5 GM/DL Albumin 2.9 GM/DL Calcium Level 9.0 MG/DL Alkaline Phosphatase 75 U/L Aspartate Amino Transf (AST/SGOT) 28 U/L Alanine Aminotransferase (ALT/SGPT) 36 U/L Total Bilirubin 0.4 MG/DL Sodium Level 137 MEQ/L Potassium Level 3.6 MEQ/L Chloride Level 101 MEQ/L Carbon Dioxide Level 29.9 MEQ/L Anion Gap 6 MEQ/L Estimat Glomerular Filtration Rate 111 ML/MIN Administered Medications Medications (Trade) Dose Ordered Sig/Sridhar Route PRN Reason Start Time Stop Time Status Last Admin Dose Admin Sodium Chloride (NS Flush) 2 ml BID IV FLUSH 01/04/17 21:00 01/15/17 09:23 Acetaminophen/ Hydrocodone Bitart ([place] 7.5-325 Mg) 1 tab Q4H PRN PO PAIN SCALE 6 TO 10 01/04/17 18:00 01/14/17 21:51 Insulin Aspart (NovoLOG SUPPLEMENTAL SCALE) 1 ACHS SLIDING SCALE SQ 01/04/17 21:00 01/14/17 21:51 Dorzolamide/ Timolol ([place] 2-0.5% Opt Soln) 1 drop DAILY EACH EYE 01/05/17 09:00 01/15/17 09:24 Gabapentin (Neurontin) 800 mg TID PO 01/05/17 09:00 01/15/17 09:20 Glyburide (Diabeta) 5 mg DAILY PO 01/05/17 09:00 01/14/17 08:32 Latanoprost (Xalatan 0.005% Opt Soln) 1 drop HS EACH EYE 01/04/17 21:00 01/14/17 21:53 Metoprolol Tartrate (Lopressor) 100 mg BID PO 01/04/17 21:00 01/15/17 09:21 Ferrous Sulfate (Ferrous Sulfate) 325 mg DAILY PO 01/05/17 09:00 01/15/17 09:20 Pravastatin Sodium (Pravachol) 20 mg HS PO 01/04/17 21:00 01/14/17 21:47 Alteplase, Recombinant (Cathflo Activase Inj) 2 mg Q2H PRN INTRACATH flush 01/05/17 09:00 01/09/17 10:48 Apixaban (Eliquis) 10 mg BID PO 01/10/17 04:00 01/17/17 03:59 01/15/17 09:21 Prednisone (Deltasone) 60 mg DAILY PO 01/12/17 19:00 01/15/17 09:21 Pantoprazole Sodium (Protonix) 40 mg DAILY PO 01/12/17 19:00 01/15/17 09:20 Objective Remarks GENERAL: Middle aged male sitting up in bed eating breakfast. SKIN: Warm and dry. HEAD: Normocephalic. EYES: No injection or drainage. NECK: Supple, trachea midline. CARDIOVASCULAR: Regular rate and rhythm RESPIRATORY: Breath sounds equal bilaterally. No accessory muscle use. GASTROINTESTINAL: Abdomen soft, non-tender, nondistended. EXTREMITIES: No cyanosis. LLE edematous. NEUROLOGICAL: awake and alert, normal speech. moving extremities. Assessment/Plan Problem List: (1) Thrombocytopenia ICD Codes: D69.6 - Thrombocytopenia, unspecified Plan: 01/15: continue Eliquis 10mg. await JACKY. 01/10: HIT panel +; . No Heparin. No thrombectomy. Continue Eliquis 10 mg twice a day. Monitor for bleeding. His Mfptih-z-Wyec is nonfunctioning per radiology report. We will be unable to remove the Pxcaov-s-Vgrr until he has been anticoagulated for some time. Monitor CBC. Await JACKY results. --likely d/t consumption from multiple thrombi (2) Deep vein thrombosis (DVT) of left lower extremity ICD Codes: I82.402 - Acute embolism and thrombosis of unspecified deep veins of left lower extremity Status: Acute Plan: -- on Eliquis (3) Deep vein thrombosis (DVT) of left upper extremity ICD Codes: I82.622 - Acute embolism and thrombosis of deep veins of left upper extremity Status: Acute Plan: --on Eliquis -- Started Xarelto one week ago for LLE DVT and then developed L upper arm swelling, found to have an extensive DVT. -- CTA negative for PE (4) Multiple myeloma ICD Codes: C90.00 - Multiple myeloma not having achieved remission Plan: -- Diagnosed approx. 2 years ago; he was treated with oral chemotherapy and is currently in remission -- Under the care of Dr. 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 Harris and reportedly has been getting IVIG every 2 weeks with home health Assessment 61y/o male with LUE DVT, LLE DVT. h/o Multiple myeloma diagnosed 2 years ago. Guillain-[place] Syndrome diagnosed 4 years ago, diabetes mellitus. Peripheral neuropathy from diabetes. Hypertension, hypercholesterolemia, glaucoma. Attending Statement no new c/o JACKY is still pending Continue Maria Del Rosario. The exam, history, and the medical decision-making described in the above note were completed with the assistance of the mid-level provider. I reviewed and agree with the findings presented. I attest that I had a [id number] encounter with the patient on the same day, and personally performed and documented my assessment and findings in the medical record. Problem Qualifiers (1) Deep vein thrombosis (DVT) of left lower extremity: Qualified Codes: I82.402 - Acute embolism and thrombosis of unspecified deep veins of left lower extremity (2) Multiple myeloma: Qualified Codes: C90.01 - Multiple myeloma in remission Melissa Anderson Jan 15, 2017 11:05 Kadeem Wilks MD Jan 16, 2017 01:03
[2017-01-15 12:00] VITALS: BP 125/81; PULSE 85; RESP 18; TEMP 96.6; O2SAT 98
--- NOTE | 2017-01-15 13:01 | HHI.PR ---
Subjective Remarks Platelets have trended from 97-90 since yesterday. No other worsening of the labs. PT is pending for today. Patient is feeling weaker but he has not started and walked yet today. No new complaints. Objective Vital Signs Date Time Temp Pulse Resp B/P (MAP) Pulse Ox O2 Delivery O2 Flow Rate FiO2 01/15/17 12:00 96.6 85 18 125/81 (96) 98 01/15/17 08:00 97.0 70 16 135/67 (89) 97 01/15/17 04:00 96.4 65 17 118/62 (80) 96 01/15/17 00:00 96.2 73 17 115/58 (77) 97 01/14/17 20:00 96.5 71 18 113/65 (81) 94 01/14/17 16:00 97.3 80 20 131/78 (95) 96 I/O 01/14/17 01/14/17 01/14/17 01/15/17 01/15/17 01/15/17 07:00 15:00 23:00 07:00 15:00 23:00 Intake Total 240 ml 480 ml Output Total 625 ml 850 ml 550 ml 200 ml Balance -385 ml -370 ml -550 ml -200 ml Intake Oral 240 ml 480 ml Output Urine Total 625 ml 850 ml 550 ml 200 ml # Voids 2 # Bowel Movements 1 1 Result Diagram: 01/15/17 0650 01/15/17 0650 Objective Remarks GENERAL: NAD, A&Ox3 HEAD: Normocephalic. NECK: Supple, trachea midline. No lymphadenopathy. EYES: No scleral icterus. No injection or drainage. CARDIOVASCULAR: Regular rate and rhythm without murmurs, gallops, or rubs. RESPIRATORY: Breath sounds equal bilaterally. No accessory muscle use. GASTROINTESTINAL: Abdomen soft, non-tender, nondistended. MUSCULOSKELETAL: No cyanosis. Edema at left lower extremity (improving). SKIN: Warm and dry. NEURO: Bilateral lower extremity weakness A/P Problem List: (1) DVT of axillary vein, acute left ICD Code: I82.A12 - Acute embolism and thrombosis of left axillary vein Status: Acute (2) Failure of outpatient treatment ICD Code: Z78.9 - Other specified health status Status: Acute (3) Deep vein thrombosis (DVT) of left upper extremity ICD Code: I82.622 - Acute embolism and thrombosis of deep veins of left upper extremity Status: Acute (4) Deep vein thrombosis (DVT) of left lower extremity ICD Code: I82.402 - Acute embolism and thrombosis of unspecified deep veins of left lower extremity Status: Acute (5) History of Guillain-[place] syndrome ICD Code: Z86.69 - Personal history of other diseases of the nervous system and sense organs (6) Diabetes mellitus ICD Code: E11.9 - Type 2 diabetes mellitus without complications Status: Acute (7) History of hypertension ICD Code: Z86.79 - Personal history of other diseases of the circulatory system Status: Acute (8) Multiple myeloma ICD Code: C90.00 - Multiple myeloma not having achieved remission Assessment and Plan Assessment and Plan 61-year-old male admitted after treatment failure of left lower extremity DVT with Xarelto. Continue on Eliquis. Slow improvement continues. Continue steroids and monitor for improvement of strength. 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 Monitor for improvement in weakness. Problem Qualifiers (1) Deep vein thrombosis (DVT) of left lower extremity: Qualified Codes: I82.402 - Acute embolism and thrombosis of unspecified deep veins of left lower extremity (2) Multiple myeloma: Qualified Codes: C90.01 - Multiple myeloma in remission Maged iWlson MD Jan 15, 2017 13:01
[2017-01-15 16:00] VITALS: BP 129/73; PULSE 80; RESP 18; TEMP 97; O2SAT 98
[2017-01-15] MEDS ORDERED: MAGNESIUM HYDROXIDE SUSP 30 ML CUP PO PRN (16:45)
[2017-01-15 20:00] VITALS: BP 138/80; PULSE 94; RESP 17; TEMP 96.3; O2SAT 96
[2017-01-15] MEDS: DOCUSATE SODIUM 100 MG CAP PO SCH (21:45)
[2017-01-15] MEDS: PRAVASTATIN SOD 20 MG TAB PO SCH (21:46)
[2017-01-15] MEDS: LATANOPROST 0.005% OPHT SOLN 2.5 ML BTL EACH EYE SCH (22:07)
[2017-01-16] VITALS: BP 109/67; PULSE 88; RESP 17; TEMP 96.9; O2SAT 96
[2017-01-16 04:00] VITALS: BP 148/64; PULSE 81; RESP 17; TEMP 97.8; O2SAT 94
[2017-01-16 08:00] VITALS: BP 116/67; PULSE 76; RESP 20; TEMP 97.2; O2SAT 96
[2017-01-16] MEDS: INSULIN ASPART SUPPLEMENTAL SCALE SQ SCH ×4 (08:52→21:56)
[2017-01-16] MEDS: METOPROLOL TARTRATE 100 MG TAB PO SCH ×2 (08:53→21:58)
[2017-01-16] MEDS: PANTOPRAZOLE SOD 40 MG DELAYED RELEASE TAB PO SCH (08:53)
[2017-01-16] MEDS: predniSONE 20 MG TAB PO SCH (08:53)
[2017-01-16] MEDS: APIXABAN 5 MG TABLET PO SCH ×2 (08:53→21:58)
[2017-01-16] MEDS: GABAPENTIN 400 MG CAP PO SCH ×3 (08:53→18:05)
[2017-01-16] MEDS: DOCUSATE SODIUM 100 MG CAP PO SCH ×2 (08:53→21:57)
[2017-01-16] MEDS: DORZOLAMIDE/TIMOLOL OPTH SOLN 10 ML BTL EACH EYE SCH (08:53)
[2017-01-16] MEDS: ACETAMINOPHEN/HYDROcodone 325 MG/7.5 MG TAB PO PRN ×3 (08:54→22:00)
[2017-01-16] MEDS: SODIUM CHLORIDE 0.9% FLUSH 10 ML FLUSH IV FLUSH SCH ×2 (08:54→21:57)
[2017-01-16] MEDS: FERROUS SULFATE 325 MG (65 MG ELEMENTAL IRON) TAB PO SCH (08:54)
[2017-01-16 09:14] LABS: UFH SEROTONIN RELEASE RESULT POSITIVE
[2017-01-16 09:28] LABS: AUTOMATED NEUTROPHIL # 6.3 TH/MM3 (1.8-7.7); BASOPHIL # 0.1 TH/MM3 (0-0.2); BASOPHIL % 0.7 % (0.0-2.0); EOSINOPHIL # 0.1 TH/MM3 (0-0.4); EOSINOPHIL % 0.7 % (0.0-4.0); HEMATOCRIT 34.8 % (39.0-51.0); LYMPH % 23.2 % (9.0-44.0); LYMPHOCYTE # 2.3 TH/MM3 (1.0-4.8); MEAN CORPUSCULAR HEMOGLOBIN 27.8 PG (27.0-34.0); MEAN CORPUSCULAR HGB CONC 32.3 % (32.0-36.0); MONO % 11.1 % (0.0-8.0); NEUT % 64.3 % (16.0-70.0); PLATELET COUNT 96 TH/MM3 (150-450); RED BLOOD COUNT 4.05 MIL/MM3 (4.50-5.90); RED CELL DISTRIBUTION WIDTH 17.1 % (11.6-17.2); WHITE BLOOD COUNT 9.8 TH/MM3 (4.0-11.0)
[2017-01-16 10:03] LABS: HEMO FLAGS AUTO DIFF
--- NOTE | 2017-01-16 10:59 | PD.ONC.PN ---
Subjective Subjective Remarks Afebrile overnight. Patient resting in bed in nad. States his leg feels about the same. Wants to know when he can go home. Objective Data Date Time Temp Pulse Resp B/P (MAP) Pulse Ox O2 Delivery O2 Flow Rate FiO2 01/16/17 08:00 97.2 76 20 116/67 (83) 96 01/16/17 04:00 97.8 81 17 148/64 (92) 94 01/16/17 00:00 96.9 88 17 109/67 (81) 96 01/15/17 20:00 96.3 94 17 138/80 (99) 96 01/15/17 16:00 97.0 80 18 129/73 (91) 98 01/15/17 12:00 96.6 85 18 125/81 (96) 98 01/16/17 01/16/17 01/16/17 07:00 15:00 23:00 Output Total 500 ml Balance -500 ml Result Diagram: 01/16/17 0714 01/15/17 0650 Laboratory Results Laboratory Tests Test 01/16/17 07:14 White Blood Count 9.8 TH/MM3 Red Blood Count 4.05 MIL/MM3 Hemoglobin 11.3 GM/DL Hematocrit 34.8 % Mean Corpuscular Volume 86.0 FL Mean Corpuscular Hemoglobin 27.8 PG Mean Corpuscular Hemoglobin Concent 32.3 % Red Cell Distribution Width 17.1 % Platelet Count 96 TH/MM3 Mean Platelet Volume 11.7 FL Neutrophils (%) (Auto) 64.3 % Lymphocytes (%) (Auto) 23.2 % Monocytes (%) (Auto) 11.1 % Eosinophils (%) (Auto) 0.7 % Basophils (%) (Auto) 0.7 % Neutrophils # (Auto) 6.3 TH/MM3 Lymphocytes # (Auto) 2.3 TH/MM3 Monocytes # (Auto) 1.1 TH/MM3 Eosinophils # (Auto) 0.1 TH/MM3 Basophils # (Auto) 0.1 TH/MM3 CBC Comment AUTO DIFF Culture Results Microbiology Date/Time Source Procedure Growth Status 01/15/17 20:45 Stool Stool Stool Occult Blood (TANIYA) - Final HEMOCCULT POSITIVE Complete Administered Medications Medications (Trade) Dose Ordered Sig/Sridhar Route PRN Reason Start Time Stop Time Status Last Admin Dose Admin Sodium Chloride (NS Flush) 2 ml BID IV FLUSH 01/04/17 21:00 01/16/17 08:54 Acetaminophen/ Hydrocodone Bitart ([place] 5-325 Mg) 1 tab Q4H PRN PO PAIN SCALE 3 TO 5 01/04/17 18:00 01/15/17 16:46 Acetaminophen/ Hydrocodone Bitart ([place] 7.5-325 Mg) 1 tab Q4H PRN PO PAIN SCALE 6 TO 10 01/04/17 18:00 01/16/17 08:54 Insulin Aspart (NovoLOG SUPPLEMENTAL SCALE) 1 ACHS SLIDING SCALE SQ 01/04/17 21:00 01/16/17 08:52 Dorzolamide/ Timolol (Cosopt 2-0.5% Opth Soln) 1 drop DAILY EACH EYE 01/05/17 09:00 01/16/17 08:53 Gabapentin (Neurontin) 800 mg TID PO 01/05/17 09:00 01/16/17 08:53 Glyburide (Diabeta) 5 mg DAILY PO 01/05/17 09:00 01/14/17 08:32 Latanoprost (Xalatan 0.005% Opth Soln) 1 drop HS EACH EYE 01/04/17 21:00 01/15/17 22:07 Metoprolol Tartrate (Lopressor) 100 mg BID PO 01/04/17 21:00 01/16/17 08:53 Ferrous Sulfate (Ferrous Sulfate) 325 mg DAILY PO 01/05/17 09:00 01/16/17 08:54 Pravastatin Sodium (Pravachol) 20 mg HS PO 01/04/17 21:00 01/15/17 21:46 Alteplase, Recombinant (Cathflo Activase Inj) 2 mg Q2H PRN INTRACATH flush 01/05/17 09:00 01/09/17 10:48 Apixaban (Eliquis) 10 mg BID PO 01/10/17 04:00 01/17/17 03:59 01/16/17 08:53 Prednisone (Deltasone) 60 mg DAILY PO 01/12/17 19:00 01/16/17 08:53 Pantoprazole Sodium (Protonix) 40 mg DAILY PO 01/12/17 19:00 01/16/17 08:53 Docusate Sodium (Colace) 100 mg BID PO 01/15/17 21:00 01/16/17 08:53 Objective Remarks GENERAL: Middle aged male upright in bed in nad. SKIN: Warm and dry. HEAD: Normocephalic. EYES: No injection or drainage. NECK: Supple, trachea midline. CARDIOVASCULAR: Regular rate and rhythm RESPIRATORY: Breath sounds equal bilaterally. No accessory muscle use. GASTROINTESTINAL: Abdomen soft, non-tender, nondistended. EXTREMITIES: No cyanosis. edema noted, LLE. NEUROLOGICAL: aox3. normal speech. moving all extremities. Assessment/Plan Problem List: (1) Thrombocytopenia ICD Codes: D69.6 - Thrombocytopenia, unspecified Plan: 01/16: continue Eliquis. JACKY +. patient can be discharged on Eliquis 5mg PO BID. Patient will need to follow up with his membership sales representative/oncologist Dr. Doherty next week. 01/10: HIT panel +; . No Heparin. No thrombectomy. Continue Eliquis 10 mg twice a day. Monitor for bleeding. His Gurdbf-y-Twyy is nonfunctioning per radiology report. We will be unable to remove the Haaddj-x-Jfqj until he has been anticoagulated for some time. Monitor CBC. Await JACKY results. --likely d/t consumption from multiple thrombi (2) Deep vein thrombosis (DVT) of left lower extremity ICD Codes: I82.402 - Acute embolism and thrombosis of unspecified deep veins of left lower extremity Status: Acute Plan: -- on Eliquis (3) Deep vein thrombosis (DVT) of left upper extremity ICD Codes: I82.622 - Acute embolism and thrombosis of deep veins of left upper extremity Status: Acute Plan: --on Eliquis -- Started Xarelto one week ago for LLE DVT and then developed L upper arm swelling, found to have an extensive DVT. -- CTA negative for PE (4) Multiple myeloma ICD Codes: C90.00 - Multiple myeloma not having achieved remission Plan: -- Diagnosed approx. 2 years ago; he was treated with oral chemotherapy and is currently in remission -- Under the care of Dr. Doroteo Doherty with [facility] (5) History of Guillain-Clay syndrome ICD Codes: Z86.69 - Personal history of other diseases of the nervous system and sense organs Plan: -- Diagnosed 4 years ago -- Sees neurologist Dr. Harris and reportedly has been getting IVIG every 2 weeks with home health Assessment 61y/o male with LUE DVT, LLE DVT. h/o Multiple myeloma diagnosed 2 years ago. Guillain-Clay Syndrome diagnosed 4 years ago, diabetes mellitus. Peripheral neuropathy from diabetes. Hypertension, hypercholesterolemia, glaucoma. Attending Statement states leg weakness is improving with steroid. No more IVIG ( may have caused DVT) JACKY is positive. d/w with him that he needs to add that he is allergic to heparin and lovenox. continue eliquis 5 mg BID. The exam, history, and the medical decision-making described in the above note were completed with the assistance of the mid-level provider. I reviewed and agree with the findings presented. I attest that I had a [id number] encounter with the patient on the same day, and personally performed and documented my assessment and findings in the medical record. Problem Qualifiers (1) Deep vein thrombosis (DVT) of left lower extremity: Qualified Codes: I82.402 - Acute embolism and thrombosis of unspecified deep veins of left lower extremity (2) Multiple myeloma: Qualified Codes: C90.01 - Multiple myeloma in remission Melissa Anderson Jan 16, 2017 10:59 Kadeem Wilks MD Jan 16, 2017 18:28
[2017-01-16] MEDS: glyBURIDE 5 MG TAB PO SCH (11:13)
[2017-01-16 12:00] VITALS: BP 135/68; PULSE 74; RESP 14; TEMP 96.2; O2SAT 94
[2017-01-16 13:06] LABS: PLATELET MORPHOLOGY ENLARGED (NORMAL); SCAN/DIFF AUTO DIFF CONFIRMED
--- NOTE | 2017-01-16 13:28 | HHI.PR ---
Subjective Remarks Platelets are now 96. Patient feels his strength has improved on steroids but states that he is not returning quickly to his baseline status likely would with IVIG weekly as an outpatient. His monthly IVIG treatment with been scheduled for today and tomorrow as an outpatient. He has no other complaints. His left lower extremity continues to improve. Objective Vital Signs Date Time Temp Pulse Resp B/P (MAP) Pulse Ox O2 Delivery O2 Flow Rate FiO2 01/16/17 08:00 97.2 76 20 116/67 (83) 96 01/16/17 04:00 97.8 81 17 148/64 (92) 94 01/16/17 00:00 96.9 88 17 109/67 (81) 96 01/15/17 20:00 96.3 94 17 138/80 (99) 96 01/15/17 16:00 97.0 80 18 129/73 (91) 98 I/O 01/15/17 01/15/17 01/15/17 01/16/17 01/16/17 01/16/17 07:00 15:00 23:00 07:00 15:00 23:00 Intake Total 840 ml 240 ml Output Total 550 ml 600 ml 300 ml 500 ml 250 ml Balance -550 ml 240 ml -60 ml -500 ml -250 ml Intake Oral 840 ml 240 ml Output Urine Total 550 ml 600 ml 300 ml 500 ml 250 ml # Bowel Movements 1 2 Result Diagram: 01/16/17 0714 01/15/17 0650 Objective Remarks GENERAL: NAD, A&Ox3 HEAD: Normocephalic. NECK: Supple, trachea midline. No lymphadenopathy. EYES: No scleral icterus. No injection or drainage. CARDIOVASCULAR: Regular rate and rhythm without murmurs, gallops, or rubs. RESPIRATORY: Breath sounds equal bilaterally. No accessory muscle use. GASTROINTESTINAL: Abdomen soft, non-tender, nondistended. MUSCULOSKELETAL: No cyanosis. Edema at left lower extremity (improving). SKIN: Warm and dry. NEURO: Bilateral lower extremity weakness A/P Problem List: (1) DVT of axillary vein, acute left ICD Code: I82.A12 - Acute embolism and thrombosis of left axillary vein Status: Acute (2) Failure of outpatient treatment ICD Code: Z78.9 - Other specified health status Status: Acute (3) Deep vein thrombosis (DVT) of left upper extremity ICD Code: I82.622 - Acute embolism and thrombosis of deep veins of left upper extremity Status: Acute (4) Deep vein thrombosis (DVT) of left lower extremity ICD Code: I82.402 - Acute embolism and thrombosis of unspecified deep veins of left lower extremity Status: Acute (5) History of Guillain-[place] syndrome ICD Code: Z86.69 - Personal history of other diseases of the nervous system and sense organs (6) Diabetes mellitus ICD Code: E11.9 - Type 2 diabetes mellitus without complications Status: Acute (7) History of hypertension ICD Code: Z86.79 - Personal history of other diseases of the circulatory system Status: Acute (8) Multiple myeloma ICD Code: C90.00 - Multiple myeloma not having achieved remission Assessment and Plan Assessment and Plan 61-year-old male admitted after treatment failure of left lower extremity DVT with Xarelto. Continue on Eliquis. Slow improvement continues. Continue steroids and monitor for improvement of strength. Strength is not yet improving significantly towards his regular baseline status. At this point he is not ambulatory enough to return to home. 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 Monitor for improvement in weakness. Problem Qualifiers (1) Deep vein thrombosis (DVT) of left lower extremity: Qualified Codes: I82.402 - Acute embolism and thrombosis of unspecified deep veins of left lower extremity (2) Multiple myeloma: Qualified Codes: C90.01 - Multiple myeloma in remission Maged Wilson MD Jan 16, 2017 13:28
[2017-01-16 16:00] VITALS: BP 140/85; PULSE 80; RESP 14; TEMP 96.6; O2SAT 95
[2017-01-16 20:00] VITALS: BP 125/73; PULSE 86; RESP 18; TEMP 97.4; O2SAT 93
[2017-01-16] MEDS: LATANOPROST 0.005% OPHT SOLN 2.5 ML BTL EACH EYE SCH (21:57)
[2017-01-16] MEDS: PRAVASTATIN SOD 20 MG TAB PO SCH (21:58)
[2017-01-17] VITALS: BP 123/69; PULSE 78; RESP 18; TEMP 97.9; O2SAT 94
[2017-01-17 04:00] VITALS: BP 120/52; PULSE 75; RESP 18; TEMP 97.6; O2SAT 94
[2017-01-17 06:52] LABS: AUTOMATED NEUTROPHIL # 5.8 TH/MM3 (1.8-7.7); BASOPHIL # 0.2 TH/MM3 (0-0.2); EOSINOPHIL # 0.1 TH/MM3 (0-0.4); EOSINOPHIL % 1.2 % (0.0-4.0); HEMATOCRIT 35.9 % (39.0-51.0); LYMPH % 28.2 % (9.0-44.0); LYMPHOCYTE # 2.7 TH/MM3 (1.0-4.8); MEAN CELL VOLUME 86.8 FL (80.0-100.0); MEAN CORPUSCULAR HEMOGLOBIN 27.7 PG (27.0-34.0); MONO % 8.4 % (0.0-8.0); NEUT % 60.2 % (16.0-70.0); PLATELET COUNT 95 TH/MM3 (150-450); RED BLOOD COUNT 4.14 MIL/MM3 (4.50-5.90); RED CELL DISTRIBUTION WIDTH 17.2 % (11.6-17.2); WHITE BLOOD COUNT 9.7 TH/MM3 (4.0-11.0)
[2017-01-17 07:02] LABS: HEMO FLAGS AUTO DIFF
[2017-01-17 07:10] LABS: ALT (GPT) 40 U/L (12-78); ANION GAP 7 MEQ/L (5-15); AST (GOT) 23 U/L (15-37); BICARBONATE 29.5 MEQ/L (21.0-32.0); BLOOD UREA NITROGEN 9 MG/DL (7-18); CHLORIDE 104 MEQ/L (98-107); GLOMERULAR FILTRATION RATE 130 ML/MIN (>89); POTASSIUM 3.4 MEQ/L (3.5-5.1); SODIUM (NA) 140 MEQ/L (136-145)
[2017-01-17 07:12] LABS: ALKALINE PHOSPHATASE 76 U/L (45-117); TOTAL BILIRUBIN ADULT 0.3 MG/DL (0.2-1.0)
[2017-01-17 08:00] VITALS: BP 140/79; PULSE 79; RESP 20; TEMP 97.7; O2SAT 95
[2017-01-17] MEDS: INSULIN ASPART SUPPLEMENTAL SCALE SQ SCH ×4 (08:00→20:13)
[2017-01-17 08:13] LABS: PLATELET ESTIMATE SMEAR LOW (NORMAL); PLATELET MORPHOLOGY HYPOGRAN (NORMAL); SCAN/DIFF AUTO DIFF CONFIRMED
[2017-01-17] MEDS ORDERED: POTASSIUM CHLORIDE 10 MEQ CONTROLLED RELEASE TAB PO ONE (08:30)
[2017-01-17] MEDS: FERROUS SULFATE 325 MG (65 MG ELEMENTAL IRON) TAB PO SCH (08:47)
[2017-01-17] MEDS: GABAPENTIN 400 MG CAP PO SCH ×3 (08:47→17:55)
[2017-01-17] MEDS: SODIUM CHLORIDE 0.9% FLUSH 10 ML FLUSH IV FLUSH SCH ×2 (08:47→20:14)
[2017-01-17] MEDS: DORZOLAMIDE/TIMOLOL OPTH SOLN 10 ML BTL EACH EYE SCH (08:47)
[2017-01-17] MEDS: PANTOPRAZOLE SOD 40 MG DELAYED RELEASE TAB PO SCH (08:47)
[2017-01-17] MEDS: predniSONE 20 MG TAB PO SCH (08:47)
[2017-01-17] MEDS: DOCUSATE SODIUM 100 MG CAP PO SCH ×2 (08:47→20:12)
[2017-01-17] MEDS: METOPROLOL TARTRATE 100 MG TAB PO SCH ×2 (08:47→20:12)
[2017-01-17] MEDS: APIXABAN 5 MG TABLET PO SCH ×2 (08:48→20:12)
[2017-01-17] MEDS: glyBURIDE 5 MG TAB PO SCH ×2 (08:48→12:30)
[2017-01-17] MEDS: ACETAMINOPHEN/HYDROcodone 325 MG/7.5 MG TAB PO PRN ×2 (08:48→17:55)
--- NOTE | 2017-01-17 09:52 | PD.ONC.PN ---
Subjective Subjective Remarks Afebrile overnight. Patient resting in bed in nad. Anxious to know whether or not he will be able to receive IVIG once discharged. we discussed that he will need to f/u with his neurologist outpatient. Objective Data Date Time Temp Pulse Resp B/P (MAP) Pulse Ox O2 Delivery O2 Flow Rate FiO2 01/17/17 04:00 97.6 75 18 120/52 (74) 94 01/17/17 00:00 97.9 78 18 123/69 (87) 94 01/16/17 20:00 97.4 86 18 125/73 (90) 93 01/16/17 16:00 96.6 80 14 140/85 (103) 95 01/16/17 12:00 96.2 74 14 135/68 (90) 94 01/17/17 01/17/17 01/17/17 07:00 15:00 23:00 Output Total 200 ml Balance -200 ml Result Diagram: 01/17/17 0530 01/17/17 0530 Laboratory Results Laboratory Tests Test 01/17/17 05:30 White Blood Count 9.7 TH/MM3 Red Blood Count 4.14 MIL/MM3 Hemoglobin 11.5 GM/DL Hematocrit 35.9 % Mean Corpuscular Volume 86.8 FL Mean Corpuscular Hemoglobin 27.7 PG Mean Corpuscular Hemoglobin Concent 32.0 % Red Cell Distribution Width 17.2 % Platelet Count 95 TH/MM3 Mean Platelet Volume 10.9 FL Neutrophils (%) (Auto) 60.2 % Lymphocytes (%) (Auto) 28.2 % Monocytes (%) (Auto) 8.4 % Eosinophils (%) (Auto) 1.2 % Basophils (%) (Auto) 2.0 % Neutrophils # (Auto) 5.8 TH/MM3 Lymphocytes # (Auto) 2.7 TH/MM3 Monocytes # (Auto) 0.8 TH/MM3 Eosinophils # (Auto) 0.1 TH/MM3 Basophils # (Auto) 0.2 TH/MM3 CBC Comment AUTO DIFF Differential Comment AUTO DIFF CONFIRMED Platelet Estimate LOW Platelet Morphology Comment HYPOGRAN Blood Urea Nitrogen 9 MG/DL Creatinine 0.74 MG/DL Random Glucose 78 MG/DL Total Protein 8.6 GM/DL Albumin 2.7 GM/DL Calcium Level 9.0 MG/DL Alkaline Phosphatase 76 U/L Aspartate Amino Transf (AST/SGOT) 23 U/L Alanine Aminotransferase (ALT/SGPT) 40 U/L Total Bilirubin 0.3 MG/DL Sodium Level 140 MEQ/L Potassium Level 3.4 MEQ/L Chloride Level 104 MEQ/L Carbon Dioxide Level 29.5 MEQ/L Anion Gap 7 MEQ/L Estimat Glomerular Filtration Rate 130 ML/MIN Culture Results Microbiology Date/Time Source Procedure Growth Status 01/15/17 20:45 Stool Stool Stool Occult Blood (TANIYA) - Final HEMOCCULT POSITIVE Complete Administered Medications Medications (Trade) Dose Ordered Sig/Sridhar Route PRN Reason Start Time Stop Time Status Last Admin Dose Admin Sodium Chloride (NS Flush) 2 ml BID IV FLUSH 01/04/17 21:00 01/17/17 08:47 Acetaminophen/ Hydrocodone Bitart ([place] 5-325 Mg) 1 tab Q4H PRN PO PAIN SCALE 3 TO 5 01/04/17 18:00 01/15/17 16:46 Acetaminophen/ Hydrocodone Bitart ([place] 7.5-325 Mg) 1 tab Q4H PRN PO PAIN SCALE 6 TO 10 01/04/17 18:00 01/17/17 08:48 Insulin Aspart (NovoLOG SUPPLEMENTAL SCALE) 1 ACHS SLIDING SCALE SQ 01/04/17 21:00 01/16/17 21:56 Dorzolamide/ Timolol (Cosopt 2-0.5% Opth Soln) 1 drop DAILY EACH EYE 01/05/17 09:00 01/17/17 08:47 Gabapentin (Neurontin) 800 mg TID PO 01/05/17 09:00 01/17/17 08:47 Glyburide (Diabeta) 5 mg DAILY PO 01/05/17 09:00 01/16/17 11:13 Latanoprost (Xalatan 0.005% Opth Soln) 1 drop HS EACH EYE 01/04/17 21:00 01/16/17 21:57 Metoprolol Tartrate (Lopressor) 100 mg BID PO 01/04/17 21:00 01/17/17 08:47 Ferrous Sulfate (Ferrous Sulfate) 325 mg DAILY PO 01/05/17 09:00 01/17/17 08:47 Pravastatin Sodium (Pravachol) 20 mg HS PO 01/04/17 21:00 01/16/17 21:58 Alteplase, Recombinant (Cathflo Activase Inj) 2 mg Q2H PRN INTRACATH flush 01/05/17 09:00 01/09/17 10:48 Prednisone (Deltasone) 60 mg DAILY PO 01/12/17 19:00 01/17/17 08:47 Pantoprazole Sodium (Protonix) 40 mg DAILY PO 01/12/17 19:00 01/17/17 08:47 Apixaban (Eliquis) 5 mg BID PO 01/17/17 09:00 01/17/17 08:48 Docusate Sodium (Colace) 100 mg BID PO 01/15/17 21:00 01/17/17 08:47 Objective Remarks GENERAL: Middle aged male sitting up in bed in [facility]. SKIN: Warm and dry. HEAD: Normocephalic. EYES: No injection or drainage. NECK: Supple, trachea midline. CARDIOVASCULAR: Regular rate and rhythm RESPIRATORY: Breath sounds equal bilaterally. No accessory muscle use. GASTROINTESTINAL: Abdomen soft, non-tender, nondistended. EXTREMITIES: No cyanosis. left leg with edema. NEUROLOGICAL: awake and alert, normal speech. moving all extremities. Assessment/Plan Problem List: (1) Thrombocytopenia ICD Codes: D69.6 - Thrombocytopenia, unspecified Plan: 01/17: continue Eliquis. discussed with patient that he needs to call and make an appointment with his loaf counter/oncologist Dr. Doherty once discharged for follow up regarding his new DVT and new treatment with Eliquis. He expressed understanding/agreement with plan. 01/10: HIT panel +; . No Heparin. No thrombectomy. Continue Eliquis 10 mg twice a day. Monitor for bleeding. His Mrkdzv-a-Sdav is nonfunctioning per radiology report. We will be unable to remove the Xbbzya-[id number] until he has been anticoagulated for some time. Monitor CBC. Await JACKY results. --likely d/t consumption from multiple thrombi (2) Deep vein thrombosis (DVT) of left lower extremity ICD Codes: I82.402 - Acute embolism and thrombosis of unspecified deep veins of left lower extremity Status: Acute Plan: -- on Eliquis (3) Deep vein thrombosis (DVT) of left upper extremity ICD Codes: I82.622 - Acute embolism and thrombosis of deep veins of left upper extremity Status: Acute Plan: --on Eliquis -- Started Xarelto one week ago for LLE DVT and then developed L upper arm swelling, found to have an extensive DVT. -- CTA negative for PE (4) Multiple myeloma ICD Codes: C90.00 - Multiple myeloma not having achieved remission Plan: -- Diagnosed approx. 2 years ago; he was treated with oral chemotherapy and is currently in remission -- Under the care of Dr. Doroteo Doherty with [place] [facility] (5) History of Guillain-[place] syndrome ICD Codes: Z86.69 - Personal history of other diseases of the nervous system and sense organs Plan: -- Diagnosed 4 years ago -- Sees neurologist Dr. Harris and reportedly has been getting IVIG every 2 weeks with home health Assessment 61y/o male with LUE DVT, LLE DVT. h/o Multiple myeloma diagnosed 2 years ago. Guillain-Covington Syndrome diagnosed 4 years ago, diabetes mellitus. Peripheral neuropathy from diabetes. Hypertension, hypercholesterolemia, glaucoma. Attending Statement no new c/o Plat are low but sable Continue Eliquis. Problem Qualifiers (1) Deep vein thrombosis (DVT) of left lower extremity: Qualified Codes: I82.402 - Acute embolism and thrombosis of unspecified deep veins of left lower extremity (2) Multiple myeloma: Qualified Codes: C90.01 - Multiple myeloma in remission Melissa Anderson Jan 17, 2017 09:52 Kadeem Wilks MD Jan 17, 2017 20:26
[2017-01-17 12:57] VITALS: BP 141/75; PULSE 75; RESP 19; TEMP 98.2; O2SAT 95
[2017-01-17 16:00] VITALS: BP 148/78; PULSE 61; RESP 20; TEMP 98; O2SAT 95
--- NOTE | 2017-01-17 16:49 | HHI.PR ---
Subjective Remarks Continued weakness. Patient needs significant discharge. Plan to [facility] to [facility]. No new complaints today. Objective Vital Signs Date Time Temp Pulse Resp B/P (MAP) Pulse Ox O2 Delivery O2 Flow Rate FiO2 01/17/17 12:57 98.2 75 19 141/75 (97) 95 01/17/17 08:00 97.7 79 20 140/79 (99) 95 01/17/17 04:00 97.6 75 18 120/52 (74) 94 01/17/17 00:00 97.9 78 18 123/69 (87) 94 01/16/17 20:00 97.4 86 18 125/73 (90) 93 I/O 01/16/17 01/16/17 01/16/17 01/17/17 01/17/17 01/17/17 07:00 15:00 23:00 07:00 15:00 23:00 Intake Total 902 ml Output Total 500 ml 250 ml 200 ml Balance -500 ml -250 ml 902 ml -200 ml Intake Oral 902 ml Output Urine Total 500 ml 250 ml 200 ml # Voids 5 # Bowel Movements 2 Result Diagram: 01/17/17 0530 01/17/17 0530 Objective Remarks GENERAL: NAD, A&Ox3 HEAD: Normocephalic. NECK: Supple, trachea midline. No lymphadenopathy. EYES: No scleral icterus. No injection or drainage. CARDIOVASCULAR: Regular rate and rhythm without murmurs, gallops, or rubs. RESPIRATORY: Breath sounds equal bilaterally. No accessory muscle use. GASTROINTESTINAL: Abdomen soft, non-tender, nondistended. MUSCULOSKELETAL: No cyanosis. Edema at left lower extremity (improving). SKIN: Warm and dry. NEURO: Bilateral lower extremity weakness A/P Problem List: (1) DVT of axillary vein, acute left ICD Code: I82.A12 - Acute embolism and thrombosis of left axillary vein Status: Acute (2) Failure of outpatient treatment ICD Code: Z78.9 - Other specified health status Status: Acute (3) Deep vein thrombosis (DVT) of left upper extremity ICD Code: I82.622 - Acute embolism and thrombosis of deep veins of left upper extremity Status: Acute (4) Deep vein thrombosis (DVT) of left lower extremity ICD Code: I82.402 - Acute embolism and thrombosis of unspecified deep veins of left lower extremity Status: Acute (5) History of Guillain-Arnett syndrome ICD Code: Z86.69 - Personal history of other diseases of the nervous system and sense organs (6) Diabetes mellitus ICD Code: E11.9 - Type 2 diabetes mellitus without complications Status: Acute (7) History of hypertension ICD Code: Z86.79 - Personal history of other diseases of the circulatory system Status: Acute (8) Multiple myeloma ICD Code: C90.00 - Multiple myeloma not having achieved remission Assessment and Plan Assessment and Plan 61-year-old male admitted after treatment failure of left lower extremity DVT with Xarelto. Continue on Eliquis. Slow improvement continues. Continue steroids and monitor for improvement of strength. Strength is not yet improving significantly towards his regular baseline status. At this point he is not ambulatory enough to return to home. Plan to discharge patient to [facility]. Labs reviewed today. CBC and CMP ordered for the morning. 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 Monitor for improvement in weakness. Problem Qualifiers (1) Deep vein thrombosis (DVT) of left lower extremity: Qualified Codes: I82.402 - Acute embolism and thrombosis of unspecified deep veins of left lower extremity (2) Multiple myeloma: Qualified Codes: C90.01 - Multiple myeloma in remission Maged Wilson MD Jan 17, 2017 16:49
--- NOTE | 2017-01-17 18:34 | PD.CONS ---
[facility] Service Rehabilitation Medicine Consult Requested By Dr. Wilson Reason for Consult Comprehensive rehabilitation evaluation. Primary Care Physician Unknown History of Present Illness Hazel Kramer is a 61 year old right handed male admitted to [facility] with left UE DVT. 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 Patient has history of CIDP/GBS and prior to admission has been receiving IVIG q 2 weeks. He receives this at home through home health. Review of Systems Constitutional: DENIES: Fatigue Eyes: DENIES: Diplopia Ears, nose, mouth, throat: DENIES: Throat pain Respiratory: COMPLAINS OF: Shortness of breath (with exertion), DENIES: Cough Cardiovascular: DENIES: Chest pain Gastrointestinal: DENIES: Abdominal pain, Constipation Genitourinary: DENIES: Urinary incontinence Integumentary: DENIES: Rash Hematologic/lymphatic: DENIES: Bruising Immunologic/allergic: DENIES: Urticaria Neurologic: COMPLAINS OF: Abnormal gait, Paresthesias, Poor Balance, DENIES: Headache, Speech Problems Psychiatric: DENIES: Confusion Past Family Social History Allergies: Coded Allergies: lisinopril (Unverified Allergy, Severe, angioedema, 01/04/17) losartan (Unverified Allergy, Severe, angioedema, 01/04/17) heparin (Verified Allergy, Unknown, 01/10/17) Past Medical History Multiple myeloma 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 Hypertension Hyperlipidemia Glaucoma Past Surgical History Right chest port placement Current Medications Current Medications Medications (Trade) Dose Ordered Sig/Sridhar Route Start Time Stop Time Status Last Admin (NS Flush) 2 ml UNSCH PRN IVF 01/04/17 13:30 (NS Flush) 2 ml UNSCH PRN IV FLUSH 01/04/17 18:00 (NS Flush) 2 ml BID IV FLUSH 01/04/17 21:00 01/17/17 08:47 (Tylenol) 650 mg Q4H PRN PO 01/04/17 18:00 (Zofran Inj) 4 mg Q6H PRN IVP 01/04/17 18:00 (Tylenol) 650 mg Q6H PRN PO 01/04/17 18:00 ([place]omkest 5-325 Mg) 1 tab Q4H PRN PO 01/04/17 18:00 01/15/17 16:46 ([place]omkest 7.5-325 Mg) 1 tab Q4H PRN PO 01/04/17 18:00 01/17/17 17:55 (Narcan Inj) 0.4 mg UNSCH PRN IV 01/04/17 18:00 (Milk Of Magnesia Liq) 30 ml Q12H PRN PO 01/04/17 18:00 (D50w (Vial) Inj) 50 ml UNSCH PRN IV 01/04/17 18:00 (Glucagon Inj) 1 mg UNSCH PRN OTHER 01/04/17 18:00 (NovoLOG SUPPLEMENTAL SCALE) 1 ACHS SLIDING SCALE SQ 01/04/17 21:00 01/17/17 12:30 (Duoneb Neb) 1 ampule Q2HR NEB PRN NEB 01/04/17 18:00 (Cosopt 2-0.5% Opth Soln) 1 drop DAILY EACH EYE 01/05/17 09:00 01/17/17 08:47 (Neurontin) 800 mg TID PO 01/05/17 09:00 01/17/17 17:55 (Diabeta) 5 mg DAILY PO 01/05/17 09:00 01/17/17 12:30 (Xalatan 0.005% Opth Soln) 1 drop HS EACH EYE 01/04/17 21:00 01/16/17 21:57 (Lopressor) 100 mg BID PO 01/04/17 21:00 01/17/17 08:47 (Ferrous Sulfate) 325 mg DAILY PO 01/05/17 09:00 01/17/17 08:47 (Pravachol) 20 mg HS PO 01/04/17 21:00 01/16/17 21:58 (Cathflo Activase Inj) 2 mg Q2H PRN INTRACATH 01/05/17 09:00 01/09/17 10:48 (Deltasone) 60 mg DAILY PO 01/12/17 19:00 01/17/17 08:47 (Protonix) 40 mg DAILY PO 01/12/17 19:00 01/17/17 08:47 (Eliquis) 5 mg BID PO 01/17/17 09:00 01/17/17 08:48 (Colace) 100 mg BID PO 01/15/17 21:00 01/17/17 08:47 Family History Mother: , COPD Social History Prior to admission patient lived with his significant other. He reports he was ambulate without an assistive device household and limited community distances. He reports he was independent with all ADLs. One pack per day tobacco. 2 beers per day Exam I&O / VS 01/17/17 01/17/17 01/18/17 15:00 23:00 07:00 Intake Total 480 ml Output Total 850 ml Balance -370 ml Intake Oral 480 ml Output Urine Total 850 ml # Bowel Movements 1 Vital Signs Date Time Temp Pulse Resp B/P (MAP) Pulse Ox O2 Delivery O2 Flow Rate FiO2 01/17/17 16:00 98.0 61 20 148/78 (101) 95 01/17/17 12:57 98.2 75 19 141/75 (97) 95 01/17/17 08:00 97.7 79 20 140/79 (99) 95 01/17/17 04:00 97.6 75 18 120/52 (74) 94 01/17/17 00:00 97.9 78 18 123/69 (87) 94 01/16/17 20:00 97.4 86 18 125/73 (90) 93 General: No acute distress, Other (patient awake and alert.) Respiratory: Lungs CTA, Non-labored respirations, BS equal Gastrointestinal: Positive Bowel Sounds, Non-Distended, Non-Tender Cardiovascular: Normal rate, Regular Rhythm Skin: Other (no rash noted) Musculoskeletal: Swelling (trace in the lower extremities bilaterally) Psychiatric: Cooperative, Appropriate mood & affect Orientation: oriented to Self, oriented to Place, oriented to Time, oriented to Situation Neurologic: Cranial Nerves (intact 2 through 12), Speech (intelligible) Motor: Right Upper Extremity (5/5), Left Upper Extremity (5/5), Right Lower Extremity (hip flexion 4/5; knee extension 4/5; ankle dorsiflexion 4+/5; ankle plantar flexion 4 minus/5), Left Lower Extremity (hip flexion 4/5; knee extension 4/5; ankle dorsiflexion 4+/5; ankle plantar flexion 4 minus/5) Spasticity None noted Sensory Decreased but present distal to the mid calf level bilaterally DTRs: Normal (decreased at the ankles bilaterally) Clonus: Negative Balance: Sitting (sitting balance is fair edge of bed) Assessment and Plan Diagnosis: (1) Impaired mobility and activities of daily living ICD Codes: Z74.09 - Other reduced mobility (2) CIDP (chronic inflammatory demyelinating polyneuropathy) ICD Codes: G61.81 - Chronic inflammatory demyelinating polyneuritis Plan 1. Patient progressing with PT and now mod assist of 2 for transfers and gait 4 feet with rolling walker. Continue to mobilize 2. OT addressing ADL's and max assist for LE dressing 3. Patient will benefit from ongoing inpatient rehabilitation and case management has referred. Will need clarification on plan for port and IVIG. 4. Close supervision for fall 5. Will follow while hospitalized and at discharge Thank you for this consult. Marlin Lilly MD Jan 17, 2017 18:34
[2017-01-17 20:00] VITALS: BP 128/60; PULSE 77; RESP 20; TEMP 98; O2SAT 95
[2017-01-17] MEDS: PRAVASTATIN SOD 20 MG TAB PO SCH (20:13)
[2017-01-17] MEDS: LATANOPROST 0.005% OPHT SOLN 2.5 ML BTL EACH EYE SCH (20:14)
[2017-01-18] MEDS: ACETAMINOPHEN/HYDROcodone 325 MG/7.5 MG TAB PO PRN ×2 (00:24→09:38)
[2017-01-18 00:32] VITALS: BP 123/68; PULSE 66; RESP 18; TEMP 98; O2SAT 96
[2017-01-18 04:00] VITALS: BP 119/58; PULSE 66; RESP 18; TEMP 97.2; O2SAT 96
[2017-01-18 06:49] LABS: AUTOMATED NEUTROPHIL # 5.7 TH/MM3 (1.8-7.7); BASOPHIL # 0.1 TH/MM3 (0-0.2); BASOPHIL % 0.6 % (0.0-2.0); EOSINOPHIL # 0.1 TH/MM3 (0-0.4); EOSINOPHIL % 1.3 % (0.0-4.0); HEMATOCRIT 35.3 % (39.0-51.0); LYMPH % 27.5 % (9.0-44.0); LYMPHOCYTE # 2.5 TH/MM3 (1.0-4.8); MEAN CELL VOLUME 86.5 FL (80.0-100.0); MEAN CORPUSCULAR HEMOGLOBIN 27.9 PG (27.0-34.0); MEAN CORPUSCULAR HGB CONC 32.3 % (32.0-36.0); MONO % 8.8 % (0.0-8.0); NEUT % 61.8 % (16.0-70.0); PLATELET COUNT 97 TH/MM3 (150-450); RED BLOOD COUNT 4.09 MIL/MM3 (4.50-5.90); RED CELL DISTRIBUTION WIDTH 17.2 % (11.6-17.2); WHITE BLOOD COUNT 9.2 TH/MM3 (4.0-11.0)
[2017-01-18 06:57] LABS: HEMO FLAGS AUTO DIFF
[2017-01-18 07:12] LABS: BICARBONATE 29.7 MEQ/L (21.0-32.0); POTASSIUM 3.5 MEQ/L (3.5-5.1)
[2017-01-18] MEDS: INSULIN ASPART SUPPLEMENTAL SCALE SQ SCH ×2 (08:00→12:00)
[2017-01-18 08:10] LABS: PLATELET ESTIMATE SMEAR LOW (NORMAL)
[2017-01-18 08:11] LABS: PLATELET MORPHOLOGY HYPOGRAN (NORMAL); SCAN/DIFF AUTO DIFF CONFIRMED
[2017-01-18 08:41] VITALS: BP 128/68; PULSE 79; RESP 2; TEMP 96.6; O2SAT 95
[2017-01-18] MEDS: DOCUSATE SODIUM 100 MG CAP PO SCH (09:30)
[2017-01-18] MEDS: APIXABAN 5 MG TABLET PO SCH (09:30)
[2017-01-18] MEDS: glyBURIDE 5 MG TAB PO SCH (09:30)
[2017-01-18] MEDS: FERROUS SULFATE 325 MG (65 MG ELEMENTAL IRON) TAB PO SCH (09:30)
[2017-01-18] MEDS: GABAPENTIN 400 MG CAP PO SCH ×2 (09:30→12:16)
[2017-01-18] MEDS: DORZOLAMIDE/TIMOLOL OPTH SOLN 10 ML BTL EACH EYE SCH (09:30)
[2017-01-18] MEDS: PANTOPRAZOLE SOD 40 MG DELAYED RELEASE TAB PO SCH (09:30)
[2017-01-18] MEDS: predniSONE 20 MG TAB PO SCH (09:30)
[2017-01-18] MEDS: METOPROLOL TARTRATE 100 MG TAB PO SCH (09:31)
[2017-01-18] MEDS: SODIUM CHLORIDE 0.9% FLUSH 10 ML FLUSH IV FLUSH SCH (09:34)
[2017-01-18] MEDS ORDERED: PRED20 PO (09:46)
[2017-01-18] MEDS ORDERED: PRED5TAB PO (09:46)
[2017-01-18] MEDS ORDERED: DOCU1CAP39 PO (09:46)
[2017-01-18] MEDS ORDERED: APIX5TAB PO (09:46)
[2017-01-18] MEDS ORDERED: MAGN400S PO (09:46)
[2017-01-18] MEDS ORDERED: HYDR-3580 PO (09:46)
--- NOTE | 2017-01-18 09:53 | HHI.DS ---
Discharge Summary Admission Date Jan 04, 2017 at 17:20 Discharge Date: Jan 18, 2017 Admitting Diagnosis DVT Failure to Xervictor Outpatient (1) Deep vein thrombosis (DVT) of left upper extremity ICD Code: I82.622 - Acute embolism and thrombosis of deep veins of left upper extremity Diagnosis: Principal Status: Acute (2) Failure of outpatient treatment ICD Code: Z78.9 - Other specified health status Diagnosis: Principal Status: Acute (3) History of Guillain-[place] syndrome ICD Code: Z86.69 - Personal history of other diseases of the nervous system and sense organs Diagnosis: Principal (4) History of hypertension ICD Code: Z86.79 - Personal history of other diseases of the circulatory system Diagnosis: Secondary Status: Acute (5) Diabetes mellitus ICD Code: E11.9 - Type 2 diabetes mellitus without complications Diagnosis: Secondary Status: Acute Procedures None Brief History - From Admission 61 year-old -[place] male with a history of GBS on IVIG every 2 weeks, recent DVT left lower extremity and prescribed Xarelto 12/25/16 presents to the ED for evaluation of acute onset of shortness of breath as well as a sensation of increased swelling in his anterior left chest however without any chest pain. Patient also described significant weakness in his right lower extremity over the past 48 hours. States, he has been unable to lift his right leg like he usually does. According to patient this is due to the fact that he hasn't received on time his treatment of GBS. He denies any upper extremity weakness or pain. UPPER EXTREMITY POSITIVE FOR EXTENSIVE DVT. HE CURRENTLY DENIES ANY GI BLEED. CBC/BMP: 01/18/17 0546 01/18/17 0546 Significant Findings Laboratory Tests Test 01/16/17 07:14 01/17/17 05:30 01/18/17 05:46 Red Blood Count 4.05 MIL/MM3 (4.50-5.90) 4.14 MIL/MM3 (4.50-5.90) 4.09 MIL/MM3 (4.50-5.90) Hemoglobin 11.3 GM/DL (13.0-17.0) 11.5 GM/DL (13.0-17.0) 11.4 GM/DL (13.0-17.0) Hematocrit 34.8 % (39.0-51.0) 35.9 % (39.0-51.0) 35.3 % (39.0-51.0) Platelet Count 96 TH/MM3 (150-450) 95 TH/MM3 (150-450) 97 TH/MM3 (150-450) Mean Platelet Volume 11.7 FL (7.0-11.0) Monocytes (%) (Auto) 11.1 % (0.0-8.0) 8.4 % (0.0-8.0) 8.8 % (0.0-8.0) Monocytes # (Auto) 1.1 TH/MM3 (0-0.9) Platelet Morphology Comment ENLARGED (NORMAL) HYPOGRAN (NORMAL) HYPOGRAN (NORMAL) Platelet Estimate LOW (NORMAL) LOW (NORMAL) Total Protein 8.6 GM/DL (6.4-8.2) Albumin 2.7 GM/DL (3.4-5.0) Potassium Level 3.4 MEQ/L (3.5-5.1) Anion Gap 4 MEQ/L (5-15) PE at Discharge GENERAL: NAD SKIN: Warm and dry. HEAD: Normocephalic. EYES: No scleral icterus. No injection or drainage. NECK: Supple, trachea midline. No JVD or lymphadenopathy. CARDIOVASCULAR: Regular rate and rhythm without murmurs, gallops, or rubs. RESPIRATORY: Breath sounds equal bilaterally. No accessory muscle use. GASTROINTESTINAL: Abdomen soft, non-tender, nondistended. MUSCULOSKELETAL: No cyanosis, or edema. BACK: Nontender without obvious deformity. No CVA tenderness. Hospital Course Mr. Kramer is a 61-year-old male. He was admitted secondary to left lower extremity DVT. Creatinine was for known left lower extremity DVT with worsening despite use of Xarelto, so represented outpatient treatment failure. He was initially treated with heparin and had improvement, but heparin-induced a thrombocytopenia and had to be stopped immediately. He was transitioned to by mouth Eliquis. He is done well with this with gradual improvement in his left lower extremity swelling. In the meantime his Guillain-Rm symptoms ( chronic) have worsened. Currently he's not been ambulating at baseline and physical therapy is ongoing. As an outpatient he has IVIG twice a month for treatment, this treatment has been deferred for now due to increased clot risk. He is stable from transition to an inpatient rehabilitation facility, to work on functionality to make him safe for discharge to home. Medically clear for discharge today. Pt Condition on Discharge: Stable Discharge Disposition: Rehab Inpatient Discharge Time: > 30 minutes Discharge Instructions DIET: Follow Instructions for: As Tolerated, No Restrictions Activities you can perform: Regular-No Restrictions Follow up Referrals: Neurology - 1 Week Oncology - 1 Week with [facility] PCP Follow-up - 1 Week New Medications: Prednisone (Prednisone) 5 Mg Tab 5 MG PO DAILY for Inflammation, #4 TAB 0 Refills Start this the day AFTER high dose steroids completed, and use for 4 days. Apixaban (Eliquis) 5 Mg Tab 5 MG PO BID for Blood Clot Prevention, #60 TAB Docusate Sodium (Dok) 100 Mg Cap 100 MG PO BID for Constipation, #60 CAP Hydrocodone-Acetaminophen (Hydrocodone-Acetaminophen) 7.5-325 mg Tab 1 TAB PO Q4H PRN for Pain, #30 TAB Magnesium Hydroxide (Eq Milk of Magnesia) 400 Mg/5 Ml Kimi 30 ML PO Q12H PRN for MILD - MODERATE CONSTIPATION, #100 ML Prednisone (Prednisone) 20 Mg Tab 60 MG PO DAILY for Inflammation, #30 TAB Transition to Taper (5mg dosings) AFTER this treatment finishes. Continued Medications: Albuterol 8.5 GM Inh (Proair Hfa 8.5 GM Inh) 90 Mcg/Act Aer 2 PUFF INH DAILY PRN for SHORTNESS OF BREATH, #1 INHALER 0 Refills 108 mcg/actuation Dorzolamide-Timolol Pf Opth Drops (Cosopt Pf Opth Drops) 22.3-6.8 mg/ml Soln 1 DROP EACH EYE DAILY for Glaucoma, #1 BOTTLE 0 Refills Ferrous Gluconate (Ferrous Gluconate) 325 Mg Tab 325 MG PO DAILY for Nutritional Supplement, #30 TAB 0 Refills Gabapentin (Gabapentin) 800 Mg Tab 800 MG PO TID for neuropathy, #90 TAB 0 Refills Glyburide (Glyburide) 5 Mg Tab 5 MG PO DAILY for Blood Sugar Management, #30 TAB 0 Refills Take with meals at the same time each day Latanoprost Opth Drops (Latanoprost Opth Drops) 0.005% Drops 1 DROP EACH EYE HS for Glaucoma, #2.5 ML 0 Refills Refrigerate until opened. Metoprolol Tartrate (Metoprolol Tartrate) 100 Mg Tab 50 MG PO BID for Blood Pressure Management, #30 TAB 0 Refills Simvastatin (Simvastatin) 10 Mg Tab 10 MG PO HS for Cholesterol Management, #30 TAB 0 Refills Discontinued Medications: Hydrocodone-Acetaminophen (Cedar) 5-325 mg Tab 1 TAB PO Q6H PRN for PAIN, #21 TAB 0 Refills Rivaroxaban (Xarelto) 15 Mg Tab 15 MG PO Q12HR for Blood Clot Prevention, #42 TAB 0 Refills Rivaroxaban (Xarelto) 20 Mg Tab 20 MG PO DAILY for Blood Clot Prevention, #30 TAB 0 Refills Maged Wilson MD Jan 18, 2017 09:53
--- NOTE | 2017-01-18 10:00 | PD.ONC.PN ---
Subjective Subjective Remarks Afebrile overnight. Patient resting in bed in nad. No complaints. Objective Data Date Time Temp Pulse Resp B/P (MAP) Pulse Ox O2 Delivery O2 Flow Rate FiO2 01/18/17 08:41 96.6 79 2 128/68 (88) 95 01/18/17 04:00 97.2 66 18 119/58 (78) 96 01/18/17 00:32 98.0 66 18 123/68 (86) 96 01/17/17 20:00 98.0 77 20 128/60 (82) 95 01/17/17 16:00 98.0 61 20 148/78 (101) 95 01/17/17 12:57 98.2 75 19 141/75 (97) 95 01/18/17 01/18/17 01/18/17 07:00 15:00 23:00 Output Total 200 ml Balance -200 ml Result Diagram: 01/18/17 0546 01/18/17 0546 Laboratory Results Laboratory Tests Test 01/18/17 05:46 White Blood Count 9.2 TH/MM3 Red Blood Count 4.09 MIL/MM3 Hemoglobin 11.4 GM/DL Hematocrit 35.3 % Mean Corpuscular Volume 86.5 FL Mean Corpuscular Hemoglobin 27.9 PG Mean Corpuscular Hemoglobin Concent 32.3 % Red Cell Distribution Width 17.2 % Platelet Count 97 TH/MM3 Mean Platelet Volume 10.0 FL Neutrophils (%) (Auto) 61.8 % Lymphocytes (%) (Auto) 27.5 % Monocytes (%) (Auto) 8.8 % Eosinophils (%) (Auto) 1.3 % Basophils (%) (Auto) 0.6 % Neutrophils # (Auto) 5.7 TH/MM3 Lymphocytes # (Auto) 2.5 TH/MM3 Monocytes # (Auto) 0.8 TH/MM3 Eosinophils # (Auto) 0.1 TH/MM3 Basophils # (Auto) 0.1 TH/MM3 CBC Comment AUTO DIFF Differential Comment AUTO DIFF CONFIRMED Platelet Estimate LOW Platelet Morphology Comment HYPOGRAN Blood Urea Nitrogen 11 MG/DL Creatinine 0.75 MG/DL Random Glucose 87 MG/DL Calcium Level 9.0 MG/DL Sodium Level 139 MEQ/L Potassium Level 3.5 MEQ/L Chloride Level 105 MEQ/L Carbon Dioxide Level 29.7 MEQ/L Anion Gap 4 MEQ/L Estimat Glomerular Filtration Rate 128 ML/MIN Culture Results Microbiology Date/Time Source Procedure Growth Status 01/15/17 20:45 Stool Stool Stool Occult Blood (TANIYA) - Final HEMOCCULT POSITIVE Complete Administered Medications Medications (Trade) Dose Ordered Sig/Sridhar Route PRN Reason Start Time Stop Time Status Last Admin Dose Admin Sodium Chloride (NS Flush) 2 ml BID IV FLUSH 01/04/17 21:00 01/18/17 09:34 Acetaminophen/ Hydrocodone Bitart ([place] 5-325 Mg) 1 tab Q4H PRN PO PAIN SCALE 3 TO 5 01/04/17 18:00 01/15/17 16:46 Acetaminophen/ Hydrocodone Bitart ([place] 7.5-325 Mg) 1 tab Q4H PRN PO PAIN SCALE 6 TO 10 01/04/17 18:00 01/18/17 09:38 Insulin Aspart (NovoLOG SUPPLEMENTAL SCALE) 1 ACHS SLIDING SCALE SQ 01/04/17 21:00 01/17/17 12:30 Dorzolamide/ Timolol (Cosopt 2-0.5% Opth Soln) 1 drop DAILY EACH EYE 01/05/17 09:00 01/18/17 09:30 Gabapentin (Neurontin) 800 mg TID PO 01/05/17 09:00 01/18/17 09:30 Glyburide (Diabeta) 5 mg DAILY PO 01/05/17 09:00 01/18/17 09:30 Latanoprost (Xalatan 0.005% Opth Soln) 1 drop HS EACH EYE 01/04/17 21:00 01/17/17 20:14 Metoprolol Tartrate (Lopressor) 100 mg BID PO 01/04/17 21:00 01/18/17 09:31 Ferrous Sulfate (Ferrous Sulfate) 325 mg DAILY PO 01/05/17 09:00 01/18/17 09:30 Pravastatin Sodium (Pravachol) 20 mg HS PO 01/04/17 21:00 01/17/17 20:13 Alteplase, Recombinant (Cathflo Activase Inj) 2 mg Q2H PRN INTRACATH flush 01/05/17 09:00 01/09/17 10:48 Prednisone (Deltasone) 60 mg DAILY PO 01/12/17 19:00 01/18/17 09:30 Pantoprazole Sodium (Protonix) 40 mg DAILY PO 01/12/17 19:00 01/18/17 09:30 Apixaban (Eliquis) 5 mg BID PO 01/17/17 09:00 01/18/17 09:30 Docusate Sodium (Colace) 100 mg BID PO 01/15/17 21:00 01/18/17 09:30 Objective Remarks GENERAL: Middle aged male upright in bed in nad. SKIN: Warm and dry. HEAD: Normocephalic. EYES: No injection or drainage. NECK: Supple, trachea midline. CARDIOVASCULAR: Regular rate and rhythm RESPIRATORY: Breath sounds equal bilaterally. No accessory muscle use. GASTROINTESTINAL: Abdomen soft, non-tender, nondistended. EXTREMITIES: No cyanosis. edema noted, left leg. NEUROLOGICAL: aox3. normal speech. Assessment/Plan Problem List: (1) Thrombocytopenia ICD Codes: D69.6 - Thrombocytopenia, unspecified Plan: 01/18: continue Eliquis. follow up with carbonation tester Dr. Doherty after discharge from rehab. 01/10: HIT panel +; . No Heparin. No thrombectomy. Continue Eliquis 10 mg twice a day. Monitor for bleeding. His [id number] is nonfunctioning per radiology report. We will be unable to remove the [id number] until he has been anticoagulated for some time. Monitor CBC. Await JACKY results. --likely d/t consumption from multiple thrombi (2) Deep vein thrombosis (DVT) of left lower extremity ICD Codes: I82.402 - Acute embolism and thrombosis of unspecified deep veins of left lower extremity Status: Acute Plan: -- on Eliquis (3) Deep vein thrombosis (DVT) of left upper extremity ICD Codes: I82.622 - Acute embolism and thrombosis of deep veins of left upper extremity Status: Acute Plan: --on Eliquis -- Started Xarelto one week ago for LLE DVT and then developed L upper arm swelling, found to have an extensive DVT. -- CTA negative for PE (4) Multiple myeloma ICD Codes: C90.00 - Multiple myeloma not having achieved remission Plan: -- Diagnosed approx. 2 years ago; he was treated with oral chemotherapy and is currently in remission -- Under the care of Dr. Doroteo Doherty with [facility] (5) History of Guillain-S[place] syndrome ICD Codes: Z86.69 - Personal history of other diseases of the nervous system and sense organs Plan: -- Diagnosed 4 years ago -- Sees neurologist Dr. Harris and reportedly has been getting IVIG every 2 weeks with home health Assessment 61y/o male with LUE DVT, LLE DVT. h/o Multiple myeloma diagnosed 2 years ago. Guillain-Saguache Syndrome diagnosed 4 years ago, diabetes mellitus. Peripheral neuropathy from diabetes. Hypertension, hypercholesterolemia, glaucoma. Attending Statement i am waiting to go upstairs ( Rehab) plat are stable. Continue Eliquis. monitor cbc The exam, history, and the medical decision-making described in the above note were completed with the assistance of the mid-level provider. I reviewed and agree with the findings presented. I attest that I had a [id number] encounter with the patient on the same day, and personally performed and documented my assessment and findings in the medical record. Problem Qualifiers (1) Deep vein thrombosis (DVT) of left lower extremity: Qualified Codes: I82.402 - Acute embolism and thrombosis of unspecified deep veins of left lower extremity (2) Multiple myeloma: Qualified Codes: C90.01 - Multiple myeloma in remission Melissa Anderson Jan 18, 2017 10:00 Kadeem Wilks MD Jan 18, 2017 12:16
[2017-01-18 12:15] VITALS: BP 141/63; PULSE 61; RESP 20; TEMP 97.4; O2SAT 93
[2017-01-29] MEDS ORDERED: GETGO ROLLING W1 MI1 (08:36)
[2017-01-29] MEDS ORDERED: GLYB5TAB3 PO (10:59)
[2017-01-29] MEDS ORDERED: LATA0.002 EACH EYE (10:59)
[2017-01-29] MEDS ORDERED: SENN1TAB PO (10:59)
[2017-01-29] MEDS ORDERED: PRED20 PO (10:59)
[2017-01-29] MEDS ORDERED: HYDR-3516 PO (10:59)
[2017-01-29] MEDS ORDERED: PANT20 PO (10:59)
[2017-01-29] MEDS ORDERED: DORZ1SOL EACH EYE (10:59)
[2017-01-29] MEDS ORDERED: METO100T PO (10:59)
[2017-01-29] MEDS ORDERED: SIMV10TA PO (10:59)
[2017-01-29] MEDS ORDERED: GABA800T PO (10:59)
[2017-01-29] MEDS ORDERED: APIX5TAB PO (10:59)
[2017-01-29] MEDS ORDERED: WHEEMIS3 (12:23)
== END 2017-01-18 14:49 | DRG 300 ==
LOC: NEPC 12:53 → NEDA 17:20 → HOCA 19:28
PROVIDERS: ADMIT Hospitalist; ATTEND Hospitalist
DX: I82.A12 Acute embolism and thrombosis of left axillary vein (principal); G61.0 Guillain-Barre syndrome; E11.42 Type 2 diabetes mellitus with diabetic polyneuropathy; I82.402 Acute embolism and thrombosis of unspecified deep veins of left lower extremity; G61.81 Chronic inflammatory demyelinating polyneuritis; C90.01 Multiple myeloma in remission; I82.622 Acute embolism and thrombosis of deep veins of left upper extremity; Z79.01 Long term (current) use of anticoagulants; M19.90 Unspecified osteoarthritis, unspecified site; F17.210 Nicotine dependence, cigarettes, uncomplicated; I82.C12 Acute embolism and thrombosis of left internal jugular vein; I82.B12 Acute embolism and thrombosis of left subclavian vein; I10 Essential (primary) hypertension; H40.9 Unspecified glaucoma; Z86.79 Personal history of other diseases of the circulatory system; Z92.21 Personal history of antineoplastic chemotherapy; R26.9 Unspecified abnormalities of gait and mobility; R19.5 Other fecal abnormalities
CPT/HCPCS: 36598; 71010; 71275; 72148; 72156; 72157; 74177; 76937; 80048; 80053; 82272; 82550; 82948; 83036; 83735; 83880; 84484; 85025; 85027; 85610; 85730; 86022; 93005; 93970; 93971; A9579; J1644; J1815; J2997; J7512; Q9963; Q9967

== ENCOUNTER 2017-06-14 13:48 | Inpatient (IN) | payer MEDICAID ==
[~2017-06-14] VITALS: Ht 185.4 cm; Wt 123.7 kg
[~2017-06-14 13:48] MED LIST changes: -ALBUAER3 INH; +APIX5TAB PO; -COMMODE 3-IN-11 MIS; +HYDR-3580 PO; -NORC5TAB PO; +PRED20 PO; -XARE15TA PO; -XARE20TA PO
[2017-06-14 13:50] VITALS: BP 141/67; PULSE 96; RESP 20; TEMP 98.3; O2SAT 96
[2017-06-14] MEDS ORDERED: MORPHINE SULFATE 2 MG/ML INJ IV PUSH ONE (14:30)
[2017-06-14] MEDS ORDERED: ONDANSETRON HCL 4 MG/2 ML VIAL IV PUSH ONE (14:30)
--- NOTE | 2017-06-14 14:32 | PD ---
HPI Chief Complaint: Medical Clearance Time Seen by Provider: 14:07 Travel History International Travel<30 days: No Contact w/Intl Traveler<30days: No Traveled to known affect area: No History of Present Illness HPI 61-year-old male with a chronic history of February as well as DVT to the left leg that presents to the ED for evaluation of weeping from the left leg. Per patient his been compliant with his and liquids. Patient currently taking prednisone as he cannot take the IVG secondary to taking a blood thinner as he cannot get his port in place because of the blood thinner use. Per patient for the past 2-3 days his been noticing weeping from his left flank. Per patient he denies any injuries. Per patient he was concerned because his been having more swelling and pain. He states that his been taking the Celebrex as prescribed. Patient was admitted last year for evaluation of DVT as he apparently had failed taking Xarelto and was started on heparin have a reaction to it and had to be switched to liquids. Per patient his been fighting his grandmother rate chronically. He used to be on IV G cannot take it because he does not have a porcelain of his been doing prednisone 50 mg daily. Per patient his neurologist recently increased his prednisone since having more symptoms. Per patient he denies any falls or injuries but he states that he's also been having some right lower quadrant back pain comes and goes. Per patient gets worse with movement. Pain per patient on the left leg is 7 out of 10 on the back is 8 out of 10. Gets worse with movement. Patient denies any fevers chills or sweats. No urinary or bowel movement issues. PFSH Past Medical History Hx Anticoagulant Therapy: Yes (ELIQUIS ) Arthritis: Yes Asthma: No Autoimmune Disease: No Blood Disorders: No Anxiety: No Depression: No Heart Rhythm Problems: No Cancer: Yes Cardiovascular Problems: Yes High Cholesterol: No Chemotherapy: Yes (does infusions for IVIG) Chest Pain: No Congestive Heart Failure: No COPD: No Cerebrovascular Accident: No Diabetes: Yes Patient Takes Glucophage: No Diminished Hearing: No Endocrine: Yes Gastrointestinal Disorders: No GERD: No Glaucoma: No Genitourinary: No Headaches: No Hepatitis: No Hiatal Hernia: No Heparin Induced Thrombocytopen: Yes Hypertension: Yes Immune Disorder: Yes (IVIG) Implanted Vascular Access Dvce: Yes (RIGHT CHEST) Kidney Stones: No Medical other: No Musculoskeletal: No Neurologic: Yes (GUILLAIN BARRE) Psychiatric: No Reproductive: No Respiratory: No Immunizations Current: Yes Migraines: No Myocardial Infarction: No Radiation Therapy: No Renal Failure: No Seizures: No Sickle Cell Disease: No Sleep Apnea: No Thyroid Disease: No Ulcer: No Past Surgical History Abdominal Surgery: No AICD: No Appendectomy: No Arteriovenous Shunt: No Body Medical Devices: PORT Cardiac Surgery: No Cholecystectomy: No Ear Surgery: No Endocrine Surgery: No Eye Surgery: No Genitourinary Surgery: No Gynecologic Surgery: No Insulin Pump: No Joint Replacement: No Neurologic Surgery: No Oral Surgery: No Pacemaker: No Thoracic Surgery: No Other Surgery: Yes (PORT INSERTION, RIGHT CHEST) Social History Alcohol Use: Yes (2 BEERS PER DAY) Tobacco Use: Yes (1 PPD) Substance Use: No Allergies-Medications (Allergen,Severity, Reaction): Coded Allergies: lisinopril (Unverified Allergy, Severe, angioedema, 06/14/17) losartan (Unverified Allergy, Severe, angioedema, 06/14/17) heparin (Verified Allergy, Unknown, 06/14/17) Reported Meds & Prescriptions Reported Meds & Active Scripts Active Hydrocodone-Acetaminophen 7.5-325 mg Tab 1 Tab PO BID PRN Prednisone 20 Mg Tab 40 Mg PO DAILY 30 Days taper dose slowly with instruction for Neurologist Dr. Kelly Mix (Apixaban) 5 Mg Tab 5 Mg PO BID Metoprolol Tartrate 100 Mg Tab 50 Mg PO BID 30 Days Gabapentin 800 Mg Tab 800 Mg PO TID 30 Days Cosopt Pf Opth Drops (Dorzolamide-Timolol Pf Opth Drops) 22.3-6.8 mg/ml Soln 1 Drop EACH EYE DAILY Latanoprost Opth Drops (Latanoprost) 0.005% Drops 1 Drop EACH EYE HS 30 Days Refrigerate until opened. Simvastatin 10 Mg Tab 10 Mg PO HS Glyburide 5 Mg Tab 5 Mg PO DAILY Take with meals at the same time each day Reported Ferrous Gluconate 325 Mg Tab 325 Mg PO DAILY Review of Systems Except as stated in HPI: all other systems reviewed are Neg Physical Exam Narrative GENERAL: SKIN: Warm and dry. HEAD: Atraumatic. Normocephalic. EYES: Pupils equal and round. No scleral icterus. No injection or drainage. ENT: No nasal bleeding or discharge. Mucous membranes pink and moist. Tongue is midline. No uvula deviation. NECK: Trachea midline. No JVD. CARDIOVASCULAR: Regular rate and rhythm. No murmurs, S3, S4. RESPIRATORY: No accessory muscle use. Clear to auscultation. Breath sounds equal bilaterally. GASTROINTESTINAL: Abdomen soft, non-tender, nondistended. Hepatic and splenic margins not palpable. MUSCULOSKELETAL: Extremities without clubbing, cyanosis, or edema. No obvious deformities. Full range of motion of the upper and lower extremities bilaterally. 2+ pulses bilaterally. Patient does have 2+ pitting edema on the left leg compared to the right. Patient does have some weeping wounds on the anterior aspect of the tibia with one of them. There have purulence coming from it. Slightly warm to touch in this area. NEUROLOGICAL: Awake and alert. No obvious cranial nerve deficits. Motor grossly within normal limits. Five out of 5 muscle strength in the arms and legs. Normal speech. PSYCHIATRIC: Appropriate mood and affect; insight and judgment normal. Data Data Last Documented VS Vital Signs Date Time Temp Pulse Resp B/P (MAP) Pulse Ox O2 Delivery O2 Flow Rate FiO2 06/14/17 18:00 81 16 138/66 (90) 98 Room Air 06/14/17 13:50 98.3 Orders Orders Complete Blood Count With Diff (06/14/17 14:17) Comprehensive Metabolic Panel (06/14/17 14:17) Prothrombin Time / Inr (Pt) (06/14/17 14:17) Act Partial Throm Time (Ptt) (06/14/17 14:17) Blood Culture (06/14/17 14:17) Wound Culture And Gram Stain (06/14/17 14:17) Us Leg Venous Doppler (06/14/17 14:17) Spine, Lumbar Comp W/Obliq (06/14/17 ) Tibia/Fibula (Ap/Lat) (06/14/17 ) Morphine Inj (Morphine Inj) (06/14/17 14:30) Ondansetron Inj (Zofran Inj) (06/14/17 14:30) Mri L Spine W/O Contrast (06/14/17 ) Consult Hematology (06/14/17 ) Bedside Glucose CHELSEA.CSUGAR (06/14/17 19:01) Blood Glucose Goal (Criteria) (06/14/17 19:01) Hypoglycemia 70 Mg/Dl Or < (2/16/18 19:01) Notify Dr: Other (06/14/17 19:) Dextrose 50% In Isabel (Vial) Inj (D50w (Vi (06/14/17 19:15) Glucagon Inj (Glucagon Inj) (06/14/17 19:15) Insulin Aspart Supplemtl Scale (Novolog (06/14/17 21:00) Vancomycin Consult Pharmacy (Vancomycin (06/14/17 19:15) Cefepime Inj (Maxipime Inj) (06/14/17 21:00) Admit To Inpatient (06/14/17 ) Vital Signs (Adult) Q4H (06/14/17 19:) Activity Oob With Assistance (06/14/17:) Intake + Output CHELSEA.QSHIFT (06/14/17 19:) Diet 1800 Ada Cons Carb (06/15/17 Breakfast) Sodium Chloride 0.9% Flush (Ns Flush) (06/14/17 19:15) Sodium Chloride 0.9% Flush (Ns Flush) (06/14/17 21:00) Ondansetron Inj (Zofran Inj) (06/14/17 19:15) Comprehensive Metabolic Panel (06/15/17 06:00) Complete Blood Count With Diff (06/15/17 06:00) Case Management Consult (06/14/17 19:01) Mechanical Contraindication (06/14/17 19:01) Acetaminophen (Tylenol) (06/14/17 19:15) Acetamin-Hydrocod 325-5 Mg ([place] 5-325 (06/14/17 19:15) Morphine Inj (Morphine Inj) (06/14/17 19:15) Docusate Sodium-Senna (Lynda-Colace) (06/14/17 21:00) Magnesium Hydroxide Liq (Milk Of Magnesi (06/14/17 19:15) Sennosides (Senokot) (06/14/17 19:15) Bisacodyl Supp (Dulcolax Supp) (06/14/17 19:15) Lactulose Liq (Lactulose Liq) (06/14/17 19:15) Inpatient Certification (06/14/17 ) Dorzol-Timol 2-0.5% Opth Soln (Cosopt 2- (06/15/17 09:00) Gabapentin (Neurontin) (06/15/17 09:00) Glyburide (Diabeta) (06/15/17 09:00) Latanoprost 0.005% Opth Soln (Xalatan 0. (06/14/17 21:00) Prednisone (Deltasone) (06/15/17 09:00) Pravastatin (Pravachol) (06/14/17 21:00) Admit Order (Ed Use Only) (06/14/17 19:10) Metoprolol Tartrate (Lopressor) (06/14/17 21:00) Labs Laboratory Tests Test 06/14/17 14:45 White Blood Count 12.8 TH/MM3 Red Blood Count 4.90 MIL/MM3 Hemoglobin 14.5 GM/DL Hematocrit 43.2 % Mean Corpuscular Volume 88.1 FL Mean Corpuscular Hemoglobin 29.5 PG Mean Corpuscular Hemoglobin Concent 33.5 % Red Cell Distribution Width 12.8 % Platelet Count 144 TH/MM3 Mean Platelet Volume 10.9 FL Neutrophils (%) (Auto) 91.2 % Lymphocytes (%) (Auto) 5.3 % Monocytes (%) (Auto) 2.9 % Eosinophils (%) (Auto) 0.0 % Basophils (%) (Auto) 0.6 % Neutrophils # (Auto) 11.6 TH/MM3 Lymphocytes # (Auto) 0.7 TH/MM3 Monocytes # (Auto) 0.4 TH/MM3 Eosinophils # (Auto) 0.0 TH/MM3 Basophils # (Auto) 0.1 TH/MM3 CBC Comment AUTO DIFF Differential Total Cells Counted 100 Neutrophils % (Manual) 87 % Band Neutrophils % 1 % Lymphocytes % 6 % Monocytes % 3 % Eosinophils % 1 % Neutrophils # (Manual) 11.5 TH/MM3 Myelocytes 2 % Differential Comment FINAL DIFF MANUAL Platelet Estimate NORMAL Platelet Morphology Comment ENLARGED Red Cell Morphology Comment NORMAL Prothrombin Time 10.4 SEC Prothromb Time International Ratio 1.0 RATIO Activated Partial Thromboplast Time 23.1 SEC Blood Urea Nitrogen 9 MG/DL Creatinine 0.95 MG/DL Random Glucose 248 MG/DL Total Protein 7.5 GM/DL Albumin 3.6 GM/DL Calcium Level 9.2 MG/DL Alkaline Phosphatase 105 U/L Aspartate Amino Transf (AST/SGOT) 24 U/L Alanine Aminotransferase (ALT/SGPT) 22 U/L Total Bilirubin 0.6 MG/DL Sodium Level 138 MEQ/L Potassium Level 4.1 MEQ/L Chloride Level 104 MEQ/L Carbon Dioxide Level 26.4 MEQ/L Anion Gap 8 MEQ/L Estimat Glomerular Filtration Rate 98 ML/MIN MDM Medical Decision Making Medical Screen Exam Complete: Yes Emergency Medical Condition: Yes Medical Record Reviewed: Yes Interpretation(s) CBC & BMP Diagram 06/14/17 14:45 Total Protein 7.5, Albumin 3.6, Calcium Level 9.2, Alkaline Phosphatase 105, Aspartate Amino Transf (AST/SGOT) 24, Alanine Aminotransferase (ALT/SGPT) 22, Total Bilirubin 0.6 Last Impressions Lower Extremity Ultrasound 06/14/17 1417 Signed Impressions: Service Date/Time: Wednesday, June 14, 2017 15:16 - CONCLUSION: Nonocclusive thrombus as described above that extends above the knee. Samy Martinez MD FACR Tibia/Fibula X-Ray 06/14/17 0000 Signed Impressions: Service Date/Time: Wednesday, June 14, 2017 14:30 - CONCLUSION: Negative for fracture or dislocation. Follow up in 7-10 days is suggested if symptoms persist. Samy Martinez MD FACR Lumbar Spine X-Ray 06/14/17 0000 Signed Impressions: Service Date/Time: Wednesday, June 14, 2017 14:35 - CONCLUSION: 1. Mild compression fracture of the L3 superior endplate. This is of uncertain chronicity given lack of prior exams. MRI examination may be performed to evaluate for bone marrow edema, if patient is symptomatic on palpation of the L3 spinous process. 2. Mild S-shaped thoracolumbar scoliosis with degenerative spondylosis most prominently at L2-3 and L4-5. Nain Sheriff MD Lumbar Spine MRI 06/14/17 0000 Signed Impressions: Service Date/Time: Wednesday, June 14, 2017 17:24 - CONCLUSION: 1. Acute or subacute mild compression fracture superior endplate L3. Remote L2 superior endplate compression fracture. 2. Degenerative disc disease as above with multi-level lateral recess encroachment. No spondylolisthesis. Kevin Patterson MD Differential Diagnosis Cellulitis versus pustule versus abscess versus DVT versus chronic DVT versus back pain versus Guillain-[place] Narrative Course 61-year-old male that presents to the ED for evaluation of left leg swelling and back pain. Patient was properly examined and was found to have signs and symptoms of concurrent etiology but concerning for infection. Labs and imaging were ordered. Labs and imaging were positive for what appears to be an L2 subacute fracture as well as new DVT and possible cellulitis. Case was discussed in my attending Dr baxter who recommends speaking neurosurgery and admitted the patient as patient continues to have DVT us by taking the blood thinners and this new DVT appears to be new per radiology Dr. Martinez. Unclear as to what we can do for him as he already takes the Eliquis. Possible IVC filter. Case was discussed with Dr. Sunshine for neurosurgery who agrees the patient does not need surgery but only pain management and follow-up outpatient. Patient was given lumbar brace. Patient was told of need for admission and agrees with plan. Patient was started on IV antibiotics. Case discussed with Dr. Cisneros for agrees to admission. Diagnosis Primary Impression: DVT of leg (deep venous thrombosis) Qualified Codes: I82.402 - Acute embolism and thrombosis of unspecified deep veins of left lower extremity Additional Impressions: Cellulitis Qualified Codes: L03.116 - Cellulitis of left lower limb Compression fracture of L2 Qualified Codes: S32.020A - Wedge compression fracture of second lumbar vertebra, initial encounter for closed fracture Admitting Information Admitting Physician Requests: Admit Javier Carlin Jun 14, 2017 14:32
--- NOTE | 2017-06-14 15:01 | RADRPT ---
EXAM DATE/TIME: 06/14/2017 14:30 [facility] COMPARISON: No previous studies available for comparison. INDICATIONS : Pain and swelling. MEDICAL HISTORY : None. SURGICAL HISTORY : None. ENCOUNTER: Initial ACUITY: 3 days PAIN SCORE: 7/10 LOCATION: Left Tibia FINDINGS: Two view examination of the left tibia demonstrates no evidence of fracture or dislocation. Bony min eralization is normal. The soft tissue structures are intact. Mild degenerative changes with minima l vascular calcifications. CONCLUSION: Negative for fracture or dislocation. Follow up in 7-10 days is suggested if symptoms persist. Samy Martinez MD FACR on June 14, 2017 at 14:59 Board Certified Radiologist. This report was verified electronically.
--- NOTE | 2017-06-14 15:02 | RADRPT ---
EXAM DATE/TIME: 06/14/2017 14:35 [facility] COMPARISON: No previous studies available for comparison. INDICATIONS : Complains of back pain. MEDICAL HISTORY : None. SURGICAL HISTORY : None. ENCOUNTER: Initial ACUITY: 2 days PAIN SCORE: 10/10 LOCATION: lumbar FINDINGS: There are five non-rib bearing vertebral bodies. Mild S-shaped scoliosis of the thoracolumbar spine c entered at T12-L1 and L3-4. Mild compression deformity of the L3 superior endplate. Remaining vertebr al body heights are intact. The vertebral bodies are in normal sagittal alignment without evidence of subluxation. Disc space narrowing with osteophyte formation most prominently at L2-3 and L4-5. The p osterior elements are intact without evidence of spondylolysis. The pedicles are intact. Bony psychological examiner alization is normal. Oblique views demonstrate no gross bony neural foraminal narrowing. Moderate ath erosclerotic calcification of the infrarenal abdominal aorta. CONCLUSION: 1. Mild compression fracture of the L3 superior endplate. This is of uncertain chronicity given lack of prior exams. MRI examination may be performed to evaluate for bone marrow edema, if patient is sym ptomatic on palpation of the L3 spinous process. 2. Mild S-shaped thoracolumbar scoliosis with degenerative spondylosis most prominently at L2-3 and L 4-5. Nain Sheriff MD on June 14, 2017 at 14:56 Board Certified Radiologist. This report was verified electronically.
[2017-06-14 15:34] LABS: AUTOMATED NEUTROPHIL # 11.6 TH/MM3 (1.8-7.7); BASOPHIL # 0.1 TH/MM3 (0-0.2); BASOPHIL % 0.6 % (0.0-2.0); HEMATOCRIT 43.2 % (39.0-51.0); HEMOGLOBIN 14.5 GM/DL (13.0-17.0); LYMPH % 5.3 % (9.0-44.0); LYMPHOCYTE # 0.7 TH/MM3 (1.0-4.8); MEAN CELL VOLUME 88.1 FL (80.0-100.0); MEAN CORPUSCULAR HEMOGLOBIN 29.5 PG (27.0-34.0); MEAN CORPUSCULAR HGB CONC 33.5 % (32.0-36.0); MEAN PLATELET VOLUME 10.9 FL (7.0-11.0); MONO % 2.9 % (0.0-8.0); MONOCYTE # 0.4 TH/MM3 (0-0.9); NEUT % 91.2 % (16.0-70.0); PLATELET COUNT 144 TH/MM3 (150-450); RED CELL DISTRIBUTION WIDTH 12.8 % (11.6-17.2); WHITE BLOOD COUNT 12.8 TH/MM3 (4.0-11.0)
[2017-06-14 15:43] LABS: PROTHROMBIN TIME - PATIENT 10.4 SEC (9.8-11.6)
[2017-06-14 15:55] LABS: ALKALINE PHOSPHATASE 105 U/L (45-117); TOTAL BILIRUBIN ADULT 0.6 MG/DL (0.2-1.0); TOTAL PROTEIN 7.5 GM/DL (6.4-8.2)
[2017-06-14 15:59] LABS: ALBUMIN 3.6 GM/DL (3.4-5.0); ALT (GPT) 22 U/L (12-78); AST (GOT) 24 U/L (15-37); BICARBONATE 26.4 MEQ/L (21.0-32.0); BLOOD UREA NITROGEN 9 MG/DL (7-18); CALCIUM 9.2 MG/DL (8.5-10.1); CHLORIDE 104 MEQ/L (98-107); CREATININE 0.95 MG/DL (0.60-1.30); GLOMERULAR FILTRATION RATE 98 ML/MIN (>89); GLUCOSE,RANDOM 248 MG/DL (74-106); SODIUM (NA) 138 MEQ/L (136-145)
--- NOTE | 2017-06-14 16:09 | RADRPT ---
EXAM DATE/TIME: 06/14/2017 15:16 [facility] COMPARISON: No previous studies available for comparison. EXTERNAL COMPARISON : [facility], US LEG, RIGHT, January 09, 2010[facility], US LEG VENOUS DOPPLER, BILAT ERAL, July. [facility], US LEG VENOUS DOPPLER, BILATERAL, 2016. [facility], US LEG VENOUS DOPPLER, LEFT, APRIL 18, 2017. INDICATIONS : Left leg pain. MEDICAL HISTORY : Hypertension. Dentures. Numbness. Anticoagualnt therapy, eliquis. Hyperlipidemia. Deep vein thro mbosis. Arthritis. Diabetes. SURGICAL HISTORY : Port insertion, right chest. ENCOUNTER: Initial ACUITY: 2 months PAIN SCORE: 3/10 LOCATION: Left leg. TECHNIQUE: Venous ultrasound of the leg was performed from the inguinal ligament to the proximal calf. Real-yasmin e, color Doppler and spectral tracing, compression and augmentation techniques were used. FINDINGS: Nonocclusive thrombus is seen beginning below the knee extending into the distal superficial femoral vein. CONCLUSION: Nonocclusive thrombus as described above that extends above the knee. Samy Martinez MD FACR on June 14, 2017 at 16:07 Board Certified Radiologist. This report was verified electronically.
[2017-06-14 16:50] LABS: BANDS 1 % (0-6); LYMPHOCYTES 6 % (9-44); MONOCYTES 3 % (0-8); MYELOCYTES 2 % (0-0); NEUTROPHIL # MANUAL DIFF 11.5 TH/MM3 (1.8-7.7); POLYS (SEG NEUTROPHILS) 87 % (16-70)
[2017-06-14 18:00] VITALS: BP 138/66; PULSE 81; RESP 16; O2SAT 98
--- NOTE | 2017-06-14 18:23 | RADRPT ---
EXAM DATE/TIME: 06/14/2017 17:24 [facility] COMPARISON: No previous studies available for comparison. INDICATIONS : Pain. Bilateral lower extremity weakness. MEDICAL HISTORY : Diabetes mellitus type 2. Cardiovascular disease SURGICAL HISTORY : None. ENCOUNTER: Initial ACUITY: 1 day PAIN SCORE: 5/10 LOCATION: Paraspinal TECHNIQUE: Multiplanar multisequence MRI of the lumbar spine was performed without contrast. FINDINGS: There is an subacute or acute mild compression fracture superior endplate of L3 with marrow edema pre sent. Remote superior endplate compression fracture noted at L2 without edema. At L1-2 there is a broad-based disc bulge with mild lateral recess encroachment. At L2-3-4-5-S1 there is mild lateral recess encroachment from disc bulge and facet arthropathy. No si gnificant nerve root compression. CONCLUSION: 1. Acute or subacute mild compression fracture superior endplate L3. Remote L2 superior endplate comp ression fracture. 2. Degenerative disc disease as above with multi-level lateral recess encroachment. No spondylolisthe sis. Kevin Patterson MD on June 14, 2017 at 18:18 Board Certified Radiologist. This report was verified electronically.
--- NOTE | 2017-06-14 19:05 | HHI.HP ---
[facility] Service [facility] Primary Care Physician Non-Staff Admission Diagnosis Diagnoses: (1) DVT of leg (deep venous thrombosis) Diagnosis: Principal (2) Cellulitis Diagnosis: Principal (3) CIDP (chronic inflammatory demyelinating polyneuropathy) Diagnosis: Principal (4) Lumbar compression fracture Diagnosis: Principal (5) DM (diabetes mellitus) Diagnosis: Principal Travel History International Travel<30 Days: No Contact w/Intl Traveler <30 Da: No Traveled to Known Affected Are: No History of Present Illness This is a 61-year-old male with a PMH of CIDP, GBS, HTN, DM and DVT who presented to the ER w/ complaints of left lower extremity erythema and swelling in addition to back pain. States symptoms started approximately 2-3 days ago. Denies recent trauma or injury. No fever, chills, SOB, chest pain or cough. Back pain is intermittent, sharp, non-radiating, moderate, 6/10. Reports progressive weakness due to CIDP. On arrival, BP 141/67, HR 96, O2 sat 96% on RA, Afebrile. WBC 12.8. Platelets 144, previously 112 on 01/21/17. Chemistry essentially unremarkable. Doppler LLE with nonocclusive thrombus extending above the knee. L-spine MRI acute or subacute mild compression fracture superior endplate L3, remote L2 superior endplate compression fracture. Tib- fib x-ray negative for fracture or dislocation. Neurosurgery consulted by ER physician, no surgical intervention needed at this time, recommendation for TLSO brace. Follows w/ Dr. Elton Mendoza w/ Neurology ([phone]). Was previously on IVIG, however developed multiple clots w/ port occlusion and switched to Prednisone, pending port revision. Also follows w/ Dr. Doherty w/ Hematology. Previous diagnosis of LLE DVT 12/25/16, was started on Xarelto, admitted 01/04-01/18/17 w/ LLE DVT, failed treatment on Xarelto, switched to Heparin, however developed HIT , ultimately d/c'd on Eliquis. States he was seen by Dr. Doherty in March and referred for Doppler LLE which showed DVT, was instructed to continue on Eliquis and follow up in 3 months. Presents now w/ above complaints. Reports compliance w/ Eliquis. Review of Systems Except as stated in HPI: all other systems reviewed are Neg ROS: 14 point review of systems otherwise negative. Past Family Social History Past Medical History PMH: CIDP, GBS, HTN, DM and DVT Past Surgical History PAST SURGICAL HISTORY: Port Placement Allergies: Coded Allergies: lisinopril (Unverified Allergy, Severe, angioedema, 06/14/17) losartan (Unverified Allergy, Severe, angioedema, 06/14/17) heparin (Verified Allergy, Unknown, 06/14/17) Family History PAST FAMILY HISTORY: Reviewed. No h/o DM or CAD Social History PAST SOCIAL HISTORY: Negative for alcohol, tobacco or drugs. Physical Exam Vital Signs Vital Signs Date Time Temp Pulse Resp B/P (MAP) Pulse Ox O2 Delivery O2 Flow Rate FiO2 06/14/17 18:00 81 16 138/66 (90) 98 Room Air 06/14/17 17:53 16 06/14/17 13:50 98.3 96 20 141/67 (91) 96 Physical Exam PE: GENERAL: Very pleasant middle-aged black male in no acute distress. HEENT: PERRLA, EOMI. No scleral icterus or conjunctival pallor. No lid lag or facial droop. CARDIOVASCULAR: Regular rate and rhythm. No obvious murmurs to auscultation. No chest tenderness to palpation. RESPIRATORY: No obvious rhonchi or wheezing. Clear to auscultation. Breath sounds equal bilaterally. GASTROINTESTINAL: Abdomen soft, non-tender, nondistended. BS normal. MUSCULOSKELETAL: Extremities without clubbing, cyanosis, or edema. No obvious deformities. LLE with 2+ edema, mild erythema, purulent wound. Pulses intact NEUROLOGICAL: Awake, alert and oriented x4. No focal neurologic deficits. Moving both upper and lower extremities spontaneously. Laboratory Laboratory Tests Test 06/14/17 14:45 White Blood Count 12.8 Red Blood Count 4.90 Hemoglobin 14.5 Hematocrit 43.2 Mean Corpuscular Volume 88.1 Mean Corpuscular Hemoglobin 29.5 Mean Corpuscular Hemoglobin Concent 33.5 Red Cell Distribution Width 12.8 Platelet Count 144 Mean Platelet Volume 10.9 Neutrophils (%) (Auto) 91.2 Lymphocytes (%) (Auto) 5.3 Monocytes (%) (Auto) 2.9 Eosinophils (%) (Auto) 0.0 Basophils (%) (Auto) 0.6 Neutrophils # (Auto) 11.6 Lymphocytes # (Auto) 0.7 Monocytes # (Auto) 0.4 Eosinophils # (Auto) 0.0 Basophils # (Auto) 0.1 CBC Comment AUTO DIFF Differential Total Cells Counted 100 Neutrophils % (Manual) 87 Band Neutrophils % 1 Lymphocytes % 6 Monocytes % 3 Eosinophils % 1 Neutrophils # (Manual) 11.5 Myelocytes 2 Differential Comment FINAL DIFF MANUAL Platelet Estimate NORMAL Platelet Morphology Comment ENLARGED Red Cell Morphology Comment NORMAL Prothrombin Time 10.4 Prothromb Time International Ratio 1.0 Activated Partial Thromboplast Time 23.1 Blood Urea Nitrogen 9 Creatinine 0.95 Random Glucose 248 Total Protein 7.5 Albumin 3.6 Calcium Level 9.2 Alkaline Phosphatase 105 Aspartate Amino Transf (AST/SGOT) 24 Alanine Aminotransferase (ALT/SGPT) 22 Total Bilirubin 0.6 Sodium Level 138 Potassium Level 4.1 Chloride Level 104 Carbon Dioxide Level 26.4 Anion Gap 8 Estimat Glomerular Filtration Rate 98 Date/Time Source Procedure Growth Status 06/14/17 14:50 Blood Peripheral Aerobic Blood Culture Pending Received 06/14/17 14:50 Blood Peripheral Anaerobic Blood Culture Pending Received 06/14/17 14:30 Wound Leg Gram Stain Pending Received 06/14/17 14:30 Wound Leg Wound Culture Pending Received Result Diagram: 06/14/17 1445 06/14/17 1445 Caprini VTE Risk Assessment Caprini VTE Risk Assessment: Mod/High Risk (score >= 2) Caprini Risk Assessment Model Point Value = 1 Point Value = 2 Point Value = 3 Point Value = 5 Age 41-60 Minor surgery BMI > 25 kg/m2 Swollen legs Varicose veins or History of unexplained or recurrent spontaneous Oral contraceptives or hormone replacement Sepsis (< 1 month) Serious lung disease, including pneumonia (< 1 month) Abnormal pulmonary function Acute myocardial infarction Congestive heart failure (< 1 month) History of inflammatory bowel disease Medical patient at bed rest Age 61-74 Arthroscopic surgery Major open surgery (> 45 min) Laparoscopic surgery (> 45 min) Malignancy Confined to bed (> 72 hours) Immobilizing plaster cast Central venous access Age >= 75 History of VTE Family history of VTE Factor V Leiden Prothrombin [id number] Lupus anticoagulant Anticardiolipin antibodies Elevated serum homocysteine Heparin-induced thrombocytopenia Other congenital or acquired thrombophilia Stroke (< 1 month) Elective arthroplasty Hip, pelvis, or leg fracture Acute spinal cord injury (< 1 month) Prophylaxis Regimen Total Risk Factor Score Risk Level Prophylaxis Regimen 0-1 Low Early ambulation 2 Moderate Order ONE of the following: *Sequential Compression Device (SCD) *Heparin 5000 units SQ BID 3-4 Higher Order ONE of the following medications: *Heparin 5000 units SQ TID *Enoxaparin/Lovenox 40 mg SQ daily (WT < 150 kg, CrCl > 30 mL/min) *Enoxaparin/Lovenox 30 mg SQ daily (WT < 150 kg, CrCl > 10-29 mL/min) *Enoxaparin/Lovenox 30 mg SQ BID (WT < 150 kg, CrCl > 30 mL/min) AND/OR *Sequential Compression Device (SCD) 5 or more Highest Order ONE of the following medications: *Heparin 5000 units SQ TID (Preferred with Epidurals) *Enoxaparin/Lovenox 40 mg SQ daily (WT < 150 kg, CrCl > 30 mL/min) *Enoxaparin/Lovenox 30 mg SQ daily (WT < 150 kg, CrCl > 10-29 mL/min) *Enoxaparin/Lovenox 30 mg SQ BID (WT < 150 kg, CrCl > 30 mL/min) AND *Sequential Compression Device (SCD) Assessment and Plan Problem List: (1) DVT of leg (deep venous thrombosis) ICD Code: I82.409 - Acute embolism and thrombosis of unspecified deep veins of unspecified lower extremity Status: Acute (2) Cellulitis ICD Code: L03.90 - Cellulitis, unspecified (3) Lumbar compression fracture ICD Code: S32.000A - Wedge compression fracture of unspecified lumbar vertebra , initial encounter for closed fracture (4) CIDP (chronic inflammatory demyelinating polyneuropathy) ICD Code: G61.81 - Chronic inflammatory demyelinating polyneuritis Status: Chronic (5) DM (diabetes mellitus) ICD Code: E11.9 - Type 2 diabetes mellitus without complications Assessment and Plan A/P: 1. LLE DVT: Doppler w/ nonocclusive thrombus extending above the knee, images reviewed by me. Recurrent. Treatment failure on multiple regimens, currently on Eliquis 5mg bid, reports compliance w/ meds. Follows w/ Dr. Doherty as outpatient, consult Hematology for recommendations regarding appropriate anticoagulation given multiple treatment failures, consider IVC Filter. Port occlusion, pending revision. Discuss w/ Hematology regarding timing of port revision/anticoagulation. Hold Coumadin for possible microthrombosis, especially w/ platelets only 144. Start Argatroban gtt, pending Hematology recommendations. 2. LLE Cellulitis: edema/erythema/purulent drainage. S/p Blood/Wound cultures , follow up cultures, start IV Abx. WBC 12, repeat labs in am. Tib/Fib X-ray w / no acute fracture, images reviewed by me. 3. Lumbar CxFx: c/o back pain, no injury/trauma, MRI L-Spine w/ acute or subacute mild compression fracture superior endplate L3, remote L2 superior endplate compression fracture, images reviewed by me. Neurosurgery consulted by ER physician, no surgical intervention required at this time. TLSO brace. PT for eval/tx. Analgesics/antiemetics as needed. 4. CIDP: Follows w/ Dr. Elton Mendoza ([phone]) as outpatient, previously on IVIG, however transitioned to Prednisone due to multiple clots. Resume home Prednisone, consult Neurology for further recommendations regarding treatment/ port revision. 5. DM: Sliding scale w/ Accu-Cheks, monitor BS closely as on Prednisone. Resume home Glyburide 6. DVT Prophylaxis: Argatroban 7. Social work for d/c planning as needed. 8. Case discussed w/ ER physician at length, labs/records/images reviewed by me. Physician Certification 2 Midnight Certification Type: Admission for Inpatient Services Order for Inpatient Services The services are ordered in accordance with Medicare regulations or non- Medicare payer requirements, as applicable. In the case of services not specified as inpatient-only, they are appropriately provided as inpatient services in accordance with the 2-midnight benchmark. Estimated LOS (days): 2 days is the estimated time the patient will need to remain in the hospital, assuming treatment plan goals are met and no additional complications. Post-Hospital Plan: Not yet determined Problem Qualifiers (1) DVT of leg (deep venous thrombosis): Delores Jimenez MD Jun 14, 2017 19:05
[2017-06-14] MEDS ORDERED: GLUCAGON 1 MG/ML VIAL OTHER PRN (19:15)
[2017-06-14] MEDS ORDERED: DEXTROSE 50% IN WATER 50 ML VIAL(D50) IV PUSH PRN (19:15)
[2017-06-14] MEDS ORDERED: ACETAMINOPHEN 325 MG TAB PO PRN (19:15)
[2017-06-14] MEDS ORDERED: SENNOSIDES 8.6 MG TAB PO PRN (19:15)
[2017-06-14] MEDS ORDERED: BISACODYL 10 MG SUPP RECTAL PRN (19:15)
[2017-06-14] MEDS ORDERED: MAGNESIUM HYDROXIDE SUSP 30 ML CUP PO PRN (19:15)
[2017-06-14] MEDS ORDERED: ONDANSETRON HCL 4 MG/2 ML VIAL IVP PRN (19:15)
[2017-06-14] MEDS ORDERED: Vancomycin Consult Pharmacy 1 EA OTHER SCH (19:15)
[2017-06-14] MEDS ORDERED: LACTULOSE SYRUP 20 GM/30 ML CUP PO PRN (19:15)
[2017-06-14 20:00] VITALS: BP 154/77; PULSE 82; RESP 17; TEMP 97.3; O2SAT 94
[2017-06-14] MEDS ORDERED: ARGATROBAN INJ 250 MG in SODIUM CHLOR 0.9% 250 ML INJ 250 ML IV PRN (20:15)
[2017-06-14] MEDS ORDERED: MISCELLANEOUS PHARMACY INFORMATION OTHER ONE (20:15)
[2017-06-14] MEDS: DOCUSATE SODIUM 50 MG/SENNA 8.6 MG TAB PO SCH (20:54)
[2017-06-14] MEDS: METOPROLOL TARTRATE 50 MG TAB PO SCH (20:54)
[2017-06-14] MEDS: PRAVASTATIN SOD 20 MG TAB PO SCH (20:54)
[2017-06-14] MEDS: CEFEPIME INJ 1,000 MG in SODIUM CHLORIDE 0.9% INJ 100 ML IV SCH (20:55)
[2017-06-14] MEDS: SODIUM CHLORIDE 0.9% FLUSH 10 ML FLUSH IV FLUSH SCH (20:55)
[2017-06-14] MEDS: INSULIN ASPART SUPPLEMENTAL SCALE SQ SCH (20:55)
[2017-06-14] MEDS ORDERED: APIXABAN 5 MG TABLET PO SCH (21:00)
[2017-06-14] MEDS: ACETAMINOPHEN/HYDROcodone 325 MG/5 MG TAB PO PRN (21:08)
[2017-06-14] MEDS: VANCOMYCIN 1,500 MG/NS 500 ML IV SCH ×2 (21:48)
[2017-06-14] MEDS: LATANOPROST 0.005% OPHT SOLN 2.5 ML BTL EACH EYE SCH (21:48)
[2017-06-14] MEDS: ARGATROBAN 250 MG in NS 250 ML IV PRN (22:43)
[2017-06-15] VITALS (10 sets, daily range): BP systolic 128–163; BP diastolic 65–89; PULSE 72–100; RESP 17–22; TEMP 97–98.3; O2SAT 92–97
[2017-06-15 04:56] LABS: AUTOMATED NEUTROPHIL # 8.3 TH/MM3 (1.8-7.7); BASOPHIL # 0.1 TH/MM3 (0-0.2); BASOPHIL % 0.6 % (0.0-2.0); EOSINOPHIL # 0.1 TH/MM3 (0-0.4); EOSINOPHIL % 1.1 % (0.0-4.0); HEMATOCRIT 38.8 % (39.0-51.0); HEMOGLOBIN 12.8 GM/DL (13.0-17.0); LYMPH % 22.3 % (9.0-44.0); LYMPHOCYTE # 2.6 TH/MM3 (1.0-4.8); MEAN CELL VOLUME 89.5 FL (80.0-100.0); MEAN CORPUSCULAR HEMOGLOBIN 29.5 PG (27.0-34.0); MEAN PLATELET VOLUME 10.6 FL (7.0-11.0); MONO % 5.5 % (0.0-8.0); MONOCYTE # 0.6 TH/MM3 (0-0.9); NEUT % 70.5 % (16.0-70.0); PLATELET COUNT 114 TH/MM3 (150-450); RED BLOOD COUNT 4.33 MIL/MM3 (4.50-5.90); RED CELL DISTRIBUTION WIDTH 13.3 % (11.6-17.2); WHITE BLOOD COUNT 11.7 TH/MM3 (4.0-11.0)
[2017-06-15 05:10] LABS: ALBUMIN 3.2 GM/DL (3.4-5.0); ALT (GPT) 19 U/L (12-78); AST (GOT) 17 U/L (15-37); BICARBONATE 30.5 MEQ/L (21.0-32.0); BLOOD UREA NITROGEN 8 MG/DL (7-18); CALCIUM 8.9 MG/DL (8.5-10.1); CHLORIDE 104 MEQ/L (98-107); CREATININE 0.67 MG/DL (0.60-1.30); GLOMERULAR FILTRATION RATE 146 ML/MIN (>89); GLUCOSE,RANDOM 146 MG/DL (74-106); SODIUM (NA) 140 MEQ/L (136-145)
[2017-06-15 05:13] LABS: ALKALINE PHOSPHATASE 99 U/L (45-117); TOTAL BILIRUBIN ADULT 0.8 MG/DL (0.2-1.0); TOTAL PROTEIN 6.7 GM/DL (6.4-8.2)
[2017-06-15] MEDS: predniSONE 20 MG TAB PO SCH (09:09)
[2017-06-15] MEDS: MORPHINE SULFATE 2 MG/ML INJ IV PUSH PRN ×4 (09:09→23:40)
[2017-06-15] MEDS: GABAPENTIN 400 MG CAP PO SCH ×3 (09:09→17:50)
[2017-06-15] MEDS: DOCUSATE SODIUM 50 MG/SENNA 8.6 MG TAB PO SCH ×2 (09:09→20:09)
[2017-06-15] MEDS: VANCOMYCIN 1,500 MG/NS 500 ML IV SCH ×4 (09:10→20:05)
[2017-06-15] MEDS: SODIUM CHLORIDE 0.9% FLUSH 10 ML FLUSH IV FLUSH SCH ×2 (09:10→20:11)
[2017-06-15] MEDS: METOPROLOL TARTRATE 50 MG TAB PO SCH ×2 (09:10→20:09)
[2017-06-15] MEDS: CEFEPIME INJ 1,000 MG in SODIUM CHLORIDE 0.9% INJ 100 ML IV SCH ×2 (09:11→20:10)
[2017-06-15] MEDS: INSULIN ASPART SUPPLEMENTAL SCALE SQ SCH ×4 (09:14→20:24)
[2017-06-15] MEDS: glyBURIDE 5 MG TAB PO SCH (10:50)
[2017-06-15] MEDS: ARGATROBAN 250 MG in NS 250 ML IV PRN (10:50)
[2017-06-15] MEDS: DORZOLAMIDE/TIMOLOL OPTH SOLN 10 ML BTL EACH EYE SCH (10:51)
--- NOTE | 2017-06-15 12:32 | PD.ONC.PN ---
Subjective Subjective Remarks Afebrile overnight. Patient resting in room, states his leg feels better today. ate breakfast without problems. Objective Data Date Time Temp Pulse Resp B/P (MAP) Pulse Ox O2 Delivery O2 Flow Rate FiO2 06/15/17 08:00 97.9 88 22 163/86 (111) 92 06/15/17 04:00 97.8 80 17 140/70 (93) 92 06/15/17 00:00 97.8 72 18 139/65 (89) 95 06/14/17 20:29 06/14/17 20:00 97.3 82 17 154/77 (102) 94 06/14/17 18:00 81 16 138/66 (90) 98 Room Air 06/14/17 17:53 16 06/14/17 13:50 98.3 96 20 141/67 (91) 96 06/15/17 06/15/17 06/15/17 07:00 15:00 23:00 Intake Total 1095 ml Output Total 325 ml Balance 770 ml Result Diagram: 06/15/17 0408 06/15/17 0408 Laboratory Results Laboratory Tests Test 06/14/17 14:45 06/14/17 23:41 06/15/17 03:15 06/15/17 04:08 White Blood Count 12.8 TH/MM3 11.7 TH/MM3 Red Blood Count 4.90 MIL/MM3 4.33 MIL/MM3 Hemoglobin 14.5 GM/DL 12.8 GM/DL Hematocrit 43.2 % 38.8 % Mean Corpuscular Volume 88.1 FL 89.5 FL Mean Corpuscular Hemoglobin 29.5 PG 29.5 PG Mean Corpuscular Hemoglobin Concent 33.5 % 33.0 % Red Cell Distribution Width 12.8 % 13.3 % Platelet Count 144 TH/MM3 114 TH/MM3 Mean Platelet Volume 10.9 FL 10.6 FL Neutrophils (%) (Auto) 91.2 % 70.5 % Lymphocytes (%) (Auto) 5.3 % 22.3 % Monocytes (%) (Auto) 2.9 % 5.5 % Eosinophils (%) (Auto) 0.0 % 1.1 % Basophils (%) (Auto) 0.6 % 0.6 % Neutrophils # (Auto) 11.6 TH/MM3 8.3 TH/MM3 Lymphocytes # (Auto) 0.7 TH/MM3 2.6 TH/MM3 Monocytes # (Auto) 0.4 TH/MM3 0.6 TH/MM3 Eosinophils # (Auto) 0.0 TH/MM3 0.1 TH/MM3 Basophils # (Auto) 0.1 TH/MM3 0.1 TH/MM3 CBC Comment AUTO DIFF DIFF FINAL Differential Total Cells Counted 100 Neutrophils % (Manual) 87 % Band Neutrophils % 1 % Lymphocytes % 6 % Monocytes % 3 % Eosinophils % 1 % Neutrophils # (Manual) 11.5 TH/MM3 Myelocytes 2 % Differential Comment FINAL DIFF MANUAL Platelet Estimate NORMAL Platelet Morphology Comment ENLARGED Red Cell Morphology Comment NORMAL Prothrombin Time 10.4 SEC Prothromb Time International Ratio 1.0 RATIO Activated Partial Thromboplast Time 23.1 SEC 36.3 SEC 36.6 SEC Blood Urea Nitrogen 9 MG/DL 8 MG/DL Creatinine 0.95 MG/DL 0.67 MG/DL Random Glucose 248 MG/DL 146 MG/DL Total Protein 7.5 GM/DL 6.7 GM/DL Albumin 3.6 GM/DL 3.2 GM/DL Calcium Level 9.2 MG/DL 8.9 MG/DL Alkaline Phosphatase 105 U/L 99 U/L Aspartate Amino Transf (AST/SGOT) 24 U/L 17 U/L Alanine Aminotransferase (ALT/SGPT) 22 U/L 19 U/L Total Bilirubin 0.6 MG/DL 0.8 MG/DL Sodium Level 138 MEQ/L 140 MEQ/L Potassium Level 4.1 MEQ/L 3.3 MEQ/L Chloride Level 104 MEQ/L 104 MEQ/L Carbon Dioxide Level 26.4 MEQ/L 30.5 MEQ/L Anion Gap 8 MEQ/L 6 MEQ/L Estimat Glomerular Filtration Rate 98 ML/MIN 146 ML/MIN Test 06/15/17 07:04 Activated Partial Thromboplast Time 44.5 SEC Culture Results Microbiology Date/Time Source Procedure Growth Status 06/14/17 14:50 Blood Peripheral Aerobic Blood Culture - Preliminary NO GROWTH IN 1 DAY Resulted 06/14/17 14:50 Blood Peripheral Anaerobic Blood Culture - Preliminary NO GROWTH IN 1 DAY Resulted 06/14/17 14:45 Blood Peripheral Aerobic Blood Culture - Preliminary NO GROWTH IN 1 DAY Resulted 06/14/17 14:45 Blood Peripheral Anaerobic Blood Culture - Preliminary NO GROWTH IN 1 DAY Resulted 06/14/17 14:30 Wound Leg Gram Stain - Final Resulted 06/14/17 14:30 Wound Culture - Preliminary Gram Negative Ruslan Group D Enterococcus Resulted Imaging Studies Last 24 hours Impressions Lower Extremity Ultrasound 06/14/17 1417 Signed Impressions: Service Date/Time: Wednesday, June 14, 2017 15:16 - CONCLUSION: Nonocclusive thrombus as described above that extends above the knee. Samy Martinez MD FACR Administered Medications Medications (Trade) Dose Ordered Sig/Sridhar Route PRN Reason Start Time Stop Time Status Last Admin Dose Admin Insulin Aspart (NovoLOG SUPPLEMENTAL SCALE) 1 ACHS SLIDING SCALE SQ 06/14/17 21:00 06/15/17 09:14 Cefepime HCl 1000 mg/Sodium Chloride 100 ml @ 200 mls/hr Q12H IV 06/14/17 21:00 06/15/17 09:11 Sodium Chloride (NS Flush) 2 ml BID IV FLUSH 06/14/17 21:00 06/15/17 09:10 Acetaminophen/ Hydrocodone Bitart ([place] 5-325 Mg) 1 tab Q4H PRN PO PAIN SCALE 3 TO 5 06/14/17 19:15 06/14/17 21:08 Morphine Sulfate (Morphine Inj) 2 mg Q3H PRN IV PUSH Pain 6-10 06/14/17 19:15 06/15/17 09:09 Senna/Docusate Sodium (Lynda-Colace) 1 tab BID PO 06/14/17 21:00 06/15/17 09:09 Dorzolamide/ Timolol (Cosopt 2-0.5% Opth Soln) 1 drop DAILY EACH EYE 06/15/17 09:00 06/15/17 10:51 Gabapentin (Neurontin) 800 mg TID PO 06/15/17 09:00 06/15/17 11:55 Glyburide (Diabeta) 5 mg DAILYAC PO 06/15/17 08:00 06/15/17 10:50 Latanoprost (Xalatan 0.005% Opth Soln) 1 drop HS EACH EYE 06/14/17 21:00 06/14/17 21:48 Metoprolol Tartrate (Lopressor) 50 mg BID PO 06/14/17 21:00 06/15/17 09:10 Prednisone (Deltasone) 40 mg DAILY PO 06/15/17 09:00 06/15/17 09:09 Pravastatin Sodium (Pravachol) 20 mg HS PO 06/14/17 21:00 06/14/17 20:54 Apixaban (Eliquis) 5 mg BID PO 06/14/17 21:00 Future Hold 06/14/17 20:54 Vancomycin HCl 1500 mg/Sodium Chloride 515 ml @ 257.5 mls/ hr Q12H IV 06/14/17 21:00 06/15/17 09:10 Argatroban 250 mg/ Sodium Chloride 250 ml @ 14.1 mls/hr TITRATE PRN IV HIT 06/14/17 22:45 06/15/17 10:50 Objective Remarks GENERAL: Middle aged male, sitting up in bed in nad. SKIN: Warm and dry. HEAD: Normocephalic. EYES: No injection or drainage. NECK: Supple, trachea midline. CARDIOVASCULAR: Regular rate and rhythm RESPIRATORY: anterior emanuel clear. GASTROINTESTINAL: Abdomen soft, non-tender, nondistended. EXTREMITIES: No cyanosis. bilateral lower extremities with edema, left greater than right. NEUROLOGICAL: awake and alert, normal speech. moving all extremities. Assessment/Plan Problem List: (1) DVT of leg (deep venous thrombosis) ICD Codes: I82.409 - Acute embolism and thrombosis of unspecified deep veins of unspecified lower extremity Status: Acute Plan: --continue Argatroban until port exchange on Saturday. Assessment 61y/o male admitted with LLE swelling and back pain. h/o CIDP, Diabetes Mellitus, DVT, Hypertension Plan 1. continue Argatroban until port exchange on Saturday 2. monitor blood counts. Attending Statement The exam, history, and the medical decision-making described in the above note were completed with the assistance of the mid-level provider. I reviewed and agree with the findings presented. I attest that I had a [id number] encounter with the patient on the same day, and personally performed and documented my assessment and findings in the medical record. Sitting at in recliner, talking on phone. Tolerating Argatroban, no bleeding, noted decrease in L leg swelling. Agreeable with plan to proceed with port exchange, hold Argatroban on Saturday. FU w/ neurology for his IVIG. Problem Qualifiers (1) DVT of leg (deep venous thrombosis): Qualified Codes: I82.402 - Acute embolism and thrombosis of unspecified deep veins of left lower extremity Melissa Anderson Jun 15, 2017 12:32 July Hernandez MD Jun 15, 2017 13:46
--- NOTE | 2017-06-15 13:05 | HHI.PR ---
Subjective Remarks Follow-up left lower extremity DVT/left lower extremity cellulitis 06/15/17-patient seen and examined, currently afebrile and no acute event overnight. Denies any chest pain or shortness of breath. No significant left was treated pain. Objective Vitals Vital Signs Date Time Temp Pulse Resp B/P (MAP) Pulse Ox O2 Delivery O2 Flow Rate FiO2 06/15/17 12:00 98.3 74 20 145/76 (99) 94 06/15/17 08:00 97.9 88 22 163/86 (111) 92 06/15/17 04:00 97.8 80 17 140/70 (93) 92 06/15/17 00:00 97.8 72 18 139/65 (89) 95 06/14/17 20:29 06/14/17 20:00 97.3 82 17 154/77 (102) 94 06/14/17 18:00 81 16 138/66 (90) 98 Room Air 06/14/17 17:53 16 06/14/17 13:50 98.3 96 20 141/67 (91) 96 I/O 06/14/17 06/14/17 06/14/17 06/15/17 06/15/17 06/15/17 07:00 15:00 23:00 07:00 15:00 23:00 Intake Total 100 ml 1095 ml Output Total 325 ml Balance 100 ml 770 ml Intake Oral 580 ml IV Total 100 ml 515 ml Output Urine Total 325 ml Result Diagram: 06/15/17 0408 06/15/17 0408 Imaging Last Impressions Lower Extremity Ultrasound 06/14/17 1417 Signed Impressions: Service Date/Time: Wednesday, June 14, 2017 15:16 - CONCLUSION: Nonocclusive thrombus as described above that extends above the knee. Samy Martinez MD FACR Tibia/Fibula X-Ray 06/14/17 0000 Signed Impressions: Service Date/Time: Wednesday, June 14, 2017 14:30 - CONCLUSION: Negative for fracture or dislocation. Follow up in 7-10 days is suggested if symptoms persist. Samy Martinez MD FACR Lumbar Spine X-Ray 06/14/17 0000 Signed Impressions: Service Date/Time: Wednesday, June 14, 2017 14:35 - CONCLUSION: 1. Mild compression fracture of the L3 superior endplate. This is of uncertain chronicity given lack of prior exams. MRI examination may be performed to evaluate for bone marrow edema, if patient is symptomatic on palpation of the L3 spinous process. 2. Mild S-shaped thoracolumbar scoliosis with degenerative spondylosis most prominently at L2-3 and L4-5. Nain Sheriff MD Lumbar Spine MRI 06/14/17 0000 Signed Impressions: Service Date/Time: Wednesday, June 14, 2017 17:24 - CONCLUSION: 1. Acute or subacute mild compression fracture superior endplate L3. Remote L2 superior endplate compression fracture. 2. Degenerative disc disease as above with multi-level lateral recess encroachment. No spondylolisthesis. Kevin Patterson MD Objective Remarks GENERAL: NAD SKIN: Warm and dry. HEAD: Normocephalic. EYES: No scleral icterus. No injection or drainage. NECK: Supple, trachea midline. No JVD or lymphadenopathy. CARDIOVASCULAR: Regular rate and rhythm without murmurs, gallops, or rubs. RESPIRATORY: Breath sounds equal bilaterally. No accessory muscle use. GASTROINTESTINAL: Abdomen soft, non-tender, nondistended. MUSCULOSKELETAL: No cyanosis,+1 edema . erythema and purulent discharge LLE BACK: Nontender without obvious deformity. No CVA tenderness. A/P Problem List: (1) DVT of leg (deep venous thrombosis) ICD Code: I82.409 - Acute embolism and thrombosis of unspecified deep veins of unspecified lower extremity Status: Acute (2) Cellulitis ICD Code: L03.90 - Cellulitis, unspecified (3) Lumbar compression fracture ICD Code: S32.000A - Wedge compression fracture of unspecified lumbar vertebra , initial encounter for closed fracture (4) CIDP (chronic inflammatory demyelinating polyneuropathy) ICD Code: G61.81 - Chronic inflammatory demyelinating polyneuritis Status: Chronic (5) DM (diabetes mellitus) ICD Code: E11.9 - Type 2 diabetes mellitus without complications Assessment and Plan 61-year-old man with 1. LLE DVT: Doppler w/ nonocclusive thrombus extending above the knee. Recurrent. Treatment failure on multiple regimens, currently on Eliquis 5mg bid, reports compliance w/ meds. Follows w/ Dr. Doherty as outpatient Appreciate from Hematology Continue with Argatroban gtt until Saturday06/17/17 after possible port revision 2. LLE Cellulitis S/p Blood/Wound cultures, follow up cultures Continue with IV Abx pending cultures report 3. Lumbar CxFx: c/o back pain, no injury/trauma, MRI L-Spine w/ acute or subacute mild compression fracture superior endplate L3, remote L2 superior endplate compression fracture, . Neurosurgery consulted by ER physician, no surgical intervention required at this time. TLSO brace. PT for eval/tx. Analgesics/antiemetics as needed. 4. CIDP: Follows w/ Dr. Elton Mendoza ([phone]) as outpatient, previously on IVIG, however transitioned to Prednisone due to multiple clots. Continue home Prednisone, consult Neurology for further recommendations regarding treatment/port revision. 5. DM: Sliding scale w/ Accu-Cheks, monitor BS closely as on Prednisone. Continue home Glyburide 6. DVT Prophylaxis: Argatroban Problem Qualifiers (1) DVT of leg (deep venous thrombosis): Qualified Codes: I82.402 - Acute embolism and thrombosis of unspecified deep veins of left lower extremity (2) Cellulitis: Qualified Codes: L03.116 - Cellulitis of left lower limb Maco Clayton MD Jun 15, 2017 13:05
--- NOTE | 2017-06-15 13:06 | MB ---
cc: ERICA HUFFMAN MD, JAMES A. M.D. DEVERAS, RUBY ANNE E. M.D. DATE OF CONSULTATION: 06/15/2017. REASON FOR CONSULTATION: Dr. Huffman requested consultation for Mr. Kramer regarding questionable progression of deep vein thromboses while on Eliquis. REFERRING PHYSICIAN: Erica Huffman MD. HISTORY OF PRESENT ILLNESS: Mr. Kramer is a 61-year-old man well-known patient to Dr. Jordan Steele with CIDP diagnosed many years ago. He has had several lines of therapy and has been on maintenance IVIG. He developed left lower extremity deep vein thromboses. After this, the IVIG was suspended. He was placed on prednisone. 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 This was confirmed by JACKY positivity. There is a question of Xarelto failure. He was seen by my partner, Dr. James Dee, who dispelled the mystery. He discovered that the patient was not taking Xarelto as prescribed. He did not fail Xarelto, rather failed to take medication as prescribed. Mr. Kramer has been on a stable dose of Eliquis over the last several months. He describes that the left leg swelling has actually decreased. He has been on prednisone unable to receive IVIG since his catheter has been nonfunctional. He is in the process of having his catheter replaced. While on prednisone, he noticed some weeping in his left leg. He presented to the emergency room and was evaluated by Javier Carlin. He was assessed to have possible failure of the Eliquis with the recurrence of DVT and cellulitis of the leg. Ultrasound of the lower extremity was repeated which shows a nonocclusive thrombus beginning below the knee and extending into the distal superficial femoral vein. This was actually improved compared to his previous ultrasound of the leg from January 08, 2017 showing a more extensive clot within the left common femoral, superficial femoral and peroneal veins. Non-occlusive deep vein thrombosis was also noted in the left popliteal and posterior tibial veins. Hematology/Oncology is consulted regarding recommendations for anticoagulation. Mr. Kramer complains of weakness of his legs. He is eager to get back on IVIG. He has been with Dr. Steele for over four years. He has had CIDP for over seven years. He denies any problems on Eliquis. Denies any bleeding associated with Eliquis. He has had a Doppler around March and was advised to continue his treatment. PAST MEDICAL HISTORY: 1. CIDP. 2. Hypertension. 3. Diabetes. 4. Left lower extremity deep vein thromboses 5. HIT antibody. PAST SURGICAL HISTORY: Port placement. FAMILY HISTORY: Mother from COPD. No family history of cancer or peripheral neuropathy. SOCIAL HISTORY: Smokes a pack a day. He drinks two beers per day. Denies any illicit drug use. ALLERGIES: 1. HEPARIN. 2. LISINOPRIL. 3. LOSARTAN. CURRENT MEDICATIONS: 1. Cosopt. 2. Cefepime. 3. Argatroban. 4. Lynda-Colace. 5. Xalatan. 6. Lopressor. 7. Pravachol. 8. Vancomycin. PHYSICAL EXAMINATION: VITAL SIGNS: Temperature 97.3, heart rate 82, respiratory rate 17, blood pressure 154/77, saturation 94%. GENERAL: Mr. Kramer is a well-developed obese man in good humor. HEAD, EYES, EARS, NOSE, THROAT: His pupils are round and reactive to light and accommodation. Enciso facies is noted. The oropharynx is clear. NECK: The neck is supple. LUNGS: Clear. CARDIOVASCULAR: Normal rate and rhythm. ABDOMEN: Large and benign. LOWER EXTREMITIES: Asymmetry of the left leg, more prominent than the right. He has weakness of both extremities. He is able to twitch them on the same plane as gravity. He is able to lift his legs against gravity. He has thin atrophic skin, more prominent on the left leg that is more swollen. LABS: CBC is significant for platelet count 144,000, white blood cell count of 4.80, predominately neutrophils. Glucose 248. Renal function is normal. ASSESSMENT AND PLAN: Mr. Kramer is a 61-year-old man with multiple medical problems. He has a history of CIDP, Guillain-Coquille, diabetes, deep vein thromboses, catheter-related clot, hypertension, hypercholesterolemia and glaucoma. There is a questionable diagnosis of multiple myeloma on review of notes. He developed right lower extremity deep vein thromboses associated with HIT antibody. He had not been taking his Xarelto at the time appropriately. He was at some point switched to anticoagulant therapy with Eliquis for which he has been on for the last several months. I discussed at length with Mr. Kramer the above findings. I recommend that he continue on his Eliquis once discharged from the hospital. He did not fail his anticoagulation. As a matter of fact, he feels better with the left leg swollen. 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 His deep vein thromboses is less extensive than that in December. These are signs of improvement while on Eliquis. He may even consider decreasing the dose once he has completed six months of anticoagulant therapy with Eliquis to 2.5 milligrams twice a day as secondary prophylaxis. I defer this ultimately to Dr. Doherty. I recommend against inferior vena cava filter placement. He has no contraindication to anticoagulation. I will check an HIT antibody status. To be safe, I recommend continuing argatroban as started by the primary team. He may therefore be bridged off anticoagulant therapy for port removal and exchange on Saturday. He is dependent on his IVIG for continued management of the CIDP and go and Guillain-Coquille syndrome. I defer to neurology as to his treatment. He is requiring the access to continue his treatments. He has a great deal of difficulty on prednisone and would like to come off the prednisone. We discussed the steroid skin atrophy which is probably the reason for the weeping in his left lower extremity. He would benefit from wearing a support hose. There is very little sign of infection. There are skin tears from the steroid skin atrophy. I anticipate he would be able to come off his antibiotic therapy for more localized therapy of his left leg. His lumbar spine compression fracture is managed conservatively. Anticardiolipin antiphospholipid antibodies will be checked. His questions were answered to his satisfaction. July Hernandez MD RAD/JCC /11:00 PM /12:46 PM
[2017-06-15] MEDS ORDERED: POTASSIUM CHLORIDE 10 MEQ CONTROLLED RELEASE TAB PO ONE (13:15)
[2017-06-15 14:19] LABS: HEPARIN INDUCED PLATELET AB NEGATIVE (NEGATIVE)
[2017-06-15] MEDS: PRAVASTATIN SOD 20 MG TAB PO SCH (20:09)
[2017-06-15] MEDS: LATANOPROST 0.005% OPHT SOLN 2.5 ML BTL EACH EYE SCH (20:11)
--- NOTE | 2017-06-15 20:28 | MB ---
cc: DEQUAN AMAYA MD PHD DATE OF CONSULTATION 06/15/17 REASON FOR CONSULTATION CIDP and IVIG therapy. HISTORY OF PRESENT ILLNESS Mr. 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 He has been receiving IVIG therapy at a dose of 0.4 gm/kg every two weeks and this has maintained his strength. He developed a DVT in the left lower extremity and the IVIG has been on hold. He also has had to have a port revision. He feels that his strength has been maintained on prednisone, although he is weaker in his legs and feels that the IVIG was more effective. He is currently on argatroban. His Eliquis is on hold in preparation for a port revision on Saturday. He states he would like to resume IVIG therapy. NEUROLOGIC EXAMINATION He is alert and oriented. Cranial nerves are intact. On motor exam, he has 5/5 strength of the deltoid, biceps, triceps, brachial radialis and interossei in both upper extremities. He is weak at the iliopsoas bilaterally at 3/5, quads are 4/5 bilaterally, hamstrings 4/5 bilaterally, tib anterior 3/5 bilaterally. He is areflexic. Sensory exam is diminished in both lower extremities. IMPRESSION The patient has CIDP. I did review Dr. Hernandez' note and she defers to neurology regarding IVIG therapy. If no contraindication, I would recommend resuming his IVIG therapy after his port is revised at a dose to 0.4 gm/kg once every two weeks. Following this, try to taper the steroids. MD LYUBOV Knight/ /7:54 PM /8:18 PM
[2017-06-16] VITALS (9 sets, daily range): BP systolic 120–162; BP diastolic 63–81; PULSE 72–86; RESP 16–22; TEMP 96.4–98.4; O2SAT 93–95
[2017-06-16] MEDS: ARGATROBAN 250 MG in NS 250 ML IV PRN ×3 (02:30→17:01)
[2017-06-16 04:14] LABS: AUTOMATED NEUTROPHIL # 7.9 TH/MM3 (1.8-7.7); BASOPHIL # 0.1 TH/MM3 (0-0.2); BASOPHIL % 0.5 % (0.0-2.0); EOSINOPHIL # 0.1 TH/MM3 (0-0.4); EOSINOPHIL % 0.9 % (0.0-4.0); HEMATOCRIT 39.4 % (39.0-51.0); HEMOGLOBIN 12.8 GM/DL (13.0-17.0); LYMPH % 20.3 % (9.0-44.0); LYMPHOCYTE # 2.2 TH/MM3 (1.0-4.8); MEAN CELL VOLUME 89.7 FL (80.0-100.0); MEAN CORPUSCULAR HEMOGLOBIN 29.2 PG (27.0-34.0); MEAN CORPUSCULAR HGB CONC 32.5 % (32.0-36.0); MONO % 5.2 % (0.0-8.0); MONOCYTE # 0.6 TH/MM3 (0-0.9); NEUT % 73.1 % (16.0-70.0); PLATELET COUNT 124 TH/MM3 (150-450); RED BLOOD COUNT 4.39 MIL/MM3 (4.50-5.90); WHITE BLOOD COUNT 10.9 TH/MM3 (4.0-11.0)
[2017-06-16 04:36] LABS: BICARBONATE 30.4 MEQ/L (21.0-32.0); CALCIUM 8.7 MG/DL (8.5-10.1); CREATININE 0.69 MG/DL (0.60-1.30)
[2017-06-16] MEDS ORDERED: PHARMACY ORDERED LAB ONE (08:45)
[2017-06-16] MEDS: METOPROLOL TARTRATE 50 MG TAB PO SCH ×2 (08:49→20:20)
[2017-06-16] MEDS: GABAPENTIN 400 MG CAP PO SCH ×3 (08:49→17:01)
[2017-06-16] MEDS: glyBURIDE 5 MG TAB PO SCH (08:49)
[2017-06-16] MEDS: predniSONE 20 MG TAB PO SCH (08:49)
[2017-06-16] MEDS: SODIUM CHLORIDE 0.9% FLUSH 10 ML FLUSH IV FLUSH SCH ×2 (08:49→20:56)
[2017-06-16] MEDS: DORZOLAMIDE/TIMOLOL OPTH SOLN 10 ML BTL EACH EYE SCH (08:50)
[2017-06-16] MEDS: DOCUSATE SODIUM 50 MG/SENNA 8.6 MG TAB PO SCH ×2 (08:50→20:20)
[2017-06-16] MEDS: CEFEPIME INJ 1,000 MG in SODIUM CHLORIDE 0.9% INJ 100 ML IV SCH ×2 (08:50→20:19)
[2017-06-16] MEDS: INSULIN ASPART SUPPLEMENTAL SCALE SQ SCH ×4 (08:51→20:26)
[2017-06-16] MEDS: MORPHINE SULFATE 2 MG/ML INJ IV PUSH PRN ×4 (08:53→21:32)
--- NOTE | 2017-06-16 10:06 | HHI.PR ---
Subjective Remarks Follow-up left lower extremity DVT/left lower extremity cellulitis 06/15/17-patient seen and examined, currently afebrile and no acute event overnight. Denies any chest pain or shortness of breath. No significant left was treated pain. 06/16/17-patient seen and examined, some nonproductive cough however no significant shortness of breath. Denies any chest pain. Seen by neurology yesterday. Afebrile. Objective Vitals Vital Signs Date Time Temp Pulse Resp B/P (MAP) Pulse Ox O2 Delivery O2 Flow Rate FiO2 06/16/17 08:00 96.4 85 20 162/74 (103) 94 06/16/17 04:00 98.3 77 16 120/66 (84) 94 06/16/17 04:00 77 06/16/17 04:00 Room Air 06/16/17 00:00 97.9 78 16 134/63 (86) 95 06/16/17 00:00 Room Air 06/16/17 00:00 75 06/15/17 20:25 97.0 96 18 128/68 (88) 97 06/15/17 20:00 Room Air 06/15/17 20:00 100 06/15/17 16:00 98.2 99 20 151/89 (109) 92 06/15/17 16:00 Room Air 06/15/17 15:48 98 06/15/17 12:03 75 06/15/17 12:00 98.3 74 20 145/76 (99) 94 06/15/17 12:00 Room Air I/O 06/15/17 06/15/17 06/15/17 06/16/17 06/16/17 06/16/17 07:00 15:00 23:00 07:00 15:00 23:00 Intake Total 1095 ml 980 ml 1020 ml Output Total 325 ml 400 ml 1000 ml Balance 770 ml 580 ml 20 ml Intake Oral 580 ml 480 ml 920 ml IV Total 515 ml 500 ml 100 ml Output Urine Total 325 ml 400 ml 1000 ml # Bowel Movements 1 Result Diagram: 06/16/17 0346 06/16/17 0346 Imaging Last Impressions Lower Extremity Ultrasound 06/14/17 1417 Signed Impressions: Service Date/Time: Wednesday, June 14, 2017 15:16 - CONCLUSION: Nonocclusive thrombus as described above that extends above the knee. Samy Martinez MD FACR Tibia/Fibula X-Ray 06/14/17 0000 Signed Impressions: Service Date/Time: Wednesday, June 14, 2017 14:30 - CONCLUSION: Negative for fracture or dislocation. Follow up in 7-10 days is suggested if symptoms persist. Samy Martinez MD FACR Lumbar Spine X-Ray 06/14/17 0000 Signed Impressions: Service Date/Time: Wednesday, June 14, 2017 14:35 - CONCLUSION: 1. Mild compression fracture of the L3 superior endplate. This is of uncertain chronicity given lack of prior exams. MRI examination may be performed to evaluate for bone marrow edema, if patient is symptomatic on palpation of the L3 spinous process. 2. Mild S-shaped thoracolumbar scoliosis with degenerative spondylosis most prominently at L2-3 and L4-5. Nain Sheriff MD Lumbar Spine MRI 06/14/17 0000 Signed Impressions: Service Date/Time: Wednesday, June 14, 2017 17:24 - CONCLUSION: 1. Acute or subacute mild compression fracture superior endplate L3. Remote L2 superior endplate compression fracture. 2. Degenerative disc disease as above with multi-level lateral recess encroachment. No spondylolisthesis. Kevin Patterson MD Objective Remarks GENERAL: NAD SKIN: Warm and dry. HEAD: Normocephalic. EYES: No scleral icterus. No injection or drainage. NECK: Supple, trachea midline. No JVD or lymphadenopathy. CARDIOVASCULAR: Regular rate and rhythm without murmurs, gallops, or rubs. RESPIRATORY: Breath sounds equal bilaterally. No accessory muscle use. GASTROINTESTINAL: Abdomen soft, non-tender, nondistended. MUSCULOSKELETAL: No cyanosis,+1 edema . erythema and purulent discharge LLE BACK: Nontender without obvious deformity. No CVA tenderness. A/P Problem List: (1) DVT of leg (deep venous thrombosis) ICD Code: I82.409 - Acute embolism and thrombosis of unspecified deep veins of unspecified lower extremity Status: Acute (2) Cellulitis ICD Code: L03.90 - Cellulitis, unspecified (3) Lumbar compression fracture ICD Code: S32.000A - Wedge compression fracture of unspecified lumbar vertebra , initial encounter for closed fracture (4) CIDP (chronic inflammatory demyelinating polyneuropathy) ICD Code: G61.81 - Chronic inflammatory demyelinating polyneuritis Status: Chronic (5) DM (diabetes mellitus) ICD Code: E11.9 - Type 2 diabetes mellitus without complications Assessment and Plan 61-year-old man with 1. LLE DVT: Doppler w/ nonocclusive thrombus extending above the knee. Recurrent. Treatment failure on multiple regimens, currently on Eliquis 5mg bid, reports compliance w/ meds. Follows w/ Dr. Doherty as outpatient Appreciate from Hematology Continue with Argatroban gtt until Saturday06/17/17 after possible port revision 2. LLE Cellulitis S/p Blood/Wound cultures + for gram-negative rods and group D enterococcus Continue with IV Abx 3. Lumbar CxFx: c/o back pain, no injury/trauma, MRI L-Spine w/ acute or subacute mild compression fracture superior endplate L3, remote L2 superior endplate compression fracture, . Neurosurgery consulted by ER physician, no surgical intervention required at this time. TLSO brace. PT for eval/tx. Analgesics/antiemetics as needed. 4. CIDP: Follows w/ Dr. Elton Mendoza ([phone]) as outpatient, previously on IVIG, however transitioned to Prednisone due to multiple clots. Continue home Prednisone Appreciate input from neurology and recommend resuming his IVIG therapy after his port is revised at a dose to 0.4 gm/kg once every two weeks 5. DM: Sliding scale w/ Accu-Cheks, monitor BS closely as on Prednisone. Continue home Glyburide 6. DVT Prophylaxis: Argatroban Problem Qualifiers (1) DVT of leg (deep venous thrombosis): Qualified Codes: I82.402 - Acute embolism and thrombosis of unspecified deep veins of left lower extremity (2) Cellulitis: Qualified Codes: L03.116 - Cellulitis of left lower limb Maco Clayton MD Jun 16, 2017 10:06
[2017-06-16] MEDS ORDERED: RESP: ALBUTEROL 2.5 MG/IPRATROPIUM 0.5 MG NEB (PRN) NEB (10:15)
--- NOTE | 2017-06-16 11:29 | PD.ONC.PN ---
Subjective Subjective Remarks Afebrile overnight. Patient resting in bed in nad. Tolerating Argatroban drip. No complaints. Objective Data Date Time Temp Pulse Resp B/P (MAP) Pulse Ox O2 Delivery O2 Flow Rate FiO2 06/16/17 08:00 96.4 85 20 162/74 (103) 94 06/16/17 07:57 82 06/16/17 04:00 98.3 77 16 120/66 (84) 94 06/16/17 04:00 77 06/16/17 04:00 Room Air 06/16/17 00:00 97.9 78 16 134/63 (86) 95 06/16/17 00:00 Room Air 06/16/17 00:00 75 06/15/17 20:25 97.0 96 18 128/68 (88) 97 06/15/17 20:00 Room Air 06/15/17 20:00 100 06/15/17 16:00 98.2 99 20 151/89 (109) 92 06/15/17 16:00 Room Air 06/15/17 15:48 98 06/15/17 12:03 75 06/15/17 12:00 98.3 74 20 145/76 (99) 94 06/15/17 12:00 Room Air 06/16/17 06/16/17 06/16/17 07:00 15:00 23:00 Intake Total 1020 ml Output Total 1000 ml Balance 20 ml Result Diagram: 06/16/17 0346 06/16/17 0346 Laboratory Results Laboratory Tests Test 06/15/17 19:41 06/15/17 23:22 06/16/17 03:46 06/16/17 06:30 Activated Partial Thromboplast Time 34.5 SEC 36.6 SEC 31.5 SEC 35.0 SEC White Blood Count 10.9 TH/MM3 Red Blood Count 4.39 MIL/MM3 Hemoglobin 12.8 GM/DL Hematocrit 39.4 % Mean Corpuscular Volume 89.7 FL Mean Corpuscular Hemoglobin 29.2 PG Mean Corpuscular Hemoglobin Concent 32.5 % Red Cell Distribution Width 13.0 % Platelet Count 124 TH/MM3 Mean Platelet Volume 10.0 FL Neutrophils (%) (Auto) 73.1 % Lymphocytes (%) (Auto) 20.3 % Monocytes (%) (Auto) 5.2 % Eosinophils (%) (Auto) 0.9 % Basophils (%) (Auto) 0.5 % Neutrophils # (Auto) 7.9 TH/MM3 Lymphocytes # (Auto) 2.2 TH/MM3 Monocytes # (Auto) 0.6 TH/MM3 Eosinophils # (Auto) 0.1 TH/MM3 Basophils # (Auto) 0.1 TH/MM3 CBC Comment DIFF FINAL Differential Comment Blood Urea Nitrogen 8 MG/DL Creatinine 0.69 MG/DL Random Glucose 203 MG/DL Calcium Level 8.7 MG/DL Sodium Level 138 MEQ/L Potassium Level 3.8 MEQ/L Chloride Level 103 MEQ/L Carbon Dioxide Level 30.4 MEQ/L Anion Gap 5 MEQ/L Estimat Glomerular Filtration Rate 141 ML/MIN Culture Results Microbiology Date/Time Source Procedure Growth Status 06/14/17 14:50 Blood Peripheral Aerobic Blood Culture - Preliminary NO GROWTH IN 2 DAYS Resulted 06/14/17 14:50 Blood Peripheral Anaerobic Blood Culture - Preliminary NO GROWTH IN 2 DAYS Resulted 06/14/17 14:45 Blood Peripheral Aerobic Blood Culture - Preliminary NO GROWTH IN 2 DAYS Resulted 06/14/17 14:45 Blood Peripheral Anaerobic Blood Culture - Preliminary NO GROWTH IN 2 DAYS Resulted 06/14/17 14:30 Wound Leg Gram Stain - Final Resulted 06/14/17 14:30 Wound Culture - Preliminary Gram Negative Ruslan Group D Enterococcus Resulted Administered Medications Medications (Trade) Dose Ordered Sig/Sridhar Route PRN Reason Start Time Stop Time Status Last Admin Dose Admin Insulin Aspart (NovoLOG SUPPLEMENTAL SCALE) 1 ACHS SLIDING SCALE SQ 06/14/17 21:00 06/16/17 08:51 Cefepime HCl 1000 mg/Sodium Chloride 100 ml @ 200 mls/hr Q12H IV 06/14/17 21:00 06/16/17 08:50 Sodium Chloride (NS Flush) 2 ml BID IV FLUSH 06/14/17 21:00 06/16/17 08:49 Acetaminophen/ Hydrocodone Bitart ([place] 5-325 Mg) 1 tab Q4H PRN PO PAIN SCALE 3 TO 5 06/14/17 19:15 06/14/17 21:08 Morphine Sulfate (Morphine Inj) 2 mg Q3H PRN IV PUSH Pain 6-10 06/14/17 19:15 06/16/17 08:53 Senna/Docusate Sodium (Lynda-Colace) 1 tab BID PO 06/14/17 21:00 06/16/17 08:50 Dorzolamide/ Timolol (Cosopt 2-0.5% Opth Soln) 1 drop DAILY EACH EYE 06/15/17 09:00 06/16/17 08:50 Gabapentin (Neurontin) 800 mg TID PO 06/15/17 09:00 06/16/17 08:49 Glyburide (Diabeta) 5 mg DAILYAC PO 06/15/17 08:00 06/16/17 08:49 Latanoprost (Xalatan 0.005% Opth Soln) 1 drop HS EACH EYE 06/14/17 21:00 06/15/17 20:11 Metoprolol Tartrate (Lopressor) 50 mg BID PO 06/14/17 21:00 06/16/17 08:49 Prednisone (Deltasone) 40 mg DAILY PO 06/15/17 09:00 06/16/17 08:49 Pravastatin Sodium (Pravachol) 20 mg HS PO 06/14/17 21:00 06/15/17 20:09 Apixaban (Eliquis) 5 mg BID PO 06/14/17 21:00 Future Hold 06/14/17 20:54 Vancomycin HCl 1500 mg/Sodium Chloride 515 ml @ 257.5 mls/ hr Q12H IV 06/14/17 21:00 06/15/17 20:05 Argatroban 250 mg/ Sodium Chloride 250 ml @ 14.1 mls/hr TITRATE PRN IV HIT 06/14/17 22:45 06/16/17 09:35 Objective Remarks GENERAL: Middle aged male, sitting up in bed in [facility]. SKIN: Warm and dry. HEAD: Normocephalic. EYES: No injection or drainage. NECK: Supple, trachea midline. CARDIOVASCULAR: Regular rate and rhythm RESPIRATORY: anterior emanuel clear. GASTROINTESTINAL: Abdomen soft, non-tender, nondistended. EXTREMITIES: No cyanosis. edema in bilateral lower extremities. NEUROLOGICAL: awake, alert. normal speech. moving extremities. Assessment/Plan Problem List: (1) DVT of leg (deep venous thrombosis) ICD Codes: I82.409 - Acute embolism and thrombosis of unspecified deep veins of unspecified lower extremity Status: Acute Plan: --continue Argatroban until port exchange on Saturday. Assessment 61y/o male admitted with LLE swelling and back pain. h/o CIDP, Diabetes Mellitus, DVT, Hypertension Plan 1. continue Argatroban 2. monitor CBC Attending Statement The exam, history, and the medical decision-making described in the above note were completed with the assistance of the mid-level provider. I reviewed and agree with the findings presented. I attest that I had a [id number] encounter with the patient on the same day, and personally performed and documented my assessment and findings in the medical record. Pt HIT antibodies resolved. Continue Argatroban for concern for reactivation of HIT antibody with heparin exposure. Anticipate stopping ARgatroban atleast 2 hours before port exchange by radiologist. Pt report mal functioning port originally placed by radiology. Plan to resume Argatroban in evening. Pt NOAC stopped on Saturday- last dose before pt came to hospital. No bleeding. Problem Qualifiers (1) DVT of leg (deep venous thrombosis): Qualified Codes: I82.402 - Acute embolism and thrombosis of unspecified deep veins of left lower extremity Melissa Anderson Jun 16, 2017 11:29 July Hernandez MD Jun 16, 2017 16:37
[2017-06-16] MEDS: VANCOMYCIN 1,500 MG/NS 500 ML IV SCH ×2 (16:55)
[2017-06-16] MEDS: guaiFENesin E.R. 600 MG TAB PO SCH (20:20)
[2017-06-16] MEDS: PRAVASTATIN SOD 20 MG TAB PO SCH (20:20)
[2017-06-16] MEDS: LATANOPROST 0.005% OPHT SOLN 2.5 ML BTL EACH EYE SCH (20:56)
[2017-06-16] MEDS: SODIUM CHLORIDE 0.9% FLUSH 10 ML FLUSH IV FLUSH PRN (21:32)
[2017-06-17] VITALS (9 sets, daily range): BP systolic 134–182; BP diastolic 72–98; PULSE 65–98; RESP 17–20; TEMP 97.6–98.3; O2SAT 93–96
[2017-06-17] MEDS: MORPHINE SULFATE 2 MG/ML INJ IV PUSH PRN ×5 (00:24→19:58)
[2017-06-17] MEDS ORDERED: PHARMACY ORDERED LAB ONE (03:45)
[2017-06-17] MEDS: ARGATROBAN 250 MG in NS 250 ML IV PRN (05:02)
[2017-06-17] MEDS: VANCOMYCIN 1,500 MG/NS 500 ML IV SCH ×2 (05:09)
[2017-06-17] MEDS: INSULIN ASPART SUPPLEMENTAL SCALE SQ SCH ×4 (08:00→21:57)
[2017-06-17] MEDS: CEFEPIME INJ 1,000 MG in SODIUM CHLORIDE 0.9% INJ 100 ML IV SCH ×2 (09:31→19:59)
[2017-06-17] MEDS: GABAPENTIN 400 MG CAP PO SCH ×3 (09:34→18:24)
[2017-06-17] MEDS: predniSONE 20 MG TAB PO SCH (09:36)
[2017-06-17] MEDS: SODIUM CHLORIDE 0.9% FLUSH 10 ML FLUSH IV FLUSH SCH ×2 (09:36→20:00)
[2017-06-17] MEDS: METOPROLOL TARTRATE 50 MG TAB PO SCH ×2 (09:36→19:58)
[2017-06-17] MEDS: glyBURIDE 5 MG TAB PO SCH (09:36)
[2017-06-17] MEDS: DOCUSATE SODIUM 50 MG/SENNA 8.6 MG TAB PO SCH ×2 (09:36→19:59)
[2017-06-17] MEDS: guaiFENesin E.R. 600 MG TAB PO SCH ×2 (09:36→19:59)
--- NOTE | 2017-06-17 09:36 | HHI.PR ---
Subjective Remarks Follow-up left lower extremity DVT/left lower extremity cellulitis 06/15/17-patient seen and examined, currently afebrile and no acute event overnight. Denies any chest pain or shortness of breath. No significant left was treated pain. 06/16/17-patient seen and examined, some nonproductive cough however no significant shortness of breath. Denies any chest pain. Seen by neurology yesterday. Afebrile. 06/17/17-patient seen and examined, currently nothing by mouth pending for exchange. Argatroban on hold Objective Vitals Vital Signs Date Time Temp Pulse Resp B/P (MAP) Pulse Ox O2 Delivery O2 Flow Rate FiO2 06/17/17 08:10 98.3 95 18 161/79 (106) 94 06/17/17 04:00 Room Air 06/17/17 04:00 97.6 65 20 134/72 (92) 95 06/17/17 04:00 74 06/17/17 00:11 Room Air 06/16/17 23:47 98.4 72 18 128/70 (89) 93 06/16/17 20:00 77 06/16/17 20:00 Room Air 06/16/17 20:00 97.9 85 22 161/74 (103) 93 06/16/17 16:00 Room Air 06/16/17 16:00 98.4 86 20 150/73 (98) 94 06/16/17 15:54 78 06/16/17 12:00 98.2 81 20 157/81 (106) 94 06/16/17 12:00 Room Air 06/16/17 12:00 80 I/O 06/16/17 06/16/17 06/16/17 06/17/17 06/17/17 06/17/17 07:00 15:00 23:00 07:00 15:00 23:00 Intake Total 1020 ml 950 ml 240 ml Output Total 1000 ml 1900 ml 850 ml Balance 20 ml -950 ml -610 ml Intake Oral 920 ml 600 ml 240 ml IV Total 100 ml 350 ml Output Urine Total 1000 ml 1900 ml 850 ml # Bowel Movements 1 0 Result Diagram: 06/16/17 0346 06/16/17 0346 Objective Remarks GENERAL: NAD SKIN: Warm and dry. HEAD: Normocephalic. EYES: No scleral icterus. No injection or drainage. NECK: Supple, trachea midline. No JVD or lymphadenopathy. CARDIOVASCULAR: Regular rate and rhythm without murmurs, gallops, or rubs. RESPIRATORY: Breath sounds equal bilaterally. No accessory muscle use. GASTROINTESTINAL: Abdomen soft, non-tender, nondistended. MUSCULOSKELETAL: No cyanosis,+1 edema . erythema and purulent discharge LLE BACK: Nontender without obvious deformity. No CVA tenderness. A/P Problem List: (1) DVT of leg (deep venous thrombosis) ICD Code: I82.409 - Acute embolism and thrombosis of unspecified deep veins of unspecified lower extremity Status: Acute (2) Cellulitis ICD Code: L03.90 - Cellulitis, unspecified (3) Lumbar compression fracture ICD Code: S32.000A - Wedge compression fracture of unspecified lumbar vertebra , initial encounter for closed fracture (4) CIDP (chronic inflammatory demyelinating polyneuropathy) ICD Code: G61.81 - Chronic inflammatory demyelinating polyneuritis Status: Chronic (5) DM (diabetes mellitus) ICD Code: E11.9 - Type 2 diabetes mellitus without complications Assessment and Plan 61-year-old man with 1. LLE DVT: Doppler w/ nonocclusive thrombus extending above the knee. Recurrent. Treatment failure on multiple regimens, currently on Eliquis 5mg bid on Hold, Follows w/ Dr. Doherty as outpatient Appreciate from Hematology Argatroban gtt On hold now and plan for port revision today by IR 2. LLE Cellulitis S/p Blood/Wound cultures + Citrobacter and Enteroccocus Continue with IV Abx ; however will switch to PO antibiotic 3. Lumbar CxFx: c/o back pain, no injury/trauma, MRI L-Spine w/ acute or subacute mild compression fracture superior endplate L3, remote L2 superior endplate compression fracture, . Neurosurgery consulted by ER physician, no surgical intervention required at this time. TLSO brace. PT for eval/tx. Analgesics/antiemetics as needed. 4. CIDP: Follows w/ Dr. Elton Mendoza ([phone]) as outpatient, previously on IVIG, however transitioned to Prednisone due to multiple clots. Continue home Prednisone Appreciate input from neurology and recommend resuming his IVIG therapy after his port is revised at a dose to 0.4 gm/kg once every two weeks 5. DM: Sliding scale w/ Accu-Cheks, monitor BS closely as on Prednisone. Continue home Glyburide 6. DVT Prophylaxis: Argatroban Problem Qualifiers (1) DVT of leg (deep venous thrombosis): Qualified Codes: I82.402 - Acute embolism and thrombosis of unspecified deep veins of left lower extremity (2) Cellulitis: Qualified Codes: L03.116 - Cellulitis of left lower limb Maco Clayton MD Jun 17, 2017 09:36
[2017-06-17] MEDS: DORZOLAMIDE/TIMOLOL OPTH SOLN 10 ML BTL EACH EYE SCH (09:43)
[2017-06-17] MEDS ORDERED: ARGATROBAN INJ 250 MG in SODIUM CHLOR 0.9% 250 ML INJ 250 ML IV PRN (15:00)
[2017-06-17] MEDS ORDERED: MISCELLANEOUS PHARMACY INFORMATION OTHER ONE (15:00)
[2017-06-17] MEDS ORDERED: SODIUM CHLORIDE 0.9% INJ 10 ML ONE (15:05)
[2017-06-17] MEDS ORDERED: ALTEPLASE RECOMBINANT 2 MG VIAL IV ONE (15:34)
[2017-06-17] MEDS: VANCOMYCIN INJ 1,750 MG in SODIUM CHLORID 0.9% 500 ML INJ 500 ML IV SCH (16:16)
[2017-06-17] MEDS: PRAVASTATIN SOD 20 MG TAB PO SCH (19:58)
[2017-06-17] MEDS: LATANOPROST 0.005% OPHT SOLN 2.5 ML BTL EACH EYE SCH (20:00)
[2017-06-18] VITALS (13 sets, daily range): BP systolic 145–177; BP diastolic 65–94; PULSE 68–96; RESP 20–22; TEMP 97.5–98.3; O2SAT 93–96
[2017-06-18] MEDS: MORPHINE SULFATE 2 MG/ML INJ IV PUSH PRN ×4 (03:43→19:34)
[2017-06-18] MEDS: VANCOMYCIN INJ 1,750 MG in SODIUM CHLORID 0.9% 500 ML INJ 500 ML IV SCH ×2 (03:43→16:16)
[2017-06-18 03:54] LABS: CREATININE 0.56 MG/DL (0.60-1.30)
[2017-06-18 07:00] LABS: AUTOMATED NEUTROPHIL # 8.7 TH/MM3 (1.8-7.7); BASOPHIL # 0.1 TH/MM3 (0-0.2); BASOPHIL % 0.8 % (0.0-2.0); EOSINOPHIL # 0.2 TH/MM3 (0-0.4); EOSINOPHIL % 1.3 % (0.0-4.0); HEMATOCRIT 39.7 % (39.0-51.0); HEMOGLOBIN 13.2 GM/DL (13.0-17.0); LYMPH % 22.4 % (9.0-44.0); LYMPHOCYTE # 2.8 TH/MM3 (1.0-4.8); MEAN CELL VOLUME 89.7 FL (80.0-100.0); MEAN CORPUSCULAR HEMOGLOBIN 29.8 PG (27.0-34.0); MEAN CORPUSCULAR HGB CONC 33.2 % (32.0-36.0); MEAN PLATELET VOLUME 10.7 FL (7.0-11.0); MONO % 4.8 % (0.0-8.0); MONOCYTE # 0.6 TH/MM3 (0-0.9); NEUT % 70.7 % (16.0-70.0); PLATELET COUNT 133 TH/MM3 (150-450); RED BLOOD COUNT 4.42 MIL/MM3 (4.50-5.90); RED CELL DISTRIBUTION WIDTH 13.2 % (11.6-17.2); WHITE BLOOD COUNT 12.3 TH/MM3 (4.0-11.0)
[2017-06-18] MEDS: INSULIN ASPART SUPPLEMENTAL SCALE SQ SCH ×4 (08:00→21:11)
[2017-06-18] MEDS: GABAPENTIN 400 MG CAP PO SCH ×3 (09:00→18:00)
[2017-06-18] MEDS: DORZOLAMIDE/TIMOLOL OPTH SOLN 10 ML BTL EACH EYE SCH (09:00)
[2017-06-18] MEDS: DOCUSATE SODIUM 50 MG/SENNA 8.6 MG TAB PO SCH ×2 (09:00→21:09)
[2017-06-18] MEDS: CEFEPIME INJ 1,000 MG in SODIUM CHLORIDE 0.9% INJ 100 ML IV SCH ×2 (09:55→21:09)
--- NOTE | 2017-06-18 10:08 | HHI.PR ---
Subjective Remarks Follow-up left lower extremity DVT/left lower extremity cellulitis 06/15/17-patient seen and examined, currently afebrile and no acute event overnight. Denies any chest pain or shortness of breath. No significant left was treated pain. 06/16/17-patient seen and examined, some nonproductive cough however no significant shortness of breath. Denies any chest pain. Seen by neurology yesterday. Afebrile. 06/17/17-patient seen and examined, currently nothing by mouth pending for exchange. Argatroban on hold 06/18/17-patient seen and examined, currently nothing by mouth pending revision of port exchange. No acute event overnight. Objective Vitals Vital Signs Date Time Temp Pulse Resp B/P (MAP) Pulse Ox O2 Delivery O2 Flow Rate FiO2 06/18/17 07:38 97.9 73 20 176/84 (114) 93 06/18/17 04:00 Room Air 06/18/17 04:00 97.6 76 20 146/81 (102) 95 06/18/17 03:47 75 06/18/17 00:16 68 06/18/17 00:00 98.1 69 22 151/74 (99) 96 06/18/17 00:00 Room Air 06/17/17 20:25 90 06/17/17 19:53 Room Air 06/17/17 19:53 98.0 98 20 182/98 (126) 96 06/17/17 16:22 98.0 74 17 172/81 (111) 94 06/17/17 16:00 80 06/17/17 12:10 98.1 71 18 144/80 (101) 93 06/17/17 12:00 68 I/O 06/17/17 06/17/17 06/17/17 06/18/17 06/18/17 06/18/17 07:00 15:00 23:00 07:00 15:00 23:00 Intake Total 240 ml 1225 ml 1505 ml Output Total 850 ml 1250 ml 1250 ml Balance -610 ml -25 ml 255 ml Intake Oral 240 ml 600 ml 980 ml IV Total 625 ml 525 ml Output Urine Total 850 ml 1250 ml 1250 ml # Bowel Movements 0 2 2 Result Diagram: 06/18/17 0612 06/18/17 0320 Objective Remarks GENERAL: NAD SKIN: Warm and dry. HEAD: Normocephalic. EYES: No scleral icterus. No injection or drainage. NECK: Supple, trachea midline. No JVD or lymphadenopathy. CARDIOVASCULAR: Regular rate and rhythm without murmurs, gallops, or rubs. RESPIRATORY: Breath sounds equal bilaterally. No accessory muscle use. GASTROINTESTINAL: Abdomen soft, non-tender, nondistended. MUSCULOSKELETAL: No cyanosis,+1 edema . erythema and purulent discharge LLE BACK: Nontender without obvious deformity. No CVA tenderness. A/P Problem List: (1) DVT of leg (deep venous thrombosis) ICD Code: I82.409 - Acute embolism and thrombosis of unspecified deep veins of unspecified lower extremity Status: Acute (2) Cellulitis ICD Code: L03.90 - Cellulitis, unspecified (3) Lumbar compression fracture ICD Code: S32.000A - Wedge compression fracture of unspecified lumbar vertebra , initial encounter for closed fracture (4) CIDP (chronic inflammatory demyelinating polyneuropathy) ICD Code: G61.81 - Chronic inflammatory demyelinating polyneuritis Status: Chronic (5) DM (diabetes mellitus) ICD Code: E11.9 - Type 2 diabetes mellitus without complications Assessment and Plan 61-year-old man with 1. LLE DVT: Doppler w/ nonocclusive thrombus extending above the knee. Recurrent. Treatment failure on multiple regimens, currently on Eliquis 5mg bid on Hold, Follows w/ Dr. Doherty as outpatient Appreciate from Hematology Argatroban gtt 2. LLE Cellulitis S/p Blood/Wound cultures + Citrobacter and Enteroccocus Continue with IV Abx ; however will switch to PO antibiotic including Bactrim and Augmentin 3. Lumbar CxFx: c/o back pain, no injury/trauma, MRI L-Spine w/ acute or subacute mild compression fracture superior endplate L3, remote L2 superior endplate compression fracture, . Neurosurgery consulted by ER physician, no surgical intervention required at this time. TLSO brace. PT for eval/tx. Analgesics/antiemetics as needed. 4. CIDP: Follows w/ Dr. Elton Mendoza ([phone]) as outpatient, previously on IVIG, however transitioned to Prednisone due to multiple clots. Continue home Prednisone Appreciate input from neurology and recommend resuming his IVIG therapy after his port is revised at a dose to 0.4 gm/kg once every two weeks 5. DM: Sliding scale w/ Accu-Cheks, monitor BS closely as on Prednisone. Continue home Glyburide 6. DVT Prophylaxis: Argatroban Problem Qualifiers (1) DVT of leg (deep venous thrombosis): Qualified Codes: I82.402 - Acute embolism and thrombosis of unspecified deep veins of left lower extremity (2) Cellulitis: Qualified Codes: L03.116 - Cellulitis of left lower limb Maco Clayton MD Jun 18, 2017 10:08
[2017-06-18] MEDS ORDERED: IODIXANOL 320 MG/ML 50 ML VIAL (for RAD SPEC) IVCONTRAST ONE (11:08)
--- NOTE | 2017-06-18 11:38 | RADRPT ---
EXAM DATE/TIME: 06/18/2017 11:46 [facility] COMPARISON: No previous studies available for comparison. INDICATIONS : Patient with a history of diabetes. MEDICAL HISTORY : Diabetes Chronic inflammatory demyelinating polyneuropathy Lumbar compression fracture Cellulitis DVT HTN Dyslipidemia SURGICAL HISTORY : Port placement ENCOUNTER: Subsequent ACUITY: 2 days PAIN SCORE: 6/10 LOCATION: back FLUORO TIME: 0.06 minutes IMAGE SERIES: 1 CONTRAST: 10 cc Visipaque (iodixanol) ACCESS: Right [id number] PROCEDURE : 1. Access of [id number]-o-wntb. 2. Port patency injection. The risks, benefits and alternatives to the procedure were explained and verbal and written consent w as obtained. The patient was placed supine. The port was prepped in sterile fashion. Full sterile t echnique was used, including cap, mask, sterile gloves and gown, and a large sterile sheet. Hand hyg iene and 2% chlorhexidine prep was utilized per protocol for cutaneous antisepsis with appropriate dr y time for site. The previously placed port was accessed and positive contrast was injected for evaluation. Injection demonstrates the port catheter to be embedded within fairly extensive clot in the SVC. Injected cont rast fills out around the clot and into collateral vessels including the azygos vein. The complete ex tent of the central venous thrombosis cannot be determined from this limited evaluation and CT venogr aphy may be useful for further evaluation. If it is believed that this may be a relatively acute phen omena, the patient may be a candidate for thrombolytic therapy. CONCLUSION: The patient's chest port catheter is embedded in thrombus within the SVC. See above discussion. Bebeto Bryant MD on June 18, 2017 at 11:27 Board Certified Radiologist. This report was verified electronically.
[2017-06-18] MEDS: ARGATROBAN INJ 250 MG in SODIUM CHLOR 0.9% 250 ML INJ 250 ML IV PRN (11:46)
[2017-06-18] MEDS: METOPROLOL TARTRATE 50 MG TAB PO SCH ×2 (11:49→21:09)
[2017-06-18] MEDS: guaiFENesin E.R. 600 MG TAB PO SCH ×2 (11:49→21:09)
[2017-06-18] MEDS: predniSONE 20 MG TAB PO SCH (11:49)
[2017-06-18] MEDS: glyBURIDE 5 MG TAB PO SCH (11:50)
[2017-06-18] MEDS: SODIUM CHLORIDE 0.9% FLUSH 10 ML FLUSH IV FLUSH SCH ×2 (11:50→21:10)
--- NOTE | 2017-06-18 13:50 | PD.ONC.PN ---
Subjective Subjective Remarks Afebrile overnight. patient frustrated that he is still in the hospital. he went down to invasive radiology this morning and underwent dye study. Dye study revealed port embedded in thrombus. he denies feeling of swelling or itching in his face. he does state since he received an IV in his right arm, that arm has felt swollen. denies swelling in left arm. Objective Data Date Time Temp Pulse Resp B/P (MAP) Pulse Ox O2 Delivery O2 Flow Rate FiO2 06/18/17 12:49 158/80 (106) 06/18/17 11:37 98.3 96 22 177/94 (121) 93 06/18/17 07:38 97.9 73 20 176/84 (114) 93 06/18/17 04:00 Room Air 06/18/17 04:00 97.6 76 20 146/81 (102) 95 06/18/17 03:47 75 06/18/17 00:16 68 06/18/17 00:00 98.1 69 22 151/74 (99) 96 06/18/17 00:00 Room Air 06/17/17 20:25 90 06/17/17 19:53 Room Air 06/17/17 19:53 98.0 98 20 182/98 (126) 96 06/17/17 16:22 98.0 74 17 172/81 (111) 94 06/17/17 16:00 80 06/18/17 06/18/17 06/18/17 07:00 15:00 23:00 Intake Total 1505 ml Output Total 1250 ml Balance 255 ml Result Diagram: 06/18/17 0612 06/18/17 0320 Laboratory Results Laboratory Tests Test 06/17/17 16:40 06/18/17 03:20 06/18/17 06:12 06/18/17 12:41 Activated Partial Thromboplast Time 23.0 SEC 32.4 SEC 27.9 SEC Creatinine 0.56 MG/DL Estimat Glomerular Filtration Rate 180 ML/MIN White Blood Count 12.3 TH/MM3 Red Blood Count 4.42 MIL/MM3 Hemoglobin 13.2 GM/DL Hematocrit 39.7 % Mean Corpuscular Volume 89.7 FL Mean Corpuscular Hemoglobin 29.8 PG Mean Corpuscular Hemoglobin Concent 33.2 % Red Cell Distribution Width 13.2 % Platelet Count 133 TH/MM3 Mean Platelet Volume 10.7 FL Neutrophils (%) (Auto) 70.7 % Lymphocytes (%) (Auto) 22.4 % Monocytes (%) (Auto) 4.8 % Eosinophils (%) (Auto) 1.3 % Basophils (%) (Auto) 0.8 % Neutrophils # (Auto) 8.7 TH/MM3 Lymphocytes # (Auto) 2.8 TH/MM3 Monocytes # (Auto) 0.6 TH/MM3 Eosinophils # (Auto) 0.2 TH/MM3 Basophils # (Auto) 0.1 TH/MM3 CBC Comment DIFF FINAL Differential Comment Imaging Studies Last 24 hours Impressions Venous Access Device Injection 06/18/17 0600 Signed Impressions: Service Date/Time: Sunday, June 18, 2017 11:46 - CONCLUSION: The patient's chest port catheter is embedded in thrombus within the SVC. See above discussion. Bebeto Bryant MD Administered Medications Medications (Trade) Dose Ordered Sig/Sridhar Route PRN Reason Start Time Stop Time Status Last Admin Dose Admin Insulin Aspart (NovoLOG SUPPLEMENTAL SCALE) 1 ACHS SLIDING SCALE SQ 06/14/17 21:00 06/18/17 12:54 Cefepime HCl 1000 mg/Sodium Chloride 100 ml @ 200 mls/hr Q12H IV 06/14/17 21:00 06/18/17 09:55 Sodium Chloride (NS Flush) 2 ml UNSCH PRN IV FLUSH FLUSH AFTER USING IV ACCESS 06/14/17 19:15 06/16/17 21:32 Sodium Chloride (NS Flush) 2 ml BID IV FLUSH 06/14/17 21:00 06/18/17 11:50 Acetaminophen/ Hydrocodone Bitart ([place] 5-325 Mg) 1 tab Q4H PRN PO PAIN SCALE 3 TO 5 06/14/17 19:15 06/14/17 21:08 Morphine Sulfate (Morphine Inj) 2 mg Q3H PRN IV PUSH Pain 6-10 06/14/17 19:15 06/18/17 11:40 Senna/Docusate Sodium (Lynda-Colace) 1 tab BID PO 06/14/17 21:00 06/17/17 09:36 Dorzolamide/ Timolol (Cosopt 2-0.5% Opth Soln) 1 drop DAILY EACH EYE 06/15/17 09:00 06/18/17 09:00 Gabapentin (Neurontin) 800 mg TID PO 06/15/17 09:00 06/17/17 18:24 Glyburide (Diabeta) 5 mg DAILYAC PO 06/15/17 08:00 06/18/17 11:50 Latanoprost (Xalatan 0.005% Opth Soln) 1 drop HS EACH EYE 06/14/17 21:00 06/17/17 20:00 Metoprolol Tartrate (Lopressor) 50 mg BID PO 06/14/17 21:00 06/18/17 11:49 Prednisone (Deltasone) 40 mg DAILY PO 06/15/17 09:00 06/18/17 11:49 Pravastatin Sodium (Pravachol) 20 mg HS PO 06/14/17 21:00 06/17/17 19:58 Apixaban (Eliquis) 5 mg BID PO 06/14/17 21:00 Future Hold 06/14/17 20:54 Guaifenesin (Mucinex Er) 600 mg BID PO 06/16/17 21:00 06/18/17 11:49 Vancomycin HCl 1750 mg/Sodium Chloride 517.5 ml @ 257.5 mls/ hr Q12H IV 06/17/17 16:00 06/18/17 03:43 Argatroban 250 mg/ Sodium Chloride 252.5 ml @ 14.58 mls/ hr TITRATE PRN IV aPTT < 50 06/17/17 18:00 06/18/17 11:46 Objective Remarks GENERAL: middle aged male, sitting up in bed in [facility]. SKIN: Warm and dry. HEAD: Normocephalic. EYES: No injection or drainage. NECK: Supple, trachea midline. CARDIOVASCULAR: Regular rate and rhythm RESPIRATORY: Breath sounds equal bilaterally. No accessory muscle use. GASTROINTESTINAL: Abdomen soft, non-tender, nondistended. EXTREMITIES: No cyanosis. bilateral lower extremities with edema. RUE with mild swelling. NEUROLOGICAL: awake and alert, normal speech. moving all extremities. Assessment/Plan Problem List: (1) DVT of leg (deep venous thrombosis) ICD Codes: I82.409 - Acute embolism and thrombosis of unspecified deep veins of unspecified lower extremity Status: Acute Plan: --continue Argatroban (2) poor functioning port Status: Acute Plan: --has thrombus around port. --may need TPA Assessment 61y/o male admitted with LLE swelling and back pain. h/o CIDP, Diabetes Mellitus, DVT, Hypertension Plan 1. continue Argatroban 2. monitor CBC Attending Statement The exam, history, and the medical decision-making described in the above note were completed with the assistance of the mid-level provider. I reviewed and agree with the findings presented. I attest that I had a [id number] encounter with the patient on the same day, and personally performed and documented my assessment and findings in the medical record. Discussed with radiologist and patient findings of SVC thrombus associated with catheter. Chronicity unknown but suspect chronic clot given long history of dysfunction from the port since Dec 2016- therefore thrombolytic therapy not likely to be effective. Pt facial swelling was attributed to chronic steroid use but in part probably due to chronic SVC syndrome. Argatroban continue while undergoing Invasive radiology procedures. Anticipate DC Argatroban when procedure finished and pt may resume Eliquis. LIZZ w/ Dr. Doherty. Problem Qualifiers (1) DVT of leg (deep venous thrombosis): Qualified Codes: I82.402 - Acute embolism and thrombosis of unspecified deep veins of left lower extremity Melissa Anderson Jun 18, 2017 13:50 July Hernandez MD Jun 18, 2017 20:10
[2017-06-18] MEDS: PRAVASTATIN SOD 20 MG TAB PO SCH (21:09)
[2017-06-18] MEDS: LATANOPROST 0.005% OPHT SOLN 2.5 ML BTL EACH EYE SCH (21:10)
[2017-06-19] VITALS (10 sets, daily range): BP systolic 145–172; BP diastolic 68–92; PULSE 64–88; RESP 18–20; TEMP 97.4–98.6; O2SAT 92–96
[2017-06-19] MEDS: SODIUM CHLORIDE 0.9% FLUSH 10 ML FLUSH IV FLUSH PRN (00:48)
[2017-06-19] MEDS: MORPHINE SULFATE 2 MG/ML INJ IV PUSH PRN ×4 (00:48→20:00)
[2017-06-19] MEDS ORDERED: PHARMACY ORDERED LAB ONE (03:45)
[2017-06-19 03:52] LABS: BETA2 GLYCOPROTEIN I AB IGA LESS THAN 9.0 SAU (< OR = 20); BETA2 GLYCOPROTEIN I AB IGG LESS THAN 9.0 SGU (< OR = 20); BETA2 GLYCOPROTEIN I AB IGM LESS THAN 9.0 SMU (< OR = 20)
[2017-06-19] MEDS: VANCOMYCIN INJ 1,750 MG in SODIUM CHLORID 0.9% 500 ML INJ 500 ML IV SCH ×2 (04:31→15:19)
[2017-06-19] MEDS: ARGATROBAN INJ 250 MG in SODIUM CHLOR 0.9% 250 ML INJ 250 ML IV PRN ×2 (04:43→17:05)
[2017-06-19 07:27] LABS: AUTOMATED NEUTROPHIL # 9.3 TH/MM3 (1.8-7.7); BASOPHIL # 0.1 TH/MM3 (0-0.2); BASOPHIL % 0.7 % (0.0-2.0); EOSINOPHIL # 0.1 TH/MM3 (0-0.4); EOSINOPHIL % 1.2 % (0.0-4.0); HEMOGLOBIN 13.1 GM/DL (13.0-17.0); LYMPH % 17.7 % (9.0-44.0); LYMPHOCYTE # 2.2 TH/MM3 (1.0-4.8); MEAN CELL VOLUME 88.9 FL (80.0-100.0); MEAN CORPUSCULAR HEMOGLOBIN 29.1 PG (27.0-34.0); MEAN CORPUSCULAR HGB CONC 32.7 % (32.0-36.0); MEAN PLATELET VOLUME 10.5 FL (7.0-11.0); MONO % 5.1 % (0.0-8.0); MONOCYTE # 0.6 TH/MM3 (0-0.9); NEUT % 75.3 % (16.0-70.0); PLATELET COUNT 128 TH/MM3 (150-450); RED CELL DISTRIBUTION WIDTH 13.3 % (11.6-17.2); WHITE BLOOD COUNT 12.4 TH/MM3 (4.0-11.0)
[2017-06-19 07:53] LABS: CARDIOLIPIN AB IGA LESS THAN 11.0 APL (0-11)
[2017-06-19] MEDS: INSULIN ASPART SUPPLEMENTAL SCALE SQ SCH ×4 (08:00→21:57)
[2017-06-19] MEDS: glyBURIDE 5 MG TAB PO SCH (08:00)
[2017-06-19] MEDS: GABAPENTIN 400 MG CAP PO SCH ×3 (09:29→18:00)
[2017-06-19] MEDS: guaiFENesin E.R. 600 MG TAB PO SCH ×2 (09:29→20:01)
[2017-06-19] MEDS: METOPROLOL TARTRATE 50 MG TAB PO SCH ×2 (09:29→20:01)
[2017-06-19] MEDS: predniSONE 20 MG TAB PO SCH (09:29)
[2017-06-19] MEDS: CEFEPIME INJ 1,000 MG in SODIUM CHLORIDE 0.9% INJ 100 ML IV SCH ×2 (09:29→20:01)
[2017-06-19] MEDS: DOCUSATE SODIUM 50 MG/SENNA 8.6 MG TAB PO SCH ×2 (09:30→20:01)
[2017-06-19] MEDS: DORZOLAMIDE/TIMOLOL OPTH SOLN 10 ML BTL EACH EYE SCH (09:31)
[2017-06-19] MEDS: SODIUM CHLORIDE 0.9% FLUSH 10 ML FLUSH IV FLUSH SCH ×2 (09:39→20:02)
[2017-06-19] MEDS: ACETAMINOPHEN/HYDROcodone 325 MG/5 MG TAB PO PRN (09:41)
--- NOTE | 2017-06-19 11:01 | HHI.PR ---
Subjective Remarks Follow-up left lower extremity DVT/left lower extremity cellulitis 06/15/17-patient seen and examined, currently afebrile and no acute event overnight. Denies any chest pain or shortness of breath. No significant left was treated pain. 06/16/17-patient seen and examined, some nonproductive cough however no significant shortness of breath. Denies any chest pain. Seen by neurology yesterday. Afebrile. 06/17/17-patient seen and examined, currently nothing by mouth pending for exchange. Argatroban on hold 06/18/17-patient seen and examined, currently nothing by mouth pending revision of port exchange. No acute event overnight. 06/19/17-patient seen and examined and plan for port removal today. Otherwise stable and no acute event overnight. Currently afebrile Objective Vitals Vital Signs Date Time Temp Pulse Resp B/P (MAP) Pulse Ox O2 Delivery O2 Flow Rate FiO2 06/19/17 08:00 97.9 76 20 148/71 (96) 96 06/19/17 04:00 98.6 64 18 158/75 (102) 96 06/19/17 03:53 69 06/19/17 00:00 98.3 69 20 149/88 (108) 96 06/19/17 00:00 Room Air 06/18/17 23:41 68 06/18/17 20:00 98.2 96 20 177/83 (114) 94 06/18/17 20:00 Room Air 06/18/17 19:42 89 06/18/17 16:20 76 06/18/17 15:52 97.5 75 20 145/71 (95) 94 06/18/17 12:49 158/80 (106) 06/18/17 11:37 98.3 96 22 177/94 (121) 93 I/O 06/18/17 06/18/17 06/18/17 06/19/17 06/19/17 06/19/17 07:00 15:00 23:00 07:00 15:00 23:00 Intake Total 1505 ml 480 ml 240 ml Output Total 1250 ml 1450 ml 300 ml Balance 255 ml -970 ml -60 ml Intake Oral 980 ml 480 ml 240 ml IV Total 525 ml Output Urine Total 1250 ml 1450 ml 300 ml # Bowel Movements 2 1 Result Diagram: 06/19/17 0650 06/18/17 0320 Objective Remarks GENERAL: NAD SKIN: Warm and dry. HEAD: Normocephalic. EYES: No scleral icterus. No injection or drainage. NECK: Supple, trachea midline. No JVD or lymphadenopathy. CARDIOVASCULAR: Regular rate and rhythm without murmurs, gallops, or rubs. RESPIRATORY: Breath sounds equal bilaterally. No accessory muscle use. GASTROINTESTINAL: Abdomen soft, non-tender, nondistended. MUSCULOSKELETAL: No cyanosis,+1 edema . erythema and purulent discharge LLE BACK: Nontender without obvious deformity. No CVA tenderness. A/P Problem List: (1) DVT of leg (deep venous thrombosis) ICD Code: I82.409 - Acute embolism and thrombosis of unspecified deep veins of unspecified lower extremity Status: Acute (2) Cellulitis ICD Code: L03.90 - Cellulitis, unspecified (3) Lumbar compression fracture ICD Code: S32.000A - Wedge compression fracture of unspecified lumbar vertebra , initial encounter for closed fracture (4) CIDP (chronic inflammatory demyelinating polyneuropathy) ICD Code: G61.81 - Chronic inflammatory demyelinating polyneuritis Status: Chronic (5) DM (diabetes mellitus) ICD Code: E11.9 - Type 2 diabetes mellitus without complications Assessment and Plan 61-year-old man with 1. LLE DVT: Doppler w/ nonocclusive thrombus extending above the knee. Recurrent. Treatment failure on multiple regimens, currently on Eliquis 5mg bid on Hold, Follows w/ Dr. Doherty as outpatient Appreciate from Hematology Argatroban gtt on Hold Plan for Port removal today 2. LLE Cellulitis S/p Blood/Wound cultures + Citrobacter and Enteroccocus Continue with IV Abx ; however will switch to PO antibiotic including Bactrim and Augmentin 3. Lumbar CxFx: c/o back pain, no injury/trauma, MRI L-Spine w/ acute or subacute mild compression fracture superior endplate L3, remote L2 superior endplate compression fracture, . Neurosurgery consulted by ER physician, no surgical intervention required at this time. TLSO brace. PT for eval/tx. Analgesics/antiemetics as needed. 4. CIDP: Follows w/ Dr. Elton Mendoza ([phone]) as outpatient, previously on IVIG, however transitioned to Prednisone due to multiple clots. Continue home Prednisone Appreciate input from neurology and recommend resuming his IVIG therapy after his port is revised at a dose to 0.4 gm/kg once every two weeks. However Plan today 06/19/17 to have Port remove 5. DM: Sliding scale w/ Accu-Cheks, monitor BS closely as on Prednisone. Continue home Glyburide 6. DVT Prophylaxis: Argatroban Problem Qualifiers (1) DVT of leg (deep venous thrombosis): Qualified Codes: I82.402 - Acute embolism and thrombosis of unspecified deep veins of left lower extremity (2) Cellulitis: Qualified Codes: L03.116 - Cellulitis of left lower limb Maco Clayton MD Jun 19, 2017 11:01
[2017-06-19] MEDS ORDERED: MIDAZOLAM HCL 2 MG/2 ML VIAL ONE ×2 (11:59)
[2017-06-19] MEDS ORDERED: fentaNYL CITRATE 250 MCG/5 ML AMP ONE (11:59)
[2017-06-19] MEDS ORDERED: LIDOCAINE 1%/EPINEPHrine 1:100,000 SOLN 30 ML VIAL ONE (12:18)
--- NOTE | 2017-06-19 13:21 | PD.RAD ---
Post Procedure Progress Note Pre Procedure Diagnosis: (1) Multiple myeloma in remission (2) DVT of upper extremity (deep vein thrombosis) Post Procedure Diagnosis: (1) Multiple myeloma in remission (2) DVT of upper extremity (deep vein thrombosis) Procedure Date: Jun 19, 2017 Supervising Radiologist: Bebeto Bryant Proceduralist/Assist: Zack Jernigan RT(R) Anesthesia: Local, Conscious Sedation Plan of Activity Patient to Unit: ROPU Patient Condition: Good See PACS Report for procedural detail/treatment Central Venous Access Device Procedure 1 Right Internal Jugular Infusaport Removal single lumen Bebeto Bryant MD Jun 19, 2017 13:21
--- NOTE | 2017-06-19 13:23 | RADRPT ---
EXAM DATE/TIME: 06/19/2017 00:00 [facility] COMPARISON: No previous studies available for comparison. INDICATIONS : Patient presents with non-functioning port to be removed. MEDICAL HISTORY : Diabetes Chronic inflammatory demyelinating polyneuropathy Lumbar compression fracture Cellulitis DVT HTN Dyslipidemia SURGICAL HISTORY : Port placement ENCOUNTER: Subsequent ACUITY: 3 days PAIN SCORE: 6/10 LOCATION: Lower back SEDATION TIME: 30 minutes 1.) 2.5 mg midazolam (Versed) IV 2.) 150 mcg fentanyl (Sublimaze) IV Prophylactic antibiotics were administered with appropriate pre-procedure timing. Vancomycin within 2 hrs of procedure, Ancef (or alternative) within 1 hr of procedure. PROCEDURE : 1. Removal of Vwazbw-m-usse. 2. Conscious sedation with continuous EKG and oximetry monitoring. The risk, benefits and potential complications of Qhcikd-b-Mode removal were discussed. Written conse nt was obtained. The patient was placed supine. The chest wall was prepped in sterile fashion. Full sterile techniqu e was used, including cap, mask, sterile gloves and gown, and a large sterile sheet. Hand hygiene an d 2% chlorhexidine and/or Betadine/alcohol prep was utilized per protocol for cutaneous antisepsis. The skin and subcutaneous tissues were infiltrated with local anesthetic solution. A small incision w as made, the subcutaneous pocket was opened. The port was dissected from the subcutaneous tissues and easily removed in one piece. The pocket incision was closed with subcuticular Vicryl suture. Steri -Strips were applied. Conscious sedation was performed with the prescribed dosages and duration as above in the presence of an independent trained radiology nurse to assist in the monitoring of the patient. EKG and oximetry remained stable throughout the procedure. The patient tolerated the procedure well and there were no complications. The patient was sent to post anesthesia recovery in stable condition. CONCLUSION: Uncomplicated port removal as above. Bebeto Bryant MD on June 19, 2017 at 13:22 Board Certified Radiologist. This report was verified electronically.
--- NOTE | 2017-06-19 19:26 | PD.ONC.PN ---
Subjective Subjective Remarks Express many complaints about come care regarding his IVIG treatment. Annoyed that they did not try peripheral access to give him his IVIG that he needs. He resents being made to take steroids because he could not get his IVIG. Discussed radiologist findings. Tolerated removal of clotted, non functioning port. Discussed that he did not fail anticoagulation for LLE DVT. His DVT showed response. Objective Data Date Time Temp Pulse Resp B/P (MAP) Pulse Ox O2 Delivery O2 Flow Rate FiO2 06/19/17 16:00 98.2 72 20 172/83 (112) 96 06/19/17 12:00 97.7 70 20 145/68 (93) 92 06/19/17 08:00 76 06/19/17 08:00 96 Room Air 06/19/17 08:00 97.9 76 20 148/71 (96) 96 06/19/17 04:00 98.6 64 18 158/75 (102) 96 06/19/17 03:53 69 06/19/17 00:00 98.3 69 20 149/88 (108) 96 06/19/17 00:00 Room Air 06/18/17 23:41 68 06/18/17 20:00 98.2 96 20 177/83 (114) 94 06/18/17 20:00 Room Air 06/18/17 19:42 89 06/19/17 06/19/17 06/19/17 07:00 15:00 23:00 Intake Total 240 ml 1097.5 ml Output Total 300 ml 1300 ml Balance -60 ml -202.5 ml Result Diagram: 06/19/17 0650 06/18/17 0320 Laboratory Results Laboratory Tests Test 06/18/17 20:00 06/19/17 03:05 06/19/17 03:49 06/19/17 06:50 Activated Partial Thromboplast Time 24.4 SEC 29.1 SEC 35.1 SEC Vancomycin Level Trough 15.4 MCG/ML White Blood Count 12.4 TH/MM3 Red Blood Count 4.50 MIL/MM3 Hemoglobin 13.1 GM/DL Hematocrit 40.0 % Mean Corpuscular Volume 88.9 FL Mean Corpuscular Hemoglobin 29.1 PG Mean Corpuscular Hemoglobin Concent 32.7 % Red Cell Distribution Width 13.3 % Platelet Count 128 TH/MM3 Mean Platelet Volume 10.5 FL Neutrophils (%) (Auto) 75.3 % Lymphocytes (%) (Auto) 17.7 % Monocytes (%) (Auto) 5.1 % Eosinophils (%) (Auto) 1.2 % Basophils (%) (Auto) 0.7 % Neutrophils # (Auto) 9.3 TH/MM3 Lymphocytes # (Auto) 2.2 TH/MM3 Monocytes # (Auto) 0.6 TH/MM3 Eosinophils # (Auto) 0.1 TH/MM3 Basophils # (Auto) 0.1 TH/MM3 CBC Comment DIFF FINAL Differential Comment Imaging Studies Last 24 hours Impressions Port Line Revision 06/19/17 0000 Signed Impressions: Service Date/Time: Monday, June 19, 2017 00:00 - CONCLUSION: Uncomplicated port removal as above. Bebeto Bryant MD Administered Medications Medications (Trade) Dose Ordered Sig/Sridhar Route PRN Reason Start Time Stop Time Status Last Admin Dose Admin Insulin Aspart (NovoLOG SUPPLEMENTAL SCALE) 1 ACHS SLIDING SCALE SQ 06/14/17 21:00 06/19/17 17:00 Cefepime HCl 1000 mg/Sodium Chloride 100 ml @ 200 mls/hr Q12H IV 06/14/17 21:00 06/19/17 09:29 Sodium Chloride (NS Flush) 2 ml UNSCH PRN IV FLUSH FLUSH AFTER USING IV ACCESS 06/14/17 19:15 06/19/17 00:48 Sodium Chloride (NS Flush) 2 ml BID IV FLUSH 06/14/17 21:00 06/19/17 09:39 Acetaminophen/ Hydrocodone Bitart ([place]errifield 5-325 Mg) 1 tab Q4H PRN PO PAIN SCALE 3 TO 5 06/14/17 19:15 06/19/17 09:41 Morphine Sulfate (Morphine Inj) 2 mg Q3H PRN IV PUSH Pain 6-10 06/14/17 19:15 06/19/17 11:21 Senna/Docusate Sodium (Lynda-Colace) 1 tab BID PO 06/14/17 21:00 06/19/17 09:30 Dorzolamide/ Timolol (Cosopt 2-0.5% Opth Soln) 1 drop DAILY EACH EYE 06/15/17 09:00 06/19/17 09:31 Gabapentin (Neurontin) 800 mg TID PO 06/15/17 09:00 06/19/17 18:00 Glyburide (Diabeta) 5 mg DAILYAC PO 06/15/17 08:00 06/18/17 11:50 Latanoprost (Xalatan 0.005% Opth Soln) 1 drop HS EACH EYE 06/14/17 21:00 06/18/17 21:10 Metoprolol Tartrate (Lopressor) 50 mg BID PO 06/14/17 21:00 06/19/17 09:29 Prednisone (Deltasone) 40 mg DAILY PO 06/15/17 09:00 06/19/17 09:29 Pravastatin Sodium (Pravachol) 20 mg HS PO 06/14/17 21:00 06/18/17 21:09 Apixaban (Eliquis) 5 mg BID PO 06/14/17 21:00 Future hold 06/14/17 20:54 Guaifenesin (Mucinex Er) 600 mg BID PO 06/16/17 21:00 06/19/17 09:29 Vancomycin HCl 1750 mg/Sodium Chloride 517.5 ml @ 257.5 mls/ hr Q12H IV 06/17/17 16:00 06/19/17 15:19 Argatroban 250 mg/ Sodium Chloride 252.5 ml @ 14.15 mls/ hr TITRATE PRN IV aPTT < 50 06/19/17 17:00 06/19/17 17:05 Objective Remarks ENERAL: middle aged male, sitting up in bed in nad. SKIN: Warm and dry. Skin in LLE improved. HEAD: Normocephalic. EYES: No injection or drainage. NECK: Supple, trachea midline. CARDIOVASCULAR: Regular rate and rhythm RESPIRATORY: Breath sounds equal bilaterally. No accessory muscle use. GASTROINTESTINAL: Abdomen soft, non-tender, nondistended. EXTREMITIES: No cyanosis. bilateral lower extremities with edema. RUE with mild swelling. NEUROLOGICAL: awake and alert, normal speech. moving all extremities. Assessment/Plan Problem List: (1) DVT of leg (deep venous thrombosis) ICD Codes: I82.409 - Acute embolism and thrombosis of unspecified deep veins of unspecified lower extremity Status: Acute Plan: --continue Argatroban 06/19/17. s/p non functioning port removal. h/o HIT, continue Argatroban till AM. Anticipate starting his oral anticoagulant Eliquis tomorrow. Allow healing at port site. (2) poor functioning port Status: Acute Plan: --has thrombus around port. --may need TPA 06/19/17. Likely chronic clot given chronicity problem with his port since the Fall 2016. Port was removed. Defer to primary international trade specialist to reassess in future port placement as SVC thrombus stenosis improve. Assessment 61y/o male admitted with LLE swelling and back pain. h/o CIDP, Diabetes Mellitus, DVT, Hypertension Plan 1. continue Argatroban 2. anticipate switching to Eliquis pending no hematoma post port removal He did not fail Eliquis. He was responding to anticoagulant therapy with response in the DVT in L leg. 3. FU with his neurologist and international trade specialist. 4. OK for DC from heme/onc perspective. Problem Qualifiers (1) DVT of leg (deep venous thrombosis): Qualified Codes: I82.402 - Acute embolism and thrombosis of unspecified deep veins of left lower extremity July Hernandez MD Jun 19, 2017 19:25
[2017-06-19] MEDS: PRAVASTATIN SOD 20 MG TAB PO SCH (20:01)
[2017-06-19] MEDS: LATANOPROST 0.005% OPHT SOLN 2.5 ML BTL EACH EYE SCH (20:02)
[2017-06-20] MEDS: MORPHINE SULFATE 2 MG/ML INJ IV PUSH PRN (01:39)
[2017-06-20 03:50] VITALS: BP 128/84; PULSE 76; RESP 18; TEMP 98; O2SAT 93
[2017-06-20 03:53] VITALS: PULSE 74
[2017-06-20 04:05] LABS: AUTOMATED NEUTROPHIL # 9.3 TH/MM3 (1.8-7.7); BASOPHIL # 0.1 TH/MM3 (0-0.2); BASOPHIL % 0.7 % (0.0-2.0); EOSINOPHIL # 0.2 TH/MM3 (0-0.4); EOSINOPHIL % 1.4 % (0.0-4.0); HEMATOCRIT 38.9 % (39.0-51.0); HEMOGLOBIN 13.3 GM/DL (13.0-17.0); LYMPH % 18.3 % (9.0-44.0); LYMPHOCYTE # 2.2 TH/MM3 (1.0-4.8); MEAN CELL VOLUME 86.9 FL (80.0-100.0); MEAN CORPUSCULAR HEMOGLOBIN 29.7 PG (27.0-34.0); MEAN CORPUSCULAR HGB CONC 34.1 % (32.0-36.0); MEAN PLATELET VOLUME 10.5 FL (7.0-11.0); MONO % 4.3 % (0.0-8.0); MONOCYTE # 0.5 TH/MM3 (0-0.9); NEUT % 75.3 % (16.0-70.0); PLATELET COUNT 129 TH/MM3 (150-450); RED BLOOD COUNT 4.48 MIL/MM3 (4.50-5.90); RED CELL DISTRIBUTION WIDTH 13.2 % (11.6-17.2); WHITE BLOOD COUNT 12.3 TH/MM3 (4.0-11.0)
[2017-06-20] MEDS: VANCOMYCIN INJ 1,750 MG in SODIUM CHLORID 0.9% 500 ML INJ 500 ML IV SCH (04:28)
[2017-06-20] MEDS: ARGATROBAN INJ 250 MG in SODIUM CHLOR 0.9% 250 ML INJ 250 ML IV PRN (05:26)
[2017-06-20 07:57] VITALS: BP 138/93; PULSE 74; RESP 18; TEMP 95.8; O2SAT 96
[2017-06-20 08:00] VITALS: PULSE 82
[2017-06-20] MEDS ORDERED: AMPICILLIN 500 MG CAP PO SCH (08:00)
[2017-06-20] MEDS: INSULIN ASPART SUPPLEMENTAL SCALE SQ SCH ×2 (08:00→13:01)
[2017-06-20 08:50] LABS: LYMPHOCYTES 22 % (9-44); METAMYELOCYTES 1 % (0-1); MONOCYTES 9 % (0-8); MYELOCYTES 1 % (0-0); NEUTROPHIL # MANUAL DIFF 8.5 TH/MM3 (1.8-7.7); POLYS (SEG NEUTROPHILS) 67 % (16-70)
[2017-06-20] MEDS ORDERED: SULFAMETHOXAZOLE-TRIMETHOPRIM 400-80 MG TAB PO SCH (09:00)
[2017-06-20] MEDS ORDERED: LACTOBACILLUS ACIDOPHILUS TAB PO SCH (09:00)
[2017-06-20] MEDS: predniSONE 20 MG TAB PO SCH (09:00)
[2017-06-20] MEDS: guaiFENesin E.R. 600 MG TAB PO SCH (09:00)
[2017-06-20] MEDS: GABAPENTIN 400 MG CAP PO SCH ×2 (09:00→13:01)
[2017-06-20] MEDS: glyBURIDE 5 MG TAB PO SCH (09:00)
[2017-06-20] MEDS: SODIUM CHLORIDE 0.9% FLUSH 10 ML FLUSH IV FLUSH SCH (09:01)
[2017-06-20] MEDS: DOCUSATE SODIUM 50 MG/SENNA 8.6 MG TAB PO SCH (09:01)
[2017-06-20] MEDS: METOPROLOL TARTRATE 50 MG TAB PO SCH (09:01)
[2017-06-20] MEDS: DORZOLAMIDE/TIMOLOL OPTH SOLN 10 ML BTL EACH EYE SCH (09:06)
--- NOTE | 2017-06-20 10:50 | HHI.PR ---
Subjective Remarks Follow-up left lower extremity DVT/left lower extremity cellulitis 06/15/17-patient seen and examined, currently afebrile and no acute event overnight. Denies any chest pain or shortness of breath. No significant left was treated pain. 06/16/17-patient seen and examined, some nonproductive cough however no significant shortness of breath. Denies any chest pain. Seen by neurology yesterday. Afebrile. 06/17/17-patient seen and examined, currently nothing by mouth pending for exchange. Argatroban on hold 06/18/17-patient seen and examined, currently nothing by mouth pending revision of port exchange. No acute event overnight. 06/19/17-patient seen and examined and plan for port removal today. Otherwise stable and no acute event overnight. Currently afebrile 06/20/17-patient seen and examined, port was removed yesterday. No acute event overnight. Requesting some narcotics for discharge. Objective Vitals Vital Signs Date Time Temp Pulse Resp B/P (MAP) Pulse Ox O2 Delivery O2 Flow Rate FiO2 06/20/17 08:00 82 06/20/17 08:00 Room Air 06/20/17 07:57 95.8 74 18 138/93 (108) 96 06/20/17 04:00 Room Air 06/20/17 03:53 74 06/20/17 03:50 98.0 76 18 128/84 (99) 93 06/19/17 23:49 68 06/19/17 23:07 97.4 72 18 152/92 (112) 95 06/19/17 20:55 97.9 84 18 149/72 (97) 95 06/19/17 20:00 Room Air 06/19/17 19:47 88 06/19/17 16:00 98.2 72 20 172/83 (112) 96 06/19/17 12:00 97.7 70 20 145/68 (93) 92 I/O 06/19/17 06/19/17 06/19/17 06/20/17 06/20/17 06/20/17 07:00 15:00 23:00 07:00 15:00 23:00 Intake Total 240 ml 1097.5 ml 730 ml Output Total 300 ml 1300 ml 1150 ml Balance -60 ml -202.5 ml -420 ml Intake Oral 240 ml 480 ml 480 ml IV Total 617.5 ml 250 ml Output Urine Total 300 ml 1300 ml 1150 ml # Voids 3 # Bowel Movements 1 0 Result Diagram: 06/20/17 0315 06/18/17 0320 Imaging Last Impressions Port Line Revision 06/19/17 0000 Signed Impressions: Service Date/Time: Monday, June 19, 2017 00:00 - CONCLUSION: Uncomplicated port removal as above. Beebto Bryant MD Venous Access Device Injection 06/18/17 0600 Signed Impressions: Service Date/Time: Sunday, June 18, 2017 11:46 - CONCLUSION: The patient's chest port catheter is embedded in thrombus within the SVC. See above discussion. Bebeto Bryant MD Lower Extremity Ultrasound 06/14/17 1417 Signed Impressions: Service Date/Time: Wednesday, June 14, 2017 15:16 - CONCLUSION: Nonocclusive thrombus as described above that extends above the knee. Samy Martinez MD FACR Tibia/Fibula X-Ray 06/14/17 0000 Signed Impressions: Service Date/Time: Wednesday, June 14, 2017 14:30 - CONCLUSION: Negative for fracture or dislocation. Follow up in 7-10 days is suggested if symptoms persist. Samy Martinez MD FACR Lumbar Spine X-Ray 06/14/17 0000 Signed Impressions: Service Date/Time: Wednesday, June 14, 2017 14:35 - CONCLUSION: 1. Mild compression fracture of the L3 superior endplate. This is of uncertain chronicity given lack of prior exams. MRI examination may be performed to evaluate for bone marrow edema, if patient is symptomatic on palpation of the L3 spinous process. 2. Mild S-shaped thoracolumbar scoliosis with degenerative spondylosis most prominently at L2-3 and L4-5. Nain Sheriff MD Lumbar Spine MRI 06/14/17 0000 Signed Impressions: Service Date/Time: Wednesday, June 14, 2017 17:24 - CONCLUSION: 1. Acute or subacute mild compression fracture superior endplate L3. Remote L2 superior endplate compression fracture. 2. Degenerative disc disease as above with multi-level lateral recess encroachment. No spondylolisthesis. Kevin Patterson MD Objective Remarks GENERAL: NAD SKIN: Warm and dry. HEAD: Normocephalic. EYES: No scleral icterus. No injection or drainage. NECK: Supple, trachea midline. No JVD or lymphadenopathy. CARDIOVASCULAR: Regular rate and rhythm without murmurs, gallops, or rubs. dressing over prior site of port RESPIRATORY: Breath sounds equal bilaterally. No accessory muscle use. GASTROINTESTINAL: Abdomen soft, non-tender, nondistended. MUSCULOSKELETAL: No cyanosis,+1 edema . BACK: Nontender without obvious deformity. No CVA tenderness. Procedures Port-infusion removed 06/19/17 A/P Problem List: (1) DVT of leg (deep venous thrombosis) ICD Code: I82.409 - Acute embolism and thrombosis of unspecified deep veins of unspecified lower extremity Status: Acute (2) Cellulitis ICD Code: L03.90 - Cellulitis, unspecified (3) Lumbar compression fracture ICD Code: S32.000A - Wedge compression fracture of unspecified lumbar vertebra , initial encounter for closed fracture (4) CIDP (chronic inflammatory demyelinating polyneuropathy) ICD Code: G61.81 - Chronic inflammatory demyelinating polyneuritis Status: Chronic (5) DM (diabetes mellitus) ICD Code: E11.9 - Type 2 diabetes mellitus without complications Assessment and Plan 61-year-old man with 1. LLE DVT: Doppler w/ nonocclusive thrombus extending above the knee. Recurrent. Treatment failure on multiple regimens, Resume Eliquis 5mg bid , Follows w/ Dr. Doherty as outpatient Appreciate from Hematology d/c Argatroban gtt s/p Port removal 06/19/17 2. LLE Cellulitis S/p Blood/Wound cultures + Citrobacter and Enteroccocus d/c IV Abx ; switch to PO antibiotic including Bactrim and Ampicillin 3. Lumbar CxFx: c/o back pain, no injury/trauma, MRI L-Spine w/ acute or subacute mild compression fracture superior endplate L3, remote L2 superior endplate compression fracture, . Neurosurgery consulted by ER physician, no surgical intervention required at this time. TLSO brace. PT for eval/tx. Analgesics/antiemetics as needed. 4. CIDP: Follows w/ Dr. Elton Mendoza ([phone]) as outpatient, previously on IVIG, however transitioned to Prednisone due to multiple clots. Continue home Prednisone Appreciate input from neurology and recommend resuming his IVIG therapy after his port is revised at a dose to 0.4 gm/kg once every two weeks. s/p Port removed 06/19/17 5. DM: Sliding scale w/ Accu-Cheks, monitor BS closely as on Prednisone. Continue home Glyburide 6. DVT Prophylaxis: Argatroban Problem Qualifiers (1) DVT of leg (deep venous thrombosis): Qualified Codes: I82.402 - Acute embolism and thrombosis of unspecified deep veins of left lower extremity (2) Cellulitis: Qualified Codes: L03.116 - Cellulitis of left lower limb Mcao Calyton MD Jun 20, 2017 10:49
[2017-06-20] MEDS ORDERED: AMOX500C PO (10:54)
[2017-06-20] MEDS ORDERED: LACT PO (10:54)
[2017-06-20] MEDS ORDERED: SULF400T18 PO (10:54)
[2017-06-20] MEDS ORDERED: HYDR-3516 PO (10:54)
--- NOTE | 2017-06-20 10:56 | HHI.DS ---
Discharge Summary Admission Date Jun 14, 2017 at 19:12 Discharge Date: Jun 20, 2017 Admitting Diagnosis (1) DVT of leg (deep venous thrombosis) ICD Code: I82.409 - Acute embolism and thrombosis of unspecified deep veins of unspecified lower extremity Status: Acute (2) Cellulitis ICD Code: L03.90 - Cellulitis, unspecified (3) Lumbar compression fracture ICD Code: S32.000A - Wedge compression fracture of unspecified lumbar vertebra , initial encounter for closed fracture (4) CIDP (chronic inflammatory demyelinating polyneuropathy) ICD Code: G61.81 - Chronic inflammatory demyelinating polyneuritis Status: Chronic (5) DM (diabetes mellitus) ICD Code: E11.9 - Type 2 diabetes mellitus without complications Procedures Port-infusion removed 06/19/17 Brief History - From Admission This is a 61-year-old male with a PMH of CIDP, GBS, HTN, DM and DVT who presented to the ER w/ complaints of left lower extremity erythema and swelling in addition to back pain. States symptoms started approximately 2-3 days ago. Denies recent trauma or injury. No fever, chills, SOB, chest pain or cough. Back pain is intermittent, sharp, non-radiating, moderate, 6/10. Reports progressive weakness due to CIDP. On arrival, BP 141/67, HR 96, O2 sat 96% on RA, Afebrile. WBC 12.8. Platelets 144, previously 112 on 01/21/17. Chemistry essentially unremarkable. Doppler LLE with nonocclusive thrombus extending above the knee. L-spine MRI acute or subacute mild compression fracture superior endplate L3, remote L2 superior endplate compression fracture. Tib- fib x-ray negative for fracture or dislocation. Neurosurgery consulted by ER physician, no surgical intervention needed at this time, recommendation for TLSO brace. Follows w/ Dr. Elton Mendoza w/ Neurology ([phone]). Was previously on IVIG, however developed multiple clots w/ port occlusion and switched to Prednisone, pending port revision. Also follows w/ Dr. Doherty w/ Hematology. Previous diagnosis of LLE DVT 12/25/16, was started on Xarelto, admitted 01/04-01/18/17 w/ LLE DVT, failed treatment on Xarelto, switched to Heparin, however developed HIT , ultimately d/c'd on Eliquis. States he was seen by Dr. Doherty in March and referred for Doppler LLE which showed DVT, was instructed to continue on Eliquis and follow up in 3 months. Presents now w/ above complaints. Reports compliance w/ Eliquis. CBC/BMP: 06/20/17 0315 06/18/17 0320 Significant Findings Laboratory Tests Test 06/17/17 16:40 06/18/17 03:20 06/18/17 06:12 06/18/17 12:41 Activated Partial Thromboplast Time 23.0 SEC (24.3-30.1) 32.4 SEC (24.3-30.1) Creatinine 0.56 MG/DL (0.60-1.30) White Blood Count 12.3 TH/MM3 (4.0-11.0) Red Blood Count 4.42 MIL/MM3 (4.50-5.90) Platelet Count 133 TH/MM3 (150-450) Neutrophils (%) (Auto) 70.7 % (16.0-70.0) Neutrophils # (Auto) 8.7 TH/MM3 (1.8-7.7) Test 06/18/17 20:00 06/19/17 03:05 06/19/17 03:49 06/19/17 06:50 Vancomycin Level Trough 15.4 MCG/ML (5.0-10.0) White Blood Count 12.4 TH/MM3 (4.0-11.0) Platelet Count 128 TH/MM3 (150-450) Neutrophils (%) (Auto) 75.3 % (16.0-70.0) Neutrophils # (Auto) 9.3 TH/MM3 (1.8-7.7) Activated Partial Thromboplast Time 35.1 SEC (24.3-30.1) Test 06/19/17 20:04 06/19/17 23:56 06/20/17 03:13 06/20/17 03:15 Activated Partial Thromboplast Time 30.3 SEC (24.3-30.1) 37.6 SEC (24.3-30.1) 43.2 SEC (24.3-30.1) White Blood Count 12.3 TH/MM3 (4.0-11.0) Red Blood Count 4.48 MIL/MM3 (4.50-5.90) Hematocrit 38.9 % (39.0-51.0) Platelet Count 129 TH/MM3 (150-450) Neutrophils (%) (Auto) 75.3 % (16.0-70.0) Neutrophils # (Auto) 9.3 TH/MM3 (1.8-7.7) Monocytes % 9 % (0-8) Neutrophils # (Manual) 8.5 TH/MM3 (1.8-7.7) Myelocytes 1 % (0-0) Platelet Estimate LOW (NORMAL) Test 06/20/17 08:15 Imaging Last Impressions Port Line Revision 06/19/17 0000 Signed Impressions: Service Date/Time: Monday, June 19, 2017 00:00 - CONCLUSION: Uncomplicated port removal as above. Bebeto Bryant MD Venous Access Device Injection 06/18/17 0600 Signed Impressions: Service Date/Time: Sunday, June 18, 2017 11:46 - CONCLUSION: The patient's chest port catheter is embedded in thrombus within the SVC. See above discussion. Bebeto Bryatn MD Lower Extremity Ultrasound 06/14/17 1417 Signed Impressions: Service Date/Time: Wednesday, June 14, 2017 15:16 - CONCLUSION: Nonocclusive thrombus as described above that extends above the knee. Samy Martinez MD FACR Tibia/Fibula X-Ray 06/14/17 0000 Signed Impressions: Service Date/Time: Wednesday, June 14, 2017 14:30 - CONCLUSION: Negative for fracture or dislocation. Follow up in 7-10 days is suggested if symptoms persist. Samy Martinez MD FACR Lumbar Spine X-Ray 06/14/17 0000 Signed Impressions: Service Date/Time: Wednesday, June 14, 2017 14:35 - CONCLUSION: 1. Mild compression fracture of the L3 superior endplate. This is of uncertain chronicity given lack of prior exams. MRI examination may be performed to evaluate for bone marrow edema, if patient is symptomatic on palpation of the L3 spinous process. 2. Mild S-shaped thoracolumbar scoliosis with degenerative spondylosis most prominently at L2-3 and L4-5. Nain Sheriff MD Lumbar Spine MRI 06/14/17 0000 Signed Impressions: Service Date/Time: Wednesday, June 14, 2017 17:24 - CONCLUSION: 1. Acute or subacute mild compression fracture superior endplate L3. Remote L2 superior endplate compression fracture. 2. Degenerative disc disease as above with multi-level lateral recess encroachment. No spondylolisthesis. Kevin Patterson MD PE at Discharge GENERAL: NAD SKIN: Warm and dry. HEAD: Normocephalic. EYES: No scleral icterus. No injection or drainage. NECK: Supple, trachea midline. No JVD or lymphadenopathy. CARDIOVASCULAR: Regular rate and rhythm without murmurs, gallops, or rubs. dressing over prior site of port RESPIRATORY: Breath sounds equal bilaterally. No accessory muscle use. GASTROINTESTINAL: Abdomen soft, non-tender, nondistended. MUSCULOSKELETAL: No cyanosis,+1 edema . BACK: Nontender without obvious deformity. No CVA tenderness. Hospital Course while in the hospital, patient was treated for: 1. LLE DVT: Doppler w/ nonocclusive thrombus extending above the knee. Recurrent. Treatment failure on multiple regimens, Eliquis 5mg bid , Follows w/ Dr. Doherty as outpatient Appreciate from Hematology d/c Argatroban gtt s/p Port removal 06/19/17 2. LLE Cellulitis S/p Blood/Wound cultures + Citrobacter and Enteroccocus d/c IV Abx ; switched to PO antibiotic including Bactrim and Ampicillin 3. Lumbar CxFx: c/o back pain, no injury/trauma, MRI L-Spine w/ acute or subacute mild compression fracture superior endplate L3, remote L2 superior endplate compression fracture, . Neurosurgery consulted by ER physician, no surgical intervention required at this time. TLSO brace. PT for eval/tx. Analgesics/antiemetics as needed. 4. CIDP: Follows w/ Dr. Elton Mendoza ([phone]) as outpatient, previously on IVIG, however transitioned to Prednisone due to multiple clots. Treated with home Prednisone Appreciate input from neurology and recommend resuming his IVIG therapy after his port is revised at a dose to 0.4 gm/kg once every two weeks. s/p Port removed 06/19/17 5. DM: Sliding scale w/ Accu-Cheks, monitor BS closely as on Prednisone. Treated with home Glyburide 6. DVT Prophylaxis: Argatroban Pt Condition on Discharge: Good Discharge Disposition: Discharge Home Discharge Time: > 30 minutes Discharge Instructions DIET: Follow Instructions for: Diabetic Diet Activities you can perform: Regular-No Restrictions Follow up Referrals: Neurology - 1 Week Oncology PCP Follow-up - 1 Week New Medications: Amoxicillin (Amoxicillin) 500 Mg Cap 500 MG PO Q8H for Infection, #21 CAP Hydrocodone/Acetaminophen (Hydrocodone-Acetamin 5-325 mg) 5 Mg-325 Mg Tablet 1 TAB PO Q4H PRN for PAIN SCALE 3 TO 5, #20 TAB Lactobacillus Acidophilus (Acidophilus/l-Sporogenes) 35 Million Cell-25 Million Cell Tab 1 TAB PO Q12HR for Infection, #20 TAB Sulfamethoxazole/Trimethoprim (Sulfamethoxazole-Tmp Ss Tablet) 400 Mg-80 Mg Tablet 1 TAB PO Q12HR for Infection, #14 TAB Continued Medications: Apixaban (Eliquis) 5 Mg Tab 5 MG PO BID for Blood Clot Prevention, #60 TAB Dorzolamide-Timolol Pf Opth Drops (Cosopt Pf Opth Drops) 22.3-6.8 mg/ml Soln 1 DROP EACH EYE DAILY for Glaucoma, #1 BOTTLE 0 Refills Ferrous Gluconate (Ferrous Gluconate) 325 Mg Tab 325 MG PO DAILY for Nutritional Supplement, #30 TAB 0 Refills Gabapentin (Gabapentin) 800 Mg Tab 800 MG PO TID for neuropathy for 30 Days, TAB 0 Refills Glyburide (Glyburide) 5 Mg Tab 5 MG PO DAILY for Blood Sugar Management, #30 TAB 0 Refills Take with meals at the same time each day Latanoprost Opth Drops (Latanoprost Opth Drops) 0.005% Drops 1 DROP EACH EYE HS for Glaucoma for 30 Days, ML 0 Refills Refrigerate until opened. Metoprolol Tartrate (Metoprolol Tartrate) 100 Mg Tab 50 MG PO BID for Blood Pressure Management for 30 Days, TAB 0 Refills Prednisone (Prednisone) 20 Mg Tab 40 MG PO DAILY for 30 Days, TAB taper dose slowly with instruction for Neurologist Dr. Mendoza Simvastatin (Simvastatin) 10 Mg Tab 10 MG PO HS for Cholesterol Management, #30 TAB 0 Refills Discontinued Medications: Hydrocodone-Acetaminophen (Hydrocodone-Acetaminophen) 7.5-325 mg Tab 1 TAB PO BID PRN for Pain, #30 TAB Maco Clayton MD Jun 20, 2017 10:56
[2017-06-20] MEDS ORDERED: AMOXICILLIN (TRIHYDRATE) 500 MG CAP PO SCH (11:00)
[2017-06-20] MEDS: ACETAMINOPHEN/HYDROcodone 325 MG/5 MG TAB PO PRN (11:08)
--- NOTE | 2017-06-20 11:09 | PD.ONC.PN ---
Subjective Subjective Remarks Afebrile overnight. patient resting in room. He is eager to go home. states he is tired of being poked and prodded. no bleeding at site of port removal. Objective Data Date Time Temp Pulse Resp B/P (MAP) Pulse Ox O2 Delivery O2 Flow Rate FiO2 06/20/17 08:00 82 06/20/17 08:00 Room Air 06/20/17 07:57 95.8 74 18 138/93 (108) 96 06/20/17 04:00 Room Air 06/20/17 03:53 74 06/20/17 03:50 98.0 76 18 128/84 (99) 93 06/19/17 23:49 68 06/19/17 23:07 97.4 72 18 152/92 (112) 95 06/19/17 20:55 97.9 84 18 149/72 (97) 95 06/19/17 20:00 Room Air 06/19/17 19:47 88 06/19/17 16:00 98.2 72 20 172/83 (112) 96 06/19/17 12:00 97.7 70 20 145/68 (93) 92 06/20/17 06/20/17 06/20/17 07:00 15:00 23:00 Intake Total 730 ml Output Total 1150 ml Balance -420 ml Result Diagram: 06/20/17 0315 06/18/17 0320 Laboratory Results Laboratory Tests Test 06/19/17 20:04 06/19/17 23:56 06/20/17 03:13 06/20/17 03:15 Activated Partial Thromboplast Time 30.3 SEC 37.6 SEC 43.2 SEC White Blood Count 12.3 TH/MM3 Red Blood Count 4.48 MIL/MM3 Hemoglobin 13.3 GM/DL Hematocrit 38.9 % Mean Corpuscular Volume 86.9 FL Mean Corpuscular Hemoglobin 29.7 PG Mean Corpuscular Hemoglobin Concent 34.1 % Red Cell Distribution Width 13.2 % Platelet Count 129 TH/MM3 Mean Platelet Volume 10.5 FL Neutrophils (%) (Auto) 75.3 % Lymphocytes (%) (Auto) 18.3 % Monocytes (%) (Auto) 4.3 % Eosinophils (%) (Auto) 1.4 % Basophils (%) (Auto) 0.7 % Neutrophils # (Auto) 9.3 TH/MM3 Lymphocytes # (Auto) 2.2 TH/MM3 Monocytes # (Auto) 0.5 TH/MM3 Eosinophils # (Auto) 0.2 TH/MM3 Basophils # (Auto) 0.1 TH/MM3 CBC Comment AUTO DIFF Differential Total Cells Counted 100 Neutrophils % (Manual) 67 % Lymphocytes % 22 % Monocytes % 9 % Neutrophils # (Manual) 8.5 TH/MM3 Metamyelocytes 1 % Myelocytes 1 % Differential Comment FINAL DIFF MANUAL Platelet Estimate LOW Platelet Morphology Comment NORMAL Test 06/20/17 08:15 Administered Medications Medications (Trade) Dose Ordered Sig/Sridhar Route PRN Reason Start Time Stop Time Status Last Admin Dose Admin Insulin Aspart (NovoLOG SUPPLEMENTAL SCALE) 1 ACHS SLIDING SCALE SQ 06/14/17 21:00 06/19/17 21:57 Sodium Chloride (NS Flush) 2 ml UNSCH PRN IV FLUSH FLUSH AFTER USING IV ACCESS 06/14/17 19:15 06/19/17 00:48 Sodium Chloride (NS Flush) 2 ml BID IV FLUSH 06/14/17 21:00 06/20/17 09:01 Acetaminophen/ Hydrocodone Bitart ([place] 5-325 Mg) 1 tab Q4H PRN PO PAIN SCALE 3 TO 5 06/14/17 19:15 06/19/17 09:41 Morphine Sulfate (Morphine Inj) 2 mg Q3H PRN IV PUSH Pain 6-10 06/14/17 19:15 06/20/17 01:39 Senna/Docusate Sodium (Lynda-Colace) 1 tab BID PO 06/14/17 21:00 06/20/17 09:01 Dorzolamide/ Timolol (Cosopt 2-0.5% Opth Soln) 1 drop DAILY EACH EYE 06/15/17 09:00 06/20/17 09:06 Gabapentin (Neurontin) 800 mg TID PO 06/15/17 09:00 06/20/17 09:00 Glyburide (Diabeta) 5 mg DAILYAC PO 06/15/17 08:00 06/20/17 09:00 Latanoprost (Xalatan 0.005% Opth Soln) 1 drop HS EACH EYE 06/14/17 21:00 06/19/17 20:02 Metoprolol Tartrate (Lopressor) 50 mg BID PO 06/14/17 21:00 06/20/17 09:01 Prednisone (Deltasone) 40 mg DAILY PO 06/15/17 09:00 06/20/17 09:00 Pravastatin Sodium (Pravachol) 20 mg HS PO 06/14/17 21:00 06/19/17 20:01 Apixaban (Eliquis) 5 mg BID PO 06/14/17 21:00 Future hold 06/14/17 20:54 Guaifenesin (Mucinex Er) 600 mg BID PO 06/16/17 21:00 06/20/17 09:00 Lactobacillus Acidophilus (Lactinex) 1 tab Q12HR PO 06/20/17 09:00 06/20/17 09:01 Objective Remarks GENERAL: Middle aged male, sitting up in chair next to bed in nad. SKIN: Warm and dry. bandage right chest wall is c/d/i. HEAD: Normocephalic. EYES: No injection or drainage. NECK: Supple, trachea midline. CARDIOVASCULAR: Regular rate and rhythm RESPIRATORY: anterior emanuel clear. GASTROINTESTINAL: Abdomen soft, non-tender, nondistended. EXTREMITIES: No cyanosis. bilateral lower extremity edema. NEUROLOGICAL: awake and alert, normal speech. Assessment/Plan Problem List: (1) DVT of leg (deep venous thrombosis) ICD Codes: I82.409 - Acute embolism and thrombosis of unspecified deep veins of unspecified lower extremity Status: Acute Plan: 06/20: stop Argatroban, resume Eliquis. 06/19/17. s/p non functioning port removal. h/o HIT, continue Argatroban till AM. Anticipate starting his oral anticoagulant Eliquis tomorrow. Allow healing at port site. (2) poor functioning port Status: Resolved Plan: --s/p port removal. 06/19/17. Likely chronic clot given chronicity problem with his port since the Fall 2016. Port was removed. Defer to primary side laster to reassess in future port placement as SVC thrombus stenosis improve. Assessment 61y/o male admitted with LLE swelling and back pain. h/o CIDP, Diabetes Mellitus, DVT, Hypertension Plan 1. stop Argatroban. 2. resume Eliquis. 3. monitor CBC 4. ok to d/c from hematology perspective. Melissa Anderson Jun 20, 2017 11:08
[2017-06-20 11:30] VITALS: BP 145/66; PULSE 80; RESP 18; TEMP 98.1; O2SAT 92
[2017-06-20] MEDS ORDERED: APIXABAN 5 MG TABLET PO SCH (13:00)
[2017-06-20 16:30] VITALS: BP 129/60; PULSE 110; RESP 16; TEMP 99; O2SAT 100
[2017-06-20 17:52] LABS: PHOS SERINE AB IGA LESS THAN 20 U/mL (<20)
== END 2017-06-20 14:11 | disposition home or self-care (01) | DRG 300 ==
LOC: NEPC 13:48 → NEDA 19:12 → N04A 20:08
PROVIDERS: ADMIT Hospitalist; ATTEND Hospitalist
PROC: B5181ZZ Fluoroscopy of Superior Vena Cava using Low Osmolar Contrast (ICD-10-PCS; principal; 2017-06-18)
PROC: 0JPT0WZ Removal of Totally Implantable Vascular Access Device from Trunk Subcutaneous Tissue and Fascia, Open Approach (ICD-10-PCS; 2017-06-19)
DX: I82.412 Acute embolism and thrombosis of left femoral vein (principal); G61.81 Chronic inflammatory demyelinating polyneuritis; T82.868A Thrombosis due to vascular prosthetic devices, implants and grafts, initial encounter; S32.020A Wedge compression fracture of second lumbar vertebra, initial encounter for closed fracture; L03.116 Cellulitis of left lower limb; B95.2 Enterococcus as the cause of diseases classified elsewhere; B96.89 Other specified bacterial agents as the cause of diseases classified elsewhere; I10 Essential (primary) hypertension; E11.9 Type 2 diabetes mellitus without complications; Z79.84 Long term (current) use of oral hypoglycemic drugs; Z86.718 Personal history of other venous thrombosis and embolism; F17.210 Nicotine dependence, cigarettes, uncomplicated; Z79.52 Long term (current) use of systemic steroids
CPT/HCPCS: 36590; 36598; 72110; 72148; 73590; 76937; 80048; 80053; 80202; 82565; 82948; 85007; 85025; 85027; 85610; 85730; 86022; 86146; 86147; 86148; 87040; 87070; 87077; 87186; 87205; 93971; 96374; 96375; 99152; 99153; J0692; J0883; J1815; J2250; J2270; J2405; J2997; J3010; J3370; J7040; J7050; J7512; L0484; Q9967

== ENCOUNTER 2017-06-26 07:52 | Emergency (ER) | payer MEDICAID ==
[~2017-06-26] VITALS: Ht 185.4 cm; Wt 123.0 kg
[~2017-06-26 07:52] MED LIST changes: +AMOX500C PO; +HYDR-3516 PO; -HYDR-3580 PO; +LACT PO; +SULF400T18 PO
[2017-06-26 08:05] VITALS: BP 155/87; PULSE 81; RESP 21; TEMP 97.6; O2SAT 95
--- NOTE | 2017-06-26 08:20 | PD ---
HPI Chief Complaint: Skin Problem Time Seen by Provider: 08:00 Travel History International Travel<30 days: No Contact w/Intl Traveler<30days: No Traveled to known affect area: No History of Present Illness HPI This patient woke up this morning with a large blister on his right foot. He did not have it when he went to bed. He denies any other blisters. No itching or rash or breathing troubles. He denies fever. Accu-Chek 96. Symptoms severity is mild. No alleviating factors. He called the paramedics who brought him in. No injury. He has chronic swelling in both legs. He is on Eliquis for DVT PFSH Past Medical History Hx Anticoagulant Therapy: Yes (ELIQUIS ) Arthritis: Yes Asthma: No Autoimmune Disease: No Blood Disorders: No Anxiety: No Depression: No Heart Rhythm Problems: No Cancer: Yes Cardiovascular Problems: Yes High Cholesterol: No Chemotherapy: Yes (does infusions for IVIG) Chest Pain: No Congestive Heart Failure: No COPD: No Cerebrovascular Accident: No Diabetes: Yes Patient Takes Glucophage: No Diminished Hearing: No Endocrine: Yes Gastrointestinal Disorders: No GERD: No Glaucoma: No Genitourinary: No Headaches: No Hepatitis: No Hiatal Hernia: No Heparin Induced Thrombocytopen: Yes Hypertension: Yes Immune Disorder: Yes (IVIG) Implanted Vascular Access Dvce: Yes (RIGHT CHEST) Kidney Stones: No Musculoskeletal: No Neurologic: Yes (GUILLAIN BARRE) Psychiatric: No Reproductive: No Respiratory: No Immunizations Current: Yes Migraines: No Myocardial Infarction: No Radiation Therapy: No Renal Failure: No Seizures: No Sickle Cell Disease: No Sleep Apnea: No Thyroid Disease: No Ulcer: No Past Surgical History Abdominal Surgery: No AICD: No Appendectomy: No Arteriovenous Shunt: No Body Medical Devices: PORT Cardiac Surgery: No Cholecystectomy: No Ear Surgery: No Endocrine Surgery: No Eye Surgery: No Genitourinary Surgery: No Gynecologic Surgery: No Insulin Pump: No Joint Replacement: No Neurologic Surgery: No Oral Surgery: No Pacemaker: No Thoracic Surgery: No Other Surgery: Yes (PORT INSERTION/REMOVAL, RIGHT CHEST) Social History Alcohol Use: Yes (2 BEERS PER DAY) Tobacco Use: Yes (1 PPD) Substance Use: No Allergies-Medications (Allergen,Severity, Reaction): Coded Allergies: lisinopril (Unverified Allergy, Severe, angioedema, 06/14/17) losartan (Unverified Allergy, Severe, angioedema, 06/14/17) heparin (Verified Allergy, Unknown, 06/14/17) Reported Meds & Prescriptions Reported Meds & Active Scripts Active Acidophilus/l-Sporogenes (Lactobacillus Acidophilus) 35 Million Cell-25 Million Cell Tab 1 Tab PO Q12HR Hydrocodone-Acetamin 5-325 mg (Hydrocodone/Acetaminophen) 5 Mg-325 Mg Tablet 1 Tab PO Q4H PRN Sulfamethoxazole-Tmp Ss Tablet (Sulfamethoxazole/Trimethoprim) 400 Mg-80 Mg Tablet 1 Tab PO Q12HR Amoxicillin 500 Mg Cap 500 Mg PO Q8H Prednisone 20 Mg Tab 40 Mg PO DAILY 30 Days taper dose slowly with instruction for Neurologist Dr. Kelly Mix (Apixaban) 5 Mg Tab 5 Mg PO BID Metoprolol Tartrate 100 Mg Tab 50 Mg PO BID 30 Days Gabapentin 800 Mg Tab 800 Mg PO TID 30 Days Cosopt Pf Opth Drops (Dorzolamide-Timolol Pf Opth Drops) 22.3-6.8 mg/ml Soln 1 Drop EACH EYE DAILY Latanoprost Opth Drops (Latanoprost) 0.005% Drops 1 Drop EACH EYE HS 30 Days Refrigerate until opened. Simvastatin 10 Mg Tab 10 Mg PO HS Glyburide 5 Mg Tab 5 Mg PO DAILY Take with meals at the same time each day Reported Ferrous Gluconate 325 Mg Tab 325 Mg PO DAILY Review of Systems General / Constitutional: No: Fever HENT: No: Headaches Cardiovascular: No: Chest Pain or Discomfort Respiratory: No: Cough Physical Exam Narrative GASTROINTESTINAL: Abdomen soft, non-tender, nondistended. Positive bowel sounds. No hepato-splenomegaly, or palpable masses. No guarding. Psych: Normal mood and affect. Normal insight and judgment. SKIN: Focused skin assessment reveals no rash or ulcers. Skin is warm and dry. Palpation shows no induration or nodules. No urticaria. He has a large 7 x 9 cm fluid filled blister on the dorsum of the right foot. It is clear serous fluid, not purulent Data Data Last Documented VS Vital Signs Date Time Temp Pulse Resp B/P (MAP) Pulse Ox O2 Delivery O2 Flow Rate FiO2 06/26/17 08:05 97.6 81 21 155/87 (109) 95 Room Air MDM Medical Decision Making Medical Screen Exam Complete: Yes Emergency Medical Condition: Yes Medical Record Reviewed: Yes Differential Diagnosis Blister, allergic reaction, cellulitis Narrative Course I have reviewed the patient's electronic medical record. Reviewed his discharge summary from 6 days ago Patient has a complex medical history. He woke up this morning with a large blister on the right foot. This is isolated. I don't see any other evidence of skin findings or allergic reaction. There is no skin necrosis. No sign of infection in that right foot Procedure note: I opened up the blister with a 15 blade scalpel I milked out the clear serous fluid. There is no pus or purulence or cloudiness to the fluid I applied a dressing and wrap the foot. I am leaving the skin as a covering as well Etiology of this isolated blisters unclear. He doesn't appoint with his primary physician this afternoon. Therefore is getting very good close medical follow-up. I'm not going to change his medical regimen around as this is a complex patient with multiple chronic illnesses. As noted above don't see evidence of active infection in that foot and it does not seem consistent with allergic reaction Diagnosis Primary Impression: Blister (nonthermal), right foot, initial encounter Additional Impressions: CIDP (chronic inflammatory demyelinating polyneuropathy) DVT of upper extremity (deep vein thrombosis) Qualified Codes: I82.729 - Chronic embolism and thrombosis of deep veins of unspecified upper extremity Additional Instructions: The patient was advised to follow up with their physician and return if they worsen. Med/Other Pt SpecificInfo: Other Disposition: 01 DISCHARGE HOME Condition: Stable Dylan Slater MD Jun 26, 2017 08:20
== END 2017-06-26 08:40 | disposition home or self-care (01) ==
LOC: NEPE 07:52
DX: S90.821A Blister (nonthermal), right foot, initial encounter (principal); G61.81 Chronic inflammatory demyelinating polyneuritis; I82.729 Chronic embolism and thrombosis of deep veins of unspecified upper extremity; E11.9 Type 2 diabetes mellitus without complications; I10 Essential (primary) hypertension; Z79.01 Long term (current) use of anticoagulants; Z72.0 Tobacco use
CPT/HCPCS: 10140

== ENCOUNTER 2017-07-03 19:32 | Emergency (ER) | payer MEDICAID ==
[~2017-07-03] VITALS: Ht 182.9 cm; Wt 115.0 kg
[2017-07-03 19:47] VITALS: BP 139/92; PULSE 110; RESP 24; O2SAT 93
[2017-07-03 19:55] VITALS: O2SAT 97
[2017-07-03] MEDS ORDERED: SODIUM CHLORIDE 0.9% FLUSH 10 ML FLUSH IVF PRN (20:00)
--- NOTE | 2017-07-03 20:02 | PD ---
HPI Chief Complaint: Respiratory Distress Time Seen by Provider: 19:48 Travel History International Travel<30 days: No Contact w/Intl Traveler<30days: No Traveled to known affect area: No History of Present Illness HPI 61-year-old male presents to the emergency department for evaluation of shortness of breath, paresthesias to the bilateral hands, generalized weakness. Patient has history of DVT, lumbar compression fracture, CIDP, diabetes, hypertension. He states he was previously on IVIG for this chronic inflammatory edema or any polyneuropathy, but due to the port knee replaced in history of blood clots, he has not been on it. Patient reports shortness of breath that started after eating dinner, worse with exertion. He also reports swelling in the bilateral lower and upper extremities. Patient reports bilateral leg weakness, difficulty ambulating due to weakness. Patient states this happened after his last admission here on June 14 through June 20. Patient is currently on Elavil causes states he is compliant. He denies any chest pain. No abdominal pain. No nausea, vomiting, diarrhea. No exacerbating or alleviating factors. Moderate severity. PFSH Past Medical History Hx Anticoagulant Therapy: Yes (ELIQUIS ) Arthritis: Yes Asthma: No Autoimmune Disease: No Blood Disorders: No Anxiety: No Depression: No Heart Rhythm Problems: No Cancer: Yes Cardiovascular Problems: Yes High Cholesterol: No Chemotherapy: Yes (does infusions for IVIG) Chest Pain: No Congestive Heart Failure: No COPD: No Cerebrovascular Accident: No Diabetes: Yes Diminished Hearing: No Endocrine: Yes Gastrointestinal Disorders: No GERD: No Glaucoma: No Genitourinary: No Headaches: No Hepatitis: No Hiatal Hernia: No Heparin Induced Thrombocytopen: Yes Hypertension: Yes Immune Disorder: Yes (IVIG) Implanted Vascular Access Dvce: Yes (RIGHT CHEST) Kidney Stones: No Musculoskeletal: No Neurologic: Yes (GUILLAIN BARRE) Psychiatric: No Reproductive: No Respiratory: No Immunizations Current: Yes Migraines: No Myocardial Infarction: No Radiation Therapy: No Renal Failure: No Seizures: No Sickle Cell Disease: No Sleep Apnea: No Thyroid Disease: No Ulcer: No Past Surgical History Abdominal Surgery: No AICD: No Appendectomy: No Arteriovenous Shunt: No Body Medical Devices: PORT Cardiac Surgery: No Cholecystectomy: No Ear Surgery: No Endocrine Surgery: No Eye Surgery: No Genitourinary Surgery: No Gynecologic Surgery: No Insulin Pump: No Joint Replacement: No Neurologic Surgery: No Oral Surgery: No Pacemaker: No Thoracic Surgery: No Other Surgery: Yes (PORT INSERTION/REMOVAL, RIGHT CHEST) Social History Alcohol Use: Yes (2 BEERS PER DAY) Tobacco Use: Yes (1 PPD) Substance Use: No Allergies-Medications (Allergen,Severity, Reaction): Coded Allergies: lisinopril (Unverified Allergy, Severe, angioedema, 06/14/17) losartan (Unverified Allergy, Severe, angioedema, 06/14/17) heparin (Verified Allergy, Unknown, 06/14/17) Reported Meds & Prescriptions Reported Meds & Active Scripts Active Acidophilus/l-Sporogenes (Lactobacillus Acidophilus) 35 Million Cell-25 Million Cell Tab 1 Tab PO Q12HR Hydrocodone-Acetamin 5-325 mg (Hydrocodone/Acetaminophen) 5 Mg-325 Mg Tablet 1 Tab PO Q4H PRN Sulfamethoxazole-Tmp Ss Tablet (Sulfamethoxazole/Trimethoprim) 400 Mg-80 Mg Tablet 1 Tab PO Q12HR Amoxicillin 500 Mg Cap 500 Mg PO Q8H Prednisone 20 Mg Tab 40 Mg PO DAILY 30 Days taper dose slowly with instruction for Neurologist Dr. Kelly Mix (Apixaban) 5 Mg Tab 5 Mg PO BID Metoprolol Tartrate 100 Mg Tab 50 Mg PO BID 30 Days Gabapentin 800 Mg Tab 800 Mg PO TID 30 Days Cosopt Pf Opth Drops (Dorzolamide-Timolol Pf Opth Drops) 22.3-6.8 mg/ml Soln 1 Drop EACH EYE DAILY Latanoprost Opth Drops (Latanoprost) 0.005% Drops 1 Drop EACH EYE HS 30 Days Refrigerate until opened. Simvastatin 10 Mg Tab 10 Mg PO HS Glyburide 5 Mg Tab 5 Mg PO DAILY Take with meals at the same time each day Reported Ferrous Gluconate 325 Mg Tab 325 Mg PO DAILY Review of Systems Except as stated in HPI: all other systems reviewed are Neg Physical Exam Narrative GENERAL: Well-nourished, well-developed male patient, afebrile. SKIN: Focused skin assessment warm/dry. Ruptured blister noted to right dorsal foot without drainage or erythema. HEAD: Normocephalic. Atraumatic. EYES: No scleral icterus. No injection or drainage. NECK: Supple, trachea midline. No JVD or lymphadenopathy. CARDIOVASCULAR: Regular rate and rhythm without murmurs, gallops, or rubs. RESPIRATORY: Breath sounds equal bilaterally. No accessory muscle use. Lung sounds diminished. GASTROINTESTINAL: Abdomen soft, non-tender, nondistended. MUSCULOSKELETAL: No cyanosis. Patient has 3+ weeping edema to bilateral lower extremities, 2+ edema to right upper extremity, 1-2+ edema to the left upper extremity BACK: Nontender without obvious deformity. No CVA tenderness. Data Data Last Documented VS Vital Signs Date Time Temp Pulse Resp B/P (MAP) Pulse Ox O2 Delivery O2 Flow Rate FiO2 07/03/17 20:56 98.7 07/03/17 19:55 97 Room Air 07/03/17 19:47 110 24 Orders Orders Complete Blood Count With Diff (07/03/17 19:49) Comprehensive Metabolic Panel (07/03/17 19:49) B-Type Natriuretic Peptide (07/03/17 19:49) Act Partial Throm Time (Ptt) (07/03/17 19:49) Prothrombin Time / Inr (Pt) (07/03/17 19:49) Magnesium (Mg) (07/03/17 19:49) Ckmb (Isoenzyme) Profile (07/03/17 19:49) Troponin I (07/03/17 19:49) Iv Access Insert/Monitor (07/03/17 19:49) Electrocardiogram (07/03/17 19:49) Ecg Monitoring (07/03/17 19:49) Oximetry (07/03/17 19:49) Oxygen Administration (07/03/17 19:49) Chest, Single Ap (07/03/17 19:49) Sodium Chloride 0.9% Flush (Ns Flush) (07/03/17 20:00) Urinalysis - C+S If Indicated (07/03/17 20:50) Ct Pulmonary Angiogram (07/03/17 ) Urine Culture (07/03/17 21:00) Iohexol 350 Inj (Omnipaque 350 Inj) (07/03/17 22:05) Ceftriaxone Inj (Rocephin Inj) (07/03/17 22:45) Furosemide Inj (Lasix Inj) (07/03/17 22:45) Labs Laboratory Tests Test 07/03/17 20:05 07/03/17 21:00 White Blood Count 17.2 TH/MM3 Red Blood Count 4.74 MIL/MM3 Hemoglobin 14.0 GM/DL Hematocrit 43.0 % Mean Corpuscular Volume 90.6 FL Mean Corpuscular Hemoglobin 29.6 PG Mean Corpuscular Hemoglobin Concent 32.6 % Red Cell Distribution Width 13.8 % Platelet Count 152 TH/MM3 Mean Platelet Volume 10.9 FL Neutrophils (%) (Auto) 85.7 % Lymphocytes (%) (Auto) 9.5 % Monocytes (%) (Auto) 4.0 % Eosinophils (%) (Auto) 0.3 % Basophils (%) (Auto) 0.5 % Neutrophils # (Auto) 14.8 TH/MM3 Lymphocytes # (Auto) 1.6 TH/MM3 Monocytes # (Auto) 0.7 TH/MM3 Eosinophils # (Auto) 0.1 TH/MM3 Basophils # (Auto) 0.1 TH/MM3 CBC Comment DIFF FINAL Differential Comment Prothrombin Time 10.4 SEC Prothromb Time International Ratio 1.0 RATIO Activated Partial Thromboplast Time 23.4 SEC Blood Urea Nitrogen 8 MG/DL Creatinine 0.96 MG/DL Random Glucose 106 MG/DL Total Protein 7.6 GM/DL Albumin 3.5 GM/DL Calcium Level 8.6 MG/DL Magnesium Level 1.9 MG/DL Alkaline Phosphatase 170 U/L Aspartate Amino Transf (AST/SGOT) 26 U/L Alanine Aminotransferase (ALT/SGPT) 31 U/L Total Bilirubin 0.4 MG/DL Sodium Level 140 MEQ/L Potassium Level 4.2 MEQ/L Chloride Level 103 MEQ/L Carbon Dioxide Level 24.6 MEQ/L Anion Gap 12 MEQ/L Estimat Glomerular Filtration Rate 97 ML/MIN Total Creatine Kinase 71 U/L Troponin I LESS THAN 0.02 NG/ML B-Type Natriuretic Peptide 17 PG/ML Urine Color YELLOW Urine Turbidity CLEAR Urine pH 5.0 Urine Specific [place] 1.012 Urine Protein TRACE mg/dL Urine Glucose (UA) 70 mg/dL Urine Ketones TRACE mg/dL Urine Occult Blood NEG Urine Nitrite NEG Urine Bilirubin NEG Urine Urobilinogen LESS THAN 2.0 MG/DL Urine Leukocyte Esterase LARGE Urine RBC 1 /hpf Urine WBC 11 /hpf Urine Bacteria FEW /hpf Urine Mucus FEW /lpf Microscopic Urinalysis Comment CULTURE INDICATED MDM Medical Decision Making Medical Screen Exam Complete: Yes Emergency Medical Condition: Yes Medical Record Reviewed: Yes Interpretation(s) Last Impressions Chest X-Ray 07/03/171948 Signed Impressions: Service Date/Time: Monday, July 03, 2017 20:05 - CONCLUSION: The lungs are clear. Roderick White MD CT Angiography 07/03/17 0000 Signed Impressions: Service Date/Time: Monday, July 03, 2017 21:58 - CONCLUSION: 1. The study is negative for pulmonary embolism. 2. Nonspecific mediastinal lymph nodes, stable from prior. Roderick White MD Differential Diagnosis New onset CHF vs. PE vs. pneumonia vs. CIDP Narrative Course 61-year-old male presents to the emergency department for evaluation of shortness breath that started just prior to arrival. Patient does have significant edema to bilateral lower extremities, right upper extremity. EKG, CBC, CMP, BNP, magnesium, CK, troponin, PTT, PT/INR, chest x-ray are ordered and pending. EKG shows sinus tachycardia, heart rate 109, no acute ST changes. CBC shows leukocytosis 17.2., However, patient is on prednisone. CMP shows no acute abnormality. BNP is 17. CK is 71. Troponin is less than 0.02. Coags show no acute abnormality. Chest x-ray shows the lungs are clear. CT pulmonary angiogram is ordered and is negative for PE. I discussed the case with my attending physician, Dr. Camarena. The patient needs to follow his primary care physician for further evaluation of his CIDP. He is able to ambulate at home without difficulty with his walker. Patient is given Rocephin 1 g IV for UTI. He'll be discharged with a prescription for Keflex for UTI. He is encouraged to follow-up with his primary care physician. Patient is given dose of Lasix 20 mg IV for edema. Upon reevaluation, patient 's heart rate is 84, temp is 97.6. Patient is in no distress. Patient is to return here for any acute worsening of symptoms. Patient verbalizes agreement. The patient was discharged in stable condition with instructions, including return instructions and follow up instructions. Diagnosis Primary Impression: Edema of extremities Additional Impression: CIDP (chronic inflammatory demyelinating polyneuropathy) Referrals: Primary Care Physician call for appointment Patient Instructions: Edema (ED), General Instructions Additional Instructions: Take antibiotic as directed until gone. Follow-up with your primary care physician in one to 2 days. Return to the emergency department for any acute worsening of symptoms Med/Other Pt SpecificInfo: Prescription(s) given Scripts Cephalexin (Keflex) 500 Mg Capsule 500 MG PO TID for Infection for 7 Days, CAP 0 Refills Prov: Kathia Sanders 07/03/17 Disposition: 01 DISCHARGE HOME Condition: Stable Kathia Sanders Jul 03, 2017 20:02
--- NOTE | 2017-07-03 20:31 | RADRPT ---
EXAM DATE/TIME: 07/03/2017 20:05 [facility] COMPARISON: CHEST SINGLE AP, January 04, 2017, 13:36. INDICATIONS : Short of breath after exertion today. MEDICAL HISTORY : None. SURGICAL HISTORY : Infusaport removal. ENCOUNTER: Initial ACUITY: 1 day PAIN SCORE: 0/10 LOCATION: Bilateral chest FINDINGS: A single view of the chest demonstrates the lungs to be symmetrically aerated without evidence of mas s, infiltrate or effusion. The cardiomediastinal contours are unremarkable. Osseous structures are intact. CONCLUSION: The lungs are clear. Roderick White MD on July 03, 2017 at 20:29 Board Certified Radiologist. This report was verified electronically.
[2017-07-03 20:32] LABS: PROTHROMBIN TIME - PATIENT 10.4 SEC (9.8-11.6)
[2017-07-03 20:47] LABS: AUTOMATED NEUTROPHIL # 14.8 TH/MM3 (1.8-7.7); BASOPHIL # 0.1 TH/MM3 (0-0.2); BASOPHIL % 0.5 % (0.0-2.0); EOSINOPHIL # 0.1 TH/MM3 (0-0.4); EOSINOPHIL % 0.3 % (0.0-4.0); LYMPH % 9.5 % (9.0-44.0); LYMPHOCYTE # 1.6 TH/MM3 (1.0-4.8); MEAN CELL VOLUME 90.6 FL (80.0-100.0); MEAN CORPUSCULAR HEMOGLOBIN 29.6 PG (27.0-34.0); MEAN CORPUSCULAR HGB CONC 32.6 % (32.0-36.0); MEAN PLATELET VOLUME 10.9 FL (7.0-11.0); MONOCYTE # 0.7 TH/MM3 (0-0.9); NEUT % 85.7 % (16.0-70.0); PLATELET COUNT 152 TH/MM3 (150-450); RED BLOOD COUNT 4.74 MIL/MM3 (4.50-5.90); RED CELL DISTRIBUTION WIDTH 13.8 % (11.6-17.2); WHITE BLOOD COUNT 17.2 TH/MM3 (4.0-11.0)
[2017-07-03 20:49] LABS: ALBUMIN 3.5 GM/DL (3.4-5.0); AST (GOT) 26 U/L (15-37); BICARBONATE 24.6 MEQ/L (21.0-32.0); BLOOD UREA NITROGEN 8 MG/DL (7-18); CALCIUM 8.6 MG/DL (8.5-10.1); CHLORIDE 103 MEQ/L (98-107); CREATININE 0.96 MG/DL (0.60-1.30); GLOMERULAR FILTRATION RATE 97 ML/MIN (>89); GLUCOSE,RANDOM 106 MG/DL (74-106); MAGNESIUM 1.9 MG/DL (1.5-2.5); SODIUM (NA) 140 MEQ/L (136-145)
[2017-07-03 20:55] LABS: ALKALINE PHOSPHATASE 170 U/L (45-117); ALT (GPT) 31 U/L (12-78); TOTAL BILIRUBIN ADULT 0.4 MG/DL (0.2-1.0); TOTAL PROTEIN 7.6 GM/DL (6.4-8.2); TROPONIN I LESS THAN 0.02 NG/ML (0.02-0.05)
[2017-07-03 20:56] VITALS: TEMP 98.7
[2017-07-03 21:07] LABS: BACTERIA, URINE FEW /hpf; BILIRUBIN, URINE NEG (NEG); BLOOD, URINE NEG (NEG); GLUCOSE,URINE 70 mg/dL (NEG); KETONE, URINE TRACE mg/dL (NEG); MUCUS URINE FEW /lpf (OCC); NITRITE,URINE NEG (NEG); URINE COLOR YELLOW (YELLW/STRAW); URINE LEUKOCYTE ESTERASE LARGE (NEG)
[2017-07-03] MEDS ORDERED: IOHEXOL 350 MG/ML 10 ML VIAL (for RAD DIAG) IVCONTRAST ONE (22:05)
--- NOTE | 2017-07-03 22:34 | RADRPT ---
EXAM DATE/TIME: 07/03/2017 21:58 [facility] COMPARISON: CT PULMONARY ANGIOGRAM, January 04, 2017, 14:53. INDICATIONS : Shortness of breath. IV CONTRAST: 75 cc Omnipaque 350 (iohexol) IV RADIATION DOSE: 23.38 CTDIvol (mGy) MEDICAL HISTORY : Cardiovascular disease. Hypertension. SURGICAL HISTORY : None. ENCOUNTER: Initial ACUITY: 1 day PAIN SCALE: 0/10 LOCATION: chest TECHNIQUE: Volumetric scanning of the chest was performed using a pulmonary embolism protocol MIP images were re constructed. Using automated exposure control and adjustment of the mA and/or kV according to patien t size, radiation dose was kept as low as reasonably achievable to obtain optimal diagnostic quality images. DICOM format image data is available electronically for review and comparison. Follow-up recommendations for detected pulmonary nodules are based at a minimum on nodule size and pa tient risk factors according to Fleischner Society Guidelines. FINDINGS: PULMONARY ARTERIES: No filling defects are seen in the pulmonary arteries through the segmental level. LUNGS: Mild centrilobular emphysema in the upper lungs. No focal infiltrates or nodules seen. PLEURAE: There is no pleural thickening or pleural effusion. MEDIASTINUM: Mildly prominent mediastinal lymph nodes measuring up to 12 mm in the left paratracheal region, uncha nged from prior CT pulmonary angiogram 01/04/17. 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 CONCLUSION: 1. The study is negative for pulmonary embolism. 2. Nonspecific mediastinal lymph nodes, stable from prior. Roderick White MD on July 03, 2017 at 22:30 Board Certified Radiologist. This report was verified electronically.
[2017-07-03] MEDS ORDERED: CEPH-460 PO (22:45)
[2017-07-03] MEDS ORDERED: cefTRIAXone INJ 1,000 MG in SODIUM CHLORIDE 0.9% INJ 100 ML IV ONE (22:45)
[2017-07-03] MEDS ORDERED: FUROSEMIDE 20 MG/2 ML VIAL IV PUSH ONE (22:45)
[2017-07-03 22:55] VITALS: BP 127/70; PULSE 82; RESP 18; O2SAT 98
--- NOTE | 2017-07-04 21:29 | EKG ---
Date Performed: 07/03/2017 Time Performed: 19:51:59 PTAGE: 61 years EKG: SINUS TACHYCARDIA WITH OCCASIONAL SUPRAVENTRICULAR PREMATURE COMPLEXES ABNORMAL RHYTHM ECG NO PREVIOUS TRACING DOCTOR: Russell Kingsley Interpretating Date/Time 07/04/2017 21:29:03
== END 2017-07-03 23:43 | disposition home or self-care (01) ==
LOC: NEPC 19:32
DX: R60.9 Edema, unspecified (principal); N39.0 Urinary tract infection, site not specified; G61.81 Chronic inflammatory demyelinating polyneuritis; B96.89 Other specified bacterial agents as the cause of diseases classified elsewhere; R00.0 Tachycardia, unspecified; D72.829 Elevated white blood cell count, unspecified; R20.2 Paresthesia of skin; R53.1 Weakness; E11.9 Type 2 diabetes mellitus without complications; I10 Essential (primary) hypertension; G61.0 Guillain-Barre syndrome; F17.210 Nicotine dependence, cigarettes, uncomplicated; Z79.01 Long term (current) use of anticoagulants; Z79.84 Long term (current) use of oral hypoglycemic drugs; Z86.718 Personal history of other venous thrombosis and embolism
CPT/HCPCS: 71045; 71275; 80053; 81001; 82550; 83735; 83880; 84484; 85025; 85610; 85730; 87077; 87086; 87186; 93005; 96374; 96375; 99285; J0696; J1940; Q9967

== ENCOUNTER 2017-07-15 04:06 | Emergency (ER) | payer MEDICAID ==
[~2017-07-15] VITALS: Ht 185.4 cm; Wt 115.0 kg
[~2017-07-15 04:06] MED LIST changes: +CEPH-460 PO
[2017-07-15 04:18] VITALS: BP 125/79; PULSE 82; RESP 20; TEMP 98.1; O2SAT 95
--- NOTE | 2017-07-15 05:12 | PD ---
HPI Chief Complaint: Skin Problem Time Seen by Provider: 05:12 Travel History International Travel<30 days: No Contact w/Intl Traveler<30days: No Traveled to known affect area: No History of Present Illness HPI 61-year-old male came to the emergency room with history of right leg wound that is not healing and causing pain. Patient has had right foot wound in the form of a blister that was popped during 1 of the emergency room visits. He was sent home on Keflex. Patient denies any fever or chills. Says his leg has been hurting a lot. 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 Vital signs otherwise stable. Patient has had dry dressing on both leg and feet. [facility] Past Medical History Narrative Medical List of his past medical, surgical, social and family history reviewed from the nursing note. Hx Anticoagulant Therapy: Yes (ELIQUIS ) Arthritis: Yes Asthma: No Autoimmune Disease: No Blood Disorders: No Anxiety: No Depression: No Heart Rhythm Problems: No Cancer: Yes Cardiovascular Problems: Yes High Cholesterol: No Chemotherapy: Yes (does infusions for IVIG) Chest Pain: No Congestive Heart Failure: No COPD: No Cerebrovascular Accident: No Diabetes: Yes Patient Takes Glucophage: No Diminished Hearing: No Endocrine: Yes Gastrointestinal Disorders: No GERD: No Glaucoma: No Genitourinary: No Headaches: No Hepatitis: No Hiatal Hernia: No Heparin Induced Thrombocytopen: Yes Hypertension: Yes Immune Disorder: Yes (IVIG) Implanted Vascular Access Dvce: Yes (RIGHT CHEST) Kidney Stones: No Musculoskeletal: No Neurologic: Yes (GUILLAIN BARRE) Psychiatric: No Reproductive: No Respiratory: No Immunizations Current: Yes Migraines: No Myocardial Infarction: No Radiation Therapy: No Renal Failure: No Seizures: No Sickle Cell Disease: No Sleep Apnea: No Thyroid Disease: No Ulcer: No Tetanus Vaccination: Unknown Influenza Vaccination: No Past Surgical History Abdominal Surgery: No AICD: No Appendectomy: No Arteriovenous Shunt: No Body Medical Devices: PORT Cardiac Surgery: No Cholecystectomy: No Ear Surgery: No Endocrine Surgery: No Eye Surgery: No Genitourinary Surgery: No Gynecologic Surgery: No Insulin Pump: No Joint Replacement: No Neurologic Surgery: No Oral Surgery: No Pacemaker: No Thoracic Surgery: No Other Surgery: Yes (PORT INSERTION/REMOVAL, RIGHT CHEST) Social History Alcohol Use: Yes (2 BEERS PER DAY) Tobacco Use: Yes (1 PPD) Substance Use: No Allergies-Medications (Allergen,Severity, Reaction): Coded Allergies: lisinopril (Unverified Allergy, Severe, angioedema, 07/15/17) losartan (Unverified Allergy, Severe, angioedema, 07/15/17) heparin (Verified Allergy, Unknown, 07/15/17) Comments List of his allergies reviewed from the nursing note Reported Meds & Prescriptions Reported Meds & Active Scripts Active Bactrim DS (Sulfamethoxazole-Trimethoprim) 800-160 Mg Tab 1 Tab PO BID Acidophilus/l-Sporogenes (Lactobacillus Acidophilus) 35 Million Cell-25 Million Cell Tab 1 Tab PO Q12HR Amoxicillin 500 Mg Cap 500 Mg PO Q8H Prednisone 20 Mg Tab 40 Mg PO DAILY 30 Days taper dose slowly with instruction for Neurologist Dr. Kelly Mix (Apixaban) 5 Mg Tab 5 Mg PO BID Metoprolol Tartrate 100 Mg Tab 50 Mg PO BID 30 Days Gabapentin 800 Mg Tab 800 Mg PO TID 30 Days Cosopt Pf Opth Drops (Dorzolamide-Timolol Pf Opth Drops) 22.3-6.8 mg/ml Soln 1 Drop EACH EYE DAILY Latanoprost Opth Drops (Latanoprost) 0.005% Drops 1 Drop EACH EYE HS 30 Days Refrigerate until opened. Simvastatin 10 Mg Tab 10 Mg PO HS Glyburide 5 Mg Tab 5 Mg PO DAILY Take with meals at the same time each day Reported Ferrous Gluconate 325 Mg Tab 325 Mg PO DAILY Narrative Medication List of his home medications reviewed from the nursing note. Review of Systems Except as stated in HPI: all other systems reviewed are Neg Physical Exam Narrative GENERAL: Awake, alert, obese, mildest SKIN: Focused skin assessment warm/dry. The leg dressings were taken down and right foot on the dorsum was a 6 cm x 6 cm denuded skin with dermis visible and seemed to be healthy tissue. No foul-smelling discharge. Right leg had a small opening on the anterior aspect of the [place] that was oozing clear fluid. HEAD: Atraumatic. Normocephalic. EYES: Pupils equal and round. No scleral icterus. No injection or drainage. ENT: No nasal bleeding or discharge. Mucous membranes pink and moist. NECK: Trachea midline. No JVD. CARDIOVASCULAR: Regular rate and rhythm. No murmur appreciated. RESPIRATORY: No accessory muscle use. Clear to auscultation. Breath sounds equal bilaterally. GASTROINTESTINAL: Abdomen soft, non-tender, nondistended. Hepatic and splenic margins not palpable. MUSCULOSKELETAL: No obvious deformities. No clubbing. No cyanosis. Bilateral 3 + pedal edema. NEUROLOGICAL: Awake and alert. No obvious cranial nerve deficits. Motor grossly within normal limits. Normal speech. PSYCHIATRIC: Appropriate mood and affect; insight and judgment normal. Data Data Last Documented VS Orders Orders Complete Blood Count With Diff (07/15/17 05:38) Basic Metabolic Panel (Bmp) (07/15/17 05:38) Blood Culture (07/15/17 05:38) C-Reactive Protein (Crp) (07/15/17 05:38) ^ Saline Lock (07/15/17 05:38) Acetamin-Hydrocod 325-5 Mg ([place] 5-325 (07/15/17 06:30) Sulfamet-Trimeth Ds 800-160 Mg (Bactrim (07/15/17 06:45) Ed Discharge Order (07/15/17 06:40) Labs Laboratory Tests Test 07/15/17 05:55 White Blood Count 13.2 TH/MM3 Red Blood Count 4.81 MIL/MM3 Hemoglobin 13.9 GM/DL Hematocrit 43.4 % Mean Corpuscular Volume 90.2 FL Mean Corpuscular Hemoglobin 29.0 PG Mean Corpuscular Hemoglobin Concent 32.1 % Red Cell Distribution Width 13.6 % Platelet Count 150 TH/MM3 Mean Platelet Volume 9.5 FL Neutrophils (%) (Auto) 71.3 % Lymphocytes (%) (Auto) 21.4 % Monocytes (%) (Auto) 6.0 % Eosinophils (%) (Auto) 0.9 % Basophils (%) (Auto) 0.4 % Neutrophils # (Auto) 9.4 TH/MM3 Lymphocytes # (Auto) 2.8 TH/MM3 Monocytes # (Auto) 0.8 TH/MM3 Eosinophils # (Auto) 0.1 TH/MM3 Basophils # (Auto) 0.1 TH/MM3 CBC Comment DIFF FINAL Differential Comment Blood Urea Nitrogen 11 MG/DL Creatinine 0.97 MG/DL Random Glucose 52 MG/DL Calcium Level 9.0 MG/DL Sodium Level 141 MEQ/L Potassium Level 3.6 MEQ/L Chloride Level 105 MEQ/L Carbon Dioxide Level 26.2 MEQ/L Anion Gap 10 MEQ/L Estimat Glomerular Filtration Rate 95 ML/MIN C-Reactive Protein 1.59 MG/DL MDM Medical Decision Making Medical Screen Exam Complete: Yes Emergency Medical Condition: Yes Medical Record Reviewed: Yes Differential Diagnosis Cellulitis, dependent Narrative Course 6:53 AM blood test results are back and patient has slight leukocytosis but it is significantly improved from his last blood test. I am comfortable discharging him home on Bactrim. I have given him recommendations of keeping his leg elevated to keep the swelling down. I discussed all this with him and he understands. Procedures EKG Prior to Arrival: No Diagnosis Primary Impression: Pedal edema Additional Impression: Cellulitis Qualified Codes: L03.115 - Cellulitis of right lower limb Referrals: Primary Care Physician 2 days Additional Instructions: Take the antibiotic as per the prescription direction. Return to the ER if condition worsens or any other new concerns. Keep the legs elevated when not walking to keep the swelling down. Follow-up with your primary care physician in next couple days. Med/Other Pt SpecificInfo: Prescription(s) given Scripts Sulfamethoxazole-Trimethoprim (Bactrim DS) 800-160 Mg Tab 1 TAB PO BID for Infection, #20 TAB 0 Refills Prov: Jessica Yepez MD 07/15/17 Disposition: 01 DISCHARGE HOME Condition: Stable Jessica Yepez MD Jul 15, 2017 05:12
[2017-07-15 06:03] LABS: AUTOMATED NEUTROPHIL # 9.4 TH/MM3 (1.8-7.7); BASOPHIL # 0.1 TH/MM3 (0-0.2); BASOPHIL % 0.4 % (0.0-2.0); EOSINOPHIL # 0.1 TH/MM3 (0-0.4); EOSINOPHIL % 0.9 % (0.0-4.0); HEMATOCRIT 43.4 % (39.0-51.0); HEMOGLOBIN 13.9 GM/DL (13.0-17.0); LYMPH % 21.4 % (9.0-44.0); LYMPHOCYTE # 2.8 TH/MM3 (1.0-4.8); MEAN CELL VOLUME 90.2 FL (80.0-100.0); MEAN CORPUSCULAR HGB CONC 32.1 % (32.0-36.0); MEAN PLATELET VOLUME 9.5 FL (7.0-11.0); MONOCYTE # 0.8 TH/MM3 (0-0.9); NEUT % 71.3 % (16.0-70.0); PLATELET COUNT 150 TH/MM3 (150-450); RED BLOOD COUNT 4.81 MIL/MM3 (4.50-5.90); RED CELL DISTRIBUTION WIDTH 13.6 % (11.6-17.2); WHITE BLOOD COUNT 13.2 TH/MM3 (4.0-11.0)
[2017-07-15] MEDS ORDERED: ACETAMINOPHEN/HYDROcodone 325 MG/5 MG TAB PO ONE (06:30)
[2017-07-15 06:33] LABS: BICARBONATE 26.2 MEQ/L (21.0-32.0); C-REACTIVE PROTEIN 1.59 MG/DL (0.00-0.30); CREATININE 0.97 MG/DL (0.60-1.30)
[2017-07-15] MEDS ORDERED: BACT800T5 PO (06:40)
[2017-07-15] MEDS ORDERED: SULFAMETHOXAZOLE-TRIMETHOPRIM DS 800-160 MG TAB PO ONE (06:45)
== END 2017-07-15 06:57 | disposition home or self-care (01) ==
LOC: NEPC 04:06
DX: L03.115 Cellulitis of right lower limb (principal); R60.0 Localized edema; D72.829 Elevated white blood cell count, unspecified; E11.9 Type 2 diabetes mellitus without complications; I10 Essential (primary) hypertension; M19.90 Unspecified osteoarthritis, unspecified site; F17.200 Nicotine dependence, unspecified, uncomplicated; Z79.899 Other long term (current) drug therapy; Z86.718 Personal history of other venous thrombosis and embolism
CPT/HCPCS: 80048; 85025; 86140; 87040; 99283